=== PATIENT | male | born 1940 | race Caucasian/White ===

== ENCOUNTER 2018-04-19 17:41 | Inpatient (IN) | payer MEDICARE, OTHER ==
[2018-04-19 19:04] LABS: CKMB 1.1 ng/mL (0-6.6); Troponin I 0.034 ng/mL (< 0.028)
[2018-04-19] MEDS ORDERED: Ondansetron HCl/PF 4 MG/2 ML Vial IVP PRN (21:27)
[2018-04-19] MEDS ORDERED: Ondansetron ODT 4 MG TAB SL PRN (21:27)
[2018-04-19] MEDS ORDERED: Acetaminophen 325 MG TAB PO PRN (21:27)
[2018-04-19] MEDS ORDERED: Nitroglycerin 0.4 MG TAB (25 Tab Bottle) ONE (22:20)
[2018-04-19 22:31] LABS: Troponin I 0.083 ng/mL (< 0.028)
[2018-04-20 01:02] LABS: Troponin I 0.278 ng/mL (< 0.028)
[2018-04-20] MEDS: Enoxaparin Sodium 80 MG/0.8 ML SYRINGE SC SCH ×2 (03:06→20:26)
[2018-04-20 05:10] LABS: Cardiac Risk 3.1 (Less than 4.5)
[2018-04-20 05:18] LABS: CKMB 11.5 ng/mL (0-6.6); Troponin I 0.926 ng/mL (< 0.028)
--- NOTE | 2018-04-20 07:23 | HP ---
CHIEF COMPLAINT: Chest pain. HISTORY OF PRESENT ILLNESS: The patient is a very pleasant 77-year-old male with history of hyperten ashli, who presents to the hospital with complaints of chest tightness x2 days. Patient stated that veronica sanches did some heavy work on Sunday. Patient stated that he started having some chest tightness start ing on ; however, did not think very much of it. However, Sunday morning, his chest pressure became more intense around the substernal area radiating to his upper back area. He also had some s hortness of breath with it. He denied any radiation of the pain on his upper extremity or neck area. Patient stated that he has had a stress test in the past; however, never had a cardiac catheterizat ion. Patient denies any chest pain or pressure on ambulation. The patient stated that his chest natasha n occurred yesterday while he was resting. PAST MEDICAL HISTORY: History of hypertension. FAMILY HISTORY: Mother of congestive heart failure. Father of lung cancer. PAST SURGICAL HISTORY: He had a prostatectomy and TURP back in 2004. SOCIAL HISTORY: He drinks socially. He denies any drug use or any smoking history. REVIEW OF SYSTEMS: All negative except for the ones mentioned above in the HPI. MEDICATIONS: The patient takes aspirin 81 mg daily. He is also on nifedipine 60 mg daily, and vitam in C 500 mg p.o. daily. PHYSICAL EXAMINATION: VITAL SIGNS: Temperature 98.0, 79, 15, 95% on room air, blood pressure of 114/68. GENERAL: He is awake, alert, and oriented x3, does not appear in any distress. CARDIOVASCULAR: S1, S2 present. No murmurs, rubs or gallops. ABDOMEN: Soft, nontender. Bowel sounds are present x2. No hepatomegaly or splenomegaly noted. NEUROVASCULAR: No focal deficits noted. SKIN: Intact. LABORATORY DATA: As the following. WBCs of 7.7, hemoglobin of 14.3, hematocrit of 40.4, platelets o f 287. Chemistry: Sodium of 143, potassium 4.3, BUN of 26, creatinine of 1.01. His troponin initia lly was 0.018 and started to trend up to 0.278. IMAGING: EKG, initially patient did not have any significant changes; however, on repeat EKG with trending troponin, he did have some T-wave abnormalities. ASSESSMENT AND PLAN: The patient is a very pleasant 77-year-old male who presents to the hospital wi th chest pain. 1. Chest pain. Given patient's age, risk factors including hypertension and male sex and given his history and trending up troponins with some mild EKG changes, there is concern for possible non-ST el evation myocardial infarction. We will start the patient on Lovenox. Patient received aspirin. We will continue aspirin also, will add statin. We will continue to trend troponins. Also, we will get Cardiology to come see the patient. We will hold off on the stress test for now. 2. Hypertension. We will continue the patient's home medication. 3. Deep venous thrombosis prophylaxis. We will put the patient on subcu heparin.
[2018-04-20] MEDS: Aspirin 325 MG TAB PO SCH (08:25)
[2018-04-20] MEDS: NIFEdipine XL 60 MG TAB PO SCH (08:25)
[2018-04-20] MEDS: Atorvastatin Calcium 20 MG TAB PO SCH (20:26)
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
[2018-04-21] MEDS: NIFEdipine XL 60 MG TAB PO SCH (09:17)
[2018-04-21] MEDS: Enoxaparin Sodium 80 MG/0.8 ML SYRINGE SC SCH (09:17)
[2018-04-21] MEDS: Aspirin 325 MG TAB PO SCH (09:17)
[2018-04-21 11:29] LABS: Hemoglobin 14.7 g/dL (14.0-18.0); Platelet Count 286 thou/uL (130-400)
--- NOTE | 2018-04-21 14:14 | PDOC.PN ---
- Subjective Encounter Start Date: 04/21/18 Encounter Start Time: 14:12 Subjective: few episodes of 2-3/10 chest pain this morning. not a/w any SOB/ nausea - Objective MAR Reviewed: Yes Vital Signs & Weight: Vital Signs (12 hours) Temp Pulse Resp BP Pulse Ox 04/21/18 10:45 97.7 F 86 18 96 04/21/18 10:30 97.7 F 86 18 150/85 H 96 Result Diagrams: 04/21/18 11:06 04/21/18 11:06 Additional Labs: Laboratory Tests 04/19/18 04/19/18 04/20/18 18:32 21:36 00:25 Troponin I 0.034 H 0.083 H 0.278 H 04/20/18 04:42 Troponin I 0.926 H* labs reviewed Phys Exam - Physical Examination Constitutional: NAD HEENT: PERRLA, moist MMs, sclera anicteric, oral pharynx no lesions Neck: no nodes, no JVD, supple, full ROM Respiratory: no wheezing, no rales, no rhonchi, clear to auscultation bilateral Cardiovascular: RRR, no significant murmur, no rub Gastrointestinal: soft, non-tender, no distention, positive bowel sounds Musculoskeletal: no edema, pulses present Neurological: non-focal, normal sensation, moves all 4 limbs Psychiatric: normal affect, A&O x 3 Skin: no rash Dx/Plan (1) Unstable angina Status: Acute (2) NSTEMI (non-ST elevated myocardial infarction) Code(s): I21.4 - NON-ST ELEVATION (NSTEMI) MYOCARDIAL INFARCTION Status: Acute Comment: On ASA,statin and Lovenox BID 1mg/kg (3) HTN (hypertension) Code(s): I10 - ESSENTIAL (PRIMARY) HYPERTENSION Status: Acute - Plan plan discussed w/ family, out of bed/ambulate, DVT proph w/SCDs troponin trended up but remians hemodynamically stable. -: will cont BID lovenox for ACS. -: Cardiac cath tomorrow am. -: will change to Inpt status . -: add BB and low dose shiv-i as well if BP permits * . Review of Systems - Review of Systems Constitutional: negative: fever, chills, sweats, weakness, malaise, other ENT: negative: Ear Pain, Ear Discharge, Nose Pain, Nose Discharge, Nose Congestion, Mouth Pain, Mouth Swelling, Throat Pain, Throat Swelling, Other Respiratory: negative: Cough, Dry, Shortness of Breath, Hemoptysis, SOB with Excertion, Pleuritic Pain, Sputum, Wheezing Cardiovascular: chest pain Gastrointestinal: negative: Nausea, Vomiting, Abdominal Pain, Diarrhea, Constipation, Melena, Hematochezia, Other Genitourinary: negative: Dysuria, Frequency, Incontinence, Hematuria, Retention , Other Musculoskeletal: negative: Neck Pain, Shoulder Pain, Arm Pain, Back Pain, Hand Pain, Leg Pain, Foot Pain, Other Skin: negative: Rash, Lesions, Guillermo, Bruising, Other Neurological: negative: Weakness, Numbness, Incoordination, Change in Speech, Confusion, Seizures, Other - Medications/Allergies Allergies/Adverse Reactions: Allergies Allergy/AdvReac Type Severity Reaction Status Date / Time No Known Allergies Allergy Verified 04/20/18 00:08 Medications: Current Medications Aspirin (Aspirin) 325 mg PO DAILY [facility] Last Admin: 04/21/18 09:17 Dose: 325 mg Atorvastatin Calcium (Lipitor) 20 mg PO HS [facility] Last Admin: 04/20/18 20:26 Dose: 20 mg Enoxaparin Sodium (Lovenox) 80 mg SC 0900,2100 [facility] Last Admin: 04/21/18 09:17 Dose: 80 mg Nifedipine (Procardia Xl) 60 mg PO DAILY [facility] Last Admin: 04/21/18 09:17 Dose: 60 mg Sodium Chloride (Flush - Normal Saline) 10 ml IVF Q12HR [facility] Last Admin: 04/21/18 09:17 Dose: 10 ml Sodium Chloride (Flush - Normal Saline) 10 ml IVF PRN PRN PRN Reason: Saline Flush
[2018-04-21] MEDS ORDERED: Lisinopril 10 MG TAB PO SCH (15:30)
[2018-04-21] MEDS ORDERED: Sodium Chloride 0.9% 1,000 ML IV SCH (15:30)
[2018-04-21] MEDS ORDERED: Communication Order-Pharmacy FS SCH (15:30)
[2018-04-21] MEDS ORDERED: Heparin 10,000 UNITS/ 10 ML VIAL ONE (15:56)
[2018-04-21] MEDS: Carvedilol 6.25 MG TAB PO SCH (16:27)
[2018-04-21] MEDS: Nitroglycerin 2% Ointment 1 INCH/1 GM Packet TOP SCH (20:32)
[2018-04-21] MEDS: Atorvastatin Calcium 20 MG TAB PO SCH (20:32)
[2018-04-22] MEDS: Carvedilol 6.25 MG TAB PO SCH ×2 (05:26→17:50)
[2018-04-22] MEDS: Nitroglycerin 2% Ointment 1 INCH/1 GM Packet TOP SCH (05:27)
[2018-04-22 05:50] LABS: Anion Gap 8 mmol/L (10-20); BUN (Urea Nitrogen) 19 mg/dL (8.4-25.7); Calc. Creatinine Clearance 79 mL/min (70-130); Carbon Dioxide 26 mmol/L (23-31); Chloride 110 mmol/L (98-107); Estimated GFR-MDRD 88; Glucose 89 mg/dL (83-110); Potassium 3.9 mmol/L (3.5-5.1); Sodium 140 mmol/L (136-145)
[2018-04-22] MEDS ORDERED: Sodium Chloride 0.9% 1,000 ML IV SCH ×3 (06:00→08:00)
[2018-04-22] MEDS ORDERED: Lidocaine 1% (PF) 30 ML VIAL ONE (06:32)
[2018-04-22] MEDS ORDERED: Heparin 10,000 UNITS/1 ML VIAL ONE (06:37)
[2018-04-22] MEDS ORDERED: Fentanyl 100 MCG/2 ML VIAL ONE (07:20)
[2018-04-22] MEDS ORDERED: Midazolam HCl 2 mg/2 ml Vial ONE (07:20)
[2018-04-22] MEDS ORDERED: Atropine Sulfate 1 mg/1 ml Vial ONE (07:42)
[2018-04-22] MEDS ORDERED: Heparin 25,000 units/D5W 500 ML ONE (07:46)
[2018-04-22] MEDS ORDERED: traMADol HCl 50 MG TAB PO PRN (07:50)
[2018-04-22] MEDS ORDERED: Nitroglycerin 0.4 MG TAB (25 Tab Bottle) SL PRN (07:50)
[2018-04-22] MEDS ORDERED: Acetaminophen/Codeine 30-300mg Tablet PO PRN ×2 (07:50)
[2018-04-22] MEDS ORDERED: Sodium Chloride 0.9% 200 ML IV SCH (08:00)
[2018-04-22] MEDS ORDERED: Heparin 25,000 units/D5W 500 ML IVPB SCH (08:00)
[2018-04-22] MEDS ORDERED: Heparin 10,000 UNITS/ 10 ML VIAL SLOW IVP SCH (08:00)
[2018-04-22] MEDS ORDERED: Lisinopril 20 MG TAB PO SCH (09:00)
[2018-04-22 09:17] LABS: Hemoglobin 12.9 g/dL (14.0-18.0); Platelet Count 243 thou/uL (130-400)
[2018-04-22] MEDS ORDERED: Communication Order-Pharmacy FS ONE (10:41)
[2018-04-22] MEDS: Aspirin 325 MG TAB PO SCH (10:43)
[2018-04-22] MEDS ORDERED: Potassium Chlo 10 mEq/5 ml Syr ONE (11:13)
[2018-04-22] MEDS ORDERED: Aminocaproic Acid 5 GM/20 ML VIAL ONE ×2 (11:13→14:46)
[2018-04-22] MEDS ORDERED: Heparin 30,000 units/30 ml VIAL ONE ×2 (11:13→14:46)
[2018-04-22] MEDS ORDERED: Mannitol 12.5 GM/50 ML ONE (11:13)
[2018-04-22] MEDS ORDERED: EPINEPHrine 1 MG/ML AMP ONE ×2 (11:13→23:19)
[2018-04-22] MEDS ORDERED: Magnesium 5 GM/10 ML VIAL ONE (11:13)
[2018-04-22] MEDS ORDERED: Calcium Chloride 1 GM/10 ML Abboject SYRINGE ONE ×2 (11:13→22:57)
[2018-04-22] MEDS ORDERED: Protamine Sulfate 250 MG/25 ML VIAL ONE (11:13)
[2018-04-22] MEDS ORDERED: Sodium Bicarb 50 MEQ/50 ML VIAL ONE ×2 (11:13→14:46)
[2018-04-22] MEDS ORDERED: Lidocaine 2% PF 100 mg/5 ml Syringe ONE (11:13)
[2018-04-22] MEDS ORDERED: Nitroglycerin 50 MG/250 ML BOT ONE (11:13)
[2018-04-22] MEDS ORDERED: Heparin 10,000 UNITS/1 ML VIAL 30,000 UNITS in Sodium Chloride 0.9% 1,000 ML IVPB SCH (11:30)
[2018-04-22] MEDS ORDERED: Albumin 5% 500 ML ONE (11:35)
--- NOTE | 2018-04-22 11:46 | RAD ---
CHEST ONE VIEW: History: Pre-operative exam. Open heart surgery. Comparison: 04-19-18 FINDINGS: There is a normal cardiac silhouette. The pulmonary vessels and hilum are normal. Costophrenic angles are clear. Chronic changes throughout the lung parenchyma without consolidation or mass. No pneumoth orax. Old right rib fractures. Stable scoliotic rightward curvature of the thoracic spine. IMPRESSION: No acute cardiopulmonary process. POS: [facility]
[2018-04-22] MEDS ORDERED: Sodium Chloride 0.9% 10 ML ONE (11:59)
[2018-04-22] MEDS ORDERED: CEFAZOLIN/Water 2 GM/20 ML SYRINGE SLOW IVP SCH (12:45)
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
[2018-04-22] MEDS ORDERED: Fentanyl 250 MCG/5 ML VIAL ONE (13:00)
[2018-04-22] MEDS ORDERED: Midazolam HCl 5 mg/5 ml Vial ONE (13:00)
[2018-04-22] MEDS ORDERED: Norepinephrine 8 MG/0.9% NS 250 ML ONE (13:11)
[2018-04-22] MEDS ORDERED: Iopamidol 370 76% 100 ML VIAL ONE (13:29)
[2018-04-22] MEDS ORDERED: Iopamidol 370 76% 50 ML VIAL FS ONE (13:29)
[2018-04-22] MEDS ORDERED: Phenylephrine 1% Nasal Spray 15 ML BOT ONE (14:21)
[2018-04-22] MEDS ORDERED: Phenylephrine 0.25% Nasal Spray 15 ML BOT ONE (14:21)
[2018-04-22] MEDS ORDERED: PHENYLEPHRINE-NS 100 MCG/ML 10 ML SYRINGE ONE ×3 (14:23→19:28)
[2018-04-22] MEDS ORDERED: ePHEDrine/0.9% NaCl/PF SYRINGE 50 mg/10 ml ONE (14:46)
[2018-04-22] MEDS ORDERED: Papaverine 60 MG/2 ML VIAL ONE (14:46)
[2018-04-22] MEDS ORDERED: Vecuronium 10 MG VIAL ONE (14:46)
[2018-04-22] MEDS ORDERED: Heparin 5,000 UNITS/ML VIAL ONE (14:46)
[2018-04-22] MEDS ORDERED: PROPOFOL 200 MG/20 ML VIAL ONE (14:46)
[2018-04-22] MEDS ORDERED: Cardioplegic Soln 1,000 ML BAG ONE (14:46)
--- NOTE | 2018-04-22 15:16 | PDOC.PN ---
- Subjective Encounter Start Date: 04/22/18 Encounter Start Time: 15:11 (late entry) Subjective: seen in CCU post cardiac cath.plans for CABG later today noted -: denies any chest pain/SOB - Objective MAR Reviewed: Yes Vital Signs & Weight: Vital Signs (12 hours) Temp Pulse Resp BP Pulse Ox 04/22/18 12:00 97.5 F L 04/22/18 09:25 97.6 F 52 L 12 96 04/22/18 06:39 97 04/22/18 04:00 98.0 F 78 17 115/61 94 L Most Recent Monitor Data Heart Rate from ECG 54 NIBP 128/79 NIBP BP-Mean 85 Respiration from ECG 19 SpO2 96 I&O: 04/21/18 04/22/18 04/23/18 06:59 06:59 06:59 Intake Total 930 Output Total 350 Balance 930 -350 Result Diagrams: 04/22/18 08:53 04/22/18 04:22 Additional Labs: Accuchecks 04/22/18 04/22/18 14:42 14:05 POC Glucose 121 H 95 labs reviewed Phys Exam - Physical Examination Constitutional: NAD HEENT: PERRLA, moist MMs, sclera anicteric, oral pharynx no lesions Neck: no nodes, no JVD, supple, full ROM Respiratory: no wheezing, no rales, no rhonchi, clear to auscultation bilateral Cardiovascular: RRR, no significant murmur, no rub Gastrointestinal: soft, non-tender, no distention, positive bowel sounds Musculoskeletal: no edema, pulses present Neurological: non-focal, normal sensation, moves all 4 limbs Psychiatric: normal affect, A&O x 3 Skin: no rash Dx/Plan (1) Unstable angina Status: Acute Comment: s/p cardiac cath 04/22/18 (2) NSTEMI (non-ST elevated myocardial infarction) Code(s): I21.4 - NON-ST ELEVATION (NSTEMI) MYOCARDIAL INFARCTION Status: Acute Comment: treated with ASA,statin and Lovenox BID 1mg/kg (3) HTN (hypertension) Code(s): I10 - ESSENTIAL (PRIMARY) HYPERTENSION Status: Acute (4) CAD (coronary artery disease) Code(s): I25.10 - ATHSCL HEART DISEASE OF [place] CORONARY ARTERY W/O ANG PCTRS Status: Chronic Qualifiers: Coronary Disease-Associated Artery/Lesion type: [place] artery Comment: Per cardiac Cath today - Plan PT/OT, respiratory therapy, incentive spirometry, out of bed/ambulate, DVT proph w/SCDs To OR for CABG today.Severe CAD in cath -: hemodynamically stable. -: am labs -: will follow -: meds as below * . Review of Systems - Review of Systems Constitutional: negative: fever, chills, sweats, weakness, malaise, other ENT: negative: Ear Pain, Ear Discharge, Nose Pain, Nose Discharge, Nose Congestion, Mouth Pain, Mouth Swelling, Throat Pain, Throat Swelling, Other Respiratory: negative: Cough, Dry, Shortness of Breath, Hemoptysis, SOB with Excertion, Pleuritic Pain, Sputum, Wheezing Cardiovascular: negative: chest pain, palpitations, orthopnea, paroxysmal nocturnal dyspnea, edema, light headedness, other Gastrointestinal: negative: Nausea, Vomiting, Abdominal Pain, Diarrhea, Constipation, Melena, Hematochezia, Other Genitourinary: negative: Dysuria, Frequency, Incontinence, Hematuria, Retention , Other Musculoskeletal: negative: Neck Pain, Shoulder Pain, Arm Pain, Back Pain, Hand Pain, Leg Pain, Foot Pain, Other Skin: negative: Rash, Lesions, Guillermo, Bruising, Other Neurological: negative: Weakness, Numbness, Incoordination, Change in Speech, Confusion, Seizures, Other - Medications/Allergies Allergies/Adverse Reactions: Allergies Allergy/AdvReac Type Severity Reaction Status Date / Time No Known Allergies Allergy Verified 04/20/18 00:08 Medications: Current Medications Atorvastatin Calcium (Lipitor) 20 mg PO [facility] Carvedilol (Coreg) 6.25 mg PO BID-[facility] Last Admin: 04/22/18 05:26 Dose: 6.25 mg Cefazolin Sodium (Ancef) 2 gm SLOW IVP ONE [facility] Stop: 04/22/18 16:00 Heparin Sodium (Porcine) 30, (000 units/ Sodium Chloride) 1,003 mls @ 0 mls/hr IVPB .Q0M [facility] PRN Reason: As Directed Lisinopril (Zestril) 20 mg PO BID [facility] Last Admin: 04/22/18 10:44 Dose: Not Given Miscellaneous Information (Communication Order-Pharmacy) 0 each FS ONE [facility] Stop: 04/22/18 15:31 Sodium Chloride (Flush - Normal Saline) 10 ml IVF PRN PRN PRN Reason: Saline Flush
[2018-04-22] MEDS ORDERED: Rocuronium Bromide 50 MG/5 ML VIAL ONE (15:26)
[2018-04-22] MEDS ORDERED: Guaifenesin DM 100-10/5 ML UDCUP PO PRN (17:25)
[2018-04-22] MEDS ORDERED: Mag-Al 1200 mg/1200 mg/30 ML UDCUP PO PRN (17:25)
[2018-04-22] MEDS ORDERED: Post-Op Insulin Drip Protocol IVPB ONE (17:25)
[2018-04-22] MEDS ORDERED: Bisacodyl 5 MG TAB PO PRN (17:25)
[2018-04-22] MEDS ORDERED: Fentanyl 100 MCG/2 ML VIAL SLOW IVP PRN ×2 (17:25)
[2018-04-22] MEDS ORDERED: Nitroglycerin 50 MG/250 ML BOT 250 ML IVPB PRN (17:25)
[2018-04-22] MEDS ORDERED: Hetastarch 6% 500 ML 500 ML IVPB PRN (17:25)
[2018-04-22] MEDS ORDERED: HYDROcodone/Acetaminophen 5/325 mg Tablet PO PRN ×2 (17:25)
[2018-04-22] MEDS ORDERED: Promethazine HCl 25 MG/ML VIAL IM PRN (17:25)
[2018-04-22] MEDS ORDERED: Bisacodyl 10 MG SUPP PR PRN (17:25)
[2018-04-22] MEDS ORDERED: Dextrose 50% Abboject 50 ML SYRINGE SLOW IVP PRN (17:29)
[2018-04-22] MEDS ORDERED: Dextrose 5% in Water 1,000 ML IV PRN (17:29)
[2018-04-22] MEDS ORDERED: Sodium Bicarb 50 MEQ/50 ML Abboject 8.4% SYRINGE ONE ×2 (17:31→22:33)
[2018-04-22] MEDS: Sodium Chloride 0.9% 1,000 ML IV SCH ×2 (17:50→21:54)
[2018-04-22] MEDS: Ketorolac Tromethamine 30 MG/ML VIAL IVP SCH (17:50)
[2018-04-22] MEDS ORDERED: Insulin Regular 300 UNITS/3 ML VIAL ONE (18:21)
--- NOTE | 2018-04-22 19:56 | EKG ---
Test Reason : PREOP Blood Pressure : / mmHG Vent. Rate : 053 BPM Atrial Rate : 053 BPM P-R Int : 166 ms QRS Dur : 098 ms QT Int : 532 ms P-R-T Axes : 036 -27 055 degrees QTc Int : 499 ms Sinus bradycardia Marked T wave abnormality, consider anterolateral ischemia Prolonged QT Abnormal ECG When compared with ECG of 20-APR-2018 05:34, (Unconfirmed) T wave inversion more evident in Lateral leads Confirmed by DR. Courtney RAMOS ([id number]) on 04/22/2018 7:55:31 PM Referred By: SHAKILA Confirmed By:DR. Courtney RAMOS
[2018-04-22] MEDS ORDERED: Famotidine/PF 20 mg/2ml Vial SLOW IVP SCH (21:00)
--- NOTE | 2018-04-22 21:27 | RAD ---
CHEST ONE VIEW: HISTORY: Post open heart surgery. COMPARISON: Radiograph from the same day. FINDINGS: The patient is intubated with the endotracheal tube tip above the clavicles. Central venous catheter is in place with the tip in the mid to inferior SVC. Moderate sized layering left effusion. Heart size is enlarged. Multiple median sternotomy wires. Left thoracostomy and mediastinal drains are pr esent. IMPRESSION: Exptected postoperative changes without complications. POS: [facility]
[2018-04-22 21:28] LABS: INR-International Normal Ratio 1.7; PTT 53.5 SEC (22.9-36.1); Prothrombin Time 19.9 SEC (12.0-14.7)
[2018-04-22 21:34] LABS: Potassium 4.1 mmol/L (3.5-5.1)
[2018-04-22 21:44] LABS: Anion Gap 16 mmol/L (10-20); BUN (Urea Nitrogen) 17 mg/dL (8.4-25.7); Calc. Creatinine Clearance 71 mL/min (70-130); Calcium 7.5 mg/dL (7.8-10.44); Carbon Dioxide 21 mmol/L (23-31); Chloride 113 mmol/L (98-107); Estimated GFR-MDRD 77; Glucose 192 mg/dL (83-110); Potassium 4.1 mmol/L (3.5-5.1); Sodium 146 mmol/L (136-145)
[2018-04-22] MEDS: Sodium Bicarb 50 MEQ/50 ML Abboject 8.4% SYRINGE ONE ×4 (21:52→22:35)
[2018-04-22] MEDS: Atorvastatin Calcium 10 MG TAB PO SCH (21:53)
[2018-04-22] MEDS: Norepinephrine 8 MG/0.9% NS 250 ML IVPB PRN (21:54)
[2018-04-22 22:12] LABS: #Eosinphils 0.1 thou/uL (0.0-0.7); #Lymphocytes 2.6 thou/uL (1.20-3.40); #Monocytes 0.2 thou/uL (0.11-0.59); #Neutrophils 7.4 thou/uL (1.40-6.50); %Basophils 0.2 % (0.0-1.0); %Eosinophils 0.6 % (0.0-10.0); %Lymphocytes 25.3 % (21.0-51.0); %Monocytes 1.8 % (0.0-10.0); %Neutrophils 72.1 % (42.0-75.0); Hemoglobin 5.6 g/dL (14.0-18.0); Mean Corpuscular HGB CONC 34.9 g/dL (32.0-36.0); Mean Corpuscular Hemoglobin 33.6 pg (27.0-31.0); Mean Corpuscular Volume 96.4 fL (78.0-98.0); Mean Platelet Volume 6.5 fL (7.4-10.4); Platelet Count 82 thou/uL (130-400); RBC Distribution Width 14.9 % (11.5-14.5); Red Blood Cell (RBC) Count 1.65 mill/uL (4.70-6.10); White Blood Cell (WBC) Count 10.3 thou/uL (4.8-10.8)
[2018-04-22 22:35] LABS: Actual Bicarbonate (HCO3a) 19.3 mEq/L (22-28); Base Excess (BEa) -6.1 mEq/L (-2.0 to +3.0); CO2 Tension 37.6 mmHg (35.0-45.0); Hemoglobin (Hb) 6.5 g/dL (14.0-18.0); O2 Tension (PaO2) 75.9 mmHg (> 70.0); pH, Arterial 7.33 (7.35-7.45)
[2018-04-22 22:36] LABS: Puncture Site LINE
[2018-04-22 22:37] LABS: Base Excess (BEa) -8.3 mEq/L (-2.0 to +3.0); CO2 Tension 40.1 mmHg (35.0-45.0); O2 Tension (PaO2) 68.1 mmHg (> 70.0); pH, Arterial 7.27 (7.35-7.45)
[2018-04-22 22:38] LABS: Calcium, Ionized 1.7 mmol/L (1.12-1.30); Hemoglobin (Hb) 8.4 g/dL (14.0-18.0); Puncture Site LINE
[2018-04-22 22:39] LABS: ALV-art Gradient 235.775 (0-20)
[2018-04-22] MEDS ORDERED: EPINEPHrine 1 MG, Admixture Fee 1 EACH in Dextrose 5% in Water 250 ML IVPB SCH (23:15)
[2018-04-22] MEDS ORDERED: EPINEPHrine 1 MG/10 ML Abboject SYRINGE ONE (23:19)
[2018-04-22 23:40] LABS: Actual Bicarbonate (HCO3a) 17.7 mEq/L (22-28); Base Excess (BEa) -6.9 mEq/L (-2.0 to +3.0); CO2 Tension 31.7 mmHg (35.0-45.0); O2 Tension (PaO2) 69.5 mmHg (> 70.0); pH, Arterial 7.37 (7.35-7.45)
[2018-04-22 23:41] LABS: Hemoglobin (Hb) 6.7 g/dL (14.0-18.0); Puncture Site LINE
[2018-04-22 23:42] LABS: ALV-art Gradient 244.875 (0-20)
[2018-04-23 00:02] LABS: Fibrinogen 152 mg/dL (253-463); INR-International Normal Ratio 1.7; Prothrombin Time 20.2 SEC (12.0-14.7)
[2018-04-23 00:03] LABS: D-Dimer Test 2.92 *mcg/mL (0.27-0.43); PTT 58.2 SEC (22.9-36.1)
[2018-04-23 00:14] LABS: FSP-Qualitative ABNORMAL (Normal); FSP-Semiquantitative >=5 & <20 mcg/mL (Less than 5)
[2018-04-23 00:15] LABS: Platelet Count 138 thou/uL (130-400)
[2018-04-23] MEDS: Norepinephrine 8 MG/0.9% NS 250 ML IVPB PRN ×4 (00:17→14:30)
[2018-04-23] MEDS: Ketorolac Tromethamine 30 MG/ML VIAL IVP SCH ×3 (00:24→12:17)
[2018-04-23 00:50] LABS: Actual Bicarbonate (HCO3a) 16.2 mEq/L (22-28); CO2 Tension 29.4 mmHg (35.0-45.0); pH, Arterial 7.36 (7.35-7.45)
[2018-04-23 00:51] LABS: Base Excess (BEa) -8.3 mEq/L (-2.0 to +3.0); Calcium, Ionized 1.1 mmol/L (1.12-1.30); Hemoglobin (Hb) 8.9 g/dL (14.0-18.0); Puncture Site LINE
[2018-04-23] MEDS ORDERED: EPINEPHrine 2 MG, Admixture Fee 1 EACH in Dextrose 5% in Water 250 ML IVPB SCH (01:00)
[2018-04-23] MEDS ORDERED: Calcium Chloride 1 GM/10 ML Abboject SYRINGE IVP SCH (01:15)
--- NOTE | 2018-04-23 03:03 | OP ---
DATE OF PROCEDURE: 04/22/2018 PROCEDURE PERFORMED: Coronary artery bypass grafting x3 with left internal mammary artery to the LAD and reverse greater saphenous vein graft from the aorta to the PDA to the posterolateral branch of t he RCA, 34 mm tube graft replacement of supracoronary ascending aorta under circulatory arrest and re suspension of aortic valve leaflets. PREOPERATIVE DIAGNOSIS: Coronary artery disease, status post myocardial infarction. POSTOPERATIVE DIAGNOSIS: Coronary artery disease, status post myocardial infarction. SURGEON: Bola Dixon M.D. PHOTONICS TECHNICIAN: Dr. Mcconnell. ANESTHESIA: General endotracheal anesthesia. INDICATIONS: The patient is a 77-year-old man who presented with stuttering pattern of chest pain an d ruled in for myocardial infarction. Cardiac catheterization demonstrated coronary artery disease i ncluding a subtotal LAD lesion just beyond the first septal assistant printer floor covering with slow filling beyond. He is now taken to the operating room for surgical revascularization. COMPLICATIONS: Dissection of the ascending aorta. FINDINGS: Initial pump time 69 minutes and initial cross clamp time 45 minutes. Follow up pump time was a total of 151 minutes with bypass initiated with the time from initiation of bypass to successf ul weaning from bypass 171 minutes. Circulatory arrest time was 20 minutes and cardiac ischemic time was 45 minutes. Good quality KHANH and saphenous vein. The LAD was about 2 mm good quality vessel. The posterolateral branch of the right coronary accessible was 1-1.5 mm, and the PDA was 2 mm. The d istal right coronary was rock hard and it is elected to graft the posterolateral proper rather than t he right coronary to perfuse that distribution. The ascending aorta became distinctly discolored wit h soft ballottable texture to it with profuse needle hole bleeding developing shortly after weaning f rom bypass. Transesophageal echocardiography corroborated the clinical suspicion of dissection, but upon opening the aorta, there was an extensive subadventitial dissection extending down below the cor onaries and beyond the innominate artery, but there is no apparent intimal flap seen. NARRATIVE REPORT: After informed consent was obtained, the patient taken to the operating room and p laced in supine position on the operating table. After induction of general anesthesia, the patient was placed in Trendelenburg and his left upper chest was prepped and draped in sterile fashion. A tr iple-lumen central line kit was used to place a left subclavian line with the Seldinger technique. A ll three ports easily aspirated and flushed. The line was secured and the patient's torso, groins an d lower extremities were then prepped and draped in sterile fashion. Saphenous vein was harvested fr om the left thigh endoscopically and prepared for use as a graft and the port site was closed in laye rs of subcutaneous and subcuticular Vicryl. Median sternotomy was performed. The left pleural space was entered and the left KHANH was mobilized as a pedicle from the level of the xiphoid to the level o f the subclavian vein. Side branches controlled small Hemoclips. The patient was heparinized. The mammary was ligated and divided distally. There is good flow through the mammary which was then inst illed intraluminally with papaverine solution. The mammary bed was inspected for hemostasis. The IM A retractor was placed with a Sargent retractor. The pericardium was opened and marsupialized. The ao rta was palpated and was soft. The plane between the aorta and the pulmonary artery was developed af ter placing a double concentric pursestring of 2-0 Ethibond at the pericardial reflection and single pursestring the right atrial appendage. Aortic and venous cannula were inserted and secured by the p ursestrings. Cardiopulmonary bypass was instituted and the patient was systemically cooled. The hea rt was examined. The vessel to be bypassed, were identified. A longitudinal slit was made in the pe ricardium anterior to the left phrenic nerve through which the mammary pedicle could be passed and ao rtic cross clamp was applied and cardioplegia was administered through the an aortic root needle with out difficulty. When arrest had been achieved, attention was turned to the posterolateral branch of the right coronary, where it emerged from the fat pad at the AV groove. The vessel was opened with a [place] blade and [place] scissors and reverse greater saphenous vein was anastomosed to it in end-t o-side with running Prolene and the anastomosis was tested by flushing cold cardioplegic down the gra ft. The PDA was then opened and the [id number] anastomosis was constructed from that vein graft to the PDA and the anastomosis likewise tested. The LAD was open and the mammary was anastomosed with running 7-0 Prolene and tacked to the epicardium. The aortic crossclamp was placed with partial occl uding clamp and an aortotomy was made in the ascending aorta with a scalpel and punch incorporating t he root needle site. The sequential vein graft was trimmed to length and spatulated and anastomosed their end-to-side with running Prolene suture. The partial occluding clamp was removed and the vein graft was deaired. The bulldog was removed from it. The anastomoses were inspected for hemostasis. Posterior pericardial and left pleural drains were brought through separate incisions and secured wi th suture. Right atrial and right ventricular temporary epicardial pacing wires were placed. The pa tient was then easily from cardiopulmonary bypass as preparations were made to decannulate, the aorta was noted to be discolored and there to be extensive needle hole bleeding coming from the proximal anastomosis. During a brief period of observation, the discoloration seemed to progress and the texture of the aorta seemed abnormal, seem larger than it had preoperatively and there were area s that were soft and ballottable. While director trade was summoned to the room to help with examinati on of the aorta by transesophageal echocardiography, an oblique incision was made about a fingerbread th below and parallel to the left groin crease and the femoral artery was exposed. It was a large ve ssel, but there was no discoloration and upon opening it transversely between vascular clamps. There was only one lumen noted. A 24-[place] femoral arterial cannula was inserted and secured by an umbil ical tape and Rumel. Echocardiography demonstrated what appeared to represent a dissection flap. Ca rdiopulmonary bypass was reinstituted and cooling begun. When the temperature reached when the patie nt was cooling, pursestring was placed in the right superior pulmonary vein and once the patient bega n to fibrillate, a sump vent was placed. Pursestring was placed in the right atrial free wall throug h which a retrograde cardioplegic cannula was placed. When the patient reached 18 degrees centigrade , he was placed in Trendelenburg, antegrade flows in the bypass pump were terminated and cardioplegia was administered through the retrograde catheter while the patient was partially exsanguinated. The aortic cannula was removed and that insertion site examined and the incision extended up on initial examination. Dissection planes were quite readily evident but once the true lumen had been entered a nd no intimal defect could really be appreciated either proximally or distally. Because of the exten t of the subadventitial dissection almost completely circumferentially end of the extensive bleeding that had occurred at the proximal anastomosis, it was elected to go ahead and replace the ascending a jessica. A 34 mm Dacron tube graft was anastomosed to the distal stump of the aorta at the base of the arch with running Prolene suture under circulatory arrest, forward flows were slowly reinstituted and allowing the deairing and then a clamp was applied onto the clamp, the graft was trimmed to length a nd full flows were instituted. A pledgeted 2-0 Ethibond valve sutures were used in a through and thr ough transaortic mattress fashion to secure the posts of the aortic valve at each commissure and then the proximal anastomosis of the graft was constructed with running Prolene. An eye cautery was used to cut out a generous ellipse of graft to which the vein graft proximal in the form of a pleural pat ch with [place] aorta was reattached. When that had been completed, the patient was allowed to fill, the vent was removed from the pulmonary vein. De-airing maneuver was performed and the pursestring s ecured under Valsalva maneuver. Root needle was placed into the graft and placed on suction. A larg e bore angio catheter was placed into the LV apex and with the patient in Trendelenburg. Crossclamp was removed. A deairing through the LV apex was completed and the angiocatheter removed in its inser tion site oversewn with fine Prolene. The suture lines were inspected for hemostasis and a pledgeted mattress sutures were used to control bleeding at 2 points along the posterior suture line of the pr oximal anastomosis. The retrograde catheter was removed and its pursestring secured. When the patie nt began to eject during rewarming, the root needle site was removed in its insertion site closed wit h pledgeted mattress Prolene suture. When the patient was then adequately rewarmed, the venous cannu la was removed and its pursestring secured. The femoral arterial cannula was removed and control ree stablish with vascular clamps and the arteriotomy repair with running Prolene. Protamine was adminis tered along with platelets and plasma. When hemostasis was adequate, pericardial drains were placed and the pericardium was easily closed over it with running Vicryl. The sternum was reapproximated wi th #7 stainless steel wires and a combination of simple and [id number]. The fascia was closed o lavinia the wires 0 Vicryl and subcutaneous tissue was irrigated and reapproximated and the skin was clos ed with Vicryl subcuticular stitch. The groin wound was closed in layers of subcutaneous and subcuti cular Vicryl. The wounds were dressed and the patient was taken to the intensive care unit in stable condition.
[2018-04-23 04:34] LABS: #Lymphocytes 1.3 thou/uL (1.20-3.40); #Monocytes 1.2 thou/uL (0.11-0.59); #Neutrophils 6.8 thou/uL (1.40-6.50); %Basophils 0.1 % (0.0-1.0); %Eosinophils 0.4 % (0.0-10.0); %Lymphocytes 14.1 % (21.0-51.0); %Monocytes 12.5 % (0.0-10.0); Hemoglobin 6.8 g/dL (14.0-18.0); Mean Corpuscular HGB CONC 35.1 g/dL (32.0-36.0); Mean Corpuscular Hemoglobin 32.3 pg (27.0-31.0); Mean Corpuscular Volume 91.8 fL (78.0-98.0); Mean Platelet Volume 7.9 fL (7.4-10.4); Platelet Count 110 thou/uL (130-400); RBC Distribution Width 13.7 % (11.5-14.5); White Blood Cell (WBC) Count 9.3 thou/uL (4.8-10.8)
[2018-04-23 04:48] LABS: Anion Gap 29 mmol/L (10-20); BUN (Urea Nitrogen) 20 mg/dL (8.4-25.7); Calc. Creatinine Clearance 42 mL/min (70-130); Carbon Dioxide 17 mmol/L (23-31); Chloride 111 mmol/L (98-107); Estimated GFR-MDRD 42; Glucose 133 mg/dL (83-110); Potassium 3.7 mmol/L (3.5-5.1); Sodium 153 mmol/L (136-145)
[2018-04-23 06:36] LABS: Actual Bicarbonate (HCO3a) 14.7 mEq/L (22-28); Base Excess (BEa) -9.3 mEq/L (-2.0 to +3.0); CO2 Tension 24.5 mmHg (35.0-45.0); Hemoglobin (Hb) 6.1 g/dL (14.0-18.0); O2 Tension (PaO2) 74.9 mmHg (> 70.0)
[2018-04-23 06:37] LABS: Calcium, Ionized 1.1 mmol/L (1.12-1.30); Puncture Site ALINE
[2018-04-23 06:39] LABS: ALV-art Gradient 179.675 (0-20)
[2018-04-23] MEDS: Aspirin 325 MG TAB PO SCH (07:42)
[2018-04-23] MEDS: Potassium Chloride 20 MEQ/100 ML PREMIX BAG IVPB PRN (07:47)
--- NOTE | 2018-04-23 09:37 | RAD ---
CHEST ONE VIEW: History: Heart surgery. Follow up. Comparison: 04-22-18 FINDINGS: Cardiac silhouette remains magnified and partially obscured by post-operative atelectasis at the left base. Mediastinum is midline with widening of the upper mediastinum, similar in appearance to the pr ior study. Pulmonary vasculature remains engorged, slightly less dense than on the previous study due to differences in technique. Lines and tubes appear unchanged in position. media monitor leads overlie the chest. IMPRESSION: Stable post-operative appearance of the chest. POS: [facility]
[2018-04-23] MEDS: Famotidine/PF 20 mg/2ml Vial SLOW IVP SCH (09:48)
[2018-04-23] MEDS: Dextrose 5 %-0.45 % NaCl 1,000 ML IV SCH (09:50)
--- NOTE | 2018-04-23 10:02 | CON ---
DATE OF CONSULTATION: 04/23/2018 This is a 45 minutes critical care time. CONSULTING PHYSICIAN: Dr. Bola Dixon. REASON FOR CONSULTATION: ICU management. HISTORY OF PRESENT ILLNESS: The patient is a 77-year-old male, who is known to me from previous admi ssions. He came to the hospital on 04/19/2018 with chest pain, underwent workup and was found to hav e multivessel disease. Yesterday, he underwent coronary artery bypass grafting surgery. This was co mplicated by dissection of the ascending aorta that required repair. He was left on mechanical venti lation afterwards received multiple transfusions during the night. PAST MEDICAL HISTORY: 1. Coronary artery disease. 2. Hypertension. 3. Previous right-sided rib fractures. 4. Femur fracture. PAST SURGICAL HISTORY: 1. Transurethral resection of prostate. 2. Prostatectomy. SOCIAL HISTORY: Never a smoker. MEDICATIONS PRIOR TO ADMISSION: Aspirin, nifedipine, Lipitor, Coreg, lisinopril, and aspirin. ALLERGIES: None. FAMILY MEDICAL HISTORY: Remarkable for lung cancer and congestive heart failure. REVIEW OF SYSTEMS: Cannot be obtained, because the patient is currently on mechanical ventilation. PHYSICAL EXAMINATION: VITAL SIGNS: Temperature 97.7, pulse 94, blood pressure 126/54, and O2 sat 93%. CVP running 20. GENERAL: He is intubated, sedated on mechanical ventilation. He is currently on a norepinephrine dr ip for blood pressure. HEENT: Pupils react. Sclerae icteric. Oropharynx clear. NECK: No JVD. LUNGS: Coarse breath sounds. CARDIOVASCULAR: S1 and S2, regular. ABDOMEN: Soft, nontender. EXTREMITIES: No clubbing, cyanosis, or edema. NEUROLOGIC: Grossly intact throughout. LABORATORY DATA: White blood cell count 9.3, hemoglobin 6.8, hematocrit 19.2, platelet count 110. I NR 1.7. Sodium 153, potassium 3.7, chloride 111, CO2 of 17, BUN 20, creatinine 1.6, glucose 133. His chest x-ray demonstrates cardiomegaly mediastinal widening, endotracheal tube in good position. ABG: pH 7.40, pCO2 of 24, pO2 of 75 on SIMV rate 16, tidal volume 700, PEEP 5, pressure support 10, and FiO2 of 40%. ASSESSMENT: 1. Postop respiratory failure - expected need for postop ventilation after surgery. 2. Aortic dissection, requiring repair. 3. Massive blood loss. 4. Coronary artery disease. 5. Elevated blood sugar. PLAN: 1. I have adjusted the patient's ventilater to lower tidal volumes, lower his peak pressures, so ted t we can avoid alveolar injury. 2. Need to follow serial blood counts make sure he does not need more transfusion. 3. Check PT and INR.
[2018-04-23 12:21] LABS: INR-International Normal Ratio 1.7; Prothrombin Time 20.4 SEC (12.0-14.7)
[2018-04-23 12:25] LABS: Mean Corpuscular HGB CONC 35.4 g/dL (32.0-36.0); Mean Corpuscular Hemoglobin 31.7 pg (27.0-31.0); Mean Corpuscular Volume 89.4 fL (78.0-98.0); Mean Platelet Volume 8.1 fL (7.4-10.4); Platelet Count 181 thou/uL (130-400); RBC Distribution Width 13.6 % (11.5-14.5); Red Blood Cell (RBC) Count 2.52 mill/uL (4.70-6.10)
[2018-04-23 13:14] LABS: MDiff Complete? YES
[2018-04-23 13:15] LABS: Anisocytosis SLIGHT = 6-15 cells (100X) (0-5/hpf); Band 10 % (5-11); Hypochromia SLIGHT = 6-15 cells (100X) (0-5/hpf); Large Platelets SLIGHT; Lymphocytes 11 % (21-51); Monocytes 10 % (0-10); Neutrophil 67 % (42-75); PLT Morphology Comment Appears Adequate; Polychromasia SLIGHT = 2-3 cells (100X) (0-2/hpf); Reactive Lymphocytes 2 % (0-10)
--- NOTE | 2018-04-23 14:28 | PDOC.PN ---
- Subjective Encounter Start Date: 04/23/18 Encounter Start Time: 14:26 Subjective: intubated post CABG.Events noted -: aortic dissection and subsequent profuse bleeding in the drians -: s/p multiple transfusion of PRBC,Crypppt,Platelets & FFP - Objective MAR Reviewed: Yes Vital Signs & Weight: Vital Signs (12 hours) Temp Pulse Pulse Resp BP BP Pulse Ox 04/23/18 14:00 21 H 04/23/18 12:00 27 H 04/23/18 10:41 95 124/47 L 04/23/18 10:00 21 H 04/23/18 09:15 100.0 F H 96 21 H 138/53 L 93 L 04/23/18 08:00 100.0 F H 95 21 H 93 L 04/23/18 06:43 99 124/52 L 04/23/18 05:57 16 04/23/18 04:00 16 Weight Admit Weight 176 lb 5.917 oz Weight 183 lb 10.321 oz Most Recent Monitor Data Heart Rate from ECG 82 NIBP 125/48 NIBP BP-Mean 78 Respiration from ECG 16 SpO2 95 I&O: 04/22/18 04/23/18 04/24/18 06:59 06:59 06:59 Intake Total 930 6683 1050 Output Total 6345 1342 Balance 930 338 -292 Result Diagrams: 04/23/18 12:02 04/23/18 04:12 Additional Labs: Accuchecks 04/23/18 04/23/18 04/22/18 12:08 08:03 19:23 POC Glucose 121 H 98 194 H 04/22/18 04/22/18 04/22/18 18:44 18:20 17:45 POC Glucose 248 H 254 H 282 H 04/22/18 04/22/18 04/22/18 17:02 16:13 15:34 POC Glucose 254 H 198 H 174 H 04/22/18 14:42 POC Glucose 121 H labs reviewed Phys Exam - Physical Examination intubated Respiratory: no wheezing Cardiovascular: RRR Gastrointestinal: soft Musculoskeletal: no edema, pulses present Dx/Plan (1) Hypovolemic shock Code(s): R57.1 - HYPOVOLEMIC SHOCK Status: Acute (2) Acute blood loss anemia Code(s): D62 - ACUTE POSTHEMORRHAGIC ANEMIA Status: Acute Comment: s/p 10 units PRBC,12 units FFP,5 units platelets and multiple units of Cryoprecipitate.Suspect Coagulopathy (3) Hypernatremia Code(s): E87.0 - HYPEROSMOLALITY AND HYPERNATREMIA Status: Acute (4) CORTEZ (acute kidney injury) Code(s): N17.9 - ACUTE KIDNEY FAILURE, UNSPECIFIED Status: Acute (5) Coagulopathy Status: Acute (6) Aortic dissection following procedure Code(s): T81.718A - COMPLICATION OF ARTERY FOLLOWING A PROCEDURE, NEC, INIT; I71.00 - DISSECTION OF UNSPECIFIED SITE OF AORTA Status: Acute Comment: s/p repair (7) Unstable angina Status: Acute Comment: s/p cardiac cath 04/22/18.CABG X 3 on 04/22/18 (8) NSTEMI (non-ST elevated myocardial infarction) Code(s): I21.4 - NON-ST ELEVATION (NSTEMI) MYOCARDIAL INFARCTION Status: Acute Comment: treated with ASA,statin and Lovenox BID 1mg/kg (9) HTN (hypertension) Code(s): I10 - ESSENTIAL (PRIMARY) HYPERTENSION Status: Acute (10) CAD (coronary artery disease) Code(s): I25.10 - ATHSCL HEART DISEASE OF [place] CORONARY ARTERY W/O ANG PCTRS Status: Chronic Qualifiers: Coronary Disease-Associated Artery/Lesion type: [place] artery Comment: Per cardiac Cath today (11) S/P CABG (coronary artery bypass graft) Code(s): Z95.1 - PRESENCE OF AORTOCORONARY BYPASS GRAFT Status: Acute - Plan DVT proph w/SCDs Vent support -: close monitoring of H/H.transfuse as neccessary -: change IVF to D5 1/2 NS as sodium high.cont to monitor renal Fx -: low grade fever. monitor.luciana post-op atelectasis -: weaning off levophed.CCU monitoring. * . Review of Systems - Review of Systems Other: can not be obtained due to intubation. - Medications/Allergies Allergies/Adverse Reactions: Allergies Allergy/AdvReac Type Severity Reaction Status Date / Time No Known Allergies Allergy Verified 04/20/18 00:08 Medications: Current Medications Acetaminophen (Tylenol) 650 mg PO Q6H PRN PRN Reason: Headache/Fever Or Mild Pain Hydrocodone Bitart/Acetaminophen ([place] 5/325) 1 tab PO Q4H PRN PRN Reason: Moderate Pain (4-6) Hydrocodone Bitart/Acetaminophen ([place] 5/325) 2 tab PO Q4H PRN PRN Reason: Severe Pain (7-10) Al Hydroxide/Mg Hydroxide (Maalox) 30 ml PO Q4H PRN PRN Reason: Indigestion Albumin Human (Albumin 5%) 12.5 gm IVPB Q6H PRN PRN Reason: To Maintain SBP> 90 mmHG Stop: 04/23/18 17:26 Last Admin: 04/22/18 21:30 Dose: 12.5 gm Albumin Human (Albumin 5%) 25 gm IVPB Q6H PRN PRN Reason: To Maintain SBP > 90 mmHG Stop: 04/23/18 17:26 Albuterol/Ipratropium (Duoneb) 3 ml NEB [id number] PRN PRN Reason: SHORTNESS OF BREATH Aspirin (Aspirin) 325 mg PO DAILY [facility] Last Admin: 04/23/18 07:42 Dose: Not Given Atorvastatin Calcium (Lipitor) 20 mg PO HS [facility] Last Admin: 04/22/18 21:53 Dose: Not Given Bisacodyl (Dulcolax) 10 mg PO Q12H PRN PRN Reason: Constipation Bisacodyl (Dulcolax) 10 mg SD Q12H PRN PRN Reason: Constipation Dextrose/Water (Dextrose 50%) 25 gm SLOW IVP PRN PRN PRN Reason: PER HYPOGLYCEMIC PROTOCOL Famotidine (Pepcid) 20 mg SLOW IVP 0900 [facility] Last Admin: 04/23/18 09:48 Dose: 20 mg Fentanyl (Sublimaze) 25 mcg SLOW IVP Q2H PRN PRN Reason: Moderate Pain (4-6) Stop: 04/24/18 12:42 Fentanyl (Sublimaze) 50 mcg SLOW IVP Q2H PRN PRN Reason: Severe Pain (7-10) Stop: 04/24/18 12:42 Glucagon (Glucagon) 1 mg SC PRN PRN PRN Reason: PER HYPOGLYCEMIC PROTOCOL Guaifenesin/Dextromethorphan (Robitussin Dm) 15 ml PO Q4H PRN PRN Reason: Cough Hydralazine HCl (Apresoline) 10 mg SLOW IVP Q6H PRN PRN Reason: To Maintain SBP< 140mmHG Norepinephrine Bitartrate (Levophed) 250 mls @ 0 mls/hr IVPB PRN PRN; Protocol ; Titrate PRN Reason: To maintain SBP > 90 mmHG Last Admin: 04/23/18 08:10 Dose: 250 mls Nicardipine HCl 25 mg/ Sodium (Chloride) 260 mls @ 0 mls/hr IVPB INF PRN; Protocol; Titrate PRN Reason: To Maintain SBP< 140mmHG Nitroglycerin/Dextrose (Nitroglycerin 50 Mg/250 Ml Bot) 250 mls @ 0 mls/hr IVPB PRN PRN; Protocol; Titrate PRN Reason: To Maintain SBP< 140mmHG Insulin Human Regular 100 (units/ Sodium Chloride) 101 mls @ 0 mls/hr IVPB INF ARLYN; As Directed PRN Reason: Protocol Last Admin: 04/22/18 21:54 Dose: 101 mls Dextrose/Water (D5w) 1,000 mls @ 0 mls/hr IV INF PRN; As Directed PRN Reason: PRN HYPOGLYCEMIC PROTOCOL Epinephrine 2 mg/Miscellaneous Medication 1 each/ Dextrose/Water 252 mls @ 0 mls/hr IVPB INF ARLYN; Titrate PRN Reason: Protocol Last Admin: 04/23/18 01:11 Dose: 252 mls Dextrose/Sodium Chloride (D5 1/2 Ns) 1,000 mls @ 75 mls/hr IV .[id number] ARLYN Last Admin: 04/23/18 09:50 Dose: 1,000 mls Insulin Glargine (Lantus) 0 units SC ONE PRN PRN Reason: PER OPEN HEART ORDERS Stop: 04/23/18 17:30 Insulin Human Regular (Humulin R) 0 units SC Q4H PRN; Protocol PRN Reason: POST OP SLIDING SCALE Morphine Sulfate (Morphine) 2 mg SLOW IVP Q15MIN PRN PRN Reason: Severe Pain (7-10) Ondansetron HCl (Zofran) 4 mg IVP Q6H PRN PRN Reason: Nausea/Vomiting Potassium Chloride (Kcl) 20 meq IVPB PRN PRN PRN Reason: K level </= 4.0 Last Admin: 04/23/18 07:47 Dose: 20 meq Promethazine HCl (Phenergan) 6.25 mg IM Q4H PRN PRN Reason: Nausea/Vomiting Sodium Chloride (Flush - Normal Saline) 10 ml IVF PRN PRN PRN Reason: Saline Flush
[2018-04-23] MEDS: Insulin Regular 300 UNITS/3 ML VIAL SC PRN ×2 (16:57→20:59)
--- NOTE | 2018-04-23 17:12 | EKG ---
Test Reason : STAT Blood Pressure : / mmHG Vent. Rate : 103 BPM Atrial Rate : 103 BPM P-R Int : 150 ms QRS Dur : 084 ms QT Int : 360 ms P-R-T Axes : 056 021 086 degrees QTc Int : 471 ms Sinus tachycardia Low voltage QRS ST elevation consider inferior injury or acute infarct * ACUTE MA * Consider right ventricular involvement in acute inferior infarct Abnormal ECG No previous ECGs available Confirmed by DR. Courtney RAMOS ([id number]) on 04/23/2018 5:12:00 PM Referred By: DANUTA Confirmed By:DR. Courtney RAMOS
[2018-04-23] MEDS ORDERED: Furosemide 40 MG/4 ML VIAL SLOW IVP SCH ×2 (17:15→20:45)
[2018-04-23 20:01] LABS: Hemoglobin 8.5 g/dL (14.0-18.0); Mean Corpuscular HGB CONC 36.3 g/dL (32.0-36.0); Mean Corpuscular Hemoglobin 31.8 pg (27.0-31.0); Mean Corpuscular Volume 87.5 fL (78.0-98.0); Mean Platelet Volume 8.4 fL (7.4-10.4); Platelet Count 125 thou/uL (130-400); RBC Distribution Width 14.1 % (11.5-14.5); Red Blood Cell (RBC) Count 2.66 mill/uL (4.70-6.10); White Blood Cell (WBC) Count 10.6 thou/uL (4.8-10.8)
[2018-04-23 20:09] LABS: INR-International Normal Ratio 1.9; PTT 40.8 SEC (22.9-36.1); Prothrombin Time 22.2 SEC (12.0-14.7)
[2018-04-23 20:16] LABS: Band 22 % (5-11); Lymphocytes 3 % (21-51); MDiff Complete? YES; Monocytes 3 % (0-10); Neutrophil 72 % (42-75); PLT Morphology Comment Appears Decreased; Polychromasia SLIGHT = 2-3 cells (100X) (0-2/hpf)
[2018-04-23] MEDS: Atorvastatin Calcium 10 MG TAB PO SCH (20:24)
[2018-04-23] MEDS ORDERED: Propofol 1,000 MG/100 ML VIAL IV ONE (23:32)
[2018-04-23] MEDS ORDERED: Propofol BOLUS 1,000 MG/100 ML VIAL IV PRN (23:38)
[2018-04-23] MEDS ORDERED: Fentanyl BOLUS 250 ML IVPB PRN (23:38)
[2018-04-23] MEDS ORDERED: DISCONTINUE PREVIOUS NARCOTIC PAIN MEDICATIONS AND BENZODIAZEPINES FS SCH (23:38)
[2018-04-23] MEDS ORDERED: Lorazepam 2 MG/ML VIAL SLOW IVP PRN (23:38)
[2018-04-24] MEDS: Insulin Regular 300 UNITS/3 ML VIAL SC PRN ×6 (01:28→20:25)
[2018-04-24 05:03] LABS: Band 35 % (5-11); Hemoglobin 10.3 g/dL (14.0-18.0); Lymphocytes 16 % (21-51); MDiff Complete? YES; Mean Corpuscular HGB CONC 35.6 g/dL (32.0-36.0); Mean Corpuscular Hemoglobin 31.9 pg (27.0-31.0); Mean Corpuscular Volume 89.6 fL (78.0-98.0); Mean Platelet Volume 8.9 fL (7.4-10.4); Metamyelocyte 1 % (0-0); Monocytes 3 % (0-10); Neutrophil 45 % (42-75); PLT Morphology Comment Appears Decreased; Platelet Count 104 thou/uL (130-400); RBC Distribution Width 13.8 % (11.5-14.5); Red Blood Cell (RBC) Count 3.21 mill/uL (4.70-6.10); White Blood Cell (WBC) Count 10.9 thou/uL (4.8-10.8)
[2018-04-24 05:12] LABS: Anion Gap 17 mmol/L (10-20); BUN (Urea Nitrogen) 47 mg/dL (8.4-25.7); Calc. Creatinine Clearance 23 mL/min (70-130); Calcium 8.6 mg/dL (7.8-10.44); Carbon Dioxide 26 mmol/L (23-31); Chloride 111 mmol/L (98-107); Estimated GFR-MDRD 19; Glucose 114 mg/dL (83-110); Potassium 4.4 mmol/L (3.5-5.1); Sodium 150 mmol/L (136-145)
[2018-04-24] MEDS: Dextrose 5 %-0.45 % NaCl 1,000 ML IV SCH (06:37)
[2018-04-24 07:11] LABS: Actual Bicarbonate (HCO3a) 23.1 mEq/L (22-28); Base Excess (BEa) -0.1 mEq/L (-2.0 to +3.0); CO2 Tension 32.5 mmHg (35.0-45.0); Hemoglobin (Hb) 10.3 g/dL (14.0-18.0); O2 Tension (PaO2) 80.7 mmHg (> 70.0); pH, Arterial 7.47 (7.35-7.45)
[2018-04-24 07:12] LABS: ALV-art Gradient 235.175 (0-20); Calcium, Ionized 1.1 mmol/L (1.12-1.30); Puncture Site ALINE
--- NOTE | 2018-04-24 09:16 | RAD ---
PORTABLE CHEST 1 VIEW: Date: 04/24/18 Time: 0435 hours HISTORY: Postop open heart surgery. FINDINGS/IMPRESSION: Allowing for differences in technique, no significant interval change is seen since the previous day' s exam. POS: [facility]
--- NOTE | 2018-04-24 09:21 | CT ---
CT BRAIN WITHOUT CONTRAST: Date: 04/24/18 HISTORY: Altered mental status. FINDINGS: Comparison made with exam of 01/04/12. An old infarction is seen in the right frontal lobe. No evidence of acute infarct, hemorrhage, midlin e shift, or abnormal extra-axial fluid collections are seen. The ventricular size is appropriate and the basilar cisterns are patent. The bony calvarium is intact. There is mucosal disease in the parana [place] sinuses. A small old lacunar infarction is seen in the left cerebellar hemisphere. IMPRESSION: No CT evidence of acute intracranial process. POS: [facility]
[2018-04-24] MEDS: Furosemide 100 MG in Sodium Chloride 0.9% 90 ML IVPB SCH ×2 (10:21→16:56)
[2018-04-24] MEDS: manNITOL 20% 500 ML IVPB SCH (10:27)
--- NOTE | 2018-04-24 11:20 | OP ---
DATE OF PROCEDURE: 04/24/2018. PROCEDURE PERFORMED: A 20 gauge left radial arterial line placement. PREOPERATIVE DIAGNOSES: Depressed mental status and ventilator dependence, status post coronary haider ry bypass grafting and replacement of ascending aorta under circulatory arrest. POSTOPERATIVE DIAGNOSES: Depressed mental status and ventilator dependence, status post coronary art tra bypass grafting and replacement of ascending aorta under circulatory arrest. SURGEON: MD Destiny. ANESTHESIA: None. INDICATIONS: The patient is a 77-year-old man who is taken to the operating room for coronary revasc ularization, which was complicated by an aortic dissection requiring replacement of his ascending aor ta. He has had a compromised mental status and has remained ventilator dependent, in the perioperati ve period. A radial arterial line is now being placed to maintain arterial access while allowing for removal of his femoral arterial sheath. FINDINGS: Good blood return, good waveform. NARRATIVE REPORT: The patient's left wrist was prepped and draped in a sterile fashion. A 22-gauge needle was used to alvarez the skin over the palpable radial pulse and through that punctate opening, a 20 gauge arrow radial arterial line catheter kit was used to access the left radial artery. Good b lood return was obtained. The guidewire was advanced and then the catheter advanced over that wire. There was excellent return from the catheter upon removal of the wire, which was controlled by direc t pressure. It was connected to the pressure tubing circuit and easily aspirated and flushed and sec ured with suture and dressed.
--- NOTE | 2018-04-24 11:41 | PRG ---
DATE OF SERVICE: 04/24/2018 SERVICE: Pulmonary Medicine. INTERVAL HISTORY: Patient is doing poor is doing fine from a respiratory standpoint. He has prolonged expiratory phase on mechanical ventilation. He is on sedation. With a holiday, he will move his right upper and lower extremity. He has got gross motor movement which is intentional with the left upper extremity. That being said, he is not moving the left arm or leg to command. Otherwise, there has been no significant interval change to his condition. The sheath was removed. A peripheral outline was placed. He is completely anuric since operation. He has had multiple doses of Lasix and has not responded to these things. Net ins and outs are significantly positive. Otherwise, there has been no interval change to his condition. PHYSICAL EXAMINATION: VITAL SIGNS: Afebrile with T-max of 100.0, pulse 67, blood pressure 122/51, respirations 12, saturation 93% on 40% FiO2 and PEEP of 8. HEENT: Normocephalic, atraumatic. Sclerae are white, conjunctivae pink. Oral mucosa is moist without lesions. LUNGS: Decent air entry. There is a prolonged expiratory phase. Dependent crackles are present. HEART: Normal rate and regular. ABDOMEN: Soft. Nontender and nondistended. Bowel sounds are positive. MUSCULOSKELETAL: No cyanosis or clubbing. There is diffuse 1+ pitting throughout. GENITOURINARY: Garcia catheter in place. NEUROLOGIC: He is not moving left upper or lower extremities. That being said , he is following some simple commands and spontaneously moves right upper and lower extremity. Pupils are equal, round, and reactive. Brain stem reflexes are all intact. LABORATORY DATA: Hemoglobin 10.3 and roughly stable. WBC 10.6, platelets 104, 000 and gently down trending. Band count is increasing to 35%. Neutrophil count is 43%. INR 1.9. PH 7.47, pCO2 32, and pO2 81. Creatinine 3.21 and up trending. BUN 47, chloride 111, sodium 150. IMAGING DATA: 1. CT of the brain demonstrates no acute intracranial abnormality. 2. Chest x-ray demonstrates endotracheal tube which is roughly 4 cm above the evens. Sternotomy wires are in place. There is a mediastinal drain and a left -sided thoracostomy tube in decent position. Enteric catheter courses below the level of the diaphragm. There is a left-sided pleural parenchymal abnormality. The right lung appears to be clear. Left subclavian central venous catheter is also noted to be in good position. ASSESSMENT: 1. Acute hypoxic respiratory failure. 2. Aortic dissection, requiring emergent repair. 3. Coronary artery disease, status post coronary artery bypass graft x3 vessels. 4. Acute kidney injury. 5. Acute blood loss anemia. 6. Hemorrhagic shock, resolved. DISCUSSION AND PLAN: All the blood loss appears to be changing to serosanguineous fluid. We will schedule nebulized medicines because patient has prolonged expiratory time on mechanical ventilation. We will watch ins and outs very closely and minimize salt load as the patient's sodium is 150. I will put him on a D5 drip at 75 mL per hour. He has been completely anuric for over 24 hours and is likely going to require dialysis before this is done. The mannitol and Lasix is unlikely to work as the mechanism of injury has resolved. We will monitor for signs of infection. If the white blood cell count trends up beyond where we are now or he develops additional signs of systemic inflammatory response, empiric antibiotics may be considered, though we are starting to have volume issues. CRITICAL CARE TIME: 30 minutes. MTDD
[2018-04-24] MEDS: Propofol 1,000 MG/100 ML VIAL IV PRN (11:51)
[2018-04-24] MEDS: Famotidine/PF 20 mg/2ml Vial SLOW IVP SCH (11:51)
[2018-04-24] MEDS: Dextrose 5% in Water 1,000 ML IV SCH (12:57)
--- NOTE | 2018-04-24 13:28 | RAD ---
PORTABLE ABDOMEN 1 VIEW: Date: 04/24/18 Time: 1211 hours HISTORY: Dobbhoff tube placement. FINDINGS/IMPRESSION: The tip of the Dobbhoff tube is in the projection of the gastric fundus. Surgical drain is seen in pr ojection of the abdomen. POS: BAR
--- NOTE | 2018-04-24 14:06 | PDOC.PN ---
- Subjective Encounter Start Date: 04/24/18 Encounter Start Time: 14:04 Subjective: remains intubated.Noticed to have left sided weakness -: Care discussed w and RN.all Qs answered -: bloody drainage from mediastinal has lessened. - Objective MAR Reviewed: Yes Vital Signs & Weight: Vital Signs (12 hours) Temp Pulse Resp BP Pulse Ox 04/24/18 14:00 16 04/24/18 12:46 59 L 100/40 L 04/24/18 12:43 65 14 93 L 04/24/18 12:00 15 04/24/18 10:30 67 122/51 L 04/24/18 10:00 12 04/24/18 08:00 97.0 F L 65 15 95 04/24/18 06:53 89 109/49 L 04/24/18 06:00 16 04/24/18 04:00 16 Weight Admit Weight 183 lb 10.321 oz Weight 187 lb 6.287 oz Most Recent Monitor Data Heart Rate from ECG 66 NIBP 111/52 NIBP BP-Mean 63 Respiration from ECG 15 SpO2 95 I&O: 04/23/18 04/24/18 04/25/18 06:59 06:59 06:59 Intake Total 6683 4244.4 149 Output Total 6345 2074 127 Balance 338 2170.4 22 Result Diagrams: 04/24/18 04:00 04/24/18 04:00 Additional Labs: Accuchecks 04/24/18 04/24/18 04/24/18 13:03 10:40 04:24 POC Glucose 131 H 137 H 138 H 04/24/18 04/23/18 04/23/18 01:27 19:52 16:13 POC Glucose 145 H 158 H 142 H Laboratory Tests 04/21/18 04/21/18 04/22/18 11:06 11:06 04:22 Plt Count 286 Band Neuts % (Manual) Sodium 140 Creatinine 0.89 0.85 04/22/18 04/22/18 04/22/18 08:53 21:17 22:02 Plt Count 243 82 L Band Neuts % (Manual) Sodium 146 H Creatinine 0.95 04/22/18 04/23/18 04/23/18 23:45 04:12 04:12 Plt Count 138 110 L Band Neuts % (Manual) Sodium 153 H Creatinine 1.61 H 04/23/18 04/23/18 04/24/18 12:02 19:54 04:00 Plt Count 181 125 L Band Neuts % (Manual) 10 22 H Sodium 150 H Creatinine 3.21 H 04/24/18 04:00 Plt Count 104 L Band Neuts % (Manual) 35 H Sodium Creatinine labs reviewed Radiology Reviewed by me: Yes (CXR-stabel.mild atelectasis) Phys Exam - Physical Examination Constitutional: NAD intubated and sedated HEENT: PERRLA, moist MMs, sclera anicteric, oral pharynx no lesions Neck: no JVD Respiratory: no wheezing, no rales reduced at bases Cardiovascular: RRR, no significant murmur mediastinal and pleural drains noted Gastrointestinal: soft, non-tender, no distention, positive bowel sounds Musculoskeletal: no edema, pulses present sedated Deviation from normal: sedated Skin: no rash Dx/Plan (1) CORTEZ (acute kidney injury) Code(s): N17.9 - ACUTE KIDNEY FAILURE, UNSPECIFIED Status: Acute Comment: worsening .Minimal Urine output (2) Left hemiparesis Code(s): G81.94 - HEMIPLEGIA, UNSPECIFIED AFFECTING LEFT NONDOMINANT SIDE Status: Acute Comment: Brain CT negative. (3) Acute blood loss anemia Code(s): D62 - ACUTE POSTHEMORRHAGIC ANEMIA Status: Acute Comment: s/p 10 units PRBC,12 units FFP,5 units platelets and multiple units of Cryoprecipitate.Suspect Coagulopathy (4) Hypernatremia Code(s): E87.0 - HYPEROSMOLALITY AND HYPERNATREMIA Status: Acute (5) Coagulopathy Status: Acute (6) Hypovolemic shock Code(s): R57.1 - HYPOVOLEMIC SHOCK Status: Resolved (7) Aortic dissection following procedure Code(s): T81.718A - COMPLICATION OF ARTERY FOLLOWING A PROCEDURE, NEC, INIT; I71.00 - DISSECTION OF UNSPECIFIED SITE OF AORTA Status: Acute Comment: s/p repair (8) Unstable angina Status: Acute Comment: s/p cardiac cath 04/22/18.CABG X 3 on 04/22/18 (9) NSTEMI (non-ST elevated myocardial infarction) Code(s): I21.4 - NON-ST ELEVATION (NSTEMI) MYOCARDIAL INFARCTION Status: Acute Comment: treated with ASA,statin and Lovenox BID 1mg/kg (10) HTN (hypertension) Code(s): I10 - ESSENTIAL (PRIMARY) HYPERTENSION Status: Acute (11) CAD (coronary artery disease) Code(s): I25.10 - ATHSCL HEART DISEASE OF [place] CORONARY ARTERY W/O ANG PCTRS Status: Chronic Qualifiers: Coronary Disease-Associated Artery/Lesion type: [place] artery Comment: Per cardiac Cath today (12) S/P CABG (coronary artery bypass graft) Code(s): Z95.1 - PRESENCE OF AORTOCORONARY BYPASS GRAFT Status: Acute - Plan plan discussed w/ family, soriano catheter, respiratory therapy, DVT proph w/SCDs H/h stable post multiple blood product transfusions.Monitor H/H & platelet -: will luciana need HD given the extent of renal failure dramatically. -: luciana hpovolemic renal injury.on IVF now.lasix,mannitol per CTS -: change IVF to D5 as sodium still high w D5 1/2 NS. -: still concerns for CVA given extended period of hypotension & blood loss * family updated. * guarded prognosis * am labs Review of Systems - Review of Systems Other: unobtainable due to intubated and sedated state - Medications/Allergies Allergies/Adverse Reactions: Allergies Allergy/AdvReac Type Severity Reaction Status Date / Time No Known Allergies Allergy Verified 04/20/18 00:08 Medications: Current Medications Acetaminophen (Tylenol) 650 mg PO Q6H PRN PRN Reason: Headache/Fever Or Mild Pain Hydrocodone Bitart/Acetaminophen ([place] 5/325) 1 tab PO Q4H PRN PRN Reason: Moderate Pain (4-6) Hydrocodone Bitart/Acetaminophen ([place] 5/325) 2 tab PO Q4H PRN PRN Reason: Severe Pain (7-10) Al Hydroxide/Mg Hydroxide (Maalox) 30 ml PO Q4H PRN PRN Reason: Indigestion Albuterol/Ipratropium (Duoneb) 3 ml NEB [id number] PRN PRN Reason: SHORTNESS OF BREATH Albuterol/Ipratropium (Duoneb) 3 ml NEB [id number] ARLYN Last Admin: 04/24/18 12:43 Dose: 3 ml Aspirin (Aspirin) 325 mg PO DAILY [facility] Last Admin: 04/23/18 07:42 Dose: Not Given Atorvastatin Calcium (Lipitor) 20 mg PO HS ARLYN Last Admin: 04/23/18 20:24 Dose: Not Given Bisacodyl (Dulcolax) 10 mg PO Q12H PRN PRN Reason: Constipation Bisacodyl (Dulcolax) 10 mg NC Q12H PRN PRN Reason: Constipation Dextrose/Water (Dextrose 50%) 25 gm SLOW IVP PRN PRN PRN Reason: PER HYPOGLYCEMIC PROTOCOL Famotidine (Pepcid) 20 mg SLOW IVP 0900 ARLYN Last Admin: 04/24/18 11:51 Dose: 20 mg Glucagon (Glucagon) 1 mg SC PRN PRN PRN Reason: PER HYPOGLYCEMIC PROTOCOL Hydralazine HCl (Apresoline) 10 mg SLOW IVP Q6H PRN PRN Reason: To Maintain SBP< 140mmHG Norepinephrine Bitartrate (Levophed) 250 mls @ 0 mls/hr IVPB PRN PRN; Protocol ; Titrate PRN Reason: To maintain SBP > 90 mmHG Last Admin: 04/23/18 14:30 Dose: 250 mls Nicardipine HCl 25 mg/ Sodium (Chloride) 260 mls @ 0 mls/hr IVPB INF PRN; Protocol; Titrate PRN Reason: To Maintain SBP< 140mmHG Nitroglycerin/Dextrose (Nitroglycerin 50 Mg/250 Ml Bot) 250 mls @ 0 mls/hr IVPB PRN PRN; Protocol; Titrate PRN Reason: To Maintain SBP< 140mmHG Insulin Human Regular 100 (units/ Sodium Chloride) 101 mls @ 0 mls/hr IVPB INF ARLYN; As Directed PRN Reason: Protocol Last Admin: 04/22/18 21:54 Dose: 101 mls Dextrose/Water (D5w) 1,000 mls @ 0 mls/hr IV INF PRN; As Directed PRN Reason: PRN HYPOGLYCEMIC PROTOCOL Epinephrine 2 mg/Miscellaneous Medication 1 each/ Dextrose/Water 252 mls @ 0 mls/hr IVPB INF ARLYN; Titrate PRN Reason: Protocol Last Admin: 04/23/18 01:11 Dose: 252 mls Fentanyl Citrate 2,000 mcg/ (Sodium Chloride) 100 mls @ 0 mls/hr IV INF ARLYN; Per Protocol PRN Reason: Protocol Stop: 05/23/18 23:38 Fentanyl Citrate (Fentanyl Bolus) 250 mls @ 0 mls/hr IVPB PRN PRN; As Directed PRN Reason: Breakthrough pain/agitation Stop: 05/23/18 23:38 Mannitol (Mannitol 20%) 500 mls @ 25 mls/hr IVPB INF [facility] Last Admin: 04/24/18 10:27 Dose: 500 mls Furosemide 100 mg/ Sodium (Chloride) 100 mls @ 15 mls/hr IVPB INF [facility] Last Admin: 04/24/18 10:21 Dose: 100 mls Dextrose/Water (D5w) 1,000 mls @ 75 mls/hr IV .[id number] ARLYN Last Admin: 04/24/18 12:57 Dose: 1,000 mls Insulin Human Regular (Humulin R) 0 units SC Q4H PRN; Protocol PRN Reason: POST OP SLIDING SCALE Last Admin: 04/24/18 13:04 Dose: 2 unit Discontinue Previous Narcotic Pain Medications And Benzodiazepines 1 each FS .ONE [facility] Stop: 05/23/18 23:38 Ondansetron HCl (Zofran) 4 mg IVP Q6H PRN PRN Reason: Nausea/Vomiting Potassium Chloride (Kcl) 20 meq IVPB PRN PRN PRN Reason: K level </= 4.0 Last Admin: 04/23/18 07:47 Dose: 20 meq Promethazine HCl (Phenergan) 6.25 mg IM Q4H PRN PRN Reason: Nausea/Vomiting Propofol (Diprivan) 1,000 mg IV INF PRN; Protocol PRN Reason: TO ACHIEVE GOAL RASS Stop: 05/23/18 23:38 Last Admin: 04/24/18 11:51 Dose: 1,000 mg Propofol (Diprivan Bolus) 20 mg IV Q5MIN PRN PRN Reason: BREAKTHROUGH AGITATION Stop: 05/23/18 23:38 Sodium Chloride (Flush - Normal Saline) 10 ml IVF PRN PRN PRN Reason: Saline Flush
[2018-04-24] MEDS: Aspirin 325 MG TAB PO SCH (18:47)
[2018-04-24] MEDS: Atorvastatin Calcium 10 MG TAB PO SCH (20:32)
--- NOTE | 2018-04-24 22:57 | CON ---
DATE OF CONSULTATION: 04/24/2018 REASON FOR CONSULTATION: Elevated creatinine. HISTORY OF PRESENT ILLNESS: This is a very pleasant 77-year-old gentleman with a history of CABG and also a history of aortic dissection. His baseline creatinine was 0.95 on 04/22/2018, which increase d to 1.6 yesterday and 3.2 today. The patient is intubated and maintaining normal blood pressure. PAST MEDICAL HISTORY: 1. Coronary artery disease. 2. Hypertension. 3. Rig fracture. 4. Femur fracture. 5. TURP. 6. Prostatectomy. 7. History of CABG. 8. ____ line placement. 9. Repair of dissection of the ascending aorta. SOCIAL ECONOMIC HISTORY: No alcohol or drug use. FAMILY HISTORY: Negative for ESRD. ALLERGIES: Reviewed. HOME MEDICATIONS: List reviewed. CURRENT MEDICATIONS: List reviewed. REVIEW OF SYSTEMS: Unobtainable. OBJECTIVE: See above. GENERAL: Patient is resting. VITAL SIGNS: Afebrile, pulse ____, breathing at 16, blood pressure 111/52. GENERAL APPEARANCE AND MENTAL STATUS: Fair. HEAD/NECK: Normocephalic. Atraumatic. EYES: EOMI. No deformity. EARS: Clear. No ulcers. NOSE: Intact. No lesions. MOUTH: Clear. No discharge. THROAT: Clear. No exudate. LUNGS: Clear. No crackles. CARDIAC: S1, S2. No rub. ABDOMEN: Benign. BS+. GENITALIA/RECTUM: Garcia absent. BACK/EXTREMITIES: Edema 0+, ulcer. NEUROLOGICAL: Alert and motor intact. SKIN: Rash - bruise. LYMPHATICS: Edema - ulcer. LABORATORY DATA: Labs show potassium 4.4, sodium 150, creatinine 3.2. ASSESSMENT AND RECOMMENDATIONS: 1. Acute kidney injury with chronic kidney disease, most likely due to decreased effective arterial blood volume in the setting of hypernatremia. Agree with D5W. 2. Chronic kidney disease, stage 2, at baseline and chronic kidney disease, stage 4 presently. Agre e with hydration and pressors. The patient has multiple risk factors for chronic kidney disease. 3. Anemia, stable. 4. Medication based on glomerular filtration rate are appropriate. 5. Hypernatremia, see plan above. No indication for dialysis at this time. Thank you for allowing me to participate in care of this patient.
[2018-04-25] MEDS: Dextrose 5% in Water 1,000 ML IV SCH ×2 (00:45→14:10)
[2018-04-25] MEDS: Insulin Regular 300 UNITS/3 ML VIAL SC PRN ×4 (00:45→21:06)
[2018-04-25] MEDS: Furosemide 100 MG in Sodium Chloride 0.9% 90 ML IVPB SCH ×2 (00:46→06:05)
[2018-04-25] MEDS: Propofol 1,000 MG/100 ML VIAL IV PRN ×2 (04:02→17:51)
[2018-04-25 05:49] LABS: Anion Gap 13 mmol/L (10-20); BUN (Urea Nitrogen) 60 mg/dL (8.4-25.7); Calc. Creatinine Clearance 23 mL/min (70-130); Carbon Dioxide 28 mmol/L (23-31); Chloride 107 mmol/L (98-107); Estimated GFR-MDRD 18; Glucose 108 mg/dL (83-110); Potassium 3.3 mmol/L (3.5-5.1); Sodium 145 mmol/L (136-145)
[2018-04-25 05:57] LABS: Band 33 % (5-11); Hemoglobin 9.3 g/dL (14.0-18.0); Lymphocytes 11 % (21-51); MDiff Complete? YES; Mean Corpuscular HGB CONC 34.8 g/dL (32.0-36.0); Mean Corpuscular Hemoglobin 31.5 pg (27.0-31.0); Mean Corpuscular Volume 90.6 fL (78.0-98.0); Mean Platelet Volume 10.5 fL (7.4-10.4); Monocytes 2 % (0-10); Neutrophil 54 % (42-75); PLT Morphology Comment Appears Decreased; Platelet Count 74 thou/uL (130-400); Red Blood Cell (RBC) Count 2.96 mill/uL (4.70-6.10); White Blood Cell (WBC) Count 6.2 thou/uL (4.8-10.8)
[2018-04-25] MEDS: manNITOL 20% 500 ML IVPB SCH (06:04)
[2018-04-25] MEDS: Norepinephrine 8 MG/0.9% NS 250 ML IVPB PRN (06:05)
[2018-04-25 07:20] LABS: Actual Bicarbonate (HCO3a) 25.8 mEq/L (22-28); Base Excess (BEa) 2.4 mEq/L (-2.0 to +3.0); CO2 Tension 35.2 mmHg (35.0-45.0); Hemoglobin (Hb) 9.8 g/dL (14.0-18.0); O2 Tension (PaO2) 61.2 mmHg (> 70.0); pH, Arterial 7.48 (7.35-7.45)
[2018-04-25] MEDS: Aspirin 325 MG TAB PO SCH (08:04)
[2018-04-25] MEDS: Potassium Chloride 20 MEQ/100 ML PREMIX BAG IVPB PRN (08:04)
--- NOTE | 2018-04-25 08:29 | RAD ---
FRONTAL VIEW CHEST: Date: 04/25/18 COMPARISON: 04/24/18. INDICATION: Status post heart surgery, follow-up. FINDINGS: Supportive lines and tubes remain, with interval placement of enteric catheters which traverse the me diastinum and partially imaged upper abdomen. The patient is rotated, limiting assessment. Numerous e xtrinsic artifacts obscure detail. There are right-sided posterior rib deformities. IMPRESSION: 1. Interval placement of enteric catheters. 2. Limited assessment by patient rotation. 3. Left basilar opacity is suspected. Recommend continued follow-up. POS: BAR
--- NOTE | 2018-04-25 08:30 | PRG ---
DATE OF SERVICE: 04/25/2018 Forty-five minutes critical care time. This patient remains intubated on mechanical ventilation. He is currently on a multitude of drips in cluding Levophed, furosemide, mannitol and propofol. He is sedated to the point where he is not foll owing commands for me. PHYSICAL EXAMINATION: VITAL SIGNS: His temperature is 99.9 with a T-max of 100.4, pulse 80, blood pressure 119/48. 24 sheri r intake 2501, output 2094. NEUROLOGIC: Not following commands. HEENT: Pupils react. Sclerae icteric. Oropharynx clear. NECK: No JVD. LUNGS: Fairly clear without wheezing or rhonchi. CARDIAC: S1, S2 regular, without murmur. ABDOMEN: Soft, nontender. EXTREMITIES: Edematous throughout. LABORATORY DATA: White blood cell count 6.2, hemoglobin 9.3, hematocrit 26.8, platelet count 74. PH 7.48, pCO2 of 35, pO2 61 on SIMV rate 11, tidal of 470, PEEP 10, pressure support 13, FiO2 60%. Sod ium 145, potassium 3.3, chloride 107, CO2 28, BUN 60, creatinine 3.3, glucose 108. ASSESSMENT: 1. Status post coronary artery bypass grafting surgery with subsequent complication of a dissecting aorta. 2. Acute respiratory failure/acute respiratory distress syndrome requiring mechanical ventilation. 3. Thrombocytopenia. 4. Anemia due to blood loss. 5. Coronary artery disease. 6. Acute renal failure which seems to be converting to nonoliguric failure with the Lasix and the ma nnitol. RECOMMENDATIONS: 1. I have adjusted the ventilator settings, but I do not think he is weanable at the current time an d likely will need mechanical ventilation for at least several more days. 2. Dr. Dixon is giving the patient Lasix and mannitol. 3. Need to start enteral tube feeds - I think the patient should be able to tolerate tube feeds even on low dose of Levophed. 4. Update family when they become available.
[2018-04-25] MEDS: Famotidine/PF 20 mg/2ml Vial SLOW IVP SCH (08:31)
[2018-04-25] MEDS ORDERED: Sodium Bicarbonate Tab 325 MG TAB PER TUBE PRN (11:10)
[2018-04-25] MEDS ORDERED: Pancrelipase DR 12000 1 CAP FS PRN (11:10)
--- NOTE | 2018-04-25 12:05 | PRG ---
DATE OF SERVICE: 04/25/2018 SUBJECTIVE: A 77-year-old gentleman being seen for acute kidney injury. The patient remains intubat ed. PHYSICAL EXAMINATION: GENERAL: Patient is resting. VITAL SIGNS: Afebrile, pulse 77, breathing 16, blood pressure 102/49. OBJECTIVE: See above. Awake, alert, in no acute distress. GENERAL APPEARANCE AND MENTAL STATUS: Fair. HEAD/NECK: Normocephalic. Atraumatic. EYES: EOMI. No deformity. EARS: Clear. No ulcers. NOSE: Intact. No lesions. MOUTH: Clear. No discharge. THROAT: Clear. No exudate. LUNGS: Clear. No crackles. CARDIAC: S1, S2. No rub. ABDOMEN: Benign. BS+. GENITALIA/RECTUM: Garcia absent. BACK/EXTREMITIES: Edema 0+ Ulcer- NEUROLOGICAL: Alert and motor intact. SKIN: Rash- Bruise- LYMPHATICS: Edema- Ulcer- LABORATORY: Hemoglobin 9.3, potassium 3.3, creatinine 3.3. ASSESSMENT AND RECOMMENDATIONS: 1. Acute kidney injury with chronic kidney disease stage 4, nonoliguric. Continue gentle hydration. 2. Hypokalemia. Recommend potassium replacement. 3. Anemia, stable. 4. Hypomagnesemia. We will follow magnesium closely. No indication for dialysis at this time. Overall, remains stable.
[2018-04-25 14:18] LABS: Magnesium 2.2 mg/dL (1.6-2.6); Potassium 3.5 mmol/L (3.5-5.1)
[2018-04-25 15:56] LABS: ALT (SGPT) 1568 U/L (8-55); AST (SGOT) 570 U/L (5-34); Albumin 2.9 g/dL (3.4-4.8); Alkaline Phosphatase 91 U/L (40-150); Anion Gap 15 mmol/L (10-20); BUN (Urea Nitrogen) 63 mg/dL (8.4-25.7); Bilirubin, Total 1.6 mg/dL (0.2-1.2); Calc. Creatinine Clearance 23 mL/min (70-130); Carbon Dioxide 27 mmol/L (23-31); Chloride 106 mmol/L (98-107); Estimated GFR-MDRD 18; Glucose 133 mg/dL (83-110); Potassium 3.5 mmol/L (3.5-5.1); Protein, Total 4.9 g/dL (5.8-8.1); Sodium 144 mmol/L (136-145)
--- NOTE | 2018-04-25 17:57 | PDOC.PN ---
- Subjective Encounter Start Date: 04/25/18 Encounter Start Time: 17:55 Subjective: remians intubated and sedated as he was biting the tube -: care discussed w at bedside -: reports improvement in urine output - Objective MAR Reviewed: Yes Vital Signs & Weight: Vital Signs (12 hours) Temp Pulse Resp BP Pulse Ox 04/25/18 17:03 81 110/53 L 04/25/18 16:00 19 04/25/18 13:59 16 04/25/18 13:32 80 108/55 L 04/25/18 12:00 17 04/25/18 10:04 81 109/53 L 04/25/18 10:00 18 04/25/18 09:00 100 F H 04/25/18 08:00 100 F H 87 17 94 L 04/25/18 07:38 85 116/49 L 04/25/18 07:00 100 F H 04/25/18 06:00 16 Weight Admit Weight 183 lb 10.321 oz Weight 186 lb 11.704 oz Most Recent Monitor Data Heart Rate from ECG 84 NIBP 114/63 NIBP BP-Mean 71 Respiration from ECG 17 SpO2 96 I&O: 04/24/18 04/25/18 04/26/18 06:59 06:59 06:59 Intake Total 4244.4 2501.8 1661 Output Total 2074 2094 970 Balance 2170.4 407.8 691 Result Diagrams: 04/25/18 04:00 04/25/18 15:28 Additional Labs: Accuchecks 04/25/18 04/25/18 04/25/18 12:20 09:32 04:13 POC Glucose 157 H 117 H 128 H 04/25/18 04/24/18 00:02 20:27 POC Glucose 129 H 147 H Laboratory Tests 04/21/18 04/22/18 04/22/18 11:06 04:22 21:17 Plt Count Creatinine 0.89 0.85 0.95 Total Bilirubin AST ALT 04/23/18 04/23/18 04/23/18 04:12 12:02 19:54 Plt Count 181 125 L Creatinine 1.61 H Total Bilirubin AST ALT 04/24/18 04/24/18 04/25/18 04:00 04:00 04:00 Plt Count 104 L Creatinine 3.21 H 3.34 H Total Bilirubin AST ALT 04/25/18 04/25/18 04:00 15:28 Plt Count 74 L Creatinine Total Bilirubin 1.6 H AST 570 H ALT 1568 H labs reviewed Phys Exam - Physical Examination Constitutional: NAD intubated.sedated.does not follow commands HEENT: moist MMs, sclera anicteric ETT Neck: no nodes, no JVD, supple, full ROM Respiratory: no wheezing, no rales, no rhonchi reduced at bases.mediastinal drain Cardiovascular: RRR, no significant murmur surgical scar look clean Gastrointestinal: soft, no distention Musculoskeletal: no edema, pulses present c/n/b assessed due to sedation Deviation from normal: sedated Dx/Plan (1) CORTEZ (acute kidney injury) Code(s): N17.9 - ACUTE KIDNEY FAILURE, UNSPECIFIED Status: Acute Comment: improving improved Urine output (2) Acute liver disease Code(s): K76.9 - LIVER DISEASE, UNSPECIFIED Status: Acute Comment: Jacquiley hypovolemic liver injury (3) Left hemiparesis Code(s): G81.94 - HEMIPLEGIA, UNSPECIFIED AFFECTING LEFT NONDOMINANT SIDE Status: Acute Comment: Brain CT negative. (4) Acute blood loss anemia Code(s): D62 - ACUTE POSTHEMORRHAGIC ANEMIA Status: Acute Comment: s/p 10 units PRBC,12 units FFP,5 units platelets and multiple units of Cryoprecipitate.Suspect Coagulopathy H/H stable now. (5) Hypovolemic shock Code(s): R57.1 - HYPOVOLEMIC SHOCK Status: Acute Comment: remains on pressor support (6) Hypernatremia Code(s): E87.0 - HYPEROSMOLALITY AND HYPERNATREMIA Status: Acute Comment: improved with D5W (7) Coagulopathy Status: Acute (8) Aortic dissection following procedure Code(s): T81.718A - COMPLICATION OF ARTERY FOLLOWING A PROCEDURE, NEC, INIT; I71.00 - DISSECTION OF UNSPECIFIED SITE OF AORTA Status: Acute Comment: s/p repair (9) Unstable angina Status: Acute Comment: s/p cardiac cath 04/22/18.CABG X 3 on 04/22/18 (10) NSTEMI (non-ST elevated myocardial infarction) Code(s): I21.4 - NON-ST ELEVATION (NSTEMI) MYOCARDIAL INFARCTION Status: Acute Comment: treated with ASA,statin and Lovenox BID 1mg/kg (11) HTN (hypertension) Code(s): I10 - ESSENTIAL (PRIMARY) HYPERTENSION Status: Acute (12) CAD (coronary artery disease) Code(s): I25.10 - ATHSCL HEART DISEASE OF [place] CORONARY ARTERY W/O ANG PCTRS Status: Chronic Qualifiers: Coronary Disease-Associated Artery/Lesion type: [place] artery Comment: Per cardiac Cath today (13) S/P CABG (coronary artery bypass graft) Code(s): Z95.1 - PRESENCE OF AORTOCORONARY BYPASS GRAFT Status: Acute - Plan plan discussed w/ family, DVT proph w/SCDs remains in critical condition .cont supportive care,CCU monitoring -: will change IVF to D5 1/2 NS to prevent hyponatremia. -: cont to monitor renal Fx. avoid nephrotoxins.suggest stopping mannitol -: LFT high,likley acute injury due to hypoperfusion.monitor -: am labs.Veny weaning per PCCM * . Review of Systems - Review of Systems Other: can not be obtained due to intubated and sedated state - Medications/Allergies Allergies/Adverse Reactions: Allergies Allergy/AdvReac Type Severity Reaction Status Date / Time No Known Allergies Allergy Verified 04/20/18 00:08 Medications: Current Medications Acetaminophen (Tylenol) 650 mg PO Q6H PRN PRN Reason: Headache/Fever Or Mild Pain Hydrocodone Bitart/Acetaminophen ([place] 5/325) 1 tab PO Q4H PRN PRN Reason: Moderate Pain (4-6) Hydrocodone Bitart/Acetaminophen ([place] 5/325) 2 tab PO Q4H PRN PRN Reason: Severe Pain (7-10) Al Hydroxide/Mg Hydroxide (Maalox) 30 ml PO Q4H PRN PRN Reason: Indigestion Albuterol/Ipratropium (Duoneb) 3 ml NEB [id number] PRN PRN Reason: SHORTNESS OF BREATH Albuterol/Ipratropium (Duoneb) 3 ml NEB [id number] [facility] Last Admin: 04/25/18 13:31 Dose: 3 ml Lipase/Protease/Amylase ([place] [id number]) 1 cap FS .PER PROTOCOL PRN PRN Reason: TUBE OCCLUSION PROTOCOL Aspirin (Aspirin) 325 mg PO DAILY [facility] Last Admin: 04/25/18 08:04 Dose: 325 mg Atorvastatin Calcium (Lipitor) 20 mg PO HS [facility] Last Admin: 04/24/18 20:32 Dose: Not Given Bisacodyl (Dulcolax) 10 mg PO Q12H PRN PRN Reason: Constipation Bisacodyl (Dulcolax) 10 mg NM Q12H PRN PRN Reason: Constipation Dextrose/Water (Dextrose 50%) 25 gm SLOW IVP PRN PRN PRN Reason: PER HYPOGLYCEMIC PROTOCOL Famotidine (Pepcid) 20 mg SLOW IVP 0900 [facility] Last Admin: 04/25/18 08:31 Dose: 20 mg Glucagon (Glucagon) 1 mg SC PRN PRN PRN Reason: PER HYPOGLYCEMIC PROTOCOL Hydralazine HCl (Apresoline) 10 mg SLOW IVP Q6H PRN PRN Reason: To Maintain SBP< 140mmHG Norepinephrine Bitartrate (Levophed) 250 mls @ 0 mls/hr IVPB PRN PRN; Protocol ; Titrate PRN Reason: To maintain SBP > 90 mmHG Last Admin: 04/25/18 06:05 Dose: 250 mls Nicardipine HCl 25 mg/ Sodium (Chloride) 260 mls @ 0 mls/hr IVPB INF PRN; Protocol; Titrate PRN Reason: To Maintain SBP< 140mmHG Nitroglycerin/Dextrose (Nitroglycerin 50 Mg/250 Ml Bot) 250 mls @ 0 mls/hr IVPB PRN PRN; Protocol; Titrate PRN Reason: To Maintain SBP< 140mmHG Last Admin: 04/24/18 20:19 Dose: 250 mls Insulin Human Regular 100 (units/ Sodium Chloride) 101 mls @ 0 mls/hr IVPB INF ARLYN; As Directed PRN Reason: Protocol Last Admin: 04/22/18 21:54 Dose: 101 mls Dextrose/Water (D5w) 1,000 mls @ 0 mls/hr IV INF PRN; As Directed PRN Reason: PRN HYPOGLYCEMIC PROTOCOL Epinephrine 2 mg/Miscellaneous Medication 1 each/ Dextrose/Water 252 mls @ 0 mls/hr IVPB INF ARLYN; Titrate PRN Reason: Protocol Last Admin: 04/23/18 01:11 Dose: 252 mls Fentanyl Citrate 2,000 mcg/ (Sodium Chloride) 100 mls @ 0 mls/hr IV INF ARLYN; Per Protocol PRN Reason: Protocol Stop: 05/23/18 23:38 Fentanyl Citrate (Fentanyl Bolus) 250 mls @ 0 mls/hr IVPB PRN PRN; As Directed PRN Reason: Breakthrough pain/agitation Stop: 05/23/18 23:38 Dextrose/Water (D5w) 1,000 mls @ 75 mls/hr IV .[id number] ARLYN Last Admin: 04/25/18 14:10 Dose: 1,000 mls Insulin Human Regular (Humulin R) 0 units SC Q4H PRN; Protocol PRN Reason: POST OP SLIDING SCALE Last Admin: 04/25/18 12:20 Dose: 3 unit Discontinue Previous Narcotic Pain Medications And Benzodiazepines 1 each FS .ONE ARLYN Stop: 05/23/18 23:38 Ondansetron HCl (Zofran) 4 mg IVP Q6H PRN PRN Reason: Nausea/Vomiting Potassium Chloride (Kcl) 20 meq IVPB PRN PRN PRN Reason: K level </= 4.0 Last Admin: 04/25/18 08:04 Dose: 20 meq Promethazine HCl (Phenergan) 6.25 mg IM Q4H PRN PRN Reason: Nausea/Vomiting Propofol (Diprivan) 1,000 mg IV INF PRN; Protocol PRN Reason: TO ACHIEVE GOAL RASS Stop: 05/23/18 23:38 Last Admin: 04/25/18 17:51 Dose: 1,000 mg Propofol (Diprivan Bolus) 20 mg IV Q5MIN PRN PRN Reason: BREAKTHROUGH AGITATION Stop: 05/23/18 23:38 Sodium Bicarbonate (Bicarbonate, Sodium) 650 mg PER TUBE .PER PROTOCOL PRN PRN Reason: ENTERAL TUBE OCCLUSION Sodium Chloride (Flush - Normal Saline) 10 ml IVF PRN PRN PRN Reason: Saline Flush
[2018-04-25] MEDS: Dextrose 5 %-0.45 % NaCl 1,000 ML IV SCH (18:22)
[2018-04-25] MEDS: Atorvastatin Calcium 10 MG TAB PO SCH (20:59)
[2018-04-26] MEDS: Insulin Regular 300 UNITS/3 ML VIAL SC PRN ×4 (00:35→21:49)
[2018-04-26 04:36] LABS: Anion Gap 12 mmol/L (10-20); BUN (Urea Nitrogen) 69 mg/dL (8.4-25.7); Calc. Creatinine Clearance 25 mL/min (70-130); Calcium 7.9 mg/dL (7.8-10.44); Carbon Dioxide 29 mmol/L (23-31); Chloride 106 mmol/L (98-107); Estimated GFR-MDRD 21; Glucose 159 mg/dL (83-110); Potassium 3.4 mmol/L (3.5-5.1); Sodium 144 mmol/L (136-145)
[2018-04-26 04:53] LABS: Band 19 % (5-11); Eosinophils 1 % (0-10); Hemoglobin 9.1 g/dL (14.0-18.0); Lymphocytes 6 % (21-51); MDiff Complete? YES; Mean Corpuscular HGB CONC 34.9 g/dL (32.0-36.0); Mean Corpuscular Hemoglobin 32.4 pg (27.0-31.0); Mean Corpuscular Volume 92.8 fL (78.0-98.0); Mean Platelet Volume 10.3 fL (7.4-10.4); Monocytes 6 % (0-10); Neutrophil 68 % (42-75); PLT Morphology Comment Appears Decreased; Platelet Count 68 thou/uL (130-400); RBC Distribution Width 14.1 % (11.5-14.5); White Blood Cell (WBC) Count 8.6 thou/uL (4.8-10.8)
[2018-04-26] MEDS: Potassium Chloride 20 MEQ/100 ML PREMIX BAG IVPB PRN (05:40)
[2018-04-26] MEDS: Propofol 1,000 MG/100 ML VIAL IV PRN (06:09)
[2018-04-26] MEDS: Dextrose 5 %-0.45 % NaCl 1,000 ML IV SCH (06:13)
[2018-04-26 07:01] LABS: Actual Bicarbonate (HCO3a) 27.1 mEq/L (22-28); Base Excess (BEa) 3.7 mEq/L (-2.0 to +3.0); CO2 Tension 36.6 mmHg (35.0-45.0); O2 Tension (PaO2) 59.4 mmHg (> 70.0); pH, Arterial 7.49 (7.35-7.45)
[2018-04-26 07:02] LABS: Hemoglobin (Hb) 9.8 g/dL (14.0-18.0)
[2018-04-26 07:03] LABS: Puncture Site A-LINE
[2018-04-26] MEDS: Aspirin 325 MG TAB PO SCH (08:25)
[2018-04-26] MEDS: Famotidine 20 MG TAB PER TUBE SCH (08:25)
--- NOTE | 2018-04-26 08:34 | RAD ---
CHEST 1 VIEW: HISTORY: Dyspnea. Followup. COMPARISON: 04/25/18. FINDINGS: Cardiac silhouette remains magnified and enlarged. Pulmonary vasculature upper limits of normal. Me diastinum midline with postoperative changes. Lines and tubes are unchanged in position. Atelectasi s at the left base is unchanged. No evidence of pneumothorax. IMPRESSION: Stable postoperative appearance of the chest. POS: [facility]
--- NOTE | 2018-04-26 08:57 | PRG ---
DATE OF SERVICE: 04/26/2018 Mr. Lin remains intubated and ventilated. He is sedated. PHYSICAL EXAMINATION: VITAL SIGNS: Blood pressure 135/71, pulse 90 regular. LUNGS: Clear. CARDIAC: Normal S1, normal S2. ABDOMEN: Soft, nontender. EXTREMITIES: No significant edema. ASSESSMENT: 1. Status post coronary bypass grafting. 2. Status post aortic dissection. 3. Depressed left ventricular function. PLAN: 1. He is on low dose aspirin. 2. He is on famotidine. 3. Furosemide has been discontinued. 4. Nicardipine for blood pressure. 5. Creatinine is somewhat improved at 3.
--- NOTE | 2018-04-26 09:36 | PRG ---
DATE OF SERVICE: 04/26/2018 SUBJECTIVE: This is a 77-year-old gentleman being seen for acute kidney injury. The patient is intu bated. PHYSICAL EXAMINATION: GENERAL: The patient is resting. VITAL SIGNS: Afebrile, pulse 81, breathing 16, blood pressure 144/71. HEAD/NECK: Normocephalic. Atraumatic. EYES: EOMI. No deformity. EARS: Clear. No ulcers. NOSE: Intact. No lesions. MOUTH: Clear. No discharge. THROAT: Clear. No exudate. LUNGS: Clear. No crackles. CARDIAC: S1, S2. No rub. ABDOMEN: Benign. BS+. GENITALIA/RECTUM: Garcia absent. BACK/EXTREMITIES: Edema 0+ Ulcer- NEUROLOGICAL: Alert and motor intact. SKIN: Rash- Bruise- LYMPHATICS: Edema- Ulcer- LABORATORY DATA: Show hemoglobin 9.1, potassium 3.4 and creatinine 3. ASSESSMENT AND PLAN: 1. Acute kidney injury with chronic kidney disease stage IV, improved. 2. Hypertension, stable. 3. Anemia, stable. 4. Hypokalemia, improved. No indication for dialysis at this time. Patient is nonoliguric.
--- NOTE | 2018-04-26 09:53 | PRG ---
DATE OF SERVICE: 04/26/2018 SERVICE: Pulmonary Medicine. INTERVAL HISTORY: The patient is actually doing really quite well from a respiratory standpoint. Oxygen requirements are coming off nicely as he gets fluid off. He cannot give me any elements of the history. There were no events overnight. There is a low grade fever, but otherwise, he had a fairly uneventful evening. PHYSICAL EXAMINATION: VITAL SIGNS: Afebrile, pulse 81, blood pressure 123/47, respirations 20, saturation 96% on FiO2 40%, and a PEEP of 8. HEENT: Normocephalic, atraumatic. Sclerae are white, conjunctivae pink. Oral and nasal mucosa is moist without lesions. LUNGS: Decent air entry. Extensive crackles are present throughout bilateral lung hanks. HEART: Normal rate, regular. ABDOMEN: Soft, nontender, nondistended. Bowel sounds are positive. MUSCULOSKELETAL: No cyanosis or clubbing. There is diffuse 1-2+ pitting throughout. GENITOURINARY: No Garcia. NEUROLOGIC: Grossly nonfocal. LABORATORY DATA: WBC 6.2, hemoglobin 9.3 and roughly stable, platelets 74,000. Band count is 33% on top of 54% neutrophils. PH 7.49, pCO2 36, pO2 of 60. This corresponds to saturation of 91%. Creatinine 3.00, BUN 69, sodium 144, potassium 3.4. IMAGING: Chest x-ray demonstrates stable postoperative changes. There is a left-sided pleural effusion. Left-sided thoracostomy drain remains in good position. There is also mediastinal drain present. Endotracheal tube is 4 cm above the level of the evens. Enteric catheter courses below the level of the diaphragm. ASSESSMENT: 1. Acute hypoxic respiratory failure, improving. 2. Aortic dissection requiring emergent repair. 3. Coronary artery disease, status post coronary artery bypass graft x3 vessels. 4. Acute kidney injury. 5. Acute blood loss anemia. 6. Hemorrhagic shock, resolved. 7. Volume overload. PLAN: I will give him some potassium. We will give him a couple of doses of Lasix to see if we can motivate his ins and outs to go in the right direction. To prevent him from becoming hypernatremic, we will increase free water to 50 mL q 2 hours. The half normal saline will be discontinued. Once his oxygen requirements are low enough, he can be considered for spontaneous breathing trial and subsequent extubation. Multiple adjustments have been made to the ventilator to turn more work of breathing over to the patient. Volume overload and mental status prevent extubation. Sedation will be held. Pulmonary and Critical Care will certainly continue to follow in this location. CRITICAL CARE TIME: 30 minutes. FAITH
[2018-04-26] MEDS: Furosemide 40 MG/4 ML VIAL SLOW IVP SCH ×2 (10:12→13:34)
[2018-04-26 10:13] LABS: Bilirubin Negative (Negative); Blood, Urine Moderate (Negative); Clarity CLEAR (Clear); Glucose, Urine (Dipstick) Negative (Negative); Leukocyte Negative (Negative); Nitrite Negative (Negative); Protein, Urine (Dipstick) Trace mg/dL (Neg-Trace); Specific Gravity, Urine 1.023 (1.002-1.036)
[2018-04-26 10:14] LABS: Bacteria/HPF None Seen HPF (None Seen); Hyaline Casts/LPF 0-3 HYALINE CAST LPF (0-3 Hyaline); Pathc Cast-AUWi Flag 0.58 (0-2.49); Squamous Epithelial None Seen HPF (0-3); WBC/HPF 0-3 HPF (0-3)
--- NOTE | 2018-04-26 15:29 | PDOC.PN ---
- Subjective Encounter Start Date: 04/26/18 Encounter Start Time: 15:27 (late entry) -: non-verbal Subjective: seen and examined at bedside. care discussed w -: off of sedation since morning.on CPAP - Objective MAR Reviewed: Yes Vital Signs & Weight: Vital Signs (12 hours) Temp Pulse Resp BP Pulse Ox 04/26/18 13:33 86 96/44 L 04/26/18 13:00 99.4 F 04/26/18 12:00 98.9 F 29 H 04/26/18 10:00 19 04/26/18 08:00 99.3 F 89 19 96 04/26/18 07:00 99.2 F 04/26/18 06:49 81 123/47 L 04/26/18 06:00 18 04/26/18 04:00 17 Weight Admit Weight 183 lb 10.321 oz Weight 200 lb 2.876 oz Most Recent Monitor Data Heart Rate from ECG 91 NIBP 122/60 NIBP BP-Mean 71 Respiration from ECG 20 SpO2 91 I&O: 04/25/18 04/26/18 04/27/18 06:59 06:59 06:59 Intake Total 2501.8 3429.8 90 Output Total 2094 7025 875 Balance 407.8 1284.8 -785 Result Diagrams: 04/26/18 03:50 04/26/18 03:30 Additional Labs: Accuchecks 04/26/18 04/26/18 04/25/18 09:30 00:36 20:43 POC Glucose 187 H 172 H 142 H Laboratory Tests 04/21/18 04/22/18 04/22/18 11:06 04:22 21:17 Creatinine 0.89 0.85 0.95 04/23/18 04/24/18 04/25/18 04:12 04:00 04:00 Creatinine 1.61 H 3.21 H 3.34 H 04/25/18 04/26/18 15:28 03:30 Creatinine 3.28 H 3.00 H labs reviewed Phys Exam - Physical Examination Constitutional: NAD ETT.moves right arm spontaneously HEENT: PERRLA, moist MMs ett Neck: no JVD Respiratory: no wheezing, no rales, no rhonchi, clear to auscultation bilateral Cardiovascular: RRR, no significant murmur Gastrointestinal: soft, no distention, positive bowel sounds Musculoskeletal: no edema, pulses present Dx/Plan (1) CORTEZ (acute kidney injury) Code(s): N17.9 - ACUTE KIDNEY FAILURE, UNSPECIFIED Status: Acute Comment: improving improved Urine output (2) Acute liver disease Code(s): K76.9 - LIVER DISEASE, UNSPECIFIED Status: Acute Comment: Jacquiley hypovolemic liver injury (3) Left hemiparesis Code(s): G81.94 - HEMIPLEGIA, UNSPECIFIED AFFECTING LEFT NONDOMINANT SIDE Status: Acute Comment: Brain CT negative. (4) Acute blood loss anemia Code(s): D62 - ACUTE POSTHEMORRHAGIC ANEMIA Status: Acute Comment: s/p 10 units PRBC,12 units FFP,5 units platelets and multiple units of Cryoprecipitate.Suspect Coagulopathy H/H stable now. (5) Hypovolemic shock Code(s): R57.1 - HYPOVOLEMIC SHOCK Status: Acute Comment: remains on pressor support (6) Hypernatremia Code(s): E87.0 - HYPEROSMOLALITY AND HYPERNATREMIA Status: Acute Comment: improved with D5W (7) Coagulopathy Status: Acute (8) Aortic dissection following procedure Code(s): T81.718A - COMPLICATION OF ARTERY FOLLOWING A PROCEDURE, NEC, INIT; I71.00 - DISSECTION OF UNSPECIFIED SITE OF AORTA Status: Acute Comment: s/p repair (9) Unstable angina Status: Acute Comment: s/p cardiac cath 04/22/18.CABG X 3 on 04/22/18 (10) NSTEMI (non-ST elevated myocardial infarction) Code(s): I21.4 - NON-ST ELEVATION (NSTEMI) MYOCARDIAL INFARCTION Status: Acute Comment: treated with ASA,statin and Lovenox BID 1mg/kg (11) HTN (hypertension) Code(s): I10 - ESSENTIAL (PRIMARY) HYPERTENSION Status: Acute (12) CAD (coronary artery disease) Code(s): I25.10 - ATHSCL HEART DISEASE OF [place] CORONARY ARTERY W/O ANG PCTRS Status: Chronic Qualifiers: Coronary Disease-Associated Artery/Lesion type: [place] artery Comment: Per cardiac Cath today (13) S/P CABG (coronary artery bypass graft) Code(s): Z95.1 - PRESENCE OF AORTOCORONARY BYPASS GRAFT Status: Acute - Plan plan discussed w/ family, soriano catheter, continue antibiotics, respiratory therapy, DVT proph w/SCDs stable for now. clinically imnproved -: cont CCU upportive care. monitor lytes. -: Multiple specialities following. -: cont IVF.lasix today. -: am labs.vent weaning as tolerated * . Review of Systems - Review of Systems Other: unobtainable due to sedation/intubation - Medications/Allergies Allergies/Adverse Reactions: Allergies Allergy/AdvReac Type Severity Reaction Status Date / Time No Known Allergies Allergy Verified 04/20/18 00:08 Medications: Current Medications Acetaminophen (Tylenol) 650 mg PO Q6H PRN PRN Reason: Headache/Fever Or Mild Pain Hydrocodone Bitart/Acetaminophen ([place] 5/325) 1 tab PO Q4H PRN PRN Reason: Moderate Pain (4-6) Hydrocodone Bitart/Acetaminophen ([place] 5/325) 2 tab PO Q4H PRN PRN Reason: Severe Pain (7-10) Al Hydroxide/Mg Hydroxide (Maalox) 30 ml PO Q4H PRN PRN Reason: Indigestion Albuterol/Ipratropium (Duoneb) 3 ml NEB [id number] PRN PRN Reason: SHORTNESS OF BREATH Albuterol/Ipratropium (Duoneb) 3 ml NEB [id number] [facility] Last Admin: 04/26/18 13:27 Dose: 3 ml Lipase/Protease/Amylase ([place] [id number]) 1 cap FS .PER PROTOCOL PRN PRN Reason: TUBE OCCLUSION PROTOCOL Aspirin (Aspirin) 325 mg PO DAILY [facility] Last Admin: 04/26/18 08:25 Dose: 325 mg Atorvastatin Calcium (Lipitor) 20 mg PO HS [facility] Last Admin: 04/25/18 20:59 Dose: 20 mg Bisacodyl (Dulcolax) 10 mg PO Q12H PRN PRN Reason: Constipation Bisacodyl (Dulcolax) 10 mg [place] Q12H PRN PRN Reason: Constipation Dextrose/Water (Dextrose 50%) 25 gm SLOW IVP PRN PRN PRN Reason: PER HYPOGLYCEMIC PROTOCOL Famotidine (Pepcid) 20 mg PER TUBE 0900 [facility] Last Admin: 04/26/18 08:25 Dose: 20 mg Furosemide (Lasix) 40 mg SLOW IVP 0600 ARLYN Glucagon (Glucagon) 1 mg SC PRN PRN PRN Reason: PER HYPOGLYCEMIC PROTOCOL Hydralazine HCl (Apresoline) 10 mg SLOW IVP Q6H PRN PRN Reason: To Maintain SBP< 140mmHG Nicardipine HCl 25 mg/ Sodium (Chloride) 260 mls @ 0 mls/hr IVPB INF PRN; Protocol; Titrate PRN Reason: To Maintain SBP< 140mmHG Insulin Human Regular 100 (units/ Sodium Chloride) 101 mls @ 0 mls/hr IVPB INF ARLYN; As Directed PRN Reason: Protocol Last Admin: 04/22/18 21:54 Dose: 101 mls Dextrose/Water (D5w) 1,000 mls @ 0 mls/hr IV INF PRN; As Directed PRN Reason: PRN HYPOGLYCEMIC PROTOCOL Fentanyl Citrate 2,000 mcg/ (Sodium Chloride) 100 mls @ 0 mls/hr IV INF ARLYN; Per Protocol PRN Reason: Protocol Stop: 05/23/18 23:38 Fentanyl Citrate (Fentanyl Bolus) 250 mls @ 0 mls/hr IVPB PRN PRN; As Directed PRN Reason: Breakthrough pain/agitation Stop: 05/23/18 23:38 Insulin Human Regular (Humulin R) 0 units SC Q4H PRN; Protocol PRN Reason: POST OP SLIDING SCALE Last Admin: 04/26/18 09:32 Dose: 4 unit Discontinue Previous Narcotic Pain Medications And Benzodiazepines 1 each FS .ONE ARLNY Stop: 05/23/18 23:38 Ondansetron HCl (Zofran) 4 mg IVP Q6H PRN PRN Reason: Nausea/Vomiting Potassium Chloride (Kcl) 20 meq IVPB PRN PRN PRN Reason: K level </= 4.0 Last Admin: 04/26/18 05:40 Dose: 20 meq Promethazine HCl (Phenergan) 6.25 mg IM Q4H PRN PRN Reason: Nausea/Vomiting Propofol (Diprivan) 1,000 mg IV INF PRN; Protocol PRN Reason: TO ACHIEVE GOAL RASS Stop: 05/23/18 23:38 Last Admin: 04/26/18 06:09 Dose: 1,000 mg Propofol (Diprivan Bolus) 20 mg IV Q5MIN PRN PRN Reason: BREAKTHROUGH AGITATION Stop: 05/23/18 23:38 Sodium Bicarbonate (Bicarbonate, Sodium) 650 mg PER TUBE .PER PROTOCOL PRN PRN Reason: ENTERAL TUBE OCCLUSION Sodium Chloride (Flush - Normal Saline) 10 ml IVF PRN PRN PRN Reason: Saline Flush
[2018-04-26] MEDS: Atorvastatin Calcium 10 MG TAB PO SCH (20:41)
[2018-04-27] MEDS: hydrALAZINE 20 MG/ML VIAL SLOW IVP PRN ×2 (00:05→06:08)
[2018-04-27] MEDS: Insulin Regular 300 UNITS/3 ML VIAL SC PRN ×4 (04:39→23:12)
[2018-04-27 05:30] LABS: Anion Gap 14 mmol/L (10-20); BUN (Urea Nitrogen) 75 mg/dL (8.4-25.7); Calc. Creatinine Clearance 38 mL/min (70-130); Carbon Dioxide 29 mmol/L (23-31); Chloride 109 mmol/L (98-107); Estimated GFR-MDRD 30; Glucose 149 mg/dL (83-110); Potassium 3.5 mmol/L (3.5-5.1); Sodium 148 mmol/L (136-145)
[2018-04-27 05:35] LABS: #Lymphocytes 0.7 thou/uL (1.20-3.40); #Monocytes 0.9 thou/uL (0.11-0.59); #Neutrophils 6.3 thou/uL (1.40-6.50); %Basophils 0.1 % (0.0-1.0); %Eosinophils 0.4 % (0.0-10.0); %Lymphocytes 8.4 % (21.0-51.0); %Monocytes 11.3 % (0.0-10.0); %Neutrophils 79.8 % (42.0-75.0); Hemoglobin 9.4 g/dL (14.0-18.0); Mean Corpuscular HGB CONC 32.8 g/dL (32.0-36.0); Mean Corpuscular Volume 94.5 fL (78.0-98.0); Platelet Count 89 thou/uL (130-400); RBC Distribution Width 13.9 % (11.5-14.5); Red Blood Cell (RBC) Count 3.03 mill/uL (4.70-6.10); White Blood Cell (WBC) Count 7.9 thou/uL (4.8-10.8)
[2018-04-27] MEDS: Furosemide 40 MG/4 ML VIAL SLOW IVP SCH (05:50)
[2018-04-27] MEDS ORDERED: Diltiazem HCl 125 MG, Admixture Fee 1 EACH in Sodium Chloride 0.9% 100 ML IVPB SCH (08:30)
[2018-04-27] MEDS: Aspirin 325 MG TAB PO SCH (09:04)
[2018-04-27] MEDS: Famotidine 20 MG TAB PER TUBE SCH (09:04)
[2018-04-27] MEDS: Acetaminophen 325 MG TAB PO PRN (09:04)
[2018-04-27] MEDS ORDERED: Amiodarone In Dextrose 200 ML IVPB SCH (10:00)
[2018-04-27] MEDS ORDERED: Amiodarone HCl 150 MG, Admixture Fee 1 EACH in Dextrose 5% in Water 100 ML IVPB SCH (10:00)
[2018-04-27] MEDS: Amiodarone HCl 450 MG, Admixture Fee 1 EACH in Dextrose 5% in Water 250 ML IVPB SCH ×2 (10:13→17:39)
--- NOTE | 2018-04-27 10:56 | RAD ---
CHEST 1 VIEW: COMPARISON: 04/26/18. HISTORY: Atrial fibrillation. FINDINGS: Endotracheal tube terminates at the level of the clavicles. Dobbhoff feeding tube in the left upper quadrant. There is a left-sided chest tube. Heart is enlarged. The pulmonary vessels are within no rmal limits. There are patchy interstitial and alveolar opacities, similar to the previous examinati on. No pneumothorax. Interval removal of left-sided central venous catheter. IMPRESSION: Interval removal of left-sided central venous catheter. Otherwise, no change. POS: [facility]
--- NOTE | 2018-04-27 12:36 | PRG ---
DATE OF SERVICE: 04/27/2018 SUBJECTIVE: A 77-year-old male being seen for acute kidney injury. Denies any nausea, but remains i ntubated. PHYSICAL EXAMINATION: GENERAL: Patient is resting. VITAL SIGNS: Afebrile, pulse 80, breathing 16, blood pressure 108/64. HEAD/NECK: Normocephalic. Atraumatic. EYES: EOMI. No deformity. EARS: Clear. No ulcers. NOSE: Intact. No lesions. MOUTH: Clear. No discharge. THROAT: Clear. No exudate. LUNGS: Clear. No crackles. CARDIAC: S1, S2. No rub. ABDOMEN: Benign. BS+. GENITALIA/RECTUM: Garcia absent. BACK/EXTREMITIES: Edema 0+ Ulcer- NEUROLOGICAL: Alert and motor intact. SKIN: Rash- Bruise- LYMPHATICS: Edema- Ulcer- LABORATORY DATA: Show hemoglobin 9.4, potassium is 3.5, creatinine 2.15. ASSESSMENT AND RECOMMENDATIONS: 1. Acute kidney injury with chronic kidney disease stage 3, improved. 2. Hyponatremia, increase free water. 3. Anemia, stable. 4. Hypokalemia. Recommend 20 mEq of potassium and recheck potassium and magnesium in the afternoon. No indication for dialysis at this time.
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
--- NOTE | 2018-04-27 14:25 | PDOC.PN ---
- Subjective Encounter Start Date: 04/27/18 Encounter Start Time: 14:24 Subjective: pt remains intubated.went into A-fib w RVR this morning -: care discussed w at bedside.discussed w RN. -: remians on vent.no sedation but difficult to wake up - Objective MAR Reviewed: Yes Vital Signs & Weight: Vital Signs (12 hours) Temp Pulse Resp BP Pulse Ox 04/27/18 12:00 98.9 F 20 04/27/18 10:00 20 04/27/18 08:00 20 04/27/18 07:40 99.9 F H 102 H 21 H 93 L 04/27/18 07:06 102 H 04/27/18 07:00 99.9 F H 04/27/18 06:54 98 04/27/18 06:08 93 143/67 H 04/27/18 06:00 22 H 04/27/18 04:00 98.8 F 22 H 04/27/18 02:57 82 Weight Admit Weight 183 lb 10.321 oz Weight 194 lb 10.691 oz Most Recent Monitor Data Heart Rate from ECG 70 NIBP 100/52 NIBP BP-Mean 78 Respiration from ECG 27 SpO2 94 I&O: 04/26/18 04/27/18 04/28/18 06:59 06:59 06:59 Intake Total 3429.8 1831 145 Output Total 2145 2441 835 Balance 1284.8 -610 -690 Result Diagrams: 04/27/18 04:13 04/27/18 04:13 Additional Labs: Accuchecks 04/27/18 04/27/18 04/26/18 10:30 04:33 21:45 POC Glucose 197 H 170 H 166 H 04/26/18 16:26 POC Glucose 136 H Microbiology 04/26/18 09:59 Urine soriano catheter Gram Stain - Final 04/26/18 09:59 Urine soriano catheter Urine Culture - Preliminary NO GROWTH AT 24 HOURS 04/26/18 06:30 Sputum Respiratory Culture - Preliminary Laboratory Tests 04/22/18 04/23/18 04/24/18 21:17 04:12 04:00 Creatinine 0.95 1.61 H 3.21 H 04/25/18 04/25/18 04/26/18 04:00 15:28 03:30 Creatinine 3.34 H 3.28 H 3.00 H 07/07/18 04:13 Creatinine 2.15 H labs reviewed Phys Exam - Physical Examination Constitutional: NAD HEENT: PERRLA, moist MMs, sclera anicteric, oral pharynx no lesions Neck: no nodes, no JVD, supple, full ROM Respiratory: no wheezing, no rales, no rhonchi, clear to auscultation bilateral Cardiovascular: RRR, no significant murmur, no rub Gastrointestinal: soft, non-tender, no distention, positive bowel sounds Musculoskeletal: no edema, pulses present Neurological: non-focal, normal sensation, moves all 4 limbs Psychiatric: normal affect, A&O x 3 Skin: no rash Dx/Plan (1) Atrial fibrillation with RVR Code(s): I48.91 - UNSPECIFIED ATRIAL FIBRILLATION Status: Acute Comment: Cardiazem drip and now amiodarone drip (2) CORTEZ (acute kidney injury) Code(s): N17.9 - ACUTE KIDNEY FAILURE, UNSPECIFIED Status: Acute Comment: improving improved Urine output (3) Acute liver disease Code(s): K76.9 - LIVER DISEASE, UNSPECIFIED Status: Acute Comment: Blanca hypovolemic liver injury (4) Left hemiparesis Code(s): G81.94 - HEMIPLEGIA, UNSPECIFIED AFFECTING LEFT NONDOMINANT SIDE Status: Acute Comment: Brain CT negative. (5) Acute blood loss anemia Code(s): D62 - ACUTE POSTHEMORRHAGIC ANEMIA Status: Acute Comment: s/p 10 units PRBC,12 units FFP,5 units platelets and multiple units of Cryoprecipitate.Suspect Coagulopathy H/H stable now. (6) Hypovolemic shock Code(s): R57.1 - HYPOVOLEMIC SHOCK Status: Acute Comment: remains on pressor support (7) Hypernatremia Code(s): E87.0 - HYPEROSMOLALITY AND HYPERNATREMIA Status: Acute Comment: improved with D5W (8) Coagulopathy Status: Acute (9) Aortic dissection following procedure Code(s): T81.718A - COMPLICATION OF ARTERY FOLLOWING A PROCEDURE, NEC, INIT; I71.00 - DISSECTION OF UNSPECIFIED SITE OF AORTA Status: Acute Comment: s/p repair (10) Unstable angina Status: Acute Comment: s/p cardiac cath 04/22/18.CABG X 3 on 7/2/18 (11) NSTEMI (non-ST elevated myocardial infarction) Code(s): I21.4 - NON-ST ELEVATION (NSTEMI) MYOCARDIAL INFARCTION Status: Acute Comment: treated with ASA,statin and Lovenox BID 1mg/kg (12) HTN (hypertension) Code(s): I10 - ESSENTIAL (PRIMARY) HYPERTENSION Status: Acute (13) CAD (coronary artery disease) Code(s): I25.10 - ATHSCL HEART DISEASE OF [place] CORONARY ARTERY W/O ANG PCTRS Status: Chronic Qualifiers: Coronary Disease-Associated Artery/Lesion type: [place] artery Comment: Per cardiac Cath today (14) S/P CABG (coronary artery bypass graft) Code(s): Z95.1 - PRESENCE OF AORTOCORONARY BYPASS GRAFT Status: Acute - Plan plan discussed w/ family, PT/OT, out of bed/ambulate, DVT proph w/SCDs cont amiodarone drip.cardiology on board.No AC d/t recent mediastinal bleed -: renal FX imrpoving.cont to monitor.on lasix. -: sodium better. monitor.would recommend D5W if needed & not NSor 10/23 NS -: cont ASA,statin. -: remains critically ill. recheck LFt in am. * .Still question of hypoperfusion cerebral injury .will need MRI brain if remians encephalopathic * am lbs Review of Systems - Review of Systems Other: unobtainable due to intubated and sedated status - Medications/Allergies Allergies/Adverse Reactions: Allergies Allergy/AdvReac Type Severity Reaction Status Date / Time No Known Allergies Allergy Verified 04/20/18 00:08 Medications: Current Medications Acetaminophen (Tylenol) 650 mg PO Q6H PRN PRN Reason: Headache/Fever Or Mild Pain Last Admin: 04/27/18 09:04 Dose: 650 mg Hydrocodone Bitart/Acetaminophen ([place] 5/325) 1 tab PO Q4H PRN PRN Reason: Moderate Pain (4-6) Hydrocodone Bitart/Acetaminophen ([place] 5/325) 2 tab PO Q4H PRN PRN Reason: Severe Pain (7-10) Al Hydroxide/Mg Hydroxide (Maalox) 30 ml PO Q4H PRN PRN Reason: Indigestion Albuterol/Ipratropium (Duoneb) 3 ml NEB [id number] PRN PRN Reason: SHORTNESS OF BREATH Albuterol/Ipratropium (Duoneb) 3 ml NEB [id number] ARLYN Last Admin: 04/27/18 06:54 Dose: 3 ml Lipase/Protease/Amylase ([place] [address]0131) 1 cap FS .PER PROTOCOL PRN PRN Reason: TUBE OCCLUSION PROTOCOL Aspirin (Aspirin) 325 mg PO DAILY [facility] Last Admin: 04/27/18 09:04 Dose: 325 mg Atorvastatin Calcium (Lipitor) 20 mg PO HS [facility] Last Admin: 04/26/18 20:41 Dose: 20 mg Bisacodyl (Dulcolax) 10 mg PO Q12H PRN PRN Reason: Constipation Bisacodyl (Dulcolax) 10 mg CO Q12H PRN PRN Reason: Constipation Dextrose/Water (Dextrose 50%) 25 gm SLOW IVP PRN PRN PRN Reason: PER HYPOGLYCEMIC PROTOCOL Famotidine (Pepcid) 20 mg PER TUBE 0900 [facility] Last Admin: 04/27/18 09:04 Dose: 20 mg Furosemide (Lasix) 40 mg SLOW IVP 0600 [facility] Last Admin: 04/27/18 05:50 Dose: 40 mg Glucagon (Glucagon) 1 mg SC PRN PRN PRN Reason: PER HYPOGLYCEMIC PROTOCOL Hydralazine HCl (Apresoline) 10 mg SLOW IVP Q6H PRN PRN Reason: To Maintain SBP< 140mmHG Last Admin: 04/27/18 06:08 Dose: 10 mg Nicardipine HCl 25 mg/ Sodium (Chloride) 260 mls @ 0 mls/hr IVPB INF PRN; Protocol; Titrate PRN Reason: To Maintain SBP< 140mmHG Insulin Human Regular 100 (units/ Sodium Chloride) 101 mls @ 0 mls/hr IVPB INF ARLYN; As Directed PRN Reason: Protocol Last Admin: 04/22/18 21:54 Dose: 101 mls Dextrose/Water (D5w) 1,000 mls @ 0 mls/hr IV INF PRN; As Directed PRN Reason: PRN HYPOGLYCEMIC PROTOCOL Fentanyl Citrate 2,000 mcg/ (Sodium Chloride) 100 mls @ 0 mls/hr IV INF ARLYN; Per Protocol PRN Reason: Protocol Stop: 05/23/18 23:38 Fentanyl Citrate (Fentanyl Bolus) 250 mls @ 0 mls/hr IVPB PRN PRN; As Directed PRN Reason: Breakthrough pain/agitation Stop: 05/23/18 23:38 Diltiazem HCl 125 mg/Miscellaneous Medication 1 each/ Sodium Chloride 125 mls @ 5 mls/hr IVPB INF ARLYN PRN Reason: Protocol Last Admin: 04/27/18 08:38 Dose: 125 mls Amiodarone HCl 450 mg/Miscellaneous Medication 1 each/ Dextrose/Water 259 mls @ 0 mls/hr IVPB INF ARLYN; As Directed PRN Reason: Protocol Last Admin: 04/27/18 10:13 Dose: 259 mls Dexmedetomidine HCl 200 mcg/ (Sodium Chloride) 50 mls @ 0 mls/hr IVPB INF ARLYN; Per Protocol PRN Reason: Protocol Last Admin: 04/27/18 11:23 Dose: 50 mls Insulin Human Regular (Humulin R) 0 units SC Q4H PRN; Protocol PRN Reason: POST OP SLIDING SCALE Last Admin: 04/27/18 10:30 Dose: 4 unit Discontinue Previous Narcotic Pain Medications And Benzodiazepines 1 each FS .ONE ARLYN Stop: 05/23/18 23:38 Ondansetron HCl (Zofran) 4 mg IVP Q6H PRN PRN Reason: Nausea/Vomiting Potassium Chloride (Kcl) 20 meq IVPB PRN PRN PRN Reason: K level </= 4.0 Last Admin: 04/26/18 05:40 Dose: 20 meq Promethazine HCl (Phenergan) 6.25 mg IM Q4H PRN PRN Reason: Nausea/Vomiting Propofol (Diprivan) 1,000 mg IV INF PRN; Protocol PRN Reason: TO ACHIEVE GOAL RASS Stop: 05/23/18 23:38 Last Admin: 04/26/18 06:09 Dose: 1,000 mg Propofol (Diprivan Bolus) 20 mg IV Q5MIN PRN PRN Reason: BREAKTHROUGH AGITATION Stop: 05/23/18 23:38 Sodium Bicarbonate (Bicarbonate, Sodium) 650 mg PER TUBE .PER PROTOCOL PRN PRN Reason: ENTERAL TUBE OCCLUSION Sodium Chloride (Flush - Normal Saline) 10 ml IVF PRN PRN PRN Reason: Saline Flush
[2018-04-27 14:27] LABS: Anion Gap 16 mmol/L (10-20); BUN (Urea Nitrogen) 80 mg/dL (8.4-25.7); Calc. Creatinine Clearance 38 mL/min (70-130); Calcium 8.1 mg/dL (7.8-10.44); Carbon Dioxide 26 mmol/L (23-31); Chloride 112 mmol/L (98-107); Estimated GFR-MDRD 31; Glucose 149 mg/dL (83-110); Magnesium 2.5 mg/dL (1.6-2.6); Sodium 150 mmol/L (136-145)
--- NOTE | 2018-04-27 16:17 | EKG ---
Test Reason : Blood Pressure : / mmHG Vent. Rate : 061 BPM Atrial Rate : 061 BPM P-R Int : 168 ms QRS Dur : 092 ms QT Int : 444 ms P-R-T Axes : 042 -26 -04 degrees QTc Int : 446 ms Sinus rhythm with marked sinus arrhythmia Otherwise normal ECG Confirmed by HA ALLAN ([id number]), writer editor CARLIN SAINZ ([id number]) on 04/27/2018 4:16:35 PM Referred By: Confirmed By:HA ALLAN
[2018-04-27] MEDS: Atorvastatin Calcium 10 MG TAB PO SCH (20:32)
[2018-04-28] MEDS: Acetaminophen 325 MG TAB PO PRN (00:30)
[2018-04-28] MEDS: Amiodarone HCl 450 MG, Admixture Fee 1 EACH in Dextrose 5% in Water 250 ML IVPB SCH ×2 (04:28→22:41)
[2018-04-28] MEDS: Furosemide 40 MG/4 ML VIAL SLOW IVP SCH (05:54)
[2018-04-28 06:11] LABS: Anion Gap 13 mmol/L (10-20); BUN (Urea Nitrogen) 89 mg/dL (8.4-25.7); Calc. Creatinine Clearance 35 mL/min (70-130); Calcium 8.3 mg/dL (7.8-10.44); Carbon Dioxide 27 mmol/L (23-31); Chloride 110 mmol/L (98-107); Estimated GFR-MDRD 28; Glucose 116 mg/dL (83-110); Potassium 3.4 mmol/L (3.5-5.1); Sodium 147 mmol/L (136-145)
[2018-04-28 06:33] LABS: Hemoglobin 9.6 g/dL (14.0-18.0); Mean Corpuscular HGB CONC 32.9 g/dL (32.0-36.0); Mean Corpuscular Hemoglobin 31.6 pg (27.0-31.0); Mean Platelet Volume 9.4 fL (7.4-10.4); Platelet Count 103 thou/uL (130-400); RBC Distribution Width 14.2 % (11.5-14.5); Red Blood Cell (RBC) Count 3.04 mill/uL (4.70-6.10); White Blood Cell (WBC) Count 5.4 thou/uL (4.8-10.8)
[2018-04-28 06:44] LABS: Band 71 % (5-11); Dohle Bodies SLIGHT; Lymphocytes 4 % (21-51); MDiff Complete? YES; Metamyelocyte 4 % (0-0); Monocytes 2 % (0-10); Myelocyte 1 % (0-0); Neutrophil 18 % (42-75); Nucleated RBC 2 % (0); PLT Morphology Comment Appears Decreased; Vacuoles SLIGHT
[2018-04-28] MEDS ORDERED: Cefepime 2 GM in Sodium Chloride 0.9% 100 ML IVPB SCH (08:00)
[2018-04-28] MEDS ORDERED: VANCOMYCIN/CEFEPIME IVPB PRN ×2 (08:15→15:59)
[2018-04-28 08:17] LABS: CO2 Tension 35.7 mmHg (35.0-45.0); pH, Arterial 7.49 (7.35-7.45)
[2018-04-28 08:18] LABS: O2 Tension (PaO2) 52.1 mmHg (> 70.0)
[2018-04-28 08:19] LABS: Actual Bicarbonate (HCO3a) 26.8 mEq/L (22-28); Base Excess (BEa) 3.6 mEq/L (-2.0 to +3.0); Hemoglobin (Hb) 11.2 g/dL (14.0-18.0)
[2018-04-28 08:20] LABS: Calcium, Ionized 1.1 mmol/L (1.12-1.30); Puncture Site RRA
[2018-04-28 08:21] LABS: ALV-art Gradient 331.075 (0-20)
[2018-04-28] MEDS: Aspirin 325 MG TAB PO SCH (08:23)
[2018-04-28] MEDS: Famotidine 20 MG TAB PER TUBE SCH (08:23)
[2018-04-28] MEDS ORDERED: Vancomycin HCl 1.25 GM in Sodium Chloride 0.9% 250 ML 250 ML IVPB SCH ×2 (09:00→11:00)
[2018-04-28] MEDS ORDERED: Vancomycin HCl 1 GM in Premix Bag 1 BAG IVPB SCH (11:30)
--- NOTE | 2018-04-28 11:49 | RAD ---
CHEST 1 VIEW: HISTORY: Ventilated patient. Respiratory distress. COMPARISON: 04/27/18. FINDINGS: Endotracheal tube and Dobbhoff feeding tube are noted. There is worsening opacification of the right hemithorax suggesting progression of pleural and parenchymal changes. Stable opacification of the l eft lung base. Interval removal of left-sided chest tube. Pneumothorax is not appreciated. IMPRESSION: 1. Interval removal of left-sided chest tube. 2. Worsening opacification of the thorax. POS: [facility]
[2018-04-28] MEDS ORDERED: Sodium Chloride 0.9% 500 ML IVPB SCH (12:00)
[2018-04-28] MEDS: Acetaminophen 650 MG/20.3 ML UDCUP PO PRN (12:10)
--- NOTE | 2018-04-28 13:27 | PRG ---
DATE OF SERVICE: 04/28/2018 SUBJECTIVE: This is a 77-year-old male being seen for acute kidney injury. The patient is intubated. OBJECTIVE: See above. GENERAL: Patient is resting. VITAL SIGNS: Afebrile, pulse 77, breathing at 16, blood pressure 153/81. GENERAL APPEARANCE AND MENTAL STATUS: Fair. HEAD/NECK: Normocephalic. Atraumatic. EYES: EOMI. No deformity. EARS: Clear. No ulcers. NOSE: Intact. No lesions. MOUTH: Clear. No discharge. THROAT: Clear. No exudate. LUNGS: Clear. No crackles. CARDIAC: S1, S2. No rub. ABDOMEN: Benign. BS+. GENITALIA/RECTUM: Garcia absent. BACK/EXTREMITIES: Edema 4+, ulcer. t. SKIN: Rash - bruise. LYMPHATICS: Edema - ulcer. LABORATORY DATA: Labs show hemoglobin 9.6, potassium 3.4, creatinine 2.2. ASSESSMENT AND RECOMMENDATIONS: 1. Acute kidney injury with chronic kidney disease, stage 4. Renal function is slightly decreased. Continue gentle hydration. 2. Hypokalemia. Recommend potassium replacement. 3. Hypernatremia. Continue free water. Hypernatremia has improved. No indication for dialysis. 4. Edema with decreased effective arterial blood volume. The patient has hypoalbuminemia as well that can also cause exacerbation of edema. MTDD
[2018-04-28 13:50] LABS: Anion Gap 17 mmol/L (10-20); BUN (Urea Nitrogen) 97 mg/dL (8.4-25.7); Calc. Creatinine Clearance 31 mL/min (70-130); Calcium 8.2 mg/dL (7.8-10.44); Carbon Dioxide 25 mmol/L (23-31); Chloride 110 mmol/L (98-107); Estimated GFR-MDRD 25; Glucose 98 mg/dL (83-110); Potassium 3.6 mmol/L (3.5-5.1); Sodium 148 mmol/L (136-145)
--- NOTE | 2018-04-28 13:59 | PRG ---
DATE OF SERVICE: 04/28/2018 SUBJECTIVE: The patient is seen and examined at the bedside. He is in ICU bed 7. He is intubated. He is sedated with Precedex. There is not much communication with him. PHYSICAL EXAMINATION: VITAL SIGNS: Blood pressure is 128/63, pulse is 81, respiratory rate is 28, pulse oximetry is 92%. He is in atrial fibrillation. HEENT: His pupils have some response to light. GENERAL: He is orally intubated. LUNGS: Breath sounds somewhat diminished at both bases. HEART: S1, S2, irregularly irregular. ABDOMEN: Soft, nondistended. EXTREMITIES: A 1+ peripheral edema similar bilaterally. NEUROLOGIC: He does not follow commands. He does not respond much to me. LABORATORY DATA: Showed white count of 5.4, hemoglobin of 9.6, hematocrit 29.2, platelet count is 10 3,000. ABGs showed pH of 7.49, pCO2 35.7, pO2 52.1. Sodium of 147, potassium 3.4, chloride 110, CO2 27, BUN 89, creatinine 2.29, glucose ranging from 96 to 153. Blood cultures no growth so far and ur ine culture no growth at 48 hours. IMPRESSION: 1. Atrial fibrillation with rapid ventricular response, on amiodarone. 2. Acute kidney injury, some improvement. 3. Fever. I suspect ventilator associated pneumonia. We will get the chest x-ray. Start him on ce fepime and vancomycin. 4. Encephalopathy with some suspicion for left hemiparesis with negative CT of the brain. We will o btain neurologic consultation. 5. Acute dissection of aorta status post repair. 6. Hypernatremia. We will make some adjustments on his free water and fluids. 7. [id number]-EX-pqwdnil elevation myocardial infarction. 8. Hypertension. 9. Coronary artery disease. 10. Status post coronary artery bypass graft, acute. PLAN: Continue current regimen with amiodarone per Cardiology. Obtain Neuro consult regarding his n euro status. Start cefepime and vancomycin. Blood cultures were obtained yesterday. They are negat surendra and continue ventilator support.
[2018-04-28] MEDS ORDERED: Norepinephrine 8 MG/0.9% NS 250 ML ONE (16:35)
[2018-04-28] MEDS ORDERED: Sodium Chloride 0.45% 1,000 ML IV SCH (17:15)
--- NOTE | 2018-04-28 17:43 | CON ---
DATE OF CONSULTATION: 04/28/2018 CHIEF COMPLAINT: I was asked to see patient for his encephalopathy. History given to me was that he was not waking up adequately. HISTORY OF PRESENT ILLNESS: The patient was admitted on 04/20/2018 with chest pain and he is now status post coronary artery bypass graft and also dissected ascending aorta repair with graft. He was on mechanical ventilation since then and he has received multiple transfusions and he also had multivessel cardiac disease, which needed to be addressed. The patient's is by the bedside and she stated since she has not been waking up, but today he is very quiet responsive and he nods to her voice and responds, and he has not been observative. She reports he does move his legs, but I have not seen that happen during my visit with him. Per nurse, he is generally weak, but responding to commands and opening his eyes. PAST MEDICAL HISTORY: Coronary artery disease, hypertension, previous right- sided rib fracture and femur fracture. PAST SURGICAL HISTORY: During this admission, he underwent coronary artery bypass graft and aortic dissection repair on 04/22/2018, and he also had a prostate repair surgery. SOCIAL HISTORY: Does not smoke or drink. He lives with family. FAMILY HISTORY: Positive for congestive heart failure in his mother. Father of lung cancer. HOME MEDICATIONS: Include aspirin, nifedipine and vitamin C. CURRENT HOSPITAL MEDICATIONS: Include hydrocodone, albuterol nebulizer, amiodarone, aspirin, atorvastatin, and he is also on antibiotics and diltiazem and fentanyl. REVIEW OF SYSTEMS: Unobtainable. LABORATORY RESULTS: White count is 5.4, hemoglobin 9.6, hematocrit 29.2 and platelets are 103. PT is 222.2, INR 1.9, PTT 40.8. Chemistries: Sodium 148, potassium 3.6, chloride 110, bicarbonate 25, BUN 97, creatinine 2.57, glucose 98. There is a CT of the head from 04/24/2018 which does not show any acute intracranial process. PHYSICAL EXAMINATION: VITAL SIGNS: Blood pressure 94/46, pulse rate is 89. He is on mechanical ventilator and temperature is 99.2. GENERAL APPEARANCE: The patient is intubated and on a ventilator. He wakes up when aroused. CHEST: Clear vesicular breathing. CARDIOVASCULAR: S1, S2 heard and systolic murmur. NEUROLOGICAL: Pupils are reactive to light, but 1 mm size. Higher intellectual functions: He opens eyes to command and tends to nod his head when asked to do so and follows simple 1 step commands. Cranial nerves: Pupils are reactive to light. No facial asymmetry noted. 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 Deep tendon reflexes were absent throughout. IMPRESSION: The patient is a 77-year-old man who underwent coronary artery bypass graft and also aortic dissection repair. At this time, I was consulted to see reasons for his encephalopathy. CT scan of the head performed on 2017, was negative for any intracranial lesions. According to his , he has started to wake up slowly and he follows commands. She did notice movement in his lower extremities, but during my testing, he does follow simple 1 step commands, opens his eyes to voice but did not move his lower extremities to command. This is most likely due to a combination of metabolic factors and also postsurgical recovery state. RECOMMENDATIONS: 1. Please continue to monitor her neurological status. 2. Obtain CT scan of the head when medically stable and to follow if there is any new ischemic lesion. Please monitor if he is able to move his lower extremities carefully. 3. I will ask Neurology team to follow up with you. Call me if you have any further questions. FAITH
[2018-04-28] MEDS: Sodium Chloride 0.45% 1,000 ML IV SCH ×2 (18:00→22:58)
--- NOTE | 2018-04-28 18:00 | RAD ---
2 VIEWS CHEST: Date: 04/28/18 COMPARISON: 04/28/18. HISTORY: Status post central line placement. FINDINGS: Single view of the chest shows an enlarged but stable cardiomediastinal silhouette. The patient is st atus post sternotomy. Dobbhoff tube and endotracheal tube are unchanged in position. There is a new r ight subclavian central venous catheter. There is a linear lucency projecting over the right apex whi ch likely represents a skin fold as lung markings appear peripheral to this abnormality. A small left pleural effusion is present. IMPRESSION: 1. Status post right subclavian central venous catheter placement with its tip in good position. Lucas ency projects over the right thorax, which likely represents a skin fold. Recommend repeating to ensu re that a pneumothorax is not present. 2. Small left pleural effusion. POS: [facility]
[2018-04-28 19:12] LABS: Hemoglobin 9.6 g/dL (14.0-18.0); Mean Corpuscular HGB CONC 32.9 g/dL (32.0-36.0); Mean Corpuscular Hemoglobin 31.6 pg (27.0-31.0); Mean Corpuscular Volume 96.2 fL (78.0-98.0); Mean Platelet Volume 9.9 fL (7.4-10.4); Platelet Count 111 thou/uL (130-400); RBC Distribution Width 14.1 % (11.5-14.5); Red Blood Cell (RBC) Count 3.02 mill/uL (4.70-6.10); White Blood Cell (WBC) Count 11.8 thou/uL (4.8-10.8)
[2018-04-28 19:32] LABS: Anisocytosis SLIGHT = 6-15 cells (100X) (0-5/hpf); Band 61 % (5-11); Lymphocytes 1 % (21-51); MDiff Complete? YES; Metamyelocyte 7 % (0-0); Monocytes 2 % (0-10); Myelocyte 2 % (0-0); Neutrophil 27 % (42-75); PLT Morphology Comment Appears Decreased
[2018-04-28] MEDS: Atorvastatin Calcium 20 MG TAB PO SCH (22:41)
--- NOTE | 2018-04-28 22:51 | PRG ---
DATE OF SERVICE: 04/28/2018 SUBJECTIVE: Mr. Lin is stable. He is actually following commands today, which is reassuring. He moves all his extremities, appears to move them equally now. He has been interacting with his with yes and no nods, and he waved to his daughter. OBJECTIVE: VITAL SIGNS: He had a temperature up to 103. He is afebrile now. LUNGS: Clear anteriorly. HEART: Regular rhythm. ABDOMEN: Soft. His incisions all look good for now. EXTREMITIES: Without asymmetry. NEUROLOGIC: Grossly nonfocal. He is still on Precedex drip. LABORATORY DATA: White count 5.4, hemoglobin 9.6, platelets 103,000. Sodium 148, potassium 3.6, chl oride 110, bicarbonate 25, BUN 97, creatinine 2.57. His creatinine is up from 2 days ago at 2.1, ted t is the lowest it has been since 04/23/2018 when it was 1.6; 04/22/2018, 0.95. Intake and output is positive 974. We need to get accurate weights on him. His weight is reported at 196. It was 194 yesterday, 200 po unds the day before, so obviously these weights are not trending accurately compared to the intake an d output. Chest radiograph shows a small effusion. He had central line placed by Dr. Dyer today. IMPRESSION: 1. Status post coronary artery bypass grafting with an aortic dissection requiring emergent repair a nd massive blood transfusions. 2. Acute tubular necrosis. 3. Mild hyperchloremia. 4. Respiratory failure, on mechanical ventilation. 5. Temperature to 103. There is obviously multiple possible sources of this. I do not feel at this point in time he has an MRSA infection, so I do not feel with his rising creatinine that vancomycin is clearly indicated. He was started on Maxipime this morning. We can follow his abdominal exams. With his mental status improving and reasonably stable renal func tion, I do not feel he has anything acutely going on with his abdomen, such as intestinal ischemia ca using a fever or a bowel. He certainly setup for an abscess in his abdomen, but hopefully will have to deal with this. I met with the and answered all of her questions. Critical care time, 30 minutes.
[2018-04-29] MEDS: Acetaminophen 650 MG/20.3 ML UDCUP PO PRN ×2 (00:30→15:50)
[2018-04-29] MEDS: Propofol 1,000 MG/100 ML VIAL IV PRN (00:58)
[2018-04-29 05:43] LABS: Anion Gap 18 mmol/L (10-20); BUN (Urea Nitrogen) 109 mg/dL (8.4-25.7); Calc. Creatinine Clearance 32 mL/min (70-130); Calcium 8.4 mg/dL (7.8-10.44); Carbon Dioxide 26 mmol/L (23-31); Chloride 110 mmol/L (98-107); Estimated GFR-MDRD 25; Glucose 119 mg/dL (83-110); Potassium 3.6 mmol/L (3.5-5.1); Sodium 150 mmol/L (136-145)
[2018-04-29 05:54] LABS: Vancomycin, Random 8.4 ug/mL (See Comment)
[2018-04-29] MEDS: fentaNYL Citrate/PF 2,000 MCG in Sodium Chloride 0.9% 60 ML IV SCH (06:20)
[2018-04-29] MEDS: Furosemide 40 MG/4 ML VIAL SLOW IVP SCH (06:27)
[2018-04-29 06:33] LABS: Hemoglobin 9.6 g/dL (14.0-18.0); Mean Corpuscular HGB CONC 32.4 g/dL (32.0-36.0); Mean Corpuscular Hemoglobin 31.1 pg (27.0-31.0); Mean Platelet Volume 10.3 fL (7.4-10.4); Platelet Count 125 thou/uL (130-400); RBC Distribution Width 14.2 % (11.5-14.5); Red Blood Cell (RBC) Count 3.08 mill/uL (4.70-6.10); White Blood Cell (WBC) Count 27.9 thou/uL (4.8-10.8)
[2018-04-29] MEDS: Amiodarone HCl 450 MG, Admixture Fee 1 EACH in Dextrose 5% in Water 250 ML IVPB SCH ×3 (06:34→23:32)
[2018-04-29 06:42] LABS: Band 50 % (5-11); Lymphocytes 2 % (21-51); MDiff Complete? YES; Metamyelocyte 6 % (0-0); Monocytes 9 % (0-10); Myelocyte 3 % (0-0); Neutrophil 30 % (42-75)
[2018-04-29] MEDS ORDERED: Digoxin 0.5 MG/2 ML AMP ONE (07:13)
[2018-04-29] MEDS: Digoxin 0.5 MG/2 ML AMP SLOW IVP SCH ×2 (07:27→10:05)
[2018-04-29 07:37] LABS: pH, Arterial 7.49 (7.35-7.45)
[2018-04-29 07:38] LABS: Actual Bicarbonate (HCO3a) 19.3 mEq/L (22-28); CO2 Tension 25.8 mmHg (35.0-45.0); O2 Tension (PaO2) 60.2 mmHg (> 70.0)
[2018-04-29 07:39] LABS: Base Excess (BEa) -2.7 mEq/L (-2.0 to +3.0); Hemoglobin (Hb) 10.9 g/dL (14.0-18.0)
[2018-04-29 07:40] LABS: Calcium, Ionized 1.1 mmol/L (1.12-1.30); Puncture Site RBRACH
--- NOTE | 2018-04-29 07:57 | PRG ---
DATE OF SERVICE: 04/29/2018 Thirty-five minutes critical care time. The patient remains intubated on mechanical ventilation. His postoperative course is complicated by fever, sepsis and atrial fibrillation with a rapid ventricular response. He was briefly on CPAP over the weekend, but because of metabolic demands failed that and was placed back on full pressure. For tunately, he is now awake and is following commands. PHYSICAL EXAMINATION: VITAL SIGNS: Temperature is 99.4 with a T-max of 103.1 yesterday around noon, pulse is 136, blood pr essure 107/67. He is currently on an amiodarone drip, a Precedex drip and a norepinephrine drip. To wiley intake for the last 24 hours 3791, output 915. HEENT: Pupils are reactive. Sclerae icteric. Oropharynx clear. NECK: No adenopathy or JVD. CARDIAC: S1, S2, tachycardic and irregularly irregular. LUNGS: A few crackles in both bases. ABDOMEN: Soft, slightly distended. EXTREMITIES: No clubbing, cyanosis, but he has 2+ edema throughout. LABORATORY DATA: White blood cell count 27.9, hematocrit 29.5, platelet count 125 with 30% neutrophi ls, 50% bands. PH 7.49, pCO2 25, pO2 of 60 on SIMV rate 11, tidal volume 470, PEEP 10, pressure supp ort 10, FiO2 60%. Sodium 150, potassium 3.6, chloride 110, CO2 26, BUN 109, creatinine 2.5, glucose 119. Cultures are growing out E. coli from a venous culture on 04/28/2018. ASSESSMENT: 1. Escherichia coli sepsis. 2. Acute respiratory failure requiring mechanical ventilation. 3. Atrial fibrillation with rapid ventricular response. 4. Acute respiratory distress syndrome. 5. Hypernatremia. 6. Acute renal failure. PLAN: 1. The patient is not weanable at this time secondary to metabolic demands. Cardiology is addressin g his atrial fibrillation. 2. Continue the vancomycin and cefepime. 3. Dr. Cr has been consulted for an opinion regarding the fever. 4. Change IV fluids to D5W given the development of hyponatremia. 5. Not weanable at the current time.
[2018-04-29] MEDS: Norepinephrine 8 MG/250 ML BAG IVPB PRN ×2 (08:15→21:48)
[2018-04-29] MEDS: Dextrose 5% in Water 1,000 ML IV SCH ×2 (09:00→20:47)
--- NOTE | 2018-04-29 09:39 | RAD ---
PORTABLE CHEST: HISTORY: Respiratory distress. COMPARISON: Prior day's study. FINDINGS: A Dobhoff feeding tube is seen in the stomach. Endotracheal tube appears unchanged in position. Ple ural and parenchymal lung changes appear stable. IMPRESSION: Stable exam. POS: [facility]
[2018-04-29] MEDS ORDERED: Cefepime 1 GM in Sodium Chloride 0.9% 100 ML IVPB SCH (10:00)
[2018-04-29] MEDS ORDERED: Cefepime 2 GM in Sodium Chloride 0.9% 100 ML IVPB SCH (10:00)
[2018-04-29] MEDS: Aspirin 325 MG TAB PO SCH (10:04)
[2018-04-29] MEDS: Famotidine 20 MG TAB PER TUBE SCH (10:05)
[2018-04-29] MEDS: Insulin Regular 300 UNITS/3 ML VIAL SC PRN ×2 (10:58→21:55)
[2018-04-29] MEDS ORDERED: Digoxin 0.5 MG/2 ML AMP SLOW IVP SCH ×3 (11:00→17:30)
--- NOTE | 2018-04-29 11:00 | PRG ---
DATE OF SERVICE: 04/29/2018 SUBJECTIVE: The patient was seen and examined at the bedside in ICU. Patient's is at the [facility]. The patient remains intubated but is responsive and awake. He is making urine 65-70 mL per hour. Bedside nurse also updated about the plan and currently tachyc ardic. OBJECTIVE: GENERAL: This is a well-built male seen in ICU, intubated. VITAL SIGNS: Temperature 96, pulse 153, respiratory 20, blood pressure 105/56. HEENT: Intubated. CARDIOVASCULAR: S1, S2 heard, tachycardic. RESPIRATORY: Scattered crackles. ABDOMEN: Abdomen is soft. MUSCULOSKELETAL: 1-2+ edema. DERMATOLOGIC: No skin rash. NEUROLOGIC: Awake, but intubated. LABORATORY DATA: Sodium 150, potassium 3.6, BUN 109, creatinine is 2.53, GFR is 25. ASSESSMENT AND PLAN: 1. Acute kidney injury on chronic kidney disease stage 3. Renal function with stable numbers, creat inine 2.5, and the same 2.5 yesterday. Sodium level is up. He is on D5W. Urine output 60-70, he re owen nonoliguric. No acute indication for dialysis. Plan is to monitor for now. Avoid nephrotoxin s, continue supportive care including broad spectrum antibiotics. Follow up with ID for further lexie mmendations. 2. Hypernatremia. Agree with free water. 3. Hyperchloremia. 4. Azotemia. 5. Anemia, stable hemoglobin. Monitor. 6. Cardiorenal syndrome with edema. 7. Moderate hypoalbuminemia with moderate protein energy malnutrition. 8. Acute hypoxic respiratory failure, currently intubated with minimal vent settings. 9. Escherichia coli sepsis. 10. Atrial fibrillation. Prognosis is guarded. Family updated at the bedside. The plan is to monitor renal function. No acu te indication for dialysis. We will follow.
--- NOTE | 2018-04-29 12:53 | CON ---
DATE OF CONSULTATION: 04/29/2018 REASON FOR CONSULTATION: Bacteremia. HISTORY OF PRESENT ILLNESS: A 77-year-old patient who has been admitted at the end of March with a history of hypertension, new onset of chest pain. Consultation with Cardiology was obtained. The patient underwent a coronary bypass graft surgery on 04/22/2018 x3 with left internal mammary artery and saphenous grafts. 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 It was elected to replace the ascending aorta with a Dacron tube graft anastomosed the distal stump of the aorta at the base of the arch. The patient required extensive transfusion during this procedure and subsequently he developed encephalopathy on 04/28/2018. CT of head did not show any acute lesions. There was elevation of his temperature up to 103 on 05/2018. At the same time blood culture was submitted. The temperature elevation had started to manifest itself on 04/25/2018 with low grade temperature elevation. The patient became hypotensive at the same time and started on Levophed and broad spectrum antimicrobial coverage started and now we have 1 out of 2 sets of blood cultures growing E. coli with pending susceptibility. From 04/26/2018 we have a respiratory culture with E. coli and Klebsiella oxytoca with a broad susceptibility profile. Currently, the patient is awake. He is intubated. His is in the room. Denies any headaches. He establishes eye contact, he tries to cough intermittently. Denies any abdominal pain and still has the chest tubes in place, mediastinal and left-sided, an NG tube and a Garcia catheter. PAST MEDICAL HISTORY: Hypertension. PAST SURGICAL HISTORY: TURP for BPH in 2004. SOCIAL HISTORY: Drinks occasionally. Never a smoker. CURRENT MEDICATIONS: Receiving Tylenol, [place], Maalox, DuoNeb, amiodarone, aspirin, cefepime, Precedex, diltiazem, fentanyl, furosemide, glucagon, insulin , levofloxacin, ondansetron, potassium, promethazine, propofol and vancomycin has been discontinued. ALLERGY HISTORY: Negative. PHYSICAL EXAMINATION: VITAL SIGNS: T-max 103 yesterday, currently 100.2, blood pressure 105/56, pulse 153, respiratory rate 21, O2 sat 98%. SKIN: Examination shows the healed sternotomy wound. In the left thigh there is a little area of edema of the thigh with a little blistering. He got the tubes and the lines described. A central line had been removed, but a new one has been inserted in the right subclavian position. HEENT: Ocular movements conjugate. Pupils are equal. Sclerae white. Conjunctivae normal. Oral cavity moist, still quite a few teeth in place with some decay. LUNGS: With coarse breath sounds with some crackles and rhonchi, particularly prominent on the left side. HEART: S1, S2, regular rate without obvious murmurs. ABDOMEN: Soft, not distended or tender. No ascites. No bladder distention. EXTREMITIES: No joint inflammatory activity, he is able to move extremities on command. LABORATORY DATA: White cell count is up from 5.4 to 27.9, hemoglobin 9.6, platelets 125,000, 30% neutrophils and 50% bands. INR 1.9. Chemistry: Creatinine up to 2.53, albumin 2.4, AST 570, ALT 1568, bilirubin 1.6, alkaline phosphatase 91. IMAGING STUDIES: We have a chest x-ray which demonstrates a Dobbhoff feeding tube in the stomach, ET tube, pleural and parenchymal lung changes noted. There had been progression of right-sided pleural parenchymal changes with consolidation noted. ASSESSMENT: 1. Chest pain with anteroseptal non-ST segment elevation myocardial infarction. He is status post bypass graft surgery. The patient apparently had dissection of the aorta as well and required a graft to replace the ascending aorta. This was carried out on 04/22/2018. Over the past few days, the patient became delirious, developed hypotension with fever and has had a diagnosed sepsis with E. coli in the blood. This is 1/2 sets of blood cultures. The patient is currently on adequate antimicrobial therapy and low dose of vasopressors. DISCUSSION: The differential diagnoses include a wide range of post-cardiac surgery infections including the possibility of pneumonia, device associated infection, particularly catheters, urinary tract infection. Surgical infection appears to be less likely. He does not have any local signs that would indicate an inflammatory process in the sternotomy site. The vascular catheter is fresh, so it is less likely to be the culprit here. The urinary tract is also less likely in view of the low number of WBCs, urinalysis and the negative urine culture. I believe that a respiratory infection with pneumonia is the most likely scenario. The E. coli organism has a susceptibility to a broad variety of oral agents. The current regimen will likely be effective. An intraabdominal inflammatory process is not likely. He does have abnormal liver function tests which are probably related to the effects of the hemodynamic changes in the liver with congestion or some element of ischemia. There could also be nonspecific changes related to bacteremia, but the degree of transaminase elevation would suggest more of a combination ischemia/congestion. Finally, infrequently platelet transfusions can lead to bacteremia since platelet packs are kept at room temperature and may become comtaminated during the procedure of collection. MICHELLED
[2018-04-29] MEDS ORDERED: Metoprolol Tartrate 5 MG/5 ML VIAL IVP SCH (16:15)
[2018-04-29] MEDS: Atorvastatin Calcium 20 MG TAB PO SCH (21:52)
[2018-04-30] MEDS: fentaNYL Citrate/PF 2,000 MCG in Sodium Chloride 0.9% 60 ML IV SCH (01:23)
[2018-04-30] MEDS: Furosemide 40 MG/4 ML VIAL SLOW IVP SCH (06:18)
[2018-04-30 06:25] LABS: Anion Gap 16 mmol/L (10-20); Calc. Creatinine Clearance 25 mL/min (70-130); Carbon Dioxide 28 mmol/L (23-31); Chloride 107 mmol/L (98-107); Estimated GFR-MDRD 20; Glucose 122 mg/dL (83-110); Potassium 4.6 mmol/L (3.5-5.1); Sodium 146 mmol/L (136-145)
[2018-04-30 06:30] LABS: Band 37 % (5-11); Dohle Bodies SLIGHT; Hemoglobin 9.4 g/dL (14.0-18.0); MDiff Complete? YES; Mean Corpuscular HGB CONC 32.2 g/dL (32.0-36.0); Mean Corpuscular Hemoglobin 31.8 pg (27.0-31.0); Mean Corpuscular Volume 98.7 fL (78.0-98.0); Mean Platelet Volume 10.4 fL (7.4-10.4); Monocytes 3 % (0-10); Neutrophil 60 % (42-75); PLT Morphology Comment Appears Decreased; Platelet Count 115 thou/uL (130-400); RBC Distribution Width 14.2 % (11.5-14.5); Red Blood Cell (RBC) Count 2.97 mill/uL (4.70-6.10); Toxic Granulation SLIGHT
[2018-04-30 06:36] LABS: Digoxin 3.12 ng/mL (0.8-2.0)
[2018-04-30] MEDS: Amiodarone HCl 450 MG, Admixture Fee 1 EACH in Dextrose 5% in Water 250 ML IVPB SCH ×3 (06:36→22:29)
[2018-04-30 06:38] LABS: BUN (Urea Nitrogen) 118 mg/dL (8.4-25.7)
[2018-04-30 07:18] LABS: Actual Bicarbonate (HCO3a) 27.6 mEq/L (22-28); Base Excess (BEa) 1.9 mEq/L (-2.0 to +3.0); CO2 Tension 48.7 mmHg (35.0-45.0); Hemoglobin (Hb) 9.8 g/dL (14.0-18.0); O2 Tension (PaO2) 53.3 mmHg (> 70.0); pH, Arterial 7.37 (7.35-7.45)
[2018-04-30 07:19] LABS: ALV-art Gradient 242.325 (0-20); Puncture Site LRA
[2018-04-30] MEDS ORDERED: Metoclopramide HCl 10 MG/2 ML VIAL IVP SCH (07:30)
[2018-04-30] MEDS: Famotidine 20 MG TAB PER TUBE SCH (07:52)
[2018-04-30] MEDS: Aspirin 325 MG TAB PO SCH (07:52)
[2018-04-30] MEDS: Metoprolol Tartrate 5 MG/5 ML VIAL IVP SCH ×3 (07:53→20:43)
--- NOTE | 2018-04-30 08:45 | PRG ---
DATE OF SERVICE: 04/30/2018 Thirty-five minutes critical care time. The patient remains intubated on mechanical ventilation. He will wake up and follow commands without difficulty. PHYSICAL EXAMINATION: VITAL SIGNS: Temperature 98.8, pulse 115 in atrial fibrillation, blood pressure 106/45. His current drips include amiodarone at 1 mg per minute, Precedex at 0.3 mcg per kilogram per minute, norepineph rine at 10 mcg per minute and fentanyl 100 mcg per hour. His 24-hour intake 3409, output 965. Weigh t currently 196 pounds. NEUROLOGIC: He will follow commands. HEENT: Pupils react. Sclerae icteric. Oropharynx clear. NECK: No adenopathy or JVD. LUNGS: Coarse breath sounds bilaterally. CARDIOVASCULAR: S1, S2 irregularly irregular and tachycardic. ABDOMEN: Soft, nontender, nondistended. EXTREMITIES: Generalized edema throughout. LABORATORY DATA: Sodium 146, potassium 4.6, chloride 107, CO2 28, BUN 118, creatinine 3.1, glucose 1 22, pH 7.37, pCO2 of 48, pO2 of 53 on SIMV rate 11, tidal volume 470, PEEP 10, pressure support 10, F iO2 50%. White blood cell count 24.0, hematocrit 29.3, platelet count 115. Chest x-ray shows bilateral infiltrates, primarily at the bases. Really no change from yesterday. ASSESSMENT: 1. Acute respiratory failure requiring mechanical ventilation. 2. Acute respiratory distress syndrome. 3. Escherichia coli sepsis. 4. Hyponatremia, which is slightly improved. 5. Acute renal failure. 6. Status post coronary artery bypass grafting surgery with aortic dissection and subsequent replace ment of the ascending aorta. PLAN: 1. The patient's atrial fibrillation remains concerning. I will go ahead and try to stop Levophed a nd use vasopressin instead to see if this will help with his heart rate and hopefully allow us to get him off some of the other drips. 2. I appreciate Dr. Cr's input regarding the patient's white blood cell count. The patient is re maining on cefepime and Levaquin. 3. The patient remains on D5W. 4. His Dobbhoff tube has been adjusted and he will restart tube feeds. 5. I spoke to the at bedside. I do not think the patient is weanable from mechanical ventilati on at this time.
[2018-04-30] MEDS: Vasopressin 40 UNIT, Admixture Fee 1 EACH in Sodium Chloride 0.9% 100 ML IV SCH (09:07)
--- NOTE | 2018-04-30 09:33 | PRG ---
DATE OF SERVICE: 04/30/2018 SUBJECTIVE: The patient was seen and examined at bedside. Son was at the bedside. He is making less urine than yesterday, remains intubated, responsive. The plan is to change his pressors to vasopressin and also he is on IV fluids. OBJECTIVE: GENERAL: This is a well-built male seen in ICU, intubated. VITAL SIGNS: Temperature 98.3, pulse 123, respiratory 11, blood pressure 104/ 52. HEENT: Intubated. CARDIOVASCULAR: S1, S2 heard, tachycardic. RESPIRATORY: Scattered crackles. ABDOMEN: Soft. MUSCULOSKELETAL: 2+ edema. DERMATOLOGIC: No skin rash. NEUROLOGIC: Intubated. LABORATORY DATA: Potassium 4.6, sodium is 146 from 150 yesterday, creatinine 3.1 from 2.5. ASSESSMENT AND PLAN: 1. Acute kidney injury on chronic kidney disease stage 3 with worsening numbers today, but still making urine. No acute indication for dialysis. Plan is to monitor. Continue supportive care with avoidance of nephrotoxins and continue broad spectrum antibiotics. 2. Hypernatremia, better. Would recommend reducing free water to 50 mL per hour as tolerated. 3. Hyperchloremia. 4. Azotemia. 5. Cardiorenal syndrome. 6. Moderate protein energy malnutrition with hypoalbuminemia. 7. Acute hypoxic respiratory failure, currently intubated. 8. Escherichia coli sepsis. 9. Atrial fibrillation. Prognosis remains guarded. No acute indication for dialysis. We will continue close monitoring. Avoid nephrotoxins. Renally dose the medicines. MTDD
--- NOTE | 2018-04-30 09:52 | RAD ---
CHEST ONE VIEW: History: Dyspnea. Follow up. Comparison: 04-29-18 FINDINGS: Cardiac silhouette is magnified and upper limits of normal in size. Pulmonary vasculature remains eng orged. Patchy bibasilar infiltrate and left pleural fluid are similar in appearance to the prior stud y. Lines and tubes appear unchanged in position. No evidence of pneumothorax. IMPRESSION: Pulmonary edema, left pleural fluid, and other findings are stable. POS: [facility]
--- NOTE | 2018-04-30 10:15 | RAD ---
SINGLE VIEW ABDOMEN: Date: 04/30/18 INDICATION: Dobbhoff placement. FINDINGS: Dobbhoff tube tip is seen within the region of the gastric cardia. The visualized bowel gas pattern i s unobstructed. The right lung base is visualized and appears within normal limits. IMPRESSION: Dobbhoff tube tip seen within the region of the gastric cardia. POS: [facility]
--- NOTE | 2018-04-30 10:17 | RAD ---
AP VIEW ABDOMEN: Date: 04/30/18 Time: 0806 hours HISTORY: Dobbhoff tube placement. FINDINGS: Comparison made to previous exam from 0801 hours on 04/30/18. AP view of abdomen is obtained and demonstrates repositioning of the Dobbhoff tube. Previously, the D obbhoff tube was coiled within the stomach, distal tip overlying the fundus. It has now been repositi oned and the distal tip is now in the third portion of the duodenum. IMPRESSION: Repositioning of the Dobbhoff tube, distal tip now within the duodenum. POS: [facility]
[2018-04-30] MEDS: Cefepime 2 GM, Admixture Fee 1 EACH in Sodium Chloride 0.9% 100 ML IVPB SCH (10:23)
[2018-04-30] MEDS: Dextrose 5% in Water 1,000 ML IV SCH (10:24)
[2018-04-30] MEDS: Metoclopramide HCl 10 MG/2 ML VIAL IVP SCH ×2 (17:41→22:23)
[2018-04-30] MEDS: Atorvastatin Calcium 20 MG TAB PO SCH (20:43)
[2018-05-01] MEDS: Vasopressin 40 UNIT, Admixture Fee 1 EACH in Sodium Chloride 0.9% 100 ML IV SCH (00:02)
[2018-05-01] MEDS: Dextrose 5% in Water 1,000 ML IV SCH (00:03)
[2018-05-01] MEDS: Metoprolol Tartrate 5 MG/5 ML VIAL IVP SCH ×4 (02:22→20:31)
[2018-05-01] MEDS: fentaNYL Citrate/PF 2,000 MCG in Sodium Chloride 0.9% 60 ML IV SCH (02:39)
[2018-05-01] MEDS: Metoclopramide HCl 10 MG/2 ML VIAL IVP SCH ×2 (04:34→10:20)
[2018-05-01] MEDS: Amiodarone HCl 450 MG, Admixture Fee 1 EACH in Dextrose 5% in Water 250 ML IVPB SCH ×3 (04:50→20:30)
[2018-05-01 05:18] LABS: Anion Gap 12 mmol/L (10-20); Calc. Creatinine Clearance 28 mL/min (70-130); Calcium 7.9 mg/dL (7.8-10.44); Carbon Dioxide 29 mmol/L (23-31); Chloride 104 mmol/L (98-107); Estimated GFR-MDRD 21; Glucose 186 mg/dL (83-110); Potassium 3.9 mmol/L (3.5-5.1); Sodium 141 mmol/L (136-145)
[2018-05-01 05:30] LABS: BUN (Urea Nitrogen) 127 mg/dL (8.4-25.7)
[2018-05-01 06:01] LABS: Band 6 % (5-11); Eosinophils 1 % (0-10); Hemoglobin 8.7 g/dL (14.0-18.0); Lymphocytes 4 % (21-51); MDiff Complete? YES; Mean Corpuscular HGB CONC 31.8 g/dL (32.0-36.0); Mean Corpuscular Hemoglobin 31.2 pg (27.0-31.0); Mean Corpuscular Volume 98.1 fL (78.0-98.0); Mean Platelet Volume 10.9 fL (7.4-10.4); Monocytes 4 % (0-10); Neutrophil 85 % (42-75); PLT Morphology Comment Appears Decreased; Platelet Count 100 thou/uL (130-400); RBC Distribution Width 14.2 % (11.5-14.5); Red Blood Cell (RBC) Count 2.78 mill/uL (4.70-6.10); White Blood Cell (WBC) Count 15.5 thou/uL (4.8-10.8)
[2018-05-01] MEDS: Furosemide 40 MG/4 ML VIAL SLOW IVP SCH (06:55)
[2018-05-01 07:01] LABS: Base Excess (BEa) 0.3 mEq/L (-2.0 to +3.0); CO2 Tension 46.9 mmHg (35.0-45.0); O2 Tension (PaO2) 60.4 mmHg (> 70.0); pH, Arterial 7.36 (7.35-7.45)
[2018-05-01 07:02] LABS: Calcium, Ionized 1.1 mmol/L (1.12-1.30); Hemoglobin (Hb) 9.3 g/dL (14.0-18.0); Puncture Site LBA
[2018-05-01 07:03] LABS: ALV-art Gradient 237.475 (0-20)
[2018-05-01] MEDS ORDERED: Digoxin 0.5 MG/2 ML AMP SLOW IVP SCH (07:30)
[2018-05-01] MEDS: Propofol 1,000 MG/100 ML VIAL IV PRN (08:43)
--- NOTE | 2018-05-01 08:54 | RAD ---
PORTABLE CHEST 1 VIEW: Date: 05/01/18 Time: 0453 hours HISTORY: Respiratory failure. FINDINGS/IMPRESSION: No significant interval change is seen since the previous day's exam. POS: [facility]
--- NOTE | 2018-05-01 09:00 | PRG ---
DATE OF SERVICE: 05/01/2018 Forty-five minutes of critical care time. The patient remains intubated on mechanical ventilation. He will wake up and coughs vigorously. He has profound secretions coming from his endotracheal tube. He has very borderline O2 sats. PHYSICAL EXAMINATION: VITAL SIGNS: On exam his temperature is 97.9, O2 sats generally running in the high 80s to low 90s, blood pressure 149/60, pulse 113. Total intake for 24 hours 4139, output 1705. HEENT: Unremarkable. NECK: No JVD. LUNGS: Coarse breath sounds. CARDIAC: S1 and S2 regular. ABDOMEN: Soft, nontender. EXTREMITIES: Edematous. LABORATORY DATA: Sodium 141, potassium 3.9, chloride 104, CO2 29, BUN 127, creatinine 2.9, glucose 1 86, pH 7.36, pCO2 47, pO2 of 60 on SIMV rate 11, tidal volume 470, PEEP 10, pressure support 10, FiO2 50%. White blood count 15.5, hematocrit 27.3, platelet count 100. Chest x-ray shows bilateral infiltrates, right greater than left. He has a left pleural effusion. ASSESSMENT: 1. Acute respiratory distress syndrome. 2. Acute respiratory failure. 3. Escherichia coli sepsis. 4. Improved hypernatremia. 5. Acute renal failure. 6. Status post coronary bypass grafting surgery with aortic dissection and subsequent replacement of the ascending aorta. PLAN: 1. The patient needs bronchoscopy to help clear out secretions. 2. Pulse rate appears to be better off Levophed and using vasopressin only. 3. Stop the D5W. 4. Continue enteral tube feeds. 5. I spoke with the patient's at bedside. 6. Adjust mechanical ventilation settings.
[2018-05-01] MEDS ORDERED: Rocuronium Bromide 50 MG/5 ML VIAL ONE (09:01)
[2018-05-01] MEDS: Famotidine 20 MG TAB PER TUBE SCH (09:11)
[2018-05-01] MEDS: Aspirin 325 MG TAB PO SCH (09:11)
[2018-05-01] MEDS: Cefepime 2 GM, Admixture Fee 1 EACH in Sodium Chloride 0.9% 100 ML IVPB SCH (10:25)
--- NOTE | 2018-05-01 11:18 | OP ---
DATE OF PROCEDURE: 05/01/2018 PROCEDURE: Bronchoscopy. PREOPERATIVE DIAGNOSIS: Retained secretions. POSTOPERATIVE DIAGNOSIS: Retained secretions. ANESTHESIA: The patient was on propofol during the procedure also received a total 50 mg of Zemuron for purposes of chemical paralysis. DESCRIPTION OF PROCEDURE: Informed consent was obtained from the patient's . The patient was se dated. An Olympus bronchoscope was placed through the patient's endotracheal tube into the lungs. T here was copious brown secretions in all airways bilaterally. These were lavaged with normal saline and aspirated to completion. The procedure was tolerated well. There was no evidence of any bronchi al obstruction otherwise.
--- NOTE | 2018-05-01 11:38 | PRG ---
DATE OF SERVICE: 05/01/2018 SUBJECTIVE: The patient was seen and examined at the bedside. was at the bedside and updated a bout the current situation. The patient is making some urine. He was given Lasix. He had bronchosc opy today and after sedated not able to respond. PHYSICAL EXAMINATION: GENERAL: This is an elderly male seen in ICU, intubated. VITAL SIGNS: Temperature 97.8, pulse 105, respiratory 18, blood pressure 110/57. HEENT: Intubated. CARDIOVASCULAR: S1, S2 heard, tachycardia. RESPIRATORY: Clear. GASTROINTESTINAL: Soft. MUSCULOSKELETAL: 1+ edema. DERMATOLOGIC: No skin rash. NEUROLOGIC: Intubated. LABORATORY DATA: Hemoglobin 8.7, potassium 3.9, sodium is 141, BUN 127, creatinine is 2.9. ASSESSMENT AND PLAN: 1. Acute kidney injury on chronic kidney stage 3, with improvement in creatinine to 2.9 from 3.1. H e had a urine output of 1700 mL yesterday. BUN is still going up, most likely from diuretics. 2. Azotemia. 3. Cardiorenal syndrome. 4. Moderate pulmonary edema. 5. Acute hypoxic respiratory failure. 6. Sepsis. 7. Atrial fibrillation. 8. Hypernatremia, better. We will continue to monitor. Creatinine seems to be getting better. Avoid nephrotoxins, renally dos e all the medicines and we will follow. Currently on Lasix per critical care team. We will follow.
[2018-05-01] MEDS: Atorvastatin Calcium 20 MG TAB PO SCH (20:30)
[2018-05-02] MEDS: Metoprolol Tartrate 5 MG/5 ML VIAL IVP SCH ×4 (01:30→18:18)
[2018-05-02] MEDS: Furosemide 40 MG/4 ML VIAL SLOW IVP SCH (05:49)
[2018-05-02 06:32] LABS: Anion Gap 15 mmol/L (10-20); Calc. Creatinine Clearance 33 mL/min (70-130); Calcium 7.9 mg/dL (7.8-10.44); Carbon Dioxide 27 mmol/L (23-31); Chloride 104 mmol/L (98-107); Estimated GFR-MDRD 25; Glucose 109 mg/dL (83-110); Potassium 3.7 mmol/L (3.5-5.1); Sodium 142 mmol/L (136-145)
[2018-05-02 06:37] LABS: Band 16 % (5-11); Hemoglobin 8.6 g/dL (14.0-18.0); Lymphocytes 9 % (21-51); MDiff Complete? YES; Mean Corpuscular HGB CONC 32.9 g/dL (32.0-36.0); Mean Corpuscular Hemoglobin 31.6 pg (27.0-31.0); Metamyelocyte 1 % (0-0); Monocytes 4 % (0-10); Neutrophil 70 % (42-75); PLT Morphology Comment Appears Decreased; Platelet Count 103 thou/uL (130-400); RBC Distribution Width 14.2 % (11.5-14.5); Red Blood Cell (RBC) Count 2.71 mill/uL (4.70-6.10); White Blood Cell (WBC) Count 12.4 thou/uL (4.8-10.8)
[2018-05-02 06:43] LABS: BUN (Urea Nitrogen) 129 mg/dL (8.4-25.7)
[2018-05-02 07:39] LABS: Actual Bicarbonate (HCO3a) 25.9 mEq/L (22-28); Base Excess (BEa) 1.9 mEq/L (-2.0 to +3.0); CO2 Tension 37.8 mmHg (35.0-45.0); O2 Tension (PaO2) 54.3 mmHg (> 70.0); pH, Arterial 7.45 (7.35-7.45)
[2018-05-02 07:40] LABS: Calcium, Ionized 1.1 mmol/L (1.12-1.30); Puncture Site RB
[2018-05-02] MEDS ORDERED: Digoxin 0.5 MG/2 ML AMP SLOW IVP SCH (08:30)
--- NOTE | 2018-05-02 08:52 | PRG ---
DATE OF SERVICE: 05/02/2018 Thirty-five minutes critical care time. The patient remains intubated on mechanical ventilation. He will wake up or follow commands for me. PHYSICAL EXAMINATION: VITAL SIGNS: His temperature is 98.6 with no fever overnight, pulse 129, blood pressure 113/63. 24 hour intake 1991, output 1835. HEENT: Pupils react. Sclerae icteric. Oropharynx clear. NECK: No adenopathy or JVD. LUNGS: Fairly clear anteriorly. CARDIOVASCULAR: S1, S2, tachycardic, alternating between atrial flutter and atrial fibrillation. ABDOMEN: Soft, nontender, nondistended. EXTREMITIES: No clubbing, cyanosis, but he does have trace edema. Chest x-ray demonstrates slight cardiomegaly. Endotracheal tube remains in good position. There is a Dobbhoff tube going down to the stomach, the parenchymal changes seem to be stable. LABORATORY DATA: White blood cell count 12.4, hemoglobin 8.6, hematocrit 26.0, platelet count 103, p H 7.45, pCO2 37, pO2 of 54 that is on SIMV rate 11, tidal volume 550, PEEP 10, pressure support 15, F iO2 45%. Sodium 142, potassium 3.7, chloride 104, CO2 27, BUN 129, creatinine 2.5, glucose 109. ASSESSMENT: 1. Acute respiratory failure requiring mechanical ventilation. 2. Status post coronary artery bypass grafting surgery with intraoperative complication of aortic di ssection which required repair. 3. Acute renal failure which appears to be slightly improving. 4. Escherichia coli sepsis. 5. Bilateral retained secretions - now status post bronchoscopy yesterday with pending cultures. 6. Atrial fibrillation/flutter. PLAN: 1. The patient is continuing antibiotics. 2. Probable cardioversion tomorrow. 3. Not weanable at this time. 4. Continue enteral tube feeds. 5. May be looking at tracheostomy placement sometime next week.
--- NOTE | 2018-05-02 08:52 | RAD ---
AP VIEW OF THE CHEST: INDICATION: Intubation. IMPRESSION: Right subclavian central venous catheter, ET tube, and feeding tube are unchanged. Bilateral bibasil ar airspace opacities, left greater than right, are similar. A small pleural effusion persists. Car diomegaly and pulmonary vasculature is similar. Osseous structures are unchanged. POS: [facility]
[2018-05-02] MEDS ORDERED: Enoxaparin Sodium 100 MG/ML SYRINGE SC SCH (09:00)
[2018-05-02] MEDS: Enoxaparin Sodium 100 MG/ML SYRINGE SC SCH (09:33)
[2018-05-02] MEDS: Aspirin 325 MG TAB PO SCH (09:34)
[2018-05-02] MEDS: Famotidine 20 MG TAB PER TUBE SCH (09:34)
--- NOTE | 2018-05-02 11:49 | PRG ---
DATE OF SERVICE: 05/02/2018 SUBJECTIVE: This is an elderly white male seen in ICU, intubated. Daughter is at the bedside. The p atient is awake, making urine and had Lasix with 350 mL of urine per the nurse. OBJECTIVE: GENERAL: This is an elderly white male seen in ICU, intubated. VITAL SIGNS: Temperature 98.2, pulse 127, respiratory 18, blood pressure 118/53. HEENT: Intubated. CARDIOVASCULAR: S1, S2 heard, tachycardia. RESPIRATORY: Clear. GASTROINTESTINAL: Abdomen is soft. MUSCULOSKELETAL: A 1+ edema. DERMATOLOGIC: No skin rash. NEUROLOGIC: Awake and intubated. LABORATORY DATA: Potassium is 3.7, BUN is 129, creatinine is 2.5. ASSESSMENT AND PLAN: 1. Acute kidney injury on chronic kidney disease stage 3 with improvement in renal function. Creati nine is 2.5 from 3.1 two days back with good improvement. BUN is still elevated, most likely related to the diuretics. 2. Azotemia. 3. Moderate pulmonary edema. 4. Acute hypoxic respiratory failure, intubated. 5. Atrial fibrillation. 6. Sepsis. 7. Fluid overload on Lasix per pulmonary team. Creatinine seems to be getting better. Avoid nephrotoxins. We will follow.
[2018-05-02] MEDS: Cefepime 2 GM, Admixture Fee 1 EACH in Sodium Chloride 0.9% 100 ML IVPB SCH (12:08)
[2018-05-02] MEDS: Amiodarone HCl 450 MG, Admixture Fee 1 EACH in Dextrose 5% in Water 250 ML IVPB SCH ×2 (12:19→20:14)
[2018-05-02] MEDS: fentaNYL Citrate/PF 2,000 MCG in Sodium Chloride 0.9% 60 ML IV SCH (16:38)
[2018-05-02] MEDS: Atorvastatin Calcium 20 MG TAB PO SCH (20:15)
[2018-05-03] MEDS: Metoprolol Tartrate 5 MG/5 ML VIAL IVP SCH (02:17)
[2018-05-03] MEDS: Amiodarone HCl 450 MG, Admixture Fee 1 EACH in Dextrose 5% in Water 250 ML IVPB SCH ×3 (04:17→20:30)
[2018-05-03 04:53] LABS: Anion Gap 13 mmol/L (10-20); Calc. Creatinine Clearance 32 mL/min (70-130); Carbon Dioxide 27 mmol/L (23-31); Chloride 104 mmol/L (98-107); Estimated GFR-MDRD 24; Glucose 112 mg/dL (83-110); Potassium 3.9 mmol/L (3.5-5.1); Sodium 140 mmol/L (136-145)
[2018-05-03 04:55] LABS: Digoxin 1.94 ng/mL (0.8-2.0)
[2018-05-03 05:04] LABS: BUN (Urea Nitrogen) 139 mg/dL (8.4-25.7)
[2018-05-03 05:34] LABS: Band 5 % (5-11); Hemoglobin 9.1 g/dL (14.0-18.0); Hypochromia SLIGHT = 6-15 cells (100X) (0-5/hpf); Lymphocytes 13 % (21-51); MDiff Complete? YES; Mean Corpuscular HGB CONC 32.8 g/dL (32.0-36.0); Mean Corpuscular Volume 94.7 fL (78.0-98.0); Mean Platelet Volume 11.3 fL (7.4-10.4); Monocytes 1 % (0-10); Neutrophil 81 % (42-75); PLT Morphology Comment Appears Adequate; Platelet Count 141 thou/uL (130-400); RBC Distribution Width 14.4 % (11.5-14.5); Red Blood Cell (RBC) Count 2.92 mill/uL (4.70-6.10); White Blood Cell (WBC) Count 10.7 thou/uL (4.8-10.8)
[2018-05-03] MEDS: Furosemide 40 MG/4 ML VIAL SLOW IVP SCH ×2 (06:15→20:31)
[2018-05-03] MEDS ORDERED: Furosemide 40 MG/4 ML VIAL SLOW IVP SCH ×2 (08:00→20:00)
[2018-05-03] MEDS: Enoxaparin Sodium 100 MG/ML SYRINGE SC SCH ×2 (09:11→20:30)
[2018-05-03] MEDS: Metolazone 5 MG TAB PO SCH (09:11)
[2018-05-03] MEDS: Famotidine 20 MG TAB PER TUBE SCH (09:11)
[2018-05-03] MEDS: Aspirin 325 MG TAB PO SCH (09:11)
[2018-05-03] MEDS: Cefepime 2 GM, Admixture Fee 1 EACH in Sodium Chloride 0.9% 100 ML IVPB SCH (09:15)
[2018-05-03 09:37] LABS: Actual Bicarbonate (HCO3a) 26.5 mEq/L (22-28); CO2 Tension 40.8 mmHg (35.0-45.0); O2 Tension (PaO2) 55.4 mmHg (> 70.0); pH, Arterial 7.43 (7.35-7.45)
[2018-05-03 09:38] LABS: Calcium, Ionized 1.1 mmol/L (1.12-1.30); Hemoglobin (Hb) 9.2 g/dL (14.0-18.0)
[2018-05-03 09:39] LABS: Puncture Site LR
--- NOTE | 2018-05-03 09:54 | RAD ---
SINGLE VIEW CHEST: HISTORY: Ventilated patient with respiratory failure. COMPARISON: 05/02/2018 FINDINGS: A single view of the chest shows an enlarged, stable cardiomediastinal silhouette. The patient is st atus post sternotomy. Lines and tubes are unchanged in position. Opacities are seen in both lungs, which likely represent a combination of pleural effusions and adjacent infiltrates. IMPRESSION: Small to moderate bilateral pleural effusions with adjacent infiltrates. POS: [facility]
[2018-05-03] MEDS ORDERED: Fentanyl BOLUS 250 ML IVPB PRN (10:28)
--- NOTE | 2018-05-03 12:20 | PRG ---
Patient Name: VERO ABRAMS Date of service: 05/03/2018 Subjective: The patient was seen in ICU, intubated. was at the bedside. Objective: General: This is an elderly male seen in ICU, intubated. Vital signs: Temperature 98.0, pulse 93, respiratory rate 18, blood pressure 130/71. HEENT: Intubated. Neck: Supple. Cardiovascular: S1 S2 heard. tachycardic. Respiratory: Clear anteriorly. Gastrointestinal: Abdomen is soft. Musculoskeletal: 1+ edema. Dermatologic: No skin rash. Neurologic: Awake and intubated. LABORATORY DATA: Creatinine 2.5, BUN 139, potassium is 3.9, hemoglobin 9.1. ASSESSMENT AND PLAN: 1. Acute kidney injury on chronic kidney stage 3 with stable creatinine. BUN keeps on rising. 2. Azotemia seems to be secondary to diuretics. 3. Fluid overload. 4. Acute hypoxic respiratory failure. 5. Atrial fibrillation. 6. Sepsis. Renal function is stable. No acute indication for dialysis.
[2018-05-03] MEDS ORDERED: PROPOFOL 20 ML ONE (15:39)
[2018-05-03] MEDS ORDERED: Phenylephrine 0.25% Nasal Spray 15 ML BOT ONE (16:08)
[2018-05-03] MEDS ORDERED: EPINEPHrine 1 MG/10 ML Abboject SYRINGE ONE (16:09)
[2018-05-03] MEDS ORDERED: Norepinephrine 8 MG/0.9% NS 0 ML ONE (16:26)
[2018-05-03] MEDS ORDERED: Albumin 5% 500 ML ONE (16:29)
[2018-05-03] MEDS ORDERED: Norepinephrine 8 MG/0.9% NS 250 ML ONE (16:30)
--- NOTE | 2018-05-03 19:32 | ECHO ---
The patient is a 77-year-old gentleman with paroxysmal atrial fibrillation. Taken to the cardiac catheterization laboratory in stable condition. The patient was sedated by Anesthesiology. Transesophageal probe was placed distally in the esophagus and stomach. Echocardiogram images were obtained. The transesophageal probe was removed. FINDINGS: 1. Normal mitral and aortic valves. 2. Mild mitral regurgitation. 3. Mild tricuspid regurgitation. 4. No thrombus noted in the left atrium or left atrial appendage. 5. Atherosclerotic debris in the descending aorta. IMPRESSION: No formed thrombus in the left atrial appendage. MTDD
--- NOTE | 2018-05-03 19:56 | OP ---
INDICATION: Paroxysmal atrial fibrillation. The patient taken to the PACU. The patient was sedated by anesthesiology. The patient was shocked wi th 100 joules and subsequent 100 joules of synchronized electricity. The patient converted to normal sinus rhythm. IMPRESSION: Successful electrocardioversion.
[2018-05-03] MEDS ORDERED: Amiodarone In Dextrose 200 ML IVPB SCH (20:00)
[2018-05-03] MEDS: Atorvastatin Calcium 20 MG TAB PO SCH (20:31)
[2018-05-03] MEDS: fentaNYL Citrate/PF 2,000 MCG in Sodium Chloride 0.9% 60 ML IV SCH (23:17)
--- NOTE | 2018-05-04 00:01 | PRG ---
DATE OF SERVICE: 05/03/2018 SUBJECTIVE: Mr. Lin is in the ICU. He is intubated, still with quite a bit of edema and is trying to diurese him. Denies any pain in the abdomen. No appendicular pain. OBJECTIVE: VITAL SIGNS: Showed a normal temperature, T-max 98.6. Other vital signs are normal except for tachy cardia. His FiO2 50, PEEP of 10. GENERAL: Orotracheal tube central line the same. LUNGS: With symmetric coarse breath sounds. HEART: S1, S2, regular rate. ABDOMEN: Soft, not distended. His sternotomy site is healed with no inflammatory changes and his lo wer extremity appears to be normal. LABORATORY DATA: White cell count is down to 10.7, hemoglobin 9.1, platelets 141. Chemistry with a creatinine 2.58 which is improving, but very slowly. Microbiology with BAL from 05/01/2018, coagulas e-negative Corynebacterium coagulase-negative staph strep likely colonizers rather than true pa thogens. A chest x-ray from 05/03/2018 with a small to moderate bilateral pleural effusions and dane cent infiltrates. ASSESSMENT AND DISCUSSION: Chest pain with anteroseptal DE status post bypass graft surgery, apparen t dissection of aorta which led to placement of a graft in the ascending aorta. Delirium and hypoten ashli associated with fever and likely Escherichia coli pneumonia with bacteremia. The patient now parikh s volume overload and is being diuresed. He is at risk for requiring tracheostomy because of the dif ficulty with weaning from the ventilator. The patient continues on cefepime to be continued for few more days.
[2018-05-04 05:26] LABS: Anion Gap 12 mmol/L (10-20); Calc. Creatinine Clearance 27 mL/min (70-130); Calcium 7.9 mg/dL (7.8-10.44); Carbon Dioxide 27 mmol/L (23-31); Chloride 105 mmol/L (98-107); Estimated GFR-MDRD 20; Glucose 122 mg/dL (83-110); Potassium 4.2 mmol/L (3.5-5.1); Sodium 140 mmol/L (136-145)
[2018-05-04 05:38] LABS: BUN (Urea Nitrogen) 156 mg/dL (8.4-25.7)
[2018-05-04 06:46] LABS: Band 24 % (5-11); Hemoglobin 7.2 g/dL (14.0-18.0); Lymphocytes 8 % (21-51); MDiff Complete? YES; Mean Corpuscular HGB CONC 33.1 g/dL (32.0-36.0); Mean Corpuscular Hemoglobin 31.4 pg (27.0-31.0); Mean Corpuscular Volume 94.7 fL (78.0-98.0); Mean Platelet Volume 10.9 fL (7.4-10.4); Neutrophil 68 % (42-75); PLT Morphology Comment Appears Adequate; Platelet Count 152 thou/uL (130-400); RBC Distribution Width 14.6 % (11.5-14.5); Red Blood Cell (RBC) Count 2.28 mill/uL (4.70-6.10); White Blood Cell (WBC) Count 11.9 thou/uL (4.8-10.8)
[2018-05-04 07:38] LABS: Actual Bicarbonate (HCO3a) 25.2 mEq/L (22-28); Base Excess (BEa) 0.3 mEq/L (-2.0 to +3.0); CO2 Tension 41.8 mmHg (35.0-45.0); O2 Tension (PaO2) 54.3 mmHg (> 70.0)
[2018-05-04 07:39] LABS: Hemoglobin (Hb) 9.3 g/dL (14.0-18.0)
[2018-05-04 07:40] LABS: Calcium, Ionized 1.1 mmol/L (1.12-1.30); Puncture Site LR
--- NOTE | 2018-05-04 08:35 | RAD ---
PORTABLE CHEST: Date: 05/04/18 PROVIDED CLINICAL HISTORY: Respiratory insufficiency. FINDINGS: Comparison with 05/03/18. The inferolateral left hemithorax is incompletely included on the current study. Given this limitatio n and allowing for differences in positioning, significant interval change with respect to the prior examination is not apparent. IMPRESSION: As above. POS: [facility]
[2018-05-04] MEDS: Famotidine 20 MG TAB PER TUBE SCH (09:10)
--- NOTE | 2018-05-04 09:36 | PRG ---
DATE OF SERVICE: 05/04/2018 This is a 35 minutes critical care time. SUBJECTIVE: The patient remains intubated on mechanical ventilation. Yesterday, he underwent cardio version successfully. He was started on anticoagulation and is now having some hematuria. PHYSICAL EXAMINATION: VITAL SIGNS: His temperature is 97.8, pulse 69, blood pressure 87/33. A 24-hour intake 0, output 2315. HEENT: Unremarkable. NECK: No JVD. LUNGS: Fairly clear anteriorly. CARDIOVASCULAR: S1 and S2 regular. ABDOMEN: Soft. EXTREMITIES: Trace edema. LABORATORY DATA: Sodium 140, potassium 4.2, chloride 105, CO2 27, BUN 156, creatinine 3.0, glucose 1 22. White blood cell count 11.9, hematocrit reading 21.6 on CBC, but about 27 on his blood gas, plat elet count 152. ASSESSMENT: 1. Continued hypoxic respiratory failure requiring mechanical ventilation. 2. Status post coronary artery bypass grafting surgery. 3. Acute renal failure. 4. Escherichia coli sepsis. 5. Atrial fibrillation/flutter - now cardioverted. PLAN: 1. I will try to decrease his ventilatory support some and see if he tolerates that. It is likely t hat the patient will need a tracheostomy. 2. Further care per multiple consultants on case including Nephrology, ID and CV Surgery. 3. Need to consider stopping the Lovenox given the hematuria.
[2018-05-04] MEDS ORDERED: Heparin 1,000 UNITS/ML VIAL ONE (11:11)
[2018-05-04] MEDS: Cefepime 2 GM, Admixture Fee 1 EACH in Sodium Chloride 0.9% 100 ML IVPB SCH (11:13)
[2018-05-04] MEDS: Enoxaparin Sodium 100 MG/ML SYRINGE SC SCH (11:18)
[2018-05-04] MEDS: Furosemide 40 MG/4 ML VIAL SLOW IVP SCH ×2 (11:18→21:06)
[2018-05-04] MEDS: Metolazone 5 MG TAB PO SCH (11:19)
[2018-05-04 11:53] LABS: HBSAg Index 0.23 S/CO (0-0.99); Hep B Surf Ag Non-Reactive S/CO (NonReactive)
[2018-05-04 12:05] LABS: Hep B Core Total Ab Non-Reactive (NonReactive); Hep B Core Total Index 0.12 S/CO (0-0.79)
[2018-05-04 12:45] LABS: HBSAB Concentration 11.46 mIU/mL
[2018-05-04 12:46] LABS: Hep B Surf AB Indeterminate (NonReactive)
[2018-05-04] MEDS ORDERED: Enoxaparin Sodium 40 MG/0.4 ML SYRINGE SC SCH (13:30)
[2018-05-04] MEDS: Amiodarone HCl 450 MG, Admixture Fee 1 EACH in Dextrose 5% in Water 250 ML IVPB SCH (14:09)
[2018-05-04] MEDS ORDERED: Communication Order-Pharmacy FS ONE (14:37)
--- NOTE | 2018-05-04 15:22 | OP ---
DATE OF PROCEDURE: 05/04/2018 PROCEDURE PERFORMED: Power Trialysis catheter placement via right femoral vein. PREOPERATIVE DIAGNOSIS: Acute renal failure. POSTOPERATIVE DIAGNOSIS: Acute renal failure. SURGEON: Destiny. ANESTHESIA: 1% lidocaine local anesthesia. 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 His renal function overall has dramatically impr frieda following surgery, but over the last few days, his BUN has climbed significantly and appears to be a clouding his mental status. Dialysis catheter is now being placed for hemodialysis as diuretics resulted in a bump in his BUN and creatinine. NARRATIVE REPORT: After informed consent was obtained from the patient's family, the patient was fla ttened slightly in his right leg, frog legged. His femoral pulse was palpated and then his right maverick in was prepped and draped in sterile fashion, 1% lidocaine was used to infiltrate the skin and subcut aneous tissues. A 2-3 fingerbreadths below the groin crease medial to the palpable femoral pulse, a large bore needle was used to cannulate the right femoral vein aspirating dark blood under low pressu re consistent with venous cannulation. A guidewire was placed. The skin was nicked in by the [place] dorie technique, the tract was dilated and the dialysis catheter placed over the wire. The wire was th en removed. The line was secured. All three ports easily aspirated and flushed. The line was dress ed and he tolerated the procedure well.
--- NOTE | 2018-05-04 16:01 | PRG ---
DATE OF SERVICE: 05/04/2018 SUBJECTIVE: The patient was seen and examined in ICU, was at the bedside. The patient remains intubated, making some urine, but more confused than yesterday and . OBJECTIVE: GENERAL: An elderly male, seen in the ICU, intubated. VITAL SIGNS: Temperature 98.2, pulse 70, respiratory rate 18, and blood pressure 145/63. HEENT: Intubated. NECK: Supple. CARDIOVASCULAR: S1 and S2 heard, tachycardia. RESPIRATORY: Clear. GASTROINTESTINAL: Abdomen is soft, obese. MUSCULOSKELETAL: 1+ edema. DERMATOLOGIC: No skin rash. NEUROLOGIC: Intubated. LABORATORY DATA: Potassium 4.2, BUN 156, creatinine is 3.08, hemoglobin is 7.2. ASSESSMENT AND PLAN: 1. Acute kidney injury on chronic kidney stage 3 with worsening BUN and creatinine the patient is more confused. Plan is to start on dialysis today. I had a discussion with the and updated and she is agreeable to dialysis. We will ask Surgery consult for dialysis placement. 2. Azotemia, getting worse. 3. Fluid overload. We will attempt to remove fluid if tolerated. 4. Acute hypoxic respiratory failure. 5. Atrial fibrillation with sepsis. 6. Prognosis guarded. Plan is to start dialysis. I appreciate help from Surgery. Plan, discussed with Dr. Love.
[2018-05-04] MEDS: Atorvastatin Calcium 20 MG TAB PO SCH (21:06)
[2018-05-05 05:10] LABS: Anion Gap 14 mmol/L (10-20); Calc. Creatinine Clearance 27 mL/min (70-130); Carbon Dioxide 27 mmol/L (23-31); Chloride 104 mmol/L (98-107); Estimated GFR-MDRD 21; Glucose 146 mg/dL (83-110); Potassium 4.5 mmol/L (3.5-5.1); Sodium 140 mmol/L (136-145)
[2018-05-05] MEDS: Norepinephrine 8 MG/250 ML BAG IVPB PRN ×2 (05:13→11:56)
[2018-05-05 05:21] LABS: BUN (Urea Nitrogen) 123 mg/dL (8.4-25.7)
[2018-05-05 05:38] LABS: Hemoglobin 7.3 g/dL (14.0-18.0); Mean Corpuscular Hemoglobin 30.5 pg (27.0-31.0); Mean Corpuscular Volume 95.5 fL (78.0-98.0); Mean Platelet Volume 10.5 fL (7.4-10.4); Platelet Count 226 thou/uL (130-400); RBC Distribution Width 14.9 % (11.5-14.5)
[2018-05-05 05:46] LABS: Actual Bicarbonate (HCO3a) 28.6 mEq/L (22-28); Base Excess (BEa) -1.3 mEq/L (-2.0 to +3.0); Hemoglobin (Hb) 8.5 g/dL (14.0-18.0); O2 Tension (PaO2) 69.6 mmHg (> 70.0); pH, Arterial 7.14 (7.35-7.45)
[2018-05-05 05:47] LABS: Calcium, Ionized 1.1 mmol/L (1.12-1.30); Puncture Site RBRACH
[2018-05-05] MEDS ORDERED: Sodium Bicarb 50 MEQ/50 ML Abboject 8.4% SYRINGE ONE (05:49)
[2018-05-05 05:56] LABS: Band 7 % (5-11); Hypochromia MODERATE=16-30 cells (100X) (0-5/hpf); Lymphocytes 4 % (21-51); MDiff Complete? YES; Monocytes 4 % (0-10); Neutrophil 85 % (42-75); PLT Morphology Comment Appears Adequate; White Blood Cell (WBC) Count 20.9 thou/uL (4.8-10.8)
[2018-05-05] MEDS ORDERED: Sodium Chloride 0.9% 1,000 ML IV SCH (06:00)
[2018-05-05] MEDS: fentaNYL Citrate/PF 2,000 MCG in Sodium Chloride 0.9% 60 ML IV SCH ×2 (06:46→22:25)
[2018-05-05] MEDS ORDERED: Albumin 25% 25 GM/100 ML BOT IVPB ONE (07:13)
[2018-05-05] MEDS: Amiodarone HCl 450 MG, Admixture Fee 1 EACH in Dextrose 5% in Water 250 ML IVPB SCH ×2 (08:14→20:55)
[2018-05-05 08:22] LABS: Actual Bicarbonate (HCO3a) 23.8 mEq/L (22-28); Base Excess (BEa) -2.4 mEq/L (-2.0 to +3.0); CO2 Tension 48.3 mmHg (35.0-45.0); O2 Tension (PaO2) 51.6 mmHg (> 70.0); pH, Arterial 7.31 (7.35-7.45)
[2018-05-05 08:23] LABS: Calcium, Ionized 1.1 mmol/L (1.12-1.30); Hemoglobin (Hb) 8.2 g/dL (14.0-18.0)
[2018-05-05 08:24] LABS: ALV-art Gradient 422.775 (0-20); Puncture Site LR
--- NOTE | 2018-05-05 08:59 | RAD ---
PORTABLE CHEST: Date: 05/05/18 PROVIDED CLINICAL HISTORY: Respiratory failure. FINDINGS: Comparison made with the study dated 05/04/18. Allowing for differences in rotation and technique, significant interval change with respect to the p rior examination is not apparent. IMPRESSION: As above. POS: [facility]
--- NOTE | 2018-05-05 08:59 | RAD ---
KUB: Date: 05/05/18 PROVIDED CLINICAL HISTORY: Abdominal distention. FINDINGS: Comparison with 04/30/18. Dobbhoff tube is again noted with tip overlying the left mid abdomen. The abdominal bowel gas pattern is nonspecific. Left basilar pleural parenchymal opacity is redemonstrated. Supine nature of this st udy is not sensitive for detection of pleural fluid or pneumothorax. IMPRESSION: Nonspecific bowel gas pattern. POS: [facility]
[2018-05-05] MEDS ORDERED: Enoxaparin Sodium 40 MG/0.4 ML SYRINGE SC SCH (09:00)
--- NOTE | 2018-05-05 09:02 | PRG ---
DATE OF SERVICE: 05/05/2018 This is a 35 minutes critical care time. SUBJECTIVE: Mr. Lin had a rough night. He has developed hypotension. His mental status has been altered most of the day yesterday. It is now a little better after I gave him some fluid back. PHYSICAL EXAMINATION: VITAL SIGNS: Temperature 98, pulse 80, blood pressure currently 137/61 on a Levophed drip. He has r equired a fluid bolus. HEENT: Pupils react. Sclerae anicteric. Oropharynx dry. NECK: No JVD. LUNGS: Coarse breath sounds. CARDIAC: S1 and S2 regular. ABDOMEN: Soft. EXTREMITIES: No edema. LABORATORY DATA: Sodium 140, potassium 4.5, chloride 104, CO2 27, BUN 123, creatinine 2.9, glucose 1 46. White blood cell count 20.9, hematocrit 23, platelet count 226. ASSESSMENT: 1. The patient has developed hypotension, which I think is probably from volume depletion. He has h ad a grossly elevated BUN compared to creatinine, although his total body water is high. He is intra vascularly depleted. I think this is probably affecting his oxygenation causing increased space . 2. Hypoxic respiratory failure. 3. Status post coronary artery bypass grafting surgery. 4. Acute renal failure. 5. Atrial fibrillation/flutter. PLAN: I will give the patient some albumin in addition to the normal saline. We will place him on C [employer] monitor. I have placed him on assist-control for the time being.
[2018-05-05] MEDS: Famotidine 20 MG TAB PER TUBE SCH (09:39)
[2018-05-05] MEDS: Cefepime 2 GM, Admixture Fee 1 EACH in Sodium Chloride 0.9% 100 ML IVPB SCH (10:31)
[2018-05-05] MEDS ORDERED: Heparin 1,000 UNITS/ML VIAL ONE (11:11)
--- NOTE | 2018-05-05 13:04 | PRG ---
DATE OF SERVICE: 05/05/2018 SUBJECTIVE: The patient was seen and examined at bedside in ICU and is at the bedside. The pat sergio remains intubated. He had a hypertensive episode this morning and was given some fluids. He parikh d dialysis yesterday and tolerated without much problem. OBJECTIVE: GENERAL: This is an elderly male, intubated. VITAL SIGNS: Temperature 98.2, pulse 79, respiratory rate , blood pressure 159/61. HEENT: Intubated. CARDIOVASCULAR: S1, S2 heard. RESPIRATORY: Clear. GASTROINTESTINAL: Abdomen is soft. MUSCULOSKELETAL: A 1+ edema. DERMATOLOGIC: No skin rash. NEUROLOGIC: Intubated and sedated. LABORATORY DATA: WBC 20.9, hemoglobin is 7.3, platelets 226. Sodium 140, potassium 4.5, BUN 123, cr eatinine is 2.9. ASSESSMENT AND PLAN: 1. Acute kidney injury on chronic kidney disease stage 3. Started on dialysis yesterday, tolerated well. Plan is to have dialysis today for renal clearance of toxins. I do not think he will able to tolerate ultrafiltration given the need for IV fluids this morning. We will hold on ultrafiltration today. 2. Azotemia, better with dialysis. Agree with holding diuretics and fluid as tolerated. 3. Fluid overload. 4. Acute hypoxic respiratory failure. 5. Atrial fibrillation, better. 6. Sepsis. 7. Leukocytosis. 8. Cardiorenal syndrome. Prognosis is guarded. Plan is to continue on dialysis. Patient is at high risk for complications du ring dialysis. Family is aware. Plan is to have clearance today with dialysis and no ultrafiltratio n due to the hypertensive episode and the need for fluid.
--- NOTE | 2018-05-05 14:52 | PDOC.PN ---
- Subjective Encounter Start Date: 05/05/18 Encounter Start Time: 14:51 Subjective: remains minimally rsponsive.Hypotensive this morning -: restarted on precedex. -: care discussed w family at bedside - Objective MAR Reviewed: Yes Vital Signs & Weight: Vital Signs (12 hours) Temp Pulse Resp BP Pulse Ox 05/05/18 14:37 75 102/48 L 05/05/18 14:00 24 H 05/05/18 12:34 77 24 H 98 05/05/18 12:00 98.2 F 24 H 05/05/18 10:25 83 124/49 L 05/05/18 10:00 98.2 F 24 H 05/05/18 09:00 98.2 F 05/05/18 08:00 25 H 05/05/18 06:14 80 124/49 L 05/05/18 06:13 94 L 05/05/18 06:12 80 24 H 94 L 05/05/18 06:00 24 H 05/05/18 04:00 24 H 05/05/18 03:00 98.2 F Weight Admit Weight 183 lb 10.321 oz Weight 196 lb 3.382 oz Most Recent Monitor Data Heart Rate from ECG 74 NIBP 102/48 NIBP BP-Mean 83 Respiration from ECG 24 SpO2 94 I&O: 05/04/18 05/05/18 05/06/18 06:59 06:59 06:59 Intake Total 2060.6 1751.0 900 Output Total 2315 317 75 Balance -254.4 1434.0 825 Result Diagrams: 05/05/18 04:53 05/05/18 04:53 Additional Labs: Microbiology 05/01/18 09:00 Bronchial Alveolar Lavage Bronchoalveolar Lavage Cult, Quant - Final Coagulase Neg Staphylococcus Presumptive Corynebacterium sp Coagulase Neg Staphylococcus#2 Non-Hemolytic Streptococcus 04/28/18 01:03 Venous blood - Right Hand Blood Culture - Final No growth. 04/28/18 00:56 Venous blood - Left Hand Blood Culture - Final Escherichia coli Presumptive Micrococcus sp. 04/26/18 09:59 Urine soriano catheter Urine Culture - Final NO GROWTH AT 48 HOURS 04/26/18 09:59 Urine soriano catheter Gram Stain - Final 04/26/18 06:30 Sputum Respiratory Culture - Final Klebsiella oxytoca Escherichia coli labs reviewed Phys Exam - Physical Examination Constitutional: NAD intubated.opens eyes but does not follow HEENT: moist MMs, sclera anicteric, oral pharynx no lesions (ETT) pinpoint pupils Neck: no JVD Respiratory: no wheezing, no rales, no rhonchi, clear to auscultation bilateral Cardiovascular: RRR, no significant murmur Gastrointestinal: soft, no distention, positive bowel sounds Musculoskeletal: no edema, pulses present Deviation from normal: non responsive Skin: no rash Dx/Plan (1) Hypotension (arterial) Status: Acute (2) Atrial fibrillation with RVR Code(s): I48.91 - UNSPECIFIED ATRIAL FIBRILLATION Status: Acute Comment: Amiodarone drip on hold due to low BP (3) CORTEZ (acute kidney injury) Code(s): N17.9 - ACUTE KIDNEY FAILURE, UNSPECIFIED Status: Acute Comment: started on HD (4) Acute liver disease Code(s): K76.9 - LIVER DISEASE, UNSPECIFIED Status: Acute Comment: Blanca hypovolemic liver injury (5) Left hemiparesis Code(s): G81.94 - HEMIPLEGIA, UNSPECIFIED AFFECTING LEFT NONDOMINANT SIDE Status: Acute Comment: Brain CT negative. (6) Acute blood loss anemia Code(s): D62 - ACUTE POSTHEMORRHAGIC ANEMIA Status: Acute Comment: s/p 10 units PRBC,12 units FFP,5 units platelets and multiple units of Cryoprecipitate.Suspect Coagulopathy H/H stable now. (7) Hypovolemic shock Code(s): R57.1 - HYPOVOLEMIC SHOCK Status: Acute Comment: Resplved but hypotensive again today (8) Hypernatremia Code(s): E87.0 - HYPEROSMOLALITY AND HYPERNATREMIA Status: Acute Comment: improved with D5W (9) Coagulopathy Status: Acute (10) Aortic dissection following procedure Code(s): T81.718A - COMPLICATION OF ARTERY FOLLOWING A PROCEDURE, NEC, INIT; I71.00 - DISSECTION OF UNSPECIFIED SITE OF AORTA Status: Acute Comment: s/p repair (11) Unstable angina Status: Acute Comment: s/p cardiac cath 04/22/18.CABG X 3 on 04/22/18 (12) NSTEMI (non-ST elevated myocardial infarction) Code(s): I21.4 - NON-ST ELEVATION (NSTEMI) MYOCARDIAL INFARCTION Status: Acute Comment: treated with ASA,statin and Lovenox BID 1mg/kg (13) HTN (hypertension) Code(s): I10 - ESSENTIAL (PRIMARY) HYPERTENSION Status: Acute (14) CAD (coronary artery disease) Code(s): I25.10 - ATHSCL HEART DISEASE OF [place] CORONARY ARTERY W/O ANG PCTRS Status: Chronic Qualifiers: Coronary Disease-Associated Artery/Lesion type: [place] artery Comment: Per cardiac Cath today (15) S/P CABG (coronary artery bypass graft) Code(s): Z95.1 - PRESENCE OF AORTOCORONARY BYPASS GRAFT Status: Acute - Plan plan discussed w/ family, soriano catheter, continue antibiotics, DVT proph w/SCDs receiving PRBC & albumin for low BP.unlikley acute bleed but low H/H today. -: hold Lasix,zaroxolyn-unusually high dose zaroxolyn -: HD as tolerated.monitor renal Fx -: DEBRA negative for thrombus.amiodarone/cardiazem drip on hold due to Low BP -: empiric ABx. follow final Cx results * .Remains critically ill. * vent management per PCCM. * CCU lyte replacement protocol. * am labs. Review of Systems - Review of Systems Other: can not be obtained due to encephalopathy,sedation - Medications/Allergies Allergies/Adverse Reactions: Allergies Allergy/AdvReac Type Severity Reaction Status Date / Time No Known Allergies Allergy Verified 04/20/18 00:08 Medications: Current Medications Acetaminophen (Tylenol Elixir) 650 mg PO Q6H PRN PRN Reason: Headache/Fever Or Mild Pain Last Admin: 04/29/18 15:50 Dose: 650 mg Al Hydroxide/Mg Hydroxide (Maalox) 30 ml PO Q4H PRN PRN Reason: Indigestion Albuterol/Ipratropium (Duoneb) 3 ml NEB [id number] PRN PRN Reason: SHORTNESS OF BREATH Albuterol/Ipratropium (Duoneb) 3 ml NEB [id number] ARLYN Last Admin: 05/05/18 12:34 Dose: 3 ml Lipase/Protease/[place]ylase ([place] [id number]) 1 cap FS .PER PROTOCOL PRN PRN Reason: TUBE OCCLUSION PROTOCOL Aspirin (Aspirin Chewable) 81 mg PO DAILY ARLYN Last Admin: 05/05/18 09:39 Dose: 81 mg Atorvastatin Calcium (Lipitor) 20 mg PO HS [facility] Last Admin: 05/04/18 21:06 Dose: 20 mg Bisacodyl (Dulcolax) 10 mg PO Q12H PRN PRN Reason: Constipation Bisacodyl (Dulcolax) 10 mg CO Q12H PRN PRN Reason: Constipation Last Admin: 05/03/18 20:31 Dose: 10 mg Dextrose/Water (Dextrose 50%) 25 gm SLOW IVP PRN PRN PRN Reason: PER HYPOGLYCEMIC PROTOCOL Famotidine (Pepcid) 20 mg PER TUBE 0900 [facility] Last Admin: 05/05/18 09:39 Dose: 20 mg Glucagon (Glucagon) 1 mg SC PRN PRN PRN Reason: PER HYPOGLYCEMIC PROTOCOL Heparin Sodium (Porcine) (Heparin) 5,000 units SC BID ARLYN Hydralazine HCl (Apresoline) 10 mg SLOW IVP Q6H PRN PRN Reason: To Maintain SBP< 140mmHG Last Admin: 04/27/18 06:08 Dose: 10 mg Dextrose/Water (D5w) 1,000 mls @ 0 mls/hr IV INF PRN; As Directed PRN Reason: PRN HYPOGLYCEMIC PROTOCOL Diltiazem HCl 125 mg/Miscellaneous Medication 1 each/ Sodium Chloride 125 mls @ 5 mls/hr IVPB INF ARLYN PRN Reason: Protocol Last Admin: 04/27/18 08:38 Dose: 125 mls Dexmedetomidine HCl 200 mcg/ (Sodium Chloride) 50 mls @ 0 mls/hr IVPB INF ARLYN; Per Protocol PRN Reason: Protocol Last Admin: 05/05/18 11:45 Dose: 50 mls Norepinephrine Bitartrate (Levophed) 250 mls @ 0 mls/hr IVPB INF PRN; Protocol ; Titrate PRN Reason: FOR SBP >90 Last Admin: 05/05/18 11:56 Dose: 250 mls Levofloxacin 500 mg/ Device 100 mls @ 100 mls/hr IVPB Q24HR [facility] Last Admin: 05/05/18 08:08 Dose: 100 mls Cefepime HCl 2 gm/Miscellaneous Medication 1 each/ Sodium Chloride 100 mls @ 200 mls/hr IVPB 1000 ARLYN Last Admin: 05/05/18 10:31 Dose: 100 mls Vasopressin 40 unit/Miscellaneous Medication 1 each/ Sodium Chloride 102 mls @ 0 mls/hr IV INF ARLYN; As Directed PRN Reason: Protocol Last Admin: 05/01/18 00:02 Dose: 102 mls Fentanyl Citrate (Fentanyl Bolus) 250 mls @ 0 mls/hr IVPB PRN PRN; As Directed PRN Reason: Breakthrough pain/agitation Fentanyl Citrate 2,000 mcg/ (Sodium Chloride) 100 mls @ 0 mls/hr IV INF ARLYN; Per Protocol PRN Reason: Protocol Last Admin: 05/05/18 06:46 Dose: 100 mls Amiodarone HCl 450 mg/Miscellaneous Medication 1 each/ Dextrose/Water 259 mls @ 16 mls/hr IVPB INF ARLYN PRN Reason: Protocol Last Admin: 05/05/18 08:14 Dose: 259 mls Ondansetron HCl (Zofran) 4 mg IVP Q6H PRN PRN Reason: Nausea/Vomiting Potassium Chloride (Kcl) 20 meq IVPB PRN PRN PRN Reason: K level </= 4.0 Last Admin: 04/26/18 05:40 Dose: 20 meq Promethazine HCl (Phenergan) 6.25 mg IM Q4H PRN PRN Reason: Nausea/Vomiting Propofol (Diprivan) 1,000 mg IV INF PRN; Protocol PRN Reason: TO ACHIEVE GOAL RASS Stop: 05/23/18 23:38 Last Admin: 05/01/18 08:43 Dose: 1,000 mg Propofol (Diprivan Bolus) 20 mg IV Q5MIN PRN PRN Reason: BREAKTHROUGH AGITATION Stop: 05/23/18 23:38 Sodium Chloride (Flush - Normal Saline) 10 ml IVF PRN PRN PRN Reason: Saline Flush
[2018-05-05] MEDS: Atorvastatin Calcium 20 MG TAB PO SCH (20:56)
[2018-05-05] MEDS: Heparin 5,000 UNITS/ML VIAL SC SCH (20:56)
[2018-05-06 05:26] LABS: Anion Gap 14 mmol/L (10-20); BUN (Urea Nitrogen) 110 mg/dL (8.4-25.7); Calc. Creatinine Clearance 30 mL/min (70-130); Calcium 8.2 mg/dL (7.8-10.44); Carbon Dioxide 26 mmol/L (23-31); Chloride 104 mmol/L (98-107); Estimated GFR-MDRD 23; Glucose 100 mg/dL (83-110); Potassium 4.2 mmol/L (3.5-5.1); Sodium 140 mmol/L (136-145)
[2018-05-06 06:11] LABS: Band 14 % (5-11); Eosinophils 1 % (0-10); Hemoglobin 8.5 g/dL (14.0-18.0); Lymphocytes 6 % (21-51); MDiff Complete? YES; Mean Corpuscular Volume 91.3 fL (78.0-98.0); Monocytes 2 % (0-10); Neutrophil 77 % (42-75); Nucleated RBC 1 % (0); PLT Morphology Comment Appears Adequate; Platelet Count 236 thou/uL (130-400); RBC Distribution Width 14.7 % (11.5-14.5); Red Blood Cell (RBC) Count 2.74 mill/uL (4.70-6.10); White Blood Cell (WBC) Count 19.1 thou/uL (4.8-10.8)
[2018-05-06 07:06] LABS: Actual Bicarbonate (HCO3a) 23.7 mEq/L (22-28); Base Excess (BEa) 0.8 mEq/L (-2.0 to +3.0); CO2 Tension 31.4 mmHg (35.0-45.0); O2 Tension (PaO2) 53.6 mmHg (> 70.0)
[2018-05-06 07:07] LABS: Calcium, Ionized 1.1 mmol/L (1.12-1.30); Hemoglobin (Hb) 9.2 g/dL (14.0-18.0); Puncture Site RBRACH
--- NOTE | 2018-05-06 08:12 | PRG ---
DATE OF SERVICE: 05/06/2018 Thirty-five minutes critical care time. The patient remains in the CCU on mechanical ventilation. He is a little better today compared to . PHYSICAL EXAMINATION: VITAL SIGNS: Temperature 98.7, pulse 73, blood pressure 144/52, currently on norepinephrine drip at 2 mcg per minute. He is also on a Precedex drip. Total intake for the last 24 hours 1926, output 27 6. HEENT: Unremarkable. NECK: No adenopathy or JVD. LUNGS: Coarse breath sounds without wheezing. CARDIAC: S1 and S2 regular. No atrial fibrillation. ABDOMEN: Soft, nontender. EXTREMITIES: Edematous. Chest x-ray continues to show bilateral infiltrative changes and small left pleural effusion. LABORATORY DATA: White blood cell count 19.1, hematocrit 25.0, platelet count 236, pH 7.50, pCO2 31, pO2 of 53 that is on assist control, rate 24, tidal volume 550, PEEP 10, FiO2 55%. Sodium 140, pota ssium 4.2, chloride 104, CO2 of 26, BUN 102, creatinine 2.7, glucose 100. ASSESSMENT: 1. Continued respiratory failure requiring mechanical ventilation. 2. Status post coronary artery bypass grafting surgery with dissection of the ascending aorta requir ing repair. 3. Acute renal failure, now requiring hemodialysis. 4. Atrial fibrillation/flutter - now sinus after electrical cardioversion. 5. Bilateral pneumonia. PLAN: 1. Tracheostomy is planned for today. 2. Continue dialysis, but we need to be very judicious about fluid removal as he decompensates when he is intravascularly dry. 3. I spoke with his at length yesterday. This patient's hospital course is going to be very lo ng and at the current time he is not weanable.
[2018-05-06] MEDS: Heparin 5,000 UNITS/ML VIAL SC SCH ×2 (08:38→20:31)
[2018-05-06] MEDS: Famotidine 20 MG TAB PER TUBE SCH (08:41)
--- NOTE | 2018-05-06 08:50 | RAD ---
CHEST 1 IEW: HISTORY: Dyspnea. COMPARISON: 05/05/18. FINDINGS: Cardiac silhouette magnified and upper limits of normal in size. Pulmonary vasculature remains engor ged with patchy areas of airspace opacification and bilateral pleural fluid similar in appearance to the previous exam. Mediastinum is midline. Postoperative changes. Lines and tubes are unchanged in position. hall monitor leads overlie the chest. IMPRESSION: Pulmonary edema, pleural fluid, and other findings appear stable. POS: [facility]
--- NOTE | 2018-05-06 11:12 | PRG ---
DATE OF SERVICE: 05/06/2018 SUBJECTIVE: A 77-year-old gentleman being seen for acute kidney injury, dialysis dependent. The pat ient remains oliguric. PHYSICAL EXAMINATION: GENERAL: Patient is resting. VITAL SIGNS: Afebrile, pulse 56, breathing 16, blood pressure 88/69. OBJECTIVE: See above. Awake, alert, in no acute distress. GENERAL APPEARANCE AND MENTAL STATUS: Fair. HEAD/NECK: Normocephalic. Atraumatic. EYES: EOMI. No deformity. EARS: Clear. No ulcers. NOSE: Intact. No lesions. MOUTH: Clear. No discharge. THROAT: Clear. No exudate. LUNGS: Clear. No crackles. CARDIAC: S1, S2. No rub. ABDOMEN: Benign. BS+. GENITALIA/RECTUM: Garcia present. BACK/EXTREMITIES: Edema 0+ Ulcer- NEUROLOGICAL: The patient is resting. SKIN: Rash- Bruise- LYMPHATICS: Edema- Ulcer- LABORATORY: Hemoglobin 8.5, creatinine 2.7, BUN 110. ASSESSMENT AND RECOMMENDATIONS: 1. Stage 6 chronic kidney disease with uremia. The patient remains anuric. The patient's blood pre ssure remains low, we will plan dialysis tomorrow. The patient is not a candidate for ultrafiltratio n as blood pressure drops and remains on pressors. 2. Anemia, stable. 3. Medication based on glomerular filtration rate are appropriate. Overall, prognosis remains poor.
[2018-05-06] MEDS: Cefepime 2 GM, Admixture Fee 1 EACH in Sodium Chloride 0.9% 100 ML IVPB SCH (11:30)
--- NOTE | 2018-05-06 14:39 | PDOC.PN ---
- Subjective Encounter Start Date: 05/06/18 Encounter Start Time: 14:37 Subjective: remains intubated.plans for tracheostomy noted today -: care discussed w at bedisde.all qs answered to best of my knowledge -: Bp labile.discussed w RN as well - Objective MAR Reviewed: Yes Vital Signs & Weight: Vital Signs (12 hours) Temp Pulse Resp BP Pulse Ox 05/06/18 12:00 35 H 05/06/18 10:27 56 L 88/69 L 05/06/18 10:00 37 H 05/06/18 08:00 98.1 F 64 20 98 05/06/18 06:53 67 95/52 L 05/06/18 06:00 24 H 05/06/18 04:00 98.7 F 24 H 05/06/18 02:42 70 Weight Admit Weight 183 lb 10.321 oz Weight 203 lb 4.259 oz Most Recent Monitor Data Heart Rate from ECG 76 NIBP 160/77 NIBP BP-Mean 96 Respiration from ECG 28 SpO2 99 I&O: 05/05/18 05/06/18 05/07/18 06:59 06:59 06:59 Intake Total 1751.0 1926 200 Output Total 317 276 25 Balance 1434.0 1650 175 Result Diagrams: 05/06/18 05:05 05/06/18 05:05 Additional Labs: Microbiology 05/01/18 09:00 Bronchial Alveolar Lavage Bronchoalveolar Lavage Cult, Quant - Final Coagulase Neg Staphylococcus Presumptive Corynebacterium sp Coagulase Neg Staphylococcus#2 Non-Hemolytic Streptococcus 04/28/18 01:03 Venous blood - Right Hand Blood Culture - Final No growth. 04/28/18 00:56 Venous blood - Left Hand Blood Culture - Final Escherichia coli Presumptive Micrococcus sp. 04/26/18 09:59 Urine soriano catheter Urine Culture - Final NO GROWTH AT 48 HOURS 04/26/18 09:59 Urine soriano catheter Gram Stain - Final 04/26/18 06:30 Sputum Respiratory Culture - Final Klebsiella oxytoca Escherichia coli Laboratory Tests 04/27/18 04/29/18 05/01/18 14:00 05:15 04:56 Creatinine 2.10 H 2.53 H 2.92 H 05/03/18 05/05/18 05/06/18 04:36 04:53 05:05 Creatinine 2.58 H 2.98 H 2.73 H labs reviewed Phys Exam - Physical Examination Constitutional: NAD intubated.unresponsive HEENT: moist MMs, sclera anicteric ETT Neck: no JVD Respiratory: no wheezing, no rales, no rhonchi, clear to auscultation bilateral coarse b/l Cardiovascular: RRR, no significant murmur Gastrointestinal: soft, non-tender, no distention, positive bowel sounds Musculoskeletal: no edema, pulses present sedated Skin: no rash Dx/Plan (1) CORTEZ (acute kidney injury) Code(s): N17.9 - ACUTE KIDNEY FAILURE, UNSPECIFIED Status: Acute Comment: started on HD (2) Sepsis Code(s): A41.9 - SEPSIS, UNSPECIFIED ORGANISM Status: Acute Comment: On empiric ABx.Cefepime and levaquin. 1/2 E.coli in blood Cx. (3) Hypotension (arterial) Status: Resolved (4) Atrial fibrillation with RVR Code(s): I48.91 - UNSPECIFIED ATRIAL FIBRILLATION Status: Acute Comment: Amiodarone drip .S/P CV on 05/03/2018 (5) Acute liver disease Code(s): K76.9 - LIVER DISEASE, UNSPECIFIED Status: Acute Comment: Jacquiley hypovolemic liver injury (6) Left hemiparesis Code(s): G81.94 - HEMIPLEGIA, UNSPECIFIED AFFECTING LEFT NONDOMINANT SIDE Status: Acute Comment: Brain CT negative. reported to be moving both sides invoulntarily for RN (7) Acute blood loss anemia Code(s): D62 - ACUTE POSTHEMORRHAGIC ANEMIA Status: Acute Comment: s/p 10 units PRBC,12 units FFP,5 units platelets and multiple units of Cryoprecipitate.Suspect Coagulopathy H/H stable now. (8) Hypovolemic shock Code(s): R57.1 - HYPOVOLEMIC SHOCK Status: Acute Comment: labile. (9) Hypernatremia Code(s): E87.0 - HYPEROSMOLALITY AND HYPERNATREMIA Status: Resolved (10) Coagulopathy Status: Acute (11) Aortic dissection following procedure Code(s): T81.718A - COMPLICATION OF ARTERY FOLLOWING A PROCEDURE, NEC, INIT; I71.00 - DISSECTION OF UNSPECIFIED SITE OF AORTA Status: Acute Comment: s/p repair (12) Unstable angina Status: Acute Comment: s/p cardiac cath 04/22/18.CABG X 3 on 04/22/18 (13) NSTEMI (non-ST elevated myocardial infarction) Code(s): I21.4 - NON-ST ELEVATION (NSTEMI) MYOCARDIAL INFARCTION Status: Acute (14) HTN (hypertension) Code(s): I10 - ESSENTIAL (PRIMARY) HYPERTENSION Status: Acute (15) CAD (coronary artery disease) Code(s): I25.10 - ATHSCL HEART DISEASE OF [place] CORONARY ARTERY W/O ANG PCTRS Status: Chronic Qualifiers: Coronary Disease-Associated Artery/Lesion type: [place] artery Comment: Per cardiac Cath 04/22/18.on ASA,Statin (16) S/P CABG (coronary artery bypass graft) Code(s): Z95.1 - PRESENCE OF AORTOCORONARY BYPASS GRAFT Status: Acute - Plan plan discussed w/ family, soriano catheter, continue antibiotics, PT/OT, social media developer, respiratory therapy, DVT proph w/SCDs Trach today.cont current care as outlined above -: remains w guarded rn long term care prognosis -: recheck LFT in am -: HD as tolerated .avoid diuretics. -: am labs * . Review of Systems - Review of Systems Other: can not be obtained due to sedated and intubated status - Medications/Allergies Allergies/Adverse Reactions: Allergies Allergy/AdvReac Type Severity Reaction Status Date / Time No Known Allergies Allergy Verified 04/20/18 00:08 Medications: Current Medications Acetaminophen (Tylenol Elixir) 650 mg PO Q6H PRN PRN Reason: Headache/Fever Or Mild Pain Last Admin: 04/29/18 15:50 Dose: 650 mg Al Hydroxide/Mg Hydroxide (Maalox) 30 ml PO Q4H PRN PRN Reason: Indigestion Albuterol/Ipratropium (Duoneb) 3 ml NEB [id number] PRN PRN Reason: SHORTNESS OF BREATH Albuterol/Ipratropium (Duoneb) 3 ml NEB [id number] [facility] Last Admin: 05/06/18 13:38 Dose: Not Given Lipase/Protease/[place]ylase ([place] [id number]) 1 cap FS .PER PROTOCOL PRN PRN Reason: TUBE OCCLUSION PROTOCOL Aspirin (Aspirin Chewable) 81 mg PO DAILY ARLYN Last Admin: 05/06/18 08:38 Dose: Not Given Atorvastatin Calcium (Lipitor) 20 mg PO HS [facility] Last Admin: 05/05/18 20:56 Dose: 20 mg Bisacodyl (Dulcolax) 10 mg PO Q12H PRN PRN Reason: Constipation Bisacodyl (Dulcolax) 10 mg IN Q12H PRN PRN Reason: Constipation Last Admin: 05/03/18 20:31 Dose: 10 mg Dextrose/Water (Dextrose 50%) 25 gm SLOW IVP PRN PRN PRN Reason: PER HYPOGLYCEMIC PROTOCOL Famotidine (Pepcid) 20 mg PER TUBE 0900 [facility] Last Admin: 05/06/18 08:41 Dose: 20 mg Glucagon (Glucagon) 1 mg SC PRN PRN PRN Reason: PER HYPOGLYCEMIC PROTOCOL Heparin Sodium (Porcine) (Heparin) 5,000 units SC BID [facility] Last Admin: 05/06/18 08:38 Dose: Not Given Hydralazine HCl (Apresoline) 10 mg SLOW IVP Q6H PRN PRN Reason: To Maintain SBP< 140mmHG Last Admin: 04/27/18 06:08 Dose: 10 mg Dextrose/Water (D5w) 1,000 mls @ 0 mls/hr IV INF PRN; As Directed PRN Reason: PRN HYPOGLYCEMIC PROTOCOL Diltiazem HCl 125 mg/Miscellaneous Medication 1 each/ Sodium Chloride 125 mls @ 5 mls/hr IVPB INF [facility] PRN Reason: Protocol Last Admin: 04/27/18 08:38 Dose: 125 mls Dexmedetomidine HCl 200 mcg/ (Sodium Chloride) 50 mls @ 0 mls/hr IVPB INF [facility]; Per Protocol PRN Reason: Protocol Last Admin: 05/06/18 10:48 Dose: 50 mls Norepinephrine Bitartrate (Levophed) 250 mls @ 0 mls/hr IVPB INF PRN; Protocol ; Titrate PRN Reason: FOR SBP >90 Last Admin: 05/05/18 11:56 Dose: 250 mls Levofloxacin 500 mg/ Device 100 mls @ 100 mls/hr IVPB Q24HR [facility] Last Admin: 05/06/18 08:41 Dose: 100 mls Cefepime HCl 2 gm/Miscellaneous Medication 1 each/ Sodium Chloride 100 mls @ 200 mls/hr IVPB 1000 [facility] Last Admin: 05/06/18 11:30 Dose: 100 mls Vasopressin 40 unit/Miscellaneous Medication 1 each/ Sodium Chloride 102 mls @ 0 mls/hr IV INF ARLYN; As Directed PRN Reason: Protocol Last Admin: 05/01/18 00:02 Dose: 102 mls Fentanyl Citrate (Fentanyl Bolus) 250 mls @ 0 mls/hr IVPB PRN PRN; As Directed PRN Reason: Breakthrough pain/agitation Fentanyl Citrate 2,000 mcg/ (Sodium Chloride) 100 mls @ 0 mls/hr IV INF ARLYN; Per Protocol PRN Reason: Protocol Last Admin: 05/05/18 22:25 Dose: 100 mls Amiodarone HCl 450 mg/Miscellaneous Medication 1 each/ Dextrose/Water 259 mls @ 16 mls/hr IVPB INF ARLYN PRN Reason: Protocol Last Admin: 05/05/18 20:55 Dose: 259 mls Ondansetron HCl (Zofran) 4 mg IVP Q6H PRN PRN Reason: Nausea/Vomiting Potassium Chloride (Kcl) 20 meq IVPB PRN PRN PRN Reason: K level </= 4.0 Last Admin: 04/26/18 05:40 Dose: 20 meq Promethazine HCl (Phenergan) 6.25 mg IM Q4H PRN PRN Reason: Nausea/Vomiting Propofol (Diprivan) 1,000 mg IV INF PRN; Protocol PRN Reason: TO ACHIEVE GOAL RASS Stop: 05/23/18 23:38 Last Admin: 05/01/18 08:43 Dose: 1,000 mg Propofol (Diprivan Bolus) 20 mg IV Q5MIN PRN PRN Reason: BREAKTHROUGH AGITATION Stop: 05/23/18 23:38 Sodium Chloride (Flush - Normal Saline) 10 ml IVF PRN PRN PRN Reason: Saline Flush
[2018-05-06] MEDS ORDERED: PROPOFOL 200 MG/20 ML VIAL ONE (14:50)
[2018-05-06] MEDS: fentaNYL Citrate/PF 2,000 MCG in Sodium Chloride 0.9% 60 ML IV SCH (14:56)
[2018-05-06] MEDS: Amiodarone HCl 450 MG, Admixture Fee 1 EACH in Dextrose 5% in Water 250 ML IVPB SCH (15:12)
--- NOTE | 2018-05-06 15:49 | RAD ---
SINGLE VIEW OF THE CHEST: Comparison: 05-06-18 at 3:55 a.m. History: Status post tracheostomy and central line placement. FINDINGS: Single view of the chest shows an enlarged but stable cardiomediastinal silhouette. The patient is st atus post sternotomy. The endotracheal tube has been removed. A tracheostomy is seen in good position overlying the trachea. There is a left subclavian central venous catheter. The course of the cathete r is slightly atypical. This catheter may be in the superior vena cava. The right sided central venou s catheter is unchanged in position. No pneumothorax is seen. There appear to be bilateral pleural ef fusions, right greater than left. There may be a right lower lobe infiltrate. IMPRESSION: 1. Status post central line placement without evidence of pneumothorax. 2. There is slightly unusual course of the central venous catheter. 3. Bilateral pleural effusions with right lower lobe infiltrate. POS: [facility]
--- NOTE | 2018-05-06 18:25 | OP ---
DATE OF PROCEDURE: 05/06/2018 PROCEDURES PERFORMED: Shiley tracheostomy placement and left subclavian vein central line placement. PREOPERATIVE DIAGNOSES: Respiratory insufficiency, status post coronary artery bypass grafting and s upracoronary aortic graft placement. POSTOPERATIVE DIAGNOSES: Respiratory insufficiency, status post coronary artery bypass grafting and supracoronary aortic graft placement. SURGEON: Bola Dixon M.D. ANESTHESIA: General endotracheal anesthesia. INDICATIONS: The patient is a 77-year-old man who underwent coronary artery bypass grafting that was complicated by aortic dissection requiring a supracoronary graft placement of his ascending aorta. He was extremely unstable on the early postoperative period and then began following a septic course about a week later. He is now taken to the operating room for tracheostomy placement as it is not re asonable to expect him to successfully wean from the ventilator soon. A new central line was also be ing placed as his existing wound was about a week old. NARRATIVE REPORT: After informed consent was obtained, the patient was taken to the operating room a nd placed in supine position on the operating table. After induction of general anesthesia, the edson ent's neck was extended and his neck and upper chest were prepped and draped in sterile fashion. A s lightly curvilinear incision was made transversely a fingerbreadth above the sternal notch. Using sc alpel and electrocautery, the dissection was carried through the subcutaneous tissue and platysma. T he strap muscles were divided longitudinally in the midline. The thyroidal isthmus was dissected off of the trachea and ligated with heavy silk ties. The thyroidal isthmus was then divided with the el ectrocautery in between the ligatures. The landmarks of the airway were palpated. The trachea was s cored transversely with the electrocautery below the second tracheal ring and inferiorly based trap d oor tracheostomy, incision was then made at that level. Using an 11 blade scalpel and Bautista scissors, the silk stay stitch was passed through that flap and then loosely tacked to the inferior skin josseline n. The tracheostomy was dilated and under my direction the anesthesiologist withdrew the orotracheal tube to just above the level of the tracheostomy and #8 Shiley tracheostomy device was inserted. Th e obturator was replaced with an inner cannula. The balloon was inflated. The cuff was inflated and the ventilator circuit was exchanged. The tracheostomy was then dressed and secured with heavy tape s. Those drapes were removed and using new gown and glove, the left upper chest was prepped and drap ed in sterile fashion, excluding the tracheostomy from the operative field with the patient in [facility]. A large bore needle was used to cannulate the left subclavian vein and a guidewire was plac ed through the needle by the Seldinger technique, a triple-lumen central line was placed over wire in to the subclavian vein. All three ports easily aspirated and flushed. The line was secured and dres sed and the patient's right radial arterial line was then placed by the anesthesiologist at [facility] to facilitate his monitoring and frequent blood draws. He was then transported to the intensive ca re unit in stable condition.
[2018-05-06] MEDS: Atorvastatin Calcium 20 MG TAB PO SCH (20:31)
[2018-05-07] MEDS: fentaNYL Citrate/PF 2,000 MCG in Sodium Chloride 0.9% 60 ML IV SCH ×2 (03:49→22:03)
[2018-05-07 04:52] LABS: Anion Gap 14 mmol/L (10-20); Calc. Creatinine Clearance 24 mL/min (70-130); Calcium 7.9 mg/dL (7.8-10.44); Carbon Dioxide 25 mmol/L (23-31); Chloride 103 mmol/L (98-107); Estimated GFR-MDRD 17; Glucose 113 mg/dL (83-110); Potassium 4.4 mmol/L (3.5-5.1); Sodium 138 mmol/L (136-145)
[2018-05-07 05:04] LABS: BUN (Urea Nitrogen) 129 mg/dL (8.4-25.7)
[2018-05-07 05:25] LABS: Band 3 % (5-11); Hemoglobin 8.4 g/dL (14.0-18.0); Hypochromia SLIGHT = 6-15 cells (100X) (0-5/hpf); Lymphocytes 6 % (21-51); MDiff Complete? YES; Mean Corpuscular HGB CONC 33.1 g/dL (32.0-36.0); Mean Corpuscular Hemoglobin 30.7 pg (27.0-31.0); Mean Corpuscular Volume 92.8 fL (78.0-98.0); Mean Platelet Volume 9.7 fL (7.4-10.4); Metamyelocyte 1 % (0-0); Monocytes 3 % (0-10); Neutrophil 86 % (42-75); PLT Morphology Comment Appears Adequate; Platelet Count 262 thou/uL (130-400); RBC Distribution Width 15.1 % (11.5-14.5); Reactive Lymphocytes 1 % (0-10); Red Blood Cell (RBC) Count 2.74 mill/uL (4.70-6.10); White Blood Cell (WBC) Count 22.8 thou/uL (4.8-10.8)
--- NOTE | 2018-05-07 07:40 | CT ---
PRELIMINARY REPORT/[facility]/EMERGENTY AFTER-HOURS PROCEDURE CT Head Without Intravenous Contrast CLINICAL HISTORY: 77 years old, male; Condition or disease; Other: CVA; Patient HX: R/O CVA; S/P marbin cardioversion on (05/03) TECHNIQUE: Axial computed tomography images of the head/brain without intravenous contrast. COMPARISON: No relevant prior studies available. FINDINGS: Brain: There is a 8mm RIGHT parietal subdural hemorrhage. There is sulcal hyperattenuation in the RIG HT frontal region compatible with subarachnoid hemorrhage. There is hemorrhage layering along the RIG HT falx measuring 6 mm in diameter. No significant white matter disease. Images are slightly off center limiting evaluation for midline shift. Ventricles: Normal. No ventriculomegaly. Bones/joints: Normal. No acute fracture. Soft tissues: Normal. Sinuses: There is opacification within the LEFT maxillary sinus. Mastoid air cells: There is nonspecific opacification of the bilateral mastoid air cells. Tubes, lines and devices: A nasogastric tube is present. IMPRESSION: Acute subdural hemorrhage in the RIGHT parietal and RIGHT parafalcine space and RIGHT frontal subarac hnoid hemorrhage as above. Images are slightly off center limiting evaluation for midline shift. THIS REPORT CONTAINS FINDINGS THAT MAY BE CRITICAL TO PATIENT CARE. The findings were verbally commun icated via telephone conference with Nurse Irene Vargas at 3:32 AM CDT on 05/07/2018. The findings were acknowledged and understood. Thank you for allowing us to participate in the care of your patient. Dictated and Authenticated by: Randy Anton MD 05/07/2018 3:34 AM Central Time ([place] & [place]) FINAL REPORT CT OF THE BRAIN WITHOUT CONTRAST: FINDINGS/IMPRESSION: I agree with the findings and impression given in the preliminary report per [facility] physician. 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 There is an acute subdural hematoma along the anterior falx. A small amount of subarachnoid hemorrhage in the bifront al region.
[2018-05-07] MEDS: Amiodarone HCl 450 MG, Admixture Fee 1 EACH in Dextrose 5% in Water 250 ML IVPB SCH (07:59)
[2018-05-07] MEDS: Famotidine 20 MG TAB PER TUBE SCH (10:06)
[2018-05-07] MEDS: Cefepime 2 GM, Admixture Fee 1 EACH in Sodium Chloride 0.9% 100 ML IVPB SCH (10:07)
[2018-05-07] MEDS ORDERED: Rocuronium Bromide 50 MG/5 ML VIAL ONE ×2 (10:24→13:38)
--- NOTE | 2018-05-07 10:43 | PRG ---
DATE OF SERVICE: 05/07/2017 SUBJECTIVE: This is a 77-year-old gentleman being seen for acute kidney injury. The patient is resting overnight, events reported. PHYSICAL EXAMINATION: GENERAL: Patient is resting. VITAL SIGNS: Afebrile, pulse 69, breathing 16, blood pressure 136/49. GENERAL APPEARANCE AND MENTAL STATUS: Fair. HEAD/NECK: Normocephalic. Atraumatic. EYES: EOMI. No deformity. EARS: Clear. No ulcers. NOSE: Intact. No lesions. MOUTH: Clear. No discharge. THROAT: Clear. No exudate. LUNGS: Clear. No crackles. CARDIAC: S1, S2. No rub. ABDOMEN: Benign. BS+. GENITALIA/RECTUM: Garcia present. BACK/EXTREMITIES: Edema + Ulcer- LABORATORY: Hemoglobin is 8.4, creatinine is 3.49, potassium 4.4. ASSESSMENT AND RECOMMENDATIONS: 1. 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 Events noted. Due to hemodynamic and cardiovascular instability will hold off on dialysis. Neurological events have been noted. 2. Anemia, stable. 3. Medications based on GFR are appropriate. MTDD
--- NOTE | 2018-05-07 10:49 | EKG ---
Test Reason : Blood Pressure : / mmHG Vent. Rate : 098 BPM Atrial Rate : 098 BPM P-R Int : 000 ms QRS Dur : 144 ms QT Int : 446 ms P-R-T Axes : 000 106 -11 degrees QTc Int : 569 ms Ventricular tachycardia (ventricular or supraventricular with aberration) Non-specific intra-ventricular conduction block Anterolateral infarct , age undetermined Abnormal ECG Confirmed by VENTURA MELENDEZ ([id number]) on 05/07/2018 10:48:38 AM Referred By: Confirmed By:VENTURA MELENDEZ
--- NOTE | 2018-05-07 10:58 | EKG ---
Test Reason : Blood Pressure : / mmHG Vent. Rate : 068 BPM Atrial Rate : 068 BPM P-R Int : 000 ms QRS Dur : 104 ms QT Int : 486 ms P-R-T Axes : 000 034 093 degrees QTc Int : 516 ms Accelerated Junctional rhythm with occasional Premature ventricular complexes Low voltage QRS T wave abnormality, consider anterior ischemia Prolonged QT Abnormal ECG Confirmed by VENTURA MELENDEZ ([id number]) on 05/07/2018 10:57:45 AM Referred By: Confirmed By:VENTURA MELENDEZ
[2018-05-07] MEDS ORDERED: Rocuronium Bromide 50 MG/5 ML VIAL IVP SCH ×2 (11:45→15:45)
--- NOTE | 2018-05-07 11:54 | CON ---
DATE OF CONSULTATION: 05/07/2018 ATTENDING PHYSICIAN: Dr. Jorge Joshua. HISTORY OF PRESENT ILLNESS: This is a 77-year-old male who was admitted on 04/20/2018 for chest discomfort. Following his admission, he was taken for cardiac bypass, which was complicated by dissection of the aorta and arrest. Following the procedure, he was left on mechanical ventilation and transitioned to the ICU. During his stay, initially after this event, he was found to have some left-sided weakness at that time, but CT imaging on 2017 was negative for any acute intracranial abnormalities. He reportedly had return of his left-sided strength and was following commands appropriately, but has had gradual progressive altered mental status since 05/03/2018. At that time, nursing and family reports that the patient did not recognize the and developed return of his left-sided weakness. He had been receiving anticoagulation for DVT prophylaxis as well as daily aspirin. He was sent for a CT head today, which is notable for a right-sided subdural hematoma along the right parietal and right frontal regions as well as along the right interhemispheric fissure. There is no midline shift or significant mass effect. I have seen the patient at the bedside. He is awake and opens his eyes easily to voice. He is looking around and will focus on you intermittently. He will squeeze my right hand and move his right toes; however , there is no appreciable motor function on the left. PAST MEDICAL HISTORY: Coronary artery disease, hypertension. PAST SURGICAL HISTORY: Prostatectomy, transurethral resection of the prostate, cardiac bypass complicated by aortic dissection, which required repair. SOCIAL HISTORY: The patient does not smoke, drink or use any drugs. ALLERGIES: He has no known drug allergies. FAMILY HISTORY: Noncontributory. PHYSICAL EXAMINATION: CONSTITUTIONAL: The patient is awake. He is looking around and will occasionally focus on you. EYES: Pupils are symmetric, pinpoint, sluggish. ENT: Oral mucosa is pink, intact and moist. The patient currently has a tracheostomy. RESPIRATORY: He is currently being mechanically ventilated. CARDIOVASCULAR: Regular rate and rhythm. MUSCULOSKELETAL: The patient has no obvious deformities. NEUROLOGIC: He will squeeze my hand and move his toes. He is not following commands in the left and there is no appreciable motor function in the left. Neuro exam is limited by his current state. He will look at you and occasionally focus, follows some commands. There is some motor function on the right. He will squeeze your right hand and move his right toes. ASSESSMENT AND PLAN: This is an unfortunate 77-year-old male who has had a prolonged hospital stay following acute cardiac event requiring bypass surgery complicated by aortic dissection, which required repair as well as arrest during this event. During his hospital stay, it was also complicated by sepsis. Over the past few days, the patient has had increased altered mental status as well as decreased motor function on the left. His new CT shows a right-sided subdural hematoma along the right frontal and parietal regions as well as along the right interhemispheric fissure. There is no significant midline shift or mass effect. I reviewed the CT with Dr. Joshua and he agrees that this does not fully explain the patient's current symptoms. We will plan to evaluate the patient further with MRI of the brain noncontrast imaging. I will also repeat his a.m. head CT. I have recommended that we discontinue all anticoagulants including his aspirin and chemical deep vein thrombosis prophylaxis. We will follow along. Please reach out to Neurosurgery for additional questions or concerns. FAITH
--- NOTE | 2018-05-07 14:49 | PRG ---
DATE OF SERVICE: 05/07/2018 SERVICE: Pulmonary Medicine. INTERVAL HISTORY: The patient is doing okay from a respiratory standpoint. Mentation anderson, things h ad not really improved for a period of 2-3 days. As such, the patient was sent down for a CT of the head. This demonstrated a subdural hematoma, with a small subarachnoid component to it. There is a little bit of midline shift and deformity of the right convexity of the calvaria. That being said, t here was no significant deterioration in neurologic function over the past 48 hours. PHYSICAL EXAMINATION: VITAL SIGNS: Afebrile, pulse 72, blood pressure 139/50, respirations 13, saturation 92% on 30% FiO2. GENERAL: Patient is intubated. He is under the influence of minimal sedation. That being said, he is not following any commands or doing anything of purpose. HEENT: Normocephalic. Atraumatic. Sclerae are white, conjunctivae pink. Oral and nasal mucosa is moist and without lesions. LUNGS: Decent air entry. I do not appreciate prolonged expiratory phase or crackles. HEART: Normal rate and regular. ABDOMEN: Soft, nontender, nondistended. Bowel sounds are positive. MUSCULOSKELETAL: No cyanosis or clubbing. There is diffuse 2+ pitting throughout. GENITOURINARY: Garcia catheter in place. LABORATORY DATA: WBC 22.8, hemoglobin 8.5, platelets 262,000. Neutrophils are 86% and only 3% bands . INR 1.9, historically. PH 7.50, pCO2 of 31, pO2 of 53. Creatinine 3.49 and up-trending, BUN 120. Basic metabolic profile is, otherwise, unremarkable. Bronchioalveolar lavage from the is grow ing coag-negative Staph, presumptive Corynebacterium, and nonhemolytic Streptococcus. Previous blood cultures were growing E. coli and micrococcus in only 1/2. CT of the brain demonstrates subdural hematoma, which has both acute and chronic components along the right parietal convexity. There is also subdural hematoma along the anterior falx with a small amou nt of subarachnoid extension. ASSESSMENT: 1. Acute hypoxic respiratory failure. 2. Subdural hematoma. 3. Healthcare-associated pneumonia, bilateral. 4. Atrial fibrillation/flutter, returned to sinus rhythm following cardioversion. 5. Acute kidney injury, requiring hemodialysis. DISCUSSION AND PLAN: We will minimize our sedation moving forward. Precedex will be discontinued al together and we will drop our fentanyl down to 25 mcg per hour. I will continue to titrate this down slowly over the next 24-48 hours. Neurosurgery has already been consulted. The plan is to do an MR I. Pulmonary Critical Care will continue to follow along while the patient remains in this location.
--- NOTE | 2018-05-07 14:50 | MRI ---
MRI OF THE BRAIN WITHOUT CONTRAST: COMPARISON: CT brain 05/07/18. HISTORY: Left-sided weakness and altered mental status. TECHNIQUE: Multiplanar, multisequence MRI images were obtained of the brain without contrast. FINDINGS: There is an acute on chronic extraaxial fluid collection along the right parietal convexity. There a lso appears to be a fluid collection along the anterior aspect of the falx. This likely represents a cute on chronic hemorrhage. There may be a small amount of subarachnoid hemorrhage in the right fron wiley region. There are scattered areas of restricted diffusion in the right frontal lobe, right parietal lobe, and in the left periventricular white matter. There are associated with high FLAIR signal. Restricted effusion in the right frontal lobe, right parietal lobe, left ventricular white matter, and bilateral occipital lobes. There is no evidence of hydrocephalus. The expected flow voids are present. The corpus callosum, pi tuitary, and craniocervical junction are unremarkable. There is complete opacification of the mastoid air cells. Mucosal thickening is seen in the maxillar y sinuses and there is near-complete opacification of the sphenoid sinuses. IMPRESSION: 1. 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 These correspond to the findings seen on the CT. 2. Multifocal small infarctions scattered throughout the right frontal lobe, right parietal lobe, an d in the left periventricular white matter. These suggest an embolic phenomenon given the multiple t erritories involved. 3. Restricted effusion in the right frontal lobe, right parietal lobe, left ventricular white matter , and bilateral occipital lobes. POS: [facility]
--- NOTE | 2018-05-07 14:52 | PDOC.PN ---
- Subjective Encounter Start Date: 05/07/18 Encounter Start Time: 14:50 Subjective: remains intubated.hakan CT done last night for changes in mentation -: new SDH & small SAH now. - Objective MAR Reviewed: Yes Vital Signs & Weight: Vital Signs (12 hours) Temp Pulse Resp BP Pulse Ox 05/07/18 12:00 97.7 F 26 H 05/07/18 11:05 72 146/46 H 05/07/18 10:00 35 H 05/07/18 08:00 98.1 F 67 27 H 98 05/07/18 07:14 65 146/51 H 05/07/18 04:00 98.1 F 21 H 05/07/18 03:00 98.1 F Weight Admit Weight 183 lb 10.321 oz Weight 205 lb 14.588 oz Most Recent Monitor Data Heart Rate from ECG 72 NIBP 139/50 NIBP BP-Mean 100 Respiration from ECG 13 SpO2 92 I&O: 05/06/18 05/07/18 05/08/18 06:59 06:59 06:59 Intake Total 1926 975.9 988.7 Output Total 276 88 25 Balance 1650 887.9 963.7 Result Diagrams: 05/07/18 03:58 05/07/18 03:58 Radiology Reviewed by me: Yes (Brain CT-R sided SDH w mild midline shift) Phys Exam - Physical Examination Constitutional: NAD intubated HEENT: PERRLA, moist MMs, sclera anicteric, oral pharynx no lesions Neck: no nodes, no JVD, supple Respiratory: no wheezing, no rales, no rhonchi, clear to auscultation bilateral coarse throughout Cardiovascular: RRR, no significant murmur Gastrointestinal: soft, no distention, positive bowel sounds Musculoskeletal: pulses present, edema present sedated,not moving Deviation from normal: sedated Skin: no rash Dx/Plan (1) SDH (subdural hematoma) Code(s): S06.5X9A - TRAUM SUBDR HEM W LOC OF UNSP DURATION, INIT Status: Acute (2) SAH (subarachnoid hemorrhage) Code(s): I60.9 - NONTRAUMATIC SUBARACHNOID HEMORRHAGE, UNSPECIFIED Status: Acute (3) CORTEZ (acute kidney injury) Code(s): N17.9 - ACUTE KIDNEY FAILURE, UNSPECIFIED Status: Acute Comment: started on HD.remains anuric-oliguric (4) Sepsis Code(s): A41.9 - SEPSIS, UNSPECIFIED ORGANISM Status: Acute Comment: On empiric ABx.Cefepime and levaquin. 1/2 E.coli in blood Cx. (5) Hypotension (arterial) Status: Resolved (6) Atrial fibrillation with RVR Code(s): I48.91 - UNSPECIFIED ATRIAL FIBRILLATION Status: Acute Comment: Amiodarone drip .S/P CV on 05/03/2018 (7) Acute liver disease Code(s): K76.9 - LIVER DISEASE, UNSPECIFIED Status: Acute Comment: Blanca hypovolemic liver injury (8) Left hemiparesis Code(s): G81.94 - HEMIPLEGIA, UNSPECIFIED AFFECTING LEFT NONDOMINANT SIDE Status: Acute Comment: Brain CT negative. reported to be moving both sides invoulntarily for RN (9) Acute blood loss anemia Code(s): D62 - ACUTE POSTHEMORRHAGIC ANEMIA Status: Acute Comment: s/p 10 units PRBC,12 units FFP,5 units platelets and multiple units of Cryoprecipitate.Suspect Coagulopathy H/H stable now. (10) Hypovolemic shock Code(s): R57.1 - HYPOVOLEMIC SHOCK Status: Acute Comment: labile. (11) Hypernatremia Code(s): E87.0 - HYPEROSMOLALITY AND HYPERNATREMIA Status: Resolved (12) Coagulopathy Status: Acute (13) Aortic dissection following procedure Code(s): T81.718A - COMPLICATION OF ARTERY FOLLOWING A PROCEDURE, NEC, INIT; I71.00 - DISSECTION OF UNSPECIFIED SITE OF AORTA Status: Acute Comment: s/p repair (14) Unstable angina Status: Acute Comment: s/p cardiac cath 04/22/18.CABG X 3 on 04/22/18 (15) NSTEMI (non-ST elevated myocardial infarction) Code(s): I21.4 - NON-ST ELEVATION (NSTEMI) MYOCARDIAL INFARCTION Status: Acute (16) HTN (hypertension) Code(s): I10 - ESSENTIAL (PRIMARY) HYPERTENSION Status: Acute (17) CAD (coronary artery disease) Code(s): I25.10 - ATHSCL HEART DISEASE OF [place] CORONARY ARTERY W/O ANG PCTRS Status: Chronic Qualifiers: Coronary Disease-Associated Artery/Lesion type: [place] artery Comment: Per cardiac Cath 04/22/18.on ASA,Statin (18) S/P CABG (coronary artery bypass graft) Code(s): Z95.1 - PRESENCE OF AORTOCORONARY BYPASS GRAFT Status: Acute - Plan soriano catheter, continue antibiotics, respiratory therapy, DVT proph w/SCDs new SDH & SAH.consulted NS.Stop heparin. -: remains critical w guarded prognosis -: IM team will follow from [place] as long as pt reminas in CCU -: daily labs. sedation per protocol -: Vent managment per PCCM. * . Review of Systems - Review of Systems Other: can not be obtained due to intubated and sedation - Medications/Allergies Allergies/Adverse Reactions: Allergies Allergy/AdvReac Type Severity Reaction Status Date / Time No Known Allergies Allergy Verified 04/20/18 00:08 Medications: Current Medications Acetaminophen (Tylenol Elixir) 650 mg PO Q6H PRN PRN Reason: Headache/Fever Or Mild Pain Last Admin: 04/29/18 15:50 Dose: 650 mg Al Hydroxide/Mg Hydroxide (Maalox) 30 ml PO Q4H PRN PRN Reason: Indigestion Albuterol/Ipratropium (Duoneb) 3 ml NEB [id number] PRN PRN Reason: SHORTNESS OF BREATH Albuterol/Ipratropium (Duoneb) 3 ml NEB [id number] [facility] Last Admin: 05/07/18 12:46 Dose: 3 ml Lipase/Protease/Amylase ([place] [id number]) 1 cap FS .PER PROTOCOL PRN PRN Reason: TUBE OCCLUSION PROTOCOL Atorvastatin Calcium (Lipitor) 20 mg PO HS [facility] Last Admin: 05/06/18 20:31 Dose: 20 mg Bisacodyl (Dulcolax) 10 mg PO Q12H PRN PRN Reason: Constipation Bisacodyl (Dulcolax) 10 mg W[place] Q12H PRN PRN Reason: Constipation Last Admin: 05/03/18 20:31 Dose: 10 mg Dextrose/Water (Dextrose 50%) 25 gm SLOW IVP PRN PRN PRN Reason: PER HYPOGLYCEMIC PROTOCOL Famotidine (Pepcid) 20 mg PER TUBE 0900 [facility] Last Admin: 05/07/18 10:06 Dose: 20 mg Glucagon (Glucagon) 1 mg SC PRN PRN PRN Reason: PER HYPOGLYCEMIC PROTOCOL Hydralazine HCl (Apresoline) 10 mg SLOW IVP Q6H PRN PRN Reason: To Maintain SBP< 140mmHG Last Admin: 04/27/18 06:08 Dose: 10 mg Dextrose/Water (D5w) 1,000 mls @ 0 mls/hr IV INF PRN; As Directed PRN Reason: PRN HYPOGLYCEMIC PROTOCOL Diltiazem HCl 125 mg/Miscellaneous Medication 1 each/ Sodium Chloride 125 mls @ 5 mls/hr IVPB INF ARLYN PRN Reason: Protocol Last Admin: 04/27/18 08:38 Dose: 125 mls Norepinephrine Bitartrate (Levophed) 250 mls @ 0 mls/hr IVPB INF PRN; Protocol ; Titrate PRN Reason: FOR SBP >90 Last Admin: 05/05/18 11:56 Dose: 250 mls Levofloxacin 500 mg/ Device 100 mls @ 100 mls/hr IVPB Q24HR ARLYN Last Admin: 05/07/18 10:07 Dose: 100 mls Cefepime HCl 2 gm/Miscellaneous Medication 1 each/ Sodium Chloride 100 mls @ 200 mls/hr IVPB 1000 ARLYN Last Admin: 05/07/18 10:07 Dose: 100 mls Vasopressin 40 unit/Miscellaneous Medication 1 each/ Sodium Chloride 102 mls @ 0 mls/hr IV INF ARLYN; As Directed PRN Reason: Protocol Last Admin: 05/01/18 00:02 Dose: 102 mls Fentanyl Citrate (Fentanyl Bolus) 250 mls @ 0 mls/hr IVPB PRN PRN; As Directed PRN Reason: Breakthrough pain/agitation Fentanyl Citrate 2,000 mcg/ (Sodium Chloride) 100 mls @ 0 mls/hr IV INF ARLYN; Per Protocol PRN Reason: Protocol Last Admin: 05/07/18 03:49 Dose: 100 mls Amiodarone HCl 450 mg/Miscellaneous Medication 1 each/ Dextrose/Water 259 mls @ 16 mls/hr IVPB INF ARLYN PRN Reason: Protocol Last Admin: 05/07/18 07:59 Dose: 259 mls Dexmedetomidine HCl 400 mcg/ (Sodium Chloride) 104 mls @ 0 mls/hr IVPB INF ARLYN ; Per Protocol PRN Reason: Protocol Last Admin: 05/07/18 04:38 Dose: 104 mls Ondansetron HCl (Zofran) 4 mg IVP Q6H PRN PRN Reason: Nausea/Vomiting Potassium Chloride (Kcl) 20 meq IVPB PRN PRN PRN Reason: K level </= 4.0 Last Admin: 04/26/18 05:40 Dose: 20 meq Promethazine HCl (Phenergan) 6.25 mg IM Q4H PRN PRN Reason: Nausea/Vomiting Propofol (Diprivan) 1,000 mg IV INF PRN; Protocol PRN Reason: TO ACHIEVE GOAL RASS Stop: 05/23/18 23:38 Last Admin: 05/01/18 08:43 Dose: 1,000 mg Propofol (Diprivan Bolus) 20 mg IV Q5MIN PRN PRN Reason: BREAKTHROUGH AGITATION Stop: 05/23/18 23:38 Sodium Chloride (Flush - Normal Saline) 10 ml IVF PRN PRN PRN Reason: Saline Flush
--- NOTE | 2018-05-07 18:18 | PRG ---
DATE OF SERVICE: 05/07/2018 SUBJECTIVE: The patient has developed some neurological changes on CT of head showed subdural hematomas. The changes are not felt to be able to justify the findings in the neuro exam. Brain MRI has been ordered. The nurse has noticed thick respiratory exudate. A tracheostomy has been placed. OBJECTIVE: VITAL SIGNS: His temperature has remained within normal limits. His BP 139/50 , pulse is 72. GENERAL: He seems to be confused, does not establish eye contact or follow commands like he had been doing previously. Trach in place. I's and O's are positive for the past 3 days and he keeps his eyes open, but does not focus or establish eye contact. HEENT: Pupils are equal and reactive. Tracheostomy, symmetric air entry. LUNGS: Coarse lung sounds. CARDIOVASCULAR: S1, S2, regular rate. ABDOMEN: Soft. Sternotomy site appears intact, though I am not able to elicit movements in the left upper extremity or right and left feet at this time. LABORATORY DATA: White cell count up to 22.8, hemoglobin 8.4, platelets 262 with 86% neutrophils and creatinine 3.49. Repeat bronchoalveolar lavage with coagulase negative Staph presumptive corynebacterium nonhemolytic Streptococci. This is from 05/01/2018. He is currently receiving amiodarone, atorvastatin, cefepime, diltiazem, levofloxacin. A repeat chest x-ray from yesterday demonstrated central line placement, bilateral pleural effusions, right lower lobe infiltrate which is possible. ASSESSMENT AND DISCUSSION: Chest pain with anteroseptal NC, bypass graft surgery and apparent dissection of aorta which prompted replacement of a graft in the ascending aorta, delirium, hypotension, fever, Escherichia coli bacteremia with pneumonia, now neurological changes and concern for CVA. In addition to that, he has a subdural hematoma. Repeat respiratory secretions for cultures. MICHELLED
[2018-05-07] MEDS: Atorvastatin Calcium 20 MG TAB PO SCH (21:01)
[2018-05-07] MEDS: hydrALAZINE 20 MG/ML VIAL SLOW IVP PRN (21:01)
[2018-05-08 04:52] LABS: Band 5 % (5-11); Hemoglobin 8.6 g/dL (14.0-18.0); Lymphocytes 1 % (21-51); MDiff Complete? YES; Mean Corpuscular HGB CONC 33.8 g/dL (32.0-36.0); Mean Corpuscular Hemoglobin 31.3 pg (27.0-31.0); Mean Corpuscular Volume 92.6 fL (78.0-98.0); Mean Platelet Volume 9.6 fL (7.4-10.4); Metamyelocyte 2 % (0-0); Monocytes 4 % (0-10); Neutrophil 88 % (42-75); PLT Morphology Comment Appears Adequate; Platelet Count 287 thou/uL (130-400); RBC Distribution Width 15.6 % (11.5-14.5); Red Blood Cell (RBC) Count 2.76 mill/uL (4.70-6.10); White Blood Cell (WBC) Count 27.1 thou/uL (4.8-10.8)
[2018-05-08 05:02] LABS: Anion Gap 16 mmol/L (10-20); Calc. Creatinine Clearance 22 mL/min (70-130); Calcium 7.9 mg/dL (7.8-10.44); Carbon Dioxide 23 mmol/L (23-31); Chloride 104 mmol/L (98-107); Estimated GFR-MDRD 15; Glucose 114 mg/dL (83-110); Potassium 4.6 mmol/L (3.5-5.1); Sodium 138 mmol/L (136-145)
[2018-05-08 05:14] LABS: BUN (Urea Nitrogen) 147 mg/dL (8.4-25.7)
[2018-05-08] MEDS: Amiodarone HCl 450 MG, Admixture Fee 1 EACH in Dextrose 5% in Water 250 ML IVPB SCH (08:48)
[2018-05-08] MEDS: Famotidine 20 MG TAB PER TUBE SCH (08:48)
--- NOTE | 2018-05-08 10:14 | CT ---
PRELIMINARY REPORT/[facility]/EMERGENTY AFTER-HOURS PROCEDURE CT Head Without Intravenous Contrast CLINICAL HISTORY: 77 years old, male; Condition or disease; Other: Bleed; Patient HX: F/u sdh TECHNIQUE: Axial computed tomography images of the head/brain without intravenous contrast. COMPARISON: CT Brain WO Con 2018-05-07 03:04 FINDINGS: Brain: No significant change in previously described 8mm right parietal subdural hemorrhage, right fr ontal subarachnoid hemorrhage, and 6 mm right interhemispheric falx subdural hemorrhage. Ventricles: Normal. Bones/joints: Normal. No acute fracture. Soft tissues: Normal. Sinuses: Diffuse paranasal sinus disease. Mastoid air cells: Fluid within the mastoid air cells bilaterally. Tubes, lines and devices: Partially visualized nasogastric tube. IMPRESSION: 1. No significant change in previously described acute 8mm right parietal subdural hemorrhage, acute right frontal subarachnoid hemorrhage, and acute 6 mm right interhemispheric falx subdural hemorrhage . 2. No new intracranial abnormality. 3. Incidental/non-acute findings are described above. Thank you for allowing us to participate in the care of your patient. Dictated and Authenticated by: Mike Dalton MD 05/08/2018 4:05 AM Central Time ([place] & [place]) FINAL REPORT EMERGENCY AFTER HOURS CT OF THE BRAIN WITHOUT CONTRAST: Date: 05/08/18 COMPARISON: 05/07/18. FINDINGS/IMPRESSION: I agree with the findings and impression given in the preliminary report per [facility] physician. There is stable extra-axial blood along the right frontal and parietal convexities, as well as along the tent orium. No change has occurred compared to the prior exam. POS: [facility]
[2018-05-08] MEDS: Cefepime 2 GM, Admixture Fee 1 EACH in Sodium Chloride 0.9% 100 ML IVPB SCH (10:42)
--- NOTE | 2018-05-08 10:53 | PRG ---
DATE OF SERVICE: 05/08/2018 SUBJECTIVE: This is a 77-year-old gentleman being seen for acute kidney injury. The patient remains oliguric. PHYSICAL EXAMINATION: GENERAL: Patient is resting. VITAL SIGNS: Afebrile, pulse 75, blood pressure 116/40. OBJECTIVE: See above. Awake, alert, in no acute distress. GENERAL APPEARANCE AND MENTAL STATUS: Fair. HEAD/NECK: Normocephalic. Atraumatic. EYES: EOMI. No deformity. EARS: Clear. No ulcers. NOSE: Intact. No lesions. MOUTH: Clear. No discharge. THROAT: Clear. No exudate. LUNGS: Clear. No crackles. CARDIAC: S1, S2. No rub. ABDOMEN: Benign. BS+. GENITALIA/RECTUM: He has Garcia catheter present. BACK/EXTREMITIES: Edema 0+ Ulcer- NEUROLOGICAL: The patient is resting. SKIN: Rash- Bruise- LYMPHATICS: Edema- Ulcer- LABORATORY: Hemoglobin 8.6, potassium 4.6, BUN 147. ASSESSMENT AND RECOMMENDATIONS: 1. Stage 5 chronic kidney disease with uremia and edema. We will plan hemodialysis. Risks versus b enefits of dialysis were discussed. 2. Sepsis, neurological changes and cerebrovascular accident. 3. Respiratory failure. 4. Status post coronary artery bypass graft. Risks versus benefits of dialysis were discussed. We will continue dialysis as he got a break for 2 days to see if there is change of mentation with improvement in uremia. The above findings were disc ussed with the patient's primary team as well.
--- NOTE | 2018-05-08 11:00 | CON ---
DATE OF CONSULTATION: 05/08/2018 HISTORY OF PRESENT ILLNESS: I am seeing Mr. Lni regarding a right subdural hematoma. The patient was seen and examined, I agree with Harleen Gibbs PA-C evaluation 05/07/2018. Mr. Lin is a 77-yea r-old man who has had an extensive past history over the past several weeks, having undergone a cardi ac procedure with circulatory arrest and now a prolonged intubation related to septicemia. The patie nt had a cardioversion several days ago and because he had had a protracted obtundation also underwen t a CT scan of the brain. Currently, the patient is alert and intermittently tracks the examiner with his eyes. He is moving t he right side purposefully and there is no meaningful movement of the left side to command. CT scan of the brain reveals a right occipital and parietal subdural hematoma with some extension ove r the falx and into some of the sulci. It does seem to be of varying ages. There is no meaningful m ass effect. A follow up CT scan obtained 24 hours later was stable. Because the subdural hematoma does not explain the patient's obtundation or weakness, an MRI of the b rain was also obtained. This showed multiple punctate lesions consistent with strokes in both hemisp heres, right greater than left. IMPRESSION AND PLAN: With regards to the subdural hematoma, this is not causing mass effect or any s ymptoms. There is no indication for surgical treatment. I would recommend avoiding anticoagulation or antiplatelet agents completely if at all possible for a minimum of 4 weeks. I would recommend a f ollow up CT scan in 4 weeks. With regard to the multiple punctate strokes on MRI, I am not certain that these are causing any neur ologic deficit, although could be contributing to his general diminished mental status. I am recomme nding reconsulting Neurology in this regard. I updated the patient's family.
--- NOTE | 2018-05-08 11:14 | PRG ---
DATE OF SERVICE: 05/08/2018 SERVICE: Pulmonary Medicine. INTERVAL HISTORY: The patient is doing okay from a respiratory standpoint. Oxygen requirements are going up a little bit. He remains encephalopathic. He cannot provide any additional elements of the history. Nursing reports no events overnight. There are no fevers. PHYSICAL EXAMINATION: VITAL SIGNS: Afebrile, pulse 75, blood pressure 97/39, respirations 8, saturation 95% on 75% FiO2 an d a PEEP of 9. HEENT: Normocephalic, atraumatic. Sclerae are white, conjunctivae pink. Oral and nasal mucosae aydin st without lesions. LUNGS: Decent air entry. There are crackles present. Rhonchi are also there. There is no prolonge d expiratory phase or wheezing identified. HEART: Normal rate, regular. ABDOMEN: Soft, nontender, nondistended. Bowel sounds are positive. MUSCULOSKELETAL: No cyanosis or clubbing. Diffuse 2+ pitting is present throughout. GENITOURINARY: Garcia catheter in place. LABORATORY DATA: WBC 27.1, hemoglobin 8.6, platelets 287,000. BUN 147. Basic metabolic profile is, otherwise, unremarkable. Respiratory culture from yesterday is negative to date. IMAGING: CT of the brain demonstrates no significant interval change in the 8 mm right parietal subd ural hemorrhage and acute right frontal subarachnoid hemorrhage. No new intracranial abnormality. ASSESSMENT: 1. Acute hypoxic respiratory failure. 2. Subdural hematoma. 3. Subarachnoid hemorrhage. 4. Multifocal ischemic stroke, primarily throughout the right hemisphere. 5. Healthcare-associated pneumonia, bilateral. 6. Atrial fibrillation/flutter, returned in normal sinus rhythm, following cardioversion. 7. 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 I will give him a dose o f Lasix today and on a daily basis to see if we can help motivate fluid moving through the kidneys. Dialysis is going to be scheduled today, but we are not focusing on pulling off too much fluid. We w ill get physical therapy and occupational therapy involved. We will discontinue the fentanyl drip an d put him on a small patch to avoid significant withdrawal features. We will try to get him into a c hair on a daily basis and I will consult case management to help us with placement. We will likely n eed to go down for PEG tube to give the patient's brain 6 weeks to recover from this injury. The pat sergio's understands that it is unlikely the patient will make a full neurologic recovery, but in order to give his brain enough time to figure out what recovery it will make, it will require support surendra care for the next month and a half.
[2018-05-08] MEDS ORDERED: Heparin 10,000 UNITS/ 10 ML VIAL ONE (12:00)
--- NOTE | 2018-05-08 20:13 | PDOC.PN ---
- Subjective Encounter Start Date: 05/08/18 Encounter Start Time: 20:11 (late entry) Subjective: events noted. pt s/p trach now ,on min sedatio -: not following any commands -: MRI shows new embolic stroke - Objective Vital Signs & Weight: Vital Signs (12 hours) Temp Pulse Resp BP Pulse Ox 05/08/18 19:06 82 18 99 05/08/18 18:00 20 05/08/18 16:05 70 148/50 H 05/08/18 16:00 98.4 F 31 H 05/08/18 14:00 33 H 05/08/18 13:08 75 130/47 L 05/08/18 12:00 99.1 F 27 H 05/08/18 10:12 75 116/40 L 05/08/18 10:00 24 H Weight Admit Weight 183 lb 10.321 oz Weight 205 lb 7.533 oz Most Recent Monitor Data Heart Rate from ECG 86 NIBP 106/45 NIBP BP-Mean 61 Respiration from ECG 4 SpO2 94 I&O: 05/07/18 05/08/18 05/09/18 06:59 06:59 06:59 Intake Total 975.9 2545.6 1139.9 Output Total 88 447 365 Balance 887.9 2098.6 774.9 Result Diagrams: 05/08/18 03:49 05/08/18 03:49 Additional Labs: Microbiology 05/01/18 09:00 Bronchial Alveolar Lavage Bronchoalveolar Lavage Cult, Quant - Final Coagulase Neg Staphylococcus Presumptive Corynebacterium sp Coagulase Neg Staphylococcus#2 Non-Hemolytic Streptococcus 04/28/18 01:03 Venous blood - Right Hand Blood Culture - Final No growth. 04/28/18 00:56 Venous blood - Left Hand Blood Culture - Final Escherichia coli Presumptive Micrococcus sp. 04/26/18 09:59 Urine soriano catheter Urine Culture - Final NO GROWTH AT 48 HOURS 04/26/18 09:59 Urine soriano catheter Gram Stain - Final 04/26/18 06:30 Sputum Respiratory Culture - Final Klebsiella oxytoca Escherichia coli 05/07/18 17:45 Tracheal Respiratory Culture - Preliminary labs reviewed Phys Exam - Physical Examination ETT HEENT: moist MMs, sclera anicteric Neck: no JVD Respiratory: no wheezing, no rales Cardiovascular: RRR, no significant murmur Gastrointestinal: soft, no distention Musculoskeletal: no edema, pulses present Dx/Plan (1) Cerebrovascular accident, embolic Code(s): I63.9 - CEREBRAL INFARCTION, UNSPECIFIED Status: Acute (2) SDH (subdural hematoma) Code(s): S06.5X9A - TRAUM SUBDR HEM W LOC OF UNSP DURATION, INIT Status: Acute (3) SAH (subarachnoid hemorrhage) Code(s): I60.9 - NONTRAUMATIC SUBARACHNOID HEMORRHAGE, UNSPECIFIED Status: Acute (4) CORTEZ (acute kidney injury) Code(s): N17.9 - ACUTE KIDNEY FAILURE, UNSPECIFIED Status: Acute Comment: started on HD.remains anuric-oliguric (5) Sepsis Code(s): A41.9 - SEPSIS, UNSPECIFIED ORGANISM Status: Acute Comment: On empiric ABx.Cefepime and levaquin. 1/2 E.coli in blood Cx. (6) Hypotension (arterial) Status: Resolved (7) Atrial fibrillation with RVR Code(s): I48.91 - UNSPECIFIED ATRIAL FIBRILLATION Status: Acute Comment: Amiodarone drip .S/P CV on 05/03/2018 (8) Acute liver disease Code(s): K76.9 - LIVER DISEASE, UNSPECIFIED Status: Acute Comment: [place] hypovolemic liver injury (9) Left hemiparesis Code(s): G81.94 - HEMIPLEGIA, UNSPECIFIED AFFECTING LEFT NONDOMINANT SIDE Status: Acute Comment: Brain CT negative. reported to be moving both sides invoulntarily for RN (10) Acute blood loss anemia Code(s): D62 - ACUTE POSTHEMORRHAGIC ANEMIA Status: Acute Comment: s/p 10 units PRBC,12 units FFP,5 units platelets and multiple units of Cryoprecipitate.Suspect Coagulopathy H/H stable now. (11) Hypovolemic shock Code(s): R57.1 - HYPOVOLEMIC SHOCK Status: Acute Comment: labile. (12) Hypernatremia Code(s): E87.0 - HYPEROSMOLALITY AND HYPERNATREMIA Status: Resolved (13) Coagulopathy Status: Acute (14) Aortic dissection following procedure Code(s): T81.718A - COMPLICATION OF ARTERY FOLLOWING A PROCEDURE, NEC, INIT; I71.00 - DISSECTION OF UNSPECIFIED SITE OF AORTA Status: Acute Comment: s/p repair (15) Unstable angina Status: Acute Comment: s/p cardiac cath 04/22/18.CABG X 3 on 04/22/18 (16) NSTEMI (non-ST elevated myocardial infarction) Code(s): I21.4 - NON-ST ELEVATION (NSTEMI) MYOCARDIAL INFARCTION Status: Acute (17) HTN (hypertension) Code(s): I10 - ESSENTIAL (PRIMARY) HYPERTENSION Status: Acute (18) CAD (coronary artery disease) Code(s): I25.10 - ATHSCL HEART DISEASE OF [place] CORONARY ARTERY W/O ANG PCTRS Status: Chronic Qualifiers: Coronary Disease-Associated Artery/Lesion type: [place] artery Comment: Per cardiac Cath 04/22/18.on ASA,Statin (19) S/P CABG (coronary artery bypass graft) Code(s): Z95.1 - PRESENCE OF AORTOCORONARY BYPASS GRAFT Status: Acute - Plan continue antibiotics, DVT proph w/SCDs cont vent support,HD,IV ABx. -: poor prognosis -: will follow [place]. -: am labs. -: will likley need PEG as well. * .
[2018-05-08] MEDS: Atorvastatin Calcium 20 MG TAB PO SCH (20:30)
[2018-05-08] MEDS: Amiodarone 200 MG TAB PER TUBE SCH (20:30)
[2018-05-08] MEDS: Albumin 25% 25 GM/100 ML BOT IVPB SCH (22:52)
[2018-05-09] MEDS: Acetaminophen 650 MG/20.3 ML UDCUP PO PRN (00:24)
--- NOTE | 2018-05-09 00:59 | CON ---
DATE OF CONSULTATION: 05/08/2018 REFERRING PHYSICIAN: Harleen Gibbs PA-C. REASON FOR CONSULTATION: Left-sided weakness. HISTORY OF PRESENT ILLNESS: Mr. Lin is a pleasant 77-year-old male who has been concerne d for evaluation of left-sided weakness. History is obtained from patient's medical chart as patient unable to provide. Apparently, patient had presented on 05/20 with complaint of chest discomfort. He was found to have coronary artery blockage and had undergone cardiac bypass surgery. This was com plicated by dissection of the aorta and then followed by atrial fibrillation. He did undergo cardiov ersion on Sunday afternoon. Nurse reports that after he had the cardioversion on Sunday, the famil y started noticing that he was not following any commands. He was also not moving his left side. 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 Past medical history, past surgical history, social history, family history could not be obtained. CURRENT MEDICATIONS: Please review MAR. ALLERGIES: No known drug allergies. REVIEW OF SYSTEMS: Unable to perform. PHYSICAL EXAMINATION: VITAL SIGNS: Blood pressure of 120/42, pulse of 83, temperature of 98.4, respirations of 14, O2 sat is of 99% on mechanical ventilation. GENERAL: Intubated and sedated male. RESPIRATORY: Clear to auscultation bilaterally. CARDIOVASCULAR: Regular rate and rhythm. NEUROLOGIC: Mental status: The patient is intubated and sedated. He is not following simple or com plex commands. Cranial nerves: Pupils are 2 mm and briskly reactive bilaterally. External muscles are intact. Face appears symmetric. Motor exam showed flaccid bilateral upper and lower extremity. He very slightly withdraws to pain on the right upper and right lower extremity; however, there are no movements noted in the left upper and left lower extremity. LABORATORY DATA: Reviewed, which included CBC, BMP, which is significant for WBC of 27.1, hemoglobin 8.6, hematocrit 25.6, BUN of 147, creatinine of 3.89, and glucose of 114, otherwise unremarkable. IMAGING STUDIES: MRI brain without contrast was reviewed, which showed acute on chronic subdural hem atoma and subarachnoid hemorrhage in the right cerebral hemisphere. There are multifocal small infar ctions involving the right frontal lobe, right parietal lobe and periventricular white matter. IMPRESSION: 1. Cardioembolic stroke. 2. Recent aortic dissection. 3. Recent atrial fibrillation with cardioversion. PLAN: Mr. Lin is a pleasant 77-year-old male who presented with the chest discomfort and was found to have coronary blockages and has undergone carotid artery bypass graft from following wh ich he of complications of aortic dissection. He also had atrial fibrillation which required ca rdioversion. After the cardioversion, he was found to have left-sided weakness. I have reviewed his MRI brain, which did show multiple small embolic infarct in both the left cerebral hemisphere. Ther e is one large area of infarction in the right frontal lobe. This may be contributing to some of the weakness noted on the exam; however, this would not explain changes in mentation. In my opinion, padmini frances in his mentation is likely toxic metabolic in nature. I will recommend continue current medical management. No further neurological workup needed from my standpoint. Thank you for consultation.
[2018-05-09] MEDS: Albumin 25% 25 GM/100 ML BOT IVPB SCH (03:54)
[2018-05-09 05:07] LABS: Anion Gap 13 mmol/L (10-20); BUN (Urea Nitrogen) 87 mg/dL (8.4-25.7); Calc. Creatinine Clearance 34 mL/min (70-130); Calcium 7.5 mg/dL (7.8-10.44); Carbon Dioxide 25 mmol/L (23-31); Chloride 104 mmol/L (98-107); Estimated GFR-MDRD 26; Glucose 108 mg/dL (83-110); Potassium 4.9 mmol/L (3.5-5.1); Sodium 137 mmol/L (136-145)
[2018-05-09 05:35] LABS: Band 6 % (5-11); Hemoglobin 7.5 g/dL (14.0-18.0); Lymphocytes 2 % (21-51); MDiff Complete? YES; Mean Corpuscular HGB CONC 34.3 g/dL (32.0-36.0); Mean Corpuscular Hemoglobin 31.7 pg (27.0-31.0); Mean Corpuscular Volume 92.2 fL (78.0-98.0); Mean Platelet Volume 9.4 fL (7.4-10.4); Metamyelocyte 1 % (0-0); Monocytes 1 % (0-10); Myelocyte 1 % (0-0); Neutrophil 89 % (42-75); Platelet Count 253 thou/uL (130-400); RBC Distribution Width 15.3 % (11.5-14.5); Red Blood Cell (RBC) Count 2.37 mill/uL (4.70-6.10); Toxic Granulation SLIGHT; White Blood Cell (WBC) Count 21.6 thou/uL (4.8-10.8)
[2018-05-09] MEDS: Furosemide 100 MG/10 ML VIAL SLOW IVP SCH (05:51)
[2018-05-09 06:52] LABS: Blood, Urine Large (Negative); Protein, Urine (Dipstick) 100 mg/dL (Neg-Trace)
[2018-05-09 06:55] LABS: Pathc Cast-AUWi Flag 0.86 (0-2.49); RBC/HPF GREATER THAN 50-TNTC HPF (0-3); Squamous Epithelial None Seen HPF (0-3)
[2018-05-09 06:56] LABS: Yeast-AUWi Flag 374.9 (0-25.0)
[2018-05-09 07:04] LABS: Specific Gravity, Urine 1.014 (1.002-1.036)
[2018-05-09 07:05] LABS: Nitrite Negative (Negative)
[2018-05-09 07:06] LABS: Bilirubin Negative (Negative); Clarity Cloudy (Clear); Glucose, Urine (Dipstick) Negative (Negative); Leukocyte Small (Negative)
[2018-05-09 07:09] LABS: Bacteria/HPF Rare-Few HPF (None Seen); Renal Epithelial 0-3 HPF (0-3)
[2018-05-09 07:11] LABS: Hyaline Casts/LPF 0-3 HYALINE CAST LPF (0-3 Hyaline); Transitional Epithelial 0-3 HPF (0-3); Yeast-All Forms None Seen HPF (None Seen)
--- NOTE | 2018-05-09 07:49 | RAD ---
AP VIEW CHEST: Date: 05/09/18 INDICATION: History of fever. FINDINGS: There is persistent air space consolidation within the right mid lung and right lower lobe. There is now diffuse hazy opacity involving the left lung suspicious for layered effusion. There is a tiny rig ht effusion. There is cardiomegaly with pulmonary vascular congestion. IMPRESSION: 1. Findings suspicious for worsening bilateral pleural effusions, left greater than right. 2. Persistent air space consolidation right mid lung and right lower lobe. 3. Findings of cardiomegaly and pulmonary vascular congestion. 4. Tracheostomy tube, feeding tube, and left-sided subclavian central venous catheter are unchanged. POS: [facility]
[2018-05-09] MEDS: Famotidine 20 MG TAB PER TUBE SCH (08:29)
[2018-05-09] MEDS: Amiodarone 200 MG TAB PER TUBE SCH ×2 (08:29→20:28)
[2018-05-09] MEDS: Cefepime 2 GM, Admixture Fee 1 EACH in Sodium Chloride 0.9% 100 ML IVPB SCH (09:40)
[2018-05-09] MEDS ORDERED: Heparin 10,000 UNITS/ 10 ML VIAL ONE (10:00)
--- NOTE | 2018-05-09 11:54 | PRG ---
DATE OF SERVICE: 05/09/2018 SUBJECTIVE: A 77-year-old gentleman being seen for oliguric acute tubular necrosis. Patient is rest ing and intubated. PHYSICAL EXAMINATION: GENERAL: Patient is resting. VITAL SIGNS: Afebrile, pulse 86, breathing 16, blood pressure 126/51. HEAD/NECK: Normocephalic. Atraumatic. EYES: EOMI. No deformity. EARS: Clear. No ulcers. NOSE: Intact. No lesions. MOUTH: Clear. No discharge. THROAT: Clear. No exudate. LUNGS: Clear. No crackles. CARDIAC: S1, S2. No rub. ABDOMEN: Benign. BS+. GENITALIA/RECTUM: Garcia present. BACK/EXTREMITIES: Edema 4+ Ulcer- NEUROLOGICAL: The patient is resting. SKIN: Rash- Bruise- LYMPHATICS: Edema- Ulcer- LABORATORY DATA: Show hemoglobin 7.5, creatinine 2.47, BUN 87. ASSESSMENT AND RECOMMENDATIONS: 1. Acute kidney injury, oliguric. Continue renal replacement therapy. Uremia has improved. 2. Hyperkalemia, stable. 3. Anemia, stable. 4. Medications based on glomerular filtration rate appropriate. We will plan dialysis today for 3 h ours and plan ultrafiltration as tolerated. Overall, prognosis remains poor. The above findings were discussed with the patient's daughter and spouse who were present during the interview.
--- NOTE | 2018-05-09 14:23 | PRG ---
DATE OF SERVICE: 05/09/2018 SERVICE: Pulmonary Medicine INTERVAL HISTORY: The patient is doing okay from a respiratory standpoint. His oxygen, saturation a nd PEEP are stable over the last 24 hours. His ins and outs have and roughly stable. There is a low grade fever today, but otherwise there were no events overnight. He still demonstrate Amador-Casanova respiratory pattern of breathing. It gives positive for alarm overnight. That being said, he certa inly does not require any sedation. PHYSICAL EXAMINATION: VITAL SIGNS: Afebrile currently. T-max reported as 100.5, pulse 87, blood pressure 131/49, respirat ions 16, saturation 96% on 75% FiO2 and a PEEP of 10. GENERAL: The patient is intubated. He is on no sedation. He attends and will spontaneously move hi s right upper and lower extremity and shake his head left and right. That being said, I do not see a nything of purpose yet. HEENT: Normocephalic, atraumatic. Sclerae are white, conjunctivae pink. Oral mucosa is moist witho ut lesions. LUNGS: Decent air entry. Crackles are present. There is no prolonged expiratory phase or wheezing. Rhonchi are present. HEART: Normal rate, regular. ABDOMEN: Soft, nontender, nondistended. Bowel sounds are positive. MUSCULOSKELETAL: No cyanosis or clubbing. There is a 2-3+ pitting in the bilateral lower extremitie s. LABORATORY DATA: WBC is down trending to 21.6, hemoglobin 7.5, platelets 89,000 with 6% bands. Crea tinine 2.47, BUN 87. Basic metabolic profile is otherwise unremarkable. Prealbumin 8.0. IMAGING: Chest x-ray demonstrates bilateral pleural effusions. Airspace consolidation in the right mid lung zone and right lower lobe. Cardiomegaly and pulmonary vascular congestion identified. Othe rwise, lines and tubes are currently stable. ASSESSMENT: 1. Acute hypoxic respiratory failure. 2. Subdural hematoma. 3. Subarachnoid hemorrhage. 4. Multifocal ischemic stroke, primarily to the right hemisphere. 5. Healthcare-associated pneumonia, bilateral. 6. Atrial fibrillation/flutter, returned to sinus rhythm following cardioversion. 7. Acute kidney injury, requiring hemodialysis. 8. Coronary bypass graft with replacement of the aorta following dissection. PLAN: We will continue our supportive measures. Dialysis is going to be performed again. We will w ork on pulling a little bit of fluid off. We will continue supportive care including antibiotics an d nebulized medications, and ventilator support. Hopefully, the patient will be in a place where we can consider transitioning him into an LTAC facility in 3-4 days.
--- NOTE | 2018-05-09 14:50 | PDOC.PN ---
- Subjective Encounter Start Date: 05/09/18 Encounter Start Time: 14:48 Subjective: remains intubated w tracheostomy.off of sedation -: low grade fever overnight.EEG this morning -: care discussed w & daughter at bedside - Objective MAR Reviewed: Yes Vital Signs & Weight: Vital Signs (12 hours) Temp Pulse Pulse Pulse Resp BP BP 05/09/18 13:04 86 134/43 L 05/09/18 12:00 99.8 F H 05/09/18 10:00 28 H 05/09/18 09:42 83 134/57 L 05/09/18 08:52 86 85 126/53 L 05/09/18 08:00 100 F H 87 28 H 05/09/18 06:15 86 126/51 L 05/09/18 06:00 34 H 05/09/18 04:00 43 H 05/09/18 03:00 100.1 F H BP Pulse Ox Pulse Ox Pulse Ox 05/09/18 13:04 05/09/18 12:00 05/09/18 10:00 05/09/18 09:42 05/09/18 08:52 134/57 L 94 L 95 05/09/18 08:00 93 L 05/09/18 06:15 05/09/18 06:00 05/09/18 04:00 05/09/18 03:00 Weight Admit Weight 183 lb 10.321 oz Weight 210 lb 12.191 oz Most Recent Monitor Data Heart Rate from ECG 89 NIBP 140/49 NIBP BP-Mean 78 Respiration from ECG 15 SpO2 98 I&O: 05/08/18 05/09/18 05/10/18 06:59 06:59 06:59 Intake Total 2545.6 1800.4 250 Output Total 447 498 125 Balance 2098.6 1302.4 125 Result Diagrams: 05/09/18 04:20 05/09/18 04:20 Additional Labs: Microbiology 05/07/18 17:45 Tracheal Respiratory Culture - Final 05/01/18 09:00 Bronchial Alveolar Lavage Bronchoalveolar Lavage Cult, Quant - Final Coagulase Neg Staphylococcus Presumptive Corynebacterium sp Coagulase Neg Staphylococcus#2 Non-Hemolytic Streptococcus 04/28/18 01:03 Venous blood - Right Hand Blood Culture - Final No growth. 04/28/18 00:56 Venous blood - Left Hand Blood Culture - Final Escherichia coli Presumptive Micrococcus sp. 04/26/18 09:59 Urine soriano catheter Urine Culture - Final NO GROWTH AT 48 HOURS 04/26/18 09:59 Urine soriano catheter Gram Stain - Final 04/26/18 06:30 Sputum Respiratory Culture - Final Klebsiella oxytoca Escherichia coli labs reviewed Phys Exam - Physical Examination opens eyes but does not follow.restless,sweaty HEENT: moist MMs, sclera anicteric, oral pharynx no lesions dobhoff Neck: no JVD coarse at bases Cardiovascular: RRR Gastrointestinal: soft, no distention, positive bowel sounds Musculoskeletal: no edema, pulses present moved R side only ,left paresis Dx/Plan (1) Toxic metabolic encephalopathy Code(s): G92 - TOXIC ENCEPHALOPATHY Status: Acute (2) Cerebrovascular accident, embolic Code(s): I63.9 - CEREBRAL INFARCTION, UNSPECIFIED Status: Acute (3) SDH (subdural hematoma) Code(s): S06.5X9A - TRAUM SUBDR HEM W LOC OF UNSP DURATION, INIT Status: Acute (4) SAH (subarachnoid hemorrhage) Code(s): I60.9 - NONTRAUMATIC SUBARACHNOID HEMORRHAGE, UNSPECIFIED Status: Acute (5) CORTEZ (acute kidney injury) Code(s): N17.9 - ACUTE KIDNEY FAILURE, UNSPECIFIED Status: Acute Comment: started on HD.remains anuric-oliguric (6) Sepsis Code(s): A41.9 - SEPSIS, UNSPECIFIED ORGANISM Status: Acute Comment: On empiric ABx.Cefepime and levaquin. 1/2 E.coli in blood Cx. (7) Hypotension (arterial) Status: Resolved (8) Atrial fibrillation with RVR Code(s): I48.91 - UNSPECIFIED ATRIAL FIBRILLATION Status: Acute Comment: Amiodarone drip .S/P CV on 05/03/2018 (9) Acute liver disease Code(s): K76.9 - LIVER DISEASE, UNSPECIFIED Status: Acute Comment: Blanca hypovolemic liver injury (10) Left hemiparesis Code(s): G81.94 - HEMIPLEGIA, UNSPECIFIED AFFECTING LEFT NONDOMINANT SIDE Status: Acute Comment: Brain CT negative. reported to be moving both sides invoulntarily for RN (11) Acute blood loss anemia Code(s): D62 - ACUTE POSTHEMORRHAGIC ANEMIA Status: Acute Comment: s/p 10 units PRBC,12 units FFP,5 units platelets and multiple units of Cryoprecipitate.Suspect Coagulopathy H/H stable now. (12) Hypovolemic shock Code(s): R57.1 - HYPOVOLEMIC SHOCK Status: Acute Comment: labile. (13) Hypernatremia Code(s): E87.0 - HYPEROSMOLALITY AND HYPERNATREMIA Status: Resolved (14) Coagulopathy Status: Acute (15) Aortic dissection following procedure Code(s): T81.718A - COMPLICATION OF ARTERY FOLLOWING A PROCEDURE, NEC, INIT; I71.00 - DISSECTION OF UNSPECIFIED SITE OF AORTA Status: Acute Comment: s/p repair (16) Unstable angina Status: Acute Comment: s/p cardiac cath 04/22/18.CABG X 3 on 04/22/18 (17) NSTEMI (non-ST elevated myocardial infarction) Code(s): I21.4 - NON-ST ELEVATION (NSTEMI) MYOCARDIAL INFARCTION Status: Acute (18) HTN (hypertension) Code(s): I10 - ESSENTIAL (PRIMARY) HYPERTENSION Status: Acute (19) CAD (coronary artery disease) Code(s): I25.10 - ATHSCL HEART DISEASE OF [place] CORONARY ARTERY W/O ANG PCTRS Status: Chronic Qualifiers: Coronary Disease-Associated Artery/Lesion type: [place] artery Comment: Per cardiac Cath 04/22/18.on ASA,Statin (20) S/P CABG (coronary artery bypass graft) Code(s): Z95.1 - PRESENCE OF AORTOCORONARY BYPASS GRAFT Status: Acute - Plan plan discussed w/ family, soriano catheter, continue antibiotics, PT/OT, respiratory therapy, DVT proph w/SCDs cont supportive care. IV ABx, Lasix -: Hemodialysis today.remains anuric -: will need PEG before Dc.LTACH plans in place -: poor prognosis w multiple complications post CABG -: am labs * . Review of Systems - Review of Systems Other: can not be obtained due to encephalopathy - Medications/Allergies Allergies/Adverse Reactions: Allergies Allergy/AdvReac Type Severity Reaction Status Date / Time No Known Allergies Allergy Verified 04/20/18 00:08 Medications: Current Medications Acetaminophen (Tylenol Elixir) 650 mg PO Q6H PRN PRN Reason: Headache/Fever Or Mild Pain Last Admin: 05/09/18 00:24 Dose: 650 mg Al Hydroxide/Mg Hydroxide (Maalox) 30 ml PO Q4H PRN PRN Reason: Indigestion Albuterol/Ipratropium (Duoneb) 3 ml NEB [id number] PRN PRN Reason: SHORTNESS OF BREATH Albuterol/Ipratropium (Duoneb) 3 ml NEB [id number] [facility] Last Admin: 05/09/18 13:04 Dose: 3 ml Amiodarone HCl (Cordarone) 400 mg PER TUBE BID [facility] Last Admin: 05/09/18 08:29 Dose: 400 mg Lipase/Protease/[place]ylase ([place] [address]) 1 cap FS .PER PROTOCOL PRN PRN Reason: TUBE OCCLUSION PROTOCOL Atorvastatin Calcium (Lipitor) 20 mg PO HS [facility] Last Admin: 05/08/18 20:30 Dose: 20 mg Bisacodyl (Dulcolax) 10 mg PO Q12H PRN PRN Reason: Constipation Bisacodyl (Dulcolax) 10 mg WI Q12H PRN PRN Reason: Constipation Last Admin: 05/03/18 20:31 Dose: 10 mg Dextrose/Water (Dextrose 50%) 25 gm SLOW IVP PRN PRN PRN Reason: PER HYPOGLYCEMIC PROTOCOL Famotidine (Pepcid) 20 mg PER TUBE 0900 [facility] Last Admin: 05/09/18 08:29 Dose: 20 mg Fentanyl (Duragesic) 25 mcg TD Q3D [facility] Last Admin: 05/08/18 12:58 Dose: 25 mcg Furosemide (Lasix) 80 mg SLOW IVP 0600 [facility] Last Admin: 05/09/18 05:51 Dose: 80 mg Glucagon (Glucagon) 1 mg SC PRN PRN PRN Reason: PER HYPOGLYCEMIC PROTOCOL Hydralazine HCl (Apresoline) 10 mg SLOW IVP Q6H PRN PRN Reason: To Maintain SBP< 140mmHG Last Admin: 05/07/18 21:01 Dose: 10 mg Dextrose/Water (D5w) 1,000 mls @ 0 mls/hr IV INF PRN; As Directed PRN Reason: PRN HYPOGLYCEMIC PROTOCOL Diltiazem HCl 125 mg/Miscellaneous Medication 1 each/ Sodium Chloride 125 mls @ 5 mls/hr IVPB INF ARLYN PRN Reason: Protocol Last Admin: 04/27/18 08:38 Dose: 125 mls Cefepime HCl 2 gm/Miscellaneous Medication 1 each/ Sodium Chloride 100 mls @ 200 mls/hr IVPB 1000 ARLYN Last Admin: 05/09/18 09:40 Dose: 100 mls Levofloxacin 500 mg/ Device 100 mls @ 100 mls/hr IVPB 0900 [facility] Last Admin: 05/09/18 08:28 Dose: 100 mls Ondansetron HCl (Zofran) 4 mg IVP Q6H PRN PRN Reason: Nausea/Vomiting Promethazine HCl (Phenergan) 6.25 mg IM Q4H PRN PRN Reason: Nausea/Vomiting Last Admin: 05/09/18 00:12 Dose: 6.25 mg Sodium Chloride (Flush - Normal Saline) 10 ml IVF PRN PRN PRN Reason: Saline Flush
--- NOTE | 2018-05-09 17:11 | PQF ---
VERO ABRAMS GEORG [id number] [facility] [id number] CLINICAL DOCUMENTATION IMPROVEMENT CLARIFICATION FORM: ICD-10 Updated PLEASE DO AN ADDENDUM TO THE PROGRESS NOTE WITH ANY DOCUMENTATION UPDATES OR ADDITIONS AND CARRY THROUGH TO DC SUMMARY. THANK YOU. DATE: 05-09-18 ATTN: DR. WADDELL Please exercise your independent, professional judgment in responding to the clarification form. Clinical indicators are provided on the bottom of this form for your review Please check appropriate box(s): In the description of the operative procedure a DISSECTION OF THE ASCENDING AORTA was noted by the surgeon. If possible would you please further clarify if this was: [ ] Incidental occurrence inherent in the surgical procedure [ ] Complication of the procedure [ ] Expected complication [ x ] Unexpected complication [ ] Other [ ] Unable to determine For continuity of documentation, please document condition throughout progress notes and discharge summary. Thank You. CLINICAL INDICATORS - SIGNS / SYMPTOMS / LABS 04-22 (Destiny): Op note - Complications : dissection of the ascending aorta The aorta was noted to be discolored and thre to be extensive needle hole bleeding coming from the proximal anastomosis. Echocardiography demonstrated what appeared to represent a dissection flap. RISK FACTORS 7-2 (Codyhojazmint) OP Note: CAD, s/p WI w/ CABG x 3 TREATMENTS: 7-2 (Codyhorst) Op Note: Because of the extent of the subadventitial dissection almost completely circumferentially and of the sextensive bleeding that had occurred at the proximal anastomosis, it was elected to replace the ascending aorta. THANK YOU, HANNAH (This form is maintained as a part of the permanent medical record) 2014 [email or web address]. All Rights Reserved Hannah Bunch RN, BS [email or web address] Cell [facility]
--- NOTE | 2018-05-09 17:23 | PQF ---
VERO ABRAMS RICHA MD [id number] [facility] [id number] CLINICAL DOCUMENTATION IMPROVEMENT CLARIFICATION FORM: ICD-10 Updated PLEASE DO AN ADDENDUM TO THE PROGRESS NOTE WITH ANY DOCUMENTATION UPDATES OR ADDITIONS AND CARRY THROUGH TO DC SUMMARY. THANK YOU. DATE: 05-09-18 ATTN: DR. CHAVARRIA Please exercise your independent, professional judgment in responding to the clarification form. Clinical indicators are provided on the bottom of this form for your review Please check appropriate box(s): [ ] Empirically treating Gram Negative Pneumonia [ ] Empirically treating Anaerobic Pneumonia [ X] Ventilator Associated Pneumonia [ ] Pneumonia secondary to (specify organism / underlying disease) [ ] Pneumonia of unknown etiology [ ] Other diagnosis [ ] Unable to determine In addition, please specify: Present on Admission (POA): [ ] Yes [ X] No [ ] Unable to determine For continuity of documentation, please document condition throughout progress notes and discharge summary. Thank You. CLINICAL INDICATORS - SIGNS / SYMPTOMS / LABS 7-8 (DEJA) FEVER - I SUSPECT VENTILATOR ASSOCIATED PNA - (GERARDO) I BELIEVE RESPIRATORY INFECTION W/ PNA IS MOST LIKELY SCENARIO - (GERARDO) LIKELY E. COLI PNEUMONIA W/ BACTEREMIA 716 (TAHIRA) BILATERAL PNA - (TYLER) HEALTHCARE ASSOCIATED PNA - BILATERAL RISK FACTORS 7-2 CABG X3 W/ DISSECTED AORTA 04-22 TO 05-09 ON VENT TREATMENTS: MAR: MAXIPIME IV 04-29 TO 05-09 LEVAQUIN IV 05-08/05-09 ON VENT 04-22 TO 05-09 PULMONARY CONSULT ID CONSULT THANK YOU, HANNAH (This form is maintained as a part of the permanent medical record) 2014 [employer]. All Rights Reserved Hannah Bunch, RN, BS [email or web address] Cell [facility]
[2018-05-09] MEDS: Atorvastatin Calcium 20 MG TAB PO SCH (20:29)
[2018-05-10] MEDS: Furosemide 100 MG/10 ML VIAL SLOW IVP SCH (05:27)
[2018-05-10 05:53] LABS: Anion Gap 13 mmol/L (10-20); BUN (Urea Nitrogen) 79 mg/dL (8.4-25.7); Calc. Creatinine Clearance 32 mL/min (70-130); Carbon Dioxide 27 mmol/L (23-31); Chloride 103 mmol/L (98-107); Estimated GFR-MDRD 23; Glucose 112 mg/dL (83-110); Sodium 138 mmol/L (136-145)
[2018-05-10 06:11] LABS: Band 7 % (5-11); Hemoglobin 7.4 g/dL (14.0-18.0); Lymphocytes 10 % (21-51); MDiff Complete? YES; Mean Corpuscular HGB CONC 32.5 g/dL (32.0-36.0); Mean Corpuscular Hemoglobin 30.9 pg (27.0-31.0); Mean Corpuscular Volume 95.1 fL (78.0-98.0); Mean Platelet Volume 9.6 fL (7.4-10.4); Monocytes 4 % (0-10); Myelocyte 2 % (0-0); Neutrophil 77 % (42-75); Platelet Count 227 thou/uL (130-400); RBC Distribution Width 16.1 % (11.5-14.5); Red Blood Cell (RBC) Count 2.41 mill/uL (4.70-6.10)
--- NOTE | 2018-05-10 09:21 | PRG ---
DATE OF SERVICE: 05/09/2018 SUBJECTIVE: Mr. Lin is still delirious in the ICU intubated. MRI confirmed that he had a right he mispheric CVA shower like. PHYSICAL EXAMINATION: VITAL SIGNS: He had a temperature elevation of 100.5, it is down to 99.3 at this time. BP 140/61, h eart rate 83. GENERAL: He does not establish eye contact, but he opens his eyes spontaneously. He looks around. HEENT: Eye movements seems to be conjugate. Pupils are equal and reactive. Tracheostomy is in plac e. Central line is the same. G-tube. LUNGS: Lungs with symmetric air entry. HEART: S1, S2, regular rate. ABDOMEN: Soft and not distended. EXXTREMITIES: He seems to be able to move the right side well, but the left side does not have motio n, widely split spontaneous motion. LABORATORY DATA: White cell count is at 21.6, hemoglobin 7.5, platelets 253 with 89% neutrophils. C reatinine 2.67. Microbiology: The repeat respiratory culture was not remarkable with respiratory fl ora only. Urine culture no growth at 24 hours. MRI showed acute on chronic subdural and subarachnoid hemorrhages, right cerebral hemisphere, multifo stefani small infarctions scattered throughout the right frontal lobe, right parietal lobe, in the left p eriventricular white matter suggestive of embolic phenomenon. ASSESSMENT AND DISCUSSION: Chest pain with anteroseptal NC, bypass graft. Dissection of the aorta a nd then replacement with a graft in the ascending segment, subsequent delirium, hypotension, fever. E. coli bacteremia with pneumonia and now neurological changes with evidence of right hemispheric and left hemispheric CVAs, likely embolic in nature with some hemorrhagic transformation. All anticoagu lants are off. He has developed renal insufficiency. He continues on antimicrobials and hemodialysi s to be continued as well.
[2018-05-10] MEDS: Amiodarone 200 MG TAB PER TUBE SCH ×2 (09:22→20:40)
[2018-05-10] MEDS: Famotidine 20 MG TAB PER TUBE SCH (09:22)
[2018-05-10] MEDS ORDERED: Amiodarone 200 MG TAB PER TUBE SCH (09:30)
--- NOTE | 2018-05-10 10:52 | PRG ---
DATE OF SERVICE: 05/10/2018 SUBJECTIVE: This is a 77-year-old gentleman being seen for acute kidney injury, dialysis dependent. PHYSICAL EXAMINATION: GENERAL: Patient is resting. VITAL SIGNS: Afebrile, pulse 70, breathing 16, blood pressure 113/58. OBJECTIVE: See above. Awake, alert, in no acute distress. GENERAL APPEARANCE AND MENTAL STATUS: Fair. HEAD/NECK: Normocephalic. Atraumatic. EYES: EOMI. No deformity. EARS: Clear. No ulcers. NOSE: Intact. No lesions. MOUTH: Clear. No discharge. THROAT: Clear. No exudate. LUNGS: Clear. No crackles. CARDIAC: S1, S2. No rub. ABDOMEN: Benign. BS+. GENITALIA/RECTUM: Garcia absent. BACK/EXTREMITIES: Edema 0+ Ulcer- NEUROLOGICAL: Alert and motor intact. SKIN: Rash- Bruise- LYMPHATICS: Edema- Ulcer- LABORATORY: Potassium is 5, hemoglobin 7.4, creatinine 2.6. ASSESSMENT AND RECOMMENDATIONS: 1. Stage 6 chronic kidney disease. We will plan dialysis. 2. Acute kidney injury, oliguric. The patient is anuric. 3. Anemia, recommend transfusion. 4. Hypertension, stable. 5. Medications based on glomerular filtration rate are appropriate.
[2018-05-10] MEDS ORDERED: Heparin 1,000 UNITS/ML VIAL ONE (11:11)
[2018-05-10] MEDS: Cefepime 2 GM, Admixture Fee 1 EACH in Sodium Chloride 0.9% 100 ML IVPB SCH (11:19)
--- NOTE | 2018-05-10 11:19 | PRG ---
DATE OF SERVICE: 05/10/2018 SERVICE: Pulmonary Medicine. INTERVAL HISTORY: The patient is doing okay from a respiratory standpoint. His oxygen requirements have actually decreased a little bit. He cannot provide additional elements of the history. That be ing said, he is following some simple commands. He will open his mouth on command. He wiggles his h ands, but without significant motivation, he loses focus fairly quickly. PHYSICAL EXAMINATION: VITAL SIGNS: Afebrile with T-max of 100.5 yesterday morning. Pulse 83, blood pressure 145/61, respi rations 24, saturation 92% on 47% FiO2 and a PEEP of 5. GENERAL: Patient is intubated. He is under no influence of sedation, but remains somnolent. HEENT: Normocephalic, atraumatic. Sclerae are white, conjunctivae pink. Oral mucosa is moist witho ut lesions. LUNGS: Decent air entry. There are some crackles present, but improving. Rhonchi are also identifi ed. No prolonged expiratory phase or wheezing is present. HEART: Normal rate, regular. ABDOMEN: Soft, nontender and nondistended. Bowel sounds are positive. MUSCULOSKELETAL: No cyanosis or clubbing. There is diffuse 2+ pitting throughout. GENITOURINARY: Garcia catheter in place. NEUROLOGIC: He is attending. He also will open his mouth on command. Otherwise, he is not moving h is left upper extremity too much. His left lower extremity, right lower extremity, upper extremity w ithdraws from noxious stimuli. LABORATORY DATA: WBC 20.0, hemoglobin 7.4, platelets 227,000. Neutrophil count is actually decreasi ng and band count is roughly stable. INR 1.9. Creatinine 2.67, BUN 79. Basic metabolic profile is otherwise unremarkable. C. diff antigen and toxin are unremarkable. ASSESSMENT: 1. Acute hypoxic respiratory failure. 2. Subdural hematoma. 3. Subarachnoid hemorrhage. 4. Multifocal ischemic stroke, primarily in the right hemisphere. 5. Healthcare-associated pneumonia, bilateral. 6. Atrial fibrillation/flutter, returned to sinus rhythm following cardioversion. 7. Acute kidney injury, on hemodialysis. 8. 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 9. Pleural effusion on the left. 10. Severe protein calorie malnutrition. DISCUSSION AND PLAN: We will continue supportive care. Because of the large pleural effusion and hi gh oxygen requirements, I will proceed with thoracentesis in order to remove some fluid. Hopefully, this will facilitate weaning from mechanical ventilation. Pulmonary or Critical Care will continue t o follow along. CRITICAL CARE TIME: 30 minutes.
[2018-05-10 11:23] LABS: BF Color Red; Body Fluid Source THORACENTESIS FLD; Clarity Cloudy/Turbid (Clear); Tube # 2
[2018-05-10 11:24] LABS: RBC Background Count 0.008
[2018-05-10 11:25] LABS: RBC Count-Automated 300000 /cumm; WBC/NonHematic-Auto 3570 /cumm
[2018-05-10 11:39] LABS: Pleural Fluid, Protein 2.9 g/dL
--- NOTE | 2018-05-10 12:20 | RAD ---
FRONTAL VIEW CHEST: COMPARISON: Previous day. INDICATION: Fever, status post thoracentesis. FINDINGS: Supportive lines and tubes are again seen. There is an enlarged cardiac silhouette and vascular maninder estion. Bilateral pleural fluid is present. Degree of left side pleural fluid has decreased from pr ior exam. Patchy density of the mid to inferior right hemithorax remains. There is no obvious pneum othorax, within limitations. IMPRESSION: 1. Decompensated congestive heart failure. 2. Decreased volume of left pleural fluid. 3. Persistent pleural and parenchymal opacities remain bilaterally. Recommend continued imaging fol lowup. POS: [facility]
--- NOTE | 2018-05-10 12:29 | OP ---
DATE OF SERVICE: 05/10/2018 SERVICE: Pulmonary Medicine. PROCEDURE: Left-sided pleural drainage with catheter insertion under ultrasound guidance. CONSENT: The risks and benefits of the procedure were explained to patient's . All questions we re answered and alternative options discussed. STAFF PHYSICIAN: Jerome Moser MD MEDICATIONS: Lidocaine 1% without epinephrine, total quantity 5 mL PREOPERATIVE DIAGNOSES: 1. Acute hypoxic respiratory failure. 2. Pleural effusion. POSTPROCEDURE DIAGNOSES: 1. Acute hypoxic respiratory failure. 2. Pleural effusion. DESCRIPTION OF PROCEDURE: A timeout was performed by the procedure team and patient. The patient wa s positively identified using name and date of . The procedure site was marked. Vital sign mon itoring was accomplished by noninvasive hemodynamic monitoring, pulse oximetry, and telemetry. In th e supine position, the left lateral hemithorax was examined using ultrasound probe. The diaphragm an d pleural fluid were easily identified. The skin was prepped and draped in usual sterile fashion and anesthetized with 1% lidocaine without epinephrine. A finder needle was inserted in the pleural spa ce with return of dark, serosanguineous fluid. A pleural drainage catheter was then inserted in the same location, a total quantity of 2000 mL of the same dark serosanguineous fluid was withdrawn by sy ringe pump technique. A sample was sent for analysis. Evacuation of fluid was terminated because th e fluid stopped coming. At the end of the procedure, estimated pleural pressures, measured by manome try, was -10 cm of water pressure. The intact catheter was withdrawn on exhalation and a sterile remedios ssing was applied. The patient had stable vitals throughout the entire procedure. ESTIMATED BLOOD LOSS: Less than 1 mL COMPLICATIONS: None.
[2018-05-10 12:32] LABS: Lymphocytes 7 %
[2018-05-10 12:34] LABS: BF Segmented Neutrophils 35 %; Cell Count Non Hematic 58 %
--- NOTE | 2018-05-10 13:27 | PDOC.PN ---
- Subjective Encounter Start Date: 05/10/18 Encounter Start Time: 13:25 Subjective: had left sided thoracentesis today w removal of 2 L fluid -: sitting up in Neuro chair.non responsive & still vent dependent - Objective MAR Reviewed: Yes Vital Signs & Weight: Vital Signs (12 hours) Temp Pulse Pulse Pulse Resp BP BP 05/10/18 12:56 87 105/43 L 05/10/18 12:54 87 34 H 05/10/18 12:00 99.7 F H 05/10/18 11:00 99.2 F 96 98 109/45 L 05/10/18 10:04 89 113/58 L 05/10/18 10:00 27 H 05/10/18 07:00 99.3 F 05/10/18 06:56 85 122/49 L 05/10/18 06:54 89 31 H 05/10/18 06:00 33 H 05/10/18 03:00 98 F 05/10/18 02:00 85 36 H BP Pulse Ox 05/10/18 12:56 05/10/18 12:54 99 05/10/18 12:00 05/10/18 11:00 119/43 L 05/10/18 10:04 05/10/18 10:00 05/10/18 07:00 05/10/18 06:56 05/10/18 06:54 93 L 05/10/18 06:00 05/10/18 03:00 05/10/18 02:00 Weight Admit Weight 183 lb 10.321 oz Weight 207 lb 14.334 oz Most Recent Monitor Data Heart Rate from ECG 80 NIBP 105/43 NIBP BP-Mean 67 Respiration from ECG 29 SpO2 100 I&O: 05/09/18 05/10/18 05/11/18 06:59 06:59 06:59 Intake Total 1800.4 1497 200 Output Total 034 038 5485 Balance 1302.4 1242 -1895 Result Diagrams: 05/10/18 05:10 05/10/18 05:10 Additional Labs: Microbiology 05/07/18 17:45 Tracheal Respiratory Culture - Final 05/01/18 09:00 Bronchial Alveolar Lavage Bronchoalveolar Lavage Cult, Quant - Final Coagulase Neg Staphylococcus Presumptive Corynebacterium sp Coagulase Neg Staphylococcus#2 Non-Hemolytic Streptococcus 04/28/18 01:03 Venous blood - Right Hand Blood Culture - Final No growth. 04/28/18 00:56 Venous blood - Left Hand Blood Culture - Final Escherichia coli Presumptive Micrococcus sp. 04/26/18 09:59 Urine soriano catheter Urine Culture - Final NO GROWTH AT 48 HOURS 04/26/18 09:59 Urine soriano catheter Gram Stain - Final 04/26/18 06:30 Sputum Respiratory Culture - Final Klebsiella oxytoca Escherichia coli 05/09/18 06:40 Urine soriano catheter Urine Culture - Preliminary NO GROWTH AT 24 HOURS Laboratory Tests 05/10/18 05/10/18 10:15 10:15 Fluid WBC 3570 Fluid Seg Neutrophil % 35 Pleural Total Protein 2.9 Pleural LDH 2632 Pleural Glucose 58 labs reviewed Phys Exam - Physical Examination Constitutional: NAD sitting up in neuro chair.would not respond to verbal/tactile stimuli HEENT: moist MMs, oral pharynx no lesions Trach in place Neck: no JVD Respiratory: no wheezing, no rales Cardiovascular: RRR Gastrointestinal: soft, no distention, positive bowel sounds Musculoskeletal: pulses present, edema present (hands b/l) Left hemiparesis,encephalopathic, Deviation from normal: encephalopathy.would not open eyes,restless Dx/Plan (1) Acute hypoxic respiratory failure Status: Acute (2) Toxic metabolic encephalopathy Code(s): G92 - TOXIC ENCEPHALOPATHY Status: Acute (3) Pleural effusion Code(s): J90 - PLEURAL EFFUSION, NOT ELSEWHERE CLASSIFIED Status: Acute Comment: s/P thoracentesis 05/10/18 (4) Cerebrovascular accident, embolic Code(s): I63.9 - CEREBRAL INFARCTION, UNSPECIFIED Status: Acute Qualifiers: Laterality of affected vessel: bilateral (5) SDH (subdural hematoma) Code(s): S06.5X9A - TRAUM SUBDR HEM W LOC OF UNSP DURATION, INIT Status: Acute (6) SAH (subarachnoid hemorrhage) Code(s): I60.9 - NONTRAUMATIC SUBARACHNOID HEMORRHAGE, UNSPECIFIED Status: Acute (7) CORTEZ (acute kidney injury) Code(s): N17.9 - ACUTE KIDNEY FAILURE, UNSPECIFIED Status: Acute Comment: started on HD.remains anuric-oliguric (8) Sepsis Code(s): A41.9 - SEPSIS, UNSPECIFIED ORGANISM Status: Acute Comment: On empiric ABx.Cefepime and levaquin. 1/2 E.coli in blood Cx. (9) Hypotension (arterial) Status: Resolved (10) Atrial fibrillation with RVR Code(s): I48.91 - UNSPECIFIED ATRIAL FIBRILLATION Status: Acute Comment: Amiodarone PO now.NSR .S/P CV on 05/03/2018 (11) Acute liver disease Code(s): K76.9 - LIVER DISEASE, UNSPECIFIED Status: Acute Comment: Blanca hypovolemic liver injury (12) Left hemiparesis Code(s): G81.94 - HEMIPLEGIA, UNSPECIFIED AFFECTING LEFT NONDOMINANT SIDE Status: Acute Comment: ac CVA and SDH with SAH (13) Acute blood loss anemia Code(s): D62 - ACUTE POSTHEMORRHAGIC ANEMIA Status: Acute Comment: s/p 10 units PRBC,12 units FFP,5 units platelets and multiple units of Cryoprecipitate.Suspect Coagulopathy H/H stable now. (14) Hypernatremia Code(s): E87.0 - HYPEROSMOLALITY AND HYPERNATREMIA Status: Resolved (15) Coagulopathy Status: Acute (16) Aortic dissection following procedure Code(s): T81.718A - COMPLICATION OF ARTERY FOLLOWING A PROCEDURE, NEC, INIT; I71.00 - DISSECTION OF UNSPECIFIED SITE OF AORTA Status: Acute Comment: s/p repair (17) Unstable angina Status: Acute Comment: s/p cardiac cath 04/22/18.CABG X 3 on 04/22/18 (18) NSTEMI (non-ST elevated myocardial infarction) Code(s): I21.4 - NON-ST ELEVATION (NSTEMI) MYOCARDIAL INFARCTION Status: Acute (19) HTN (hypertension) Code(s): I10 - ESSENTIAL (PRIMARY) HYPERTENSION Status: Acute (20) CAD (coronary artery disease) Code(s): I25.10 - ATHSCL HEART DISEASE OF [place] CORONARY ARTERY W/O ANG PCTRS Status: Chronic Qualifiers: Coronary Disease-Associated Artery/Lesion type: ruby artery Comment: Per cardiac Cath 04/22/18.on ASA,Statin (21) S/P CABG (coronary artery bypass graft) Code(s): Z95.1 - PRESENCE OF AORTOCORONARY BYPASS GRAFT Status: Acute (22) Hypovolemic shock Code(s): R57.1 - HYPOVOLEMIC SHOCK Status: Resolved Comment: labile. - Plan plan discussed w/ family, continue antibiotics, PT/OT, respiratory therapy, incentive spirometry, DVT proph w/SCDs cont empiric ABx.follow Cx from resp Cx.Follow Pl fluid Results -: cont vent support .weaning as tolerated -: Will need PEG prior to placement.cont TF via dobhoff for now -: no anticoagulation as SDH/SAH. -: cont amiodarone.NSR.monitor * .cont neuro follow up closely for any worsening clinically.high risk for decompensation. * supportive care. * LTACH on DC when arranged and if stable. * daily labs Review of Systems - Review of Systems Other: can not be obtained due to encephalopathy - Medications/Allergies Allergies/Adverse Reactions: Allergies Allergy/AdvReac Type Severity Reaction Status Date / Time No Known Allergies Allergy Verified 04/20/18 00:08 Medications: Current Medications Acetaminophen (Tylenol Elixir) 650 mg PO Q6H PRN PRN Reason: Headache/Fever Or Mild Pain Last Admin: 05/09/18 00:24 Dose: 650 mg Al Hydroxide/Mg Hydroxide (Maalox) 30 ml PO Q4H PRN PRN Reason: Indigestion Albuterol/Ipratropium (Duoneb) 3 ml NEB [id number] PRN PRN Reason: SHORTNESS OF BREATH Albuterol/Ipratropium (Duoneb) 3 ml NEB [id number] [facility] Last Admin: 05/10/18 12:54 Dose: 3 ml Amiodarone HCl (Cordarone) 400 mg PER TUBE BID ARLYN Last Admin: 05/10/18 09:22 Dose: 400 mg Lipase/Protease/Amylase ([place] [id number]) 1 cap FS .PER PROTOCOL PRN PRN Reason: TUBE OCCLUSION PROTOCOL Atorvastatin Calcium (Lipitor) 20 mg PO HS ARLYN Last Admin: 05/09/18 20:29 Dose: 20 mg Bisacodyl (Dulcolax) 10 mg PO Q12H PRN PRN Reason: Constipation Bisacodyl (Dulcolax) 10 mg CA Q12H PRN PRN Reason: Constipation Last Admin: 05/03/18 20:31 Dose: 10 mg Dextrose/Water (Dextrose 50%) 25 gm SLOW IVP PRN PRN PRN Reason: PER HYPOGLYCEMIC PROTOCOL Famotidine (Pepcid) 20 mg PER TUBE 0900 [facility] Last Admin: 05/10/18 09:22 Dose: 20 mg Fentanyl (Duragesic) 25 mcg TD Q3D [facility] Last Admin: 05/08/18 12:58 Dose: 25 mcg Furosemide (Lasix) 80 mg SLOW IVP 0600 [facility] Last Admin: 05/10/18 05:27 Dose: 80 mg Glucagon (Glucagon) 1 mg SC PRN PRN PRN Reason: PER HYPOGLYCEMIC PROTOCOL Hydralazine HCl (Apresoline) 10 mg SLOW IVP Q6H PRN PRN Reason: To Maintain SBP< 140mmHG Last Admin: 05/07/18 21:01 Dose: 10 mg Dextrose/Water (D5w) 1,000 mls @ 0 mls/hr IV INF PRN; As Directed PRN Reason: PRN HYPOGLYCEMIC PROTOCOL Diltiazem HCl 125 mg/Miscellaneous Medication 1 each/ Sodium Chloride 125 mls @ 5 mls/hr IVPB INF ARLYN PRN Reason: Protocol Last Admin: 04/27/18 08:38 Dose: 125 mls Levofloxacin 500 mg/ Device 100 mls @ 100 mls/hr IVPB 0900 [facility] Last Admin: 05/10/18 09:22 Dose: 100 mls Ondansetron HCl (Zofran) 4 mg IVP Q6H PRN PRN Reason: Nausea/Vomiting Promethazine HCl (Phenergan) 6.25 mg IM Q4H PRN PRN Reason: Nausea/Vomiting Last Admin: 05/09/18 00:12 Dose: 6.25 mg Sodium Chloride (Flush - Normal Saline) 10 ml IVF PRN PRN PRN Reason: Saline Flush
[2018-05-10] MEDS ORDERED: Norepinephrine 8 MG/0.9% NS 250 ML ONE (15:23)
[2018-05-10] MEDS ORDERED: Digoxin 0.5 MG/2 ML AMP SLOW IVP SCH (15:30)
[2018-05-10] MEDS: Norepinephrine 8 MG/250 ML BAG IVPB PRN (15:38)
[2018-05-10] MEDS: Atorvastatin Calcium 20 MG TAB PO SCH (20:39)
[2018-05-11] MEDS: Furosemide 100 MG/10 ML VIAL SLOW IVP SCH (05:31)
[2018-05-11 05:34] LABS: Anion Gap 13 mmol/L (10-20); BUN (Urea Nitrogen) 82 mg/dL (8.4-25.7); Calc. Creatinine Clearance 28 mL/min (70-130); Calcium 7.9 mg/dL (7.8-10.44); Carbon Dioxide 26 mmol/L (23-31); Chloride 102 mmol/L (98-107); Estimated GFR-MDRD 20; Glucose 107 mg/dL (83-110); Magnesium 2.1 mg/dL (1.6-2.6); Phosphorus 6.5 mg/dL (2.3-4.7); Potassium 5.3 mmol/L (3.5-5.1); Sodium 136 mmol/L (136-145)
[2018-05-11 05:51] LABS: Mean Corpuscular HGB CONC 33.4 g/dL (32.0-36.0); Mean Corpuscular Hemoglobin 31.3 pg (27.0-31.0); Mean Corpuscular Volume 93.7 fL (78.0-98.0); Platelet Count 200 thou/uL (130-400); RBC Distribution Width 15.6 % (11.5-14.5); Red Blood Cell (RBC) Count 2.23 mill/uL (4.70-6.10); White Blood Cell (WBC) Count 16.6 thou/uL (4.8-10.8)
[2018-05-11 07:04] LABS: Band 9 % (5-11); Lymphocytes 3 % (21-51); MDiff Complete? YES; Monocytes 8 % (0-10); Neutrophil 80 % (42-75)
--- NOTE | 2018-05-11 09:19 | PRG ---
DATE OF SERVICE: 05/11/2018 SERVICE: Pulmonary Medicine. INTERVAL HISTORY: Yesterday during dialysis, the patient went into back in atrial fibrillation. He dropped his blood pressures. He was started on a little bit of Levophed, but then spontaneously conv erted back into sinus rhythm. There has been no significant interval change to his condition. He is a little bit more alert today. That being said, mentation anderson, things have not changed too terribl y much since yesterday. PHYSICAL EXAMINATION: VITAL SIGNS: Afebrile, pulse 80, blood pressure 118/37, respirations 15, saturations 93% on 37% FIO2 and a PEEP of 9. GENERAL: The patient is on mechanical ventilation. He is awake and attends. He follows some very s imple commands, but anything complex, he cannot do. HEENT: Normocephalic, atraumatic. Sclerae are white, conjunctivae pink. Oral and nasal mucosa is m oist without lesions. LUNGS: Excellent air entry on the left compared to yesterday. There are crackles present throughout . No prolonged expiratory phase or wheezing is appreciated. HEART: Normal rate, regular. ABDOMEN: Soft, nontender, nondistended. Bowel sounds are positive. MUSCULOSKELETAL: No cyanosis or clubbing. There is diffuse 2+ pitting throughout. GENITOURINARY: Garcia catheter in place. NEUROLOGIC: The patient spontaneously moves his right upper extremity, and bilateral lower extremiti es. He does not move his left upper extremity, but does withdraw from noxious stimulation. Pupils a re equal, round, and reactive. He is breathing comfortably over the ventilator. IMAGING: Chest x-ray demonstrates interval improvement in the left-sided pleural effusion. Decompen sated heart failure, still evident. ASSESSMENT: 1. Acute hypoxic respiratory failure. 2. Subdural hematoma. 3. Subarachnoid hemorrhage. 4. Multifocal ischemic stroke, primarily in the right hemisphere. 5. Healthcare-associated pneumonia, bilateral. 6. Atrial fibrillation/flutter, returned to sinus rhythm following cardioversion. 7. Acute kidney injury, on hemodialysis. 8. Coronary artery bypass graft with replacement of aorta, following dissection. 9. Pleural effusion on the left. 10. Severe protein calorie malnutrition. DISCUSSION AND PLAN: We will continue our supportive care. PEG tube will be placed at some point th is weekend or early next week as the patient is unlikely to progress to the point where he can swallo w well over the next couple of weeks. GI consultation will be placed for this. We will transfuse 1 unit of blood. We will try to maintain blood pressures and consider moving forward with dialysis onc e again. Pulmonary Critical Care will continue to follow along while the patient remains in this loc ation. We will try pressure support ventilation today. We will wean pressures away as tolerated.
[2018-05-11] MEDS: Amiodarone 200 MG TAB PER TUBE SCH ×3 (09:26→21:34)
[2018-05-11] MEDS: Famotidine 20 MG TAB PER TUBE SCH (09:26)
[2018-05-11] MEDS ORDERED: Heparin 1,000 UNITS/ML VIAL ONE (11:11)
--- NOTE | 2018-05-11 13:49 | PRG ---
DATE OF SERVICE: 05/11/2018 SUBJECTIVE: Mr. Lin is sitting up in the neuro chair. He has no complaints. He is awake. PHYSICAL EXAMINATION: VITAL SIGNS: His blood pressure is 124/55, pulse is in the 80s, it is sinus. LUNGS: Clear. CARDIAC: Normal S1, normal S2. ABDOMEN: Soft, nontender. EXTREMITIES: There is no edema. ASSESSMENT: 1. Status post stroke, embolic. 2. Status post myocardial infarction. 3. Status post bypass surgery with status post aortic dissection. 4. Paroxysmal atrial fibrillation. 5. Renal failure. PLAN: 1. I am going to try again with dialysis either today or tomorrow, although he did not tolerate it y esterday due to hypotension with atrial fibrillation. 2. The patient is on amiodarone twice a day.
--- NOTE | 2018-05-11 14:37 | PRG ---
DATE OF SERVICE: 05/11/2018 SUBJECTIVE: A 77-year-old gentleman being seen for end-stage renal disease. The patient is comatose . PHYSICAL EXAMINATION: GENERAL: Patient is resting. VITAL SIGNS: Afebrile, pulse 86, breathing at 16, blood pressure 124/55. HEAD/NECK: Normocephalic. Atraumatic. EYES: EOMI. No deformity. EARS: Clear. No ulcers. NOSE: Intact. No lesions. MOUTH: Clear. No discharge. THROAT: Clear. No exudate. LUNGS: Clear. No crackles. CARDIAC: S1, S2. No rub. ABDOMEN: Benign. BS+. GENITALIA/RECTUM: Garcia is present. BACK/EXTREMITIES: Edema 0+ Ulcer- NEUROLOGICAL: The patient is resting. SKIN: Rash- Bruise- LYMPHATICS: Edema- Ulcer- LABORATORY DATA: Show potassium is 5.3 and hemoglobin 7. ASSESSMENT AND RECOMMENDATIONS: 1. Stage 6 chronic kidney disease. We will plan dialysis. We will try ultrafiltration. Yesterday dialysis was interrupted by sudden onset of hypertension and atrial fibrillation. 2. Anemia, plan transfusion. 3. Uremia, plan dialysis. Overall, prognosis is extremely poor and the risks of dialysis were again discussed with the spouse and she agreed to proceed for dialysis today.
--- NOTE | 2018-05-11 19:30 | CON ---
DATE OF CONSULTATION: 05/11/2018 HISTORY OF PRESENT ILLNESS: Patient is a 77-year-old male who presented to the [facility] at the end of March with chest pain. He underwent a cardiac catheterization, subsequent coronary a rtery bypass with subsequent multiple complications. The patient adds nothing to history of present illness. Consultation is obtained for percutaneous endoscopic gastrostomy. PAST MEDICAL HISTORY: Includes hypertension. PAST SURGICAL HISTORY: Includes prostatectomy and TURP. SOCIAL HISTORY: He drinks socially, does not smoke. FAMILY HISTORY: Significant for congestive heart failure and lung cancer. REVIEW OF SYSTEMS: Unobtainable. MEDICATIONS: Include DuoNeb q.6 hours, amiodarone 400 mg daily, atorvastatin 20 mg at bedtime, Pepci d 20 mg daily, Duragesic 25 mcg q.3 days, Lasix 80 mg every day, hydralazine 10 mg IV q.6 hours, levo floxacin daily, Creon 1200 mg daily. PHYSICAL EXAMINATION: GENERAL: Shows an elderly male on the ventilator. HEENT: Unremarkable. NECK: Shows tracheostomy. CHEST: Clear. CARDIOVASCULAR: Regular rate and rhythm. ABDOMEN: Soft. There is some ecchymosis from previous surgeries. There are 2 surgical scars from p revious coronary artery bypass in the upper abdomen and it is nontender. VITAL SIGNS: Blood pressure 113/40, pulse 74, respiratory rate 19, temperature is 99.2. EXTREMITIES: Normal. NEUROLOGIC: Nonfocal. LABORATORY DATA: Shows a white blood cell count of 16.6, hemoglobin 7.0, hematocrit 20.9. PT from 0 04/23/2018 22.2 with an INR of 1.9. Chemistries show potassium 5.3, BUN 82, creatinine 3.08. ASSESSMENT: Oropharyngeal dysphagia secondary to multiple complications from coronary artery bypass. RECOMMENDATIONS: EGD and percutaneous endoscopic gastrostomy in a.m.
--- NOTE | 2018-05-11 20:59 | PRG ---
DATE OF SERVICE: 05/11/2018 SUBJECTIVE: The patient is seen and examined at bedside. He is not very responsive to me. Apparent ly, there was some issue yesterday with a blood pressure and his heart rhythm during dialysis, so the dialysis was cut in short, but apparently he converted from atrial fibrillation. He went to normal sinus rhythm later. OBJECTIVE: VITAL SIGNS: His heart rate is 90, respiratory rate is 15, and pulse oximetry is 97%. HEENT: His head is atraumatic, normocephalic. Eyes: Pupils are responding to light properly. Scle floyd nonicteric. He is on a ventilator through the tracheostomy tube. LUNGS: Somewhat diminished at both bases. HEART: S1, S2 normal, no S3, no S4. ABDOMEN: Soft and nontender. EXTREMITIES: Lower and upper approximately 2+ peripheral edema. NEUROLOGIC: He does not communicate with me. He does not follow me. I do not see any motor functio n in the upper or lower extremities. LABORATORY DATA: Showed white count of 16.6, hemoglobin 7.0, hematocrit 20.9, platelet count is 200. Sodium of 136, potassium 5.3, chloride 102, CO2 of 26, BUN 82, creatinine 3.8, glucose 107, phospho brenda 6.5. Thoracentesis fluid, his white count was 3005 570 and probably there was some bloody tap si nce there are 300,000 E. erythrocytes. MICROBIOLOGY: Preliminary report on pleural fluid showed many RBCs, moderate WBCs, and no organisms were seen, this was the Gram stain. Urine culture came back negative. IMPRESSION: 1. Altered mental status secondary to multifocal ischemic stroke and a subdural hematoma and subarac hnoid hemorrhage. 2. Healthcare associated pneumonia. 3. Atrial fibrillation/flutter. 4. Acute kidney injury. His creatinine is going up on hemodialysis per Dr. Patel. 5. Acute hypoxic respiratory failure on a ventilator through the tracheostomy tube. 6. Coronary artery bypass graft. 7. Massive pleural effusion on the left. PLAN: Case is mainly manage per Pulmonary/Critical Care. The patient will receive 1 unit of packed red blood cells for his hemoglobin of 7.0. Dr. Patel most likely will gets him through next hemodialy sis and there is plan to have a PEG tube placed next week and remove the NG tube.
[2018-05-11] MEDS: Atorvastatin Calcium 20 MG TAB PO SCH ×2 (21:21→21:35)
[2018-05-12] MEDS ORDERED: Acetaminophen 1,000 MG in Premix Bag 1 BAG IVPB SCH (02:15)
[2018-05-12] MEDS: Furosemide 100 MG/10 ML VIAL SLOW IVP SCH (06:12)
[2018-05-12 06:35] LABS: Anion Gap 13 mmol/L (10-20); BUN (Urea Nitrogen) 59 mg/dL (8.4-25.7); Calc. Creatinine Clearance 30 mL/min (70-130); Calcium 7.6 mg/dL (7.8-10.44); Carbon Dioxide 27 mmol/L (23-31); Chloride 102 mmol/L (98-107); Estimated GFR-MDRD 23; Glucose 82 mg/dL (83-110); Potassium 4.7 mmol/L (3.5-5.1); Sodium 137 mmol/L (136-145)
[2018-05-12 06:53] LABS: Hemoglobin 8.1 g/dL (14.0-18.0); Mean Corpuscular HGB CONC 33.6 g/dL (32.0-36.0); Mean Corpuscular Volume 95.2 fL (78.0-98.0); Mean Platelet Volume 9.1 fL (7.4-10.4); Platelet Count 179 thou/uL (130-400); RBC Distribution Width 15.6 % (11.5-14.5); Red Blood Cell (RBC) Count 2.52 mill/uL (4.70-6.10); White Blood Cell (WBC) Count 15.8 thou/uL (4.8-10.8)
[2018-05-12 07:22] LABS: Band 7 % (5-11); Lymphocytes 6 % (21-51); MDiff Complete? YES; Monocytes 10 % (0-10); Neutrophil 77 % (42-75)
[2018-05-12] MEDS ORDERED: Acetaminophen 1,000 MG in Premix Bag 1 BAG IVPB PRN (08:15)
[2018-05-12] MEDS: Norepinephrine 8 MG/250 ML BAG IVPB PRN (08:44)
[2018-05-12] MEDS: Amiodarone 200 MG TAB PER TUBE SCH ×2 (08:44→21:10)
[2018-05-12] MEDS: Famotidine 20 MG TAB PER TUBE SCH (08:45)
--- NOTE | 2018-05-12 09:10 | PRG ---
DATE OF SERVICE: 05/12/2018 SERVICE: Pulmonary Medicine. INTERVAL HISTORY: The patient is actually much more responsive today. He is following commands and much more alert. He denies any current chest discomfort or shortness of breath. He is on a CPAP tri al right now and is doing much better today than he did yesterday. Otherwise, there has been no inte rval change to his condition. PHYSICAL EXAMINATION: VITAL SIGNS: Afebrile with a T-max of 100.4 overnight. Pulse 79, blood pressure 164/64, respiration s 9, saturation 95% on 31% FIO2 and a PEEP of 5. GENERAL: Patient is awake and alert. HEENT: Normocephalic, atraumatic. Sclerae are white, conjunctivae pink. Oral mucosa is moist witho ut lesions. LUNGS: Excellent air entry. Crackles are present. There is no prolonged expiratory phase or wheezi ng identified. HEART: Normal rate, regular. ABDOMEN: Soft, nontender and nondistended. Bowel sounds are positive. MUSCULOSKELETAL: No cyanosis or clubbing. There is diffuse 2-3+ pitting throughout. GENITOURINARY: Garcia catheter in place. NEUROLOGIC: He will move his right upper and lower extremity. The right upper extremity actually de monstrates fairly decent strength. He is able to voluntarily move his left wrist and left toes very slightly. LABORATORY DATA: WBC continues to trend downward to 15.8, hemoglobin 8.1, platelets 179,000. Neutro phils 77%, band count is dropping to 7%. Lymphocyte and monocyte count are starting to pick back up. Creatinine 2.75 and BUN 59. Basic metabolic profile is otherwise unremarkable. Calcium 7.6. ASSESSMENT: 1. Acute hypoxic respiratory failure. 2. Subdural hematoma. 3. Subarachnoid hemorrhage. 4. Multifocal ischemic stroke, primarily in the right hemisphere. 5. Healthcare-associated pneumonia, bilateral. 6. Atrial fibrillation/flutter, returned to sinus rhythm after cardioversion. 7. Acute kidney injury, currently requiring hemodialysis. 8. 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 9. Pleural effusion on the left, status post thoracentesis demonstrating an exudative effusion. 10. Severe protein calorie malnutrition. DISCUSSION AND PLAN: The patient will likely go for a PEG tube today. After this, we will reinitiat e tube feeds. We will initiate T-collar trials 3 times daily and increase as tolerated. Dialysis is going to be done per Nephrology's schedule. At this point, we were hoping that the kidneys start to improve function. We will try to maintain blood pressures to support kidneys and brain perfusion. CRITICAL CARE TIME: 30 minutes.
--- NOTE | 2018-05-12 09:14 | PRG ---
DATE OF SERVICE: 05/12/2018 SUBJECTIVE: Mr. Lin remains on the ventilator. He underwent hemodialysis yesterday, and did well with that. OBJECTIVE: VITAL SIGNS: His blood pressure is 164/64 and pulse is 81 and sinus. LUNGS: Clear. CARDIAC: Normal S1, normal S2. ASSESSMENT: 1. Paroxysmal atrial fibrillation. 2. Previous bypass surgery. 3. Status post embolic stroke. PLAN: Continue current medical regimen. No changes at this point.
--- NOTE | 2018-05-12 11:20 | OP ---
DATE OF PROCEDURE: 05/12/2018 PREOPERATIVE DIAGNOSIS: Oropharyngeal dysphagia. DESCRIPTION OF PROCEDURE: After informed consent was obtained, the patient placed in supine position . Anesthesia administered per the Anesthesia Department. Forward-viewing endoscope was inserted int o esophagus under direct visualization with ease and passed to the second portion of the duodenum wit h ease. Second portion of the duodenum and duodenal bulb were normal. The pylorus, antrum, body, fu ndus, and cardia were normal. Retroflexion of stomach was normal. Esophagus was normal throughout. The area was prepped and draped in usual manner. Anesthesia was applied with 1% lidocaine without e pinephrine. A needle was inserted through the abdominal wall into the gastric lumen. A wire was pas sed, snared, and brought out of the mouth after a small incision was made. PEG tube was attached and brought out of the mouth. The endoscope was reinserted and showed the peg bumper to be in good posi tion. ASSESSMENT: 1. Successful percutaneous endoscopic gastrostomy. 2. Normal esophagogastroduodenoscopy. RECOMMENDATIONS: Resume tube feedings in 8 hours.
[2018-05-12] MEDS ORDERED: Heparin 10,000 UNITS/ 10 ML VIAL ONE (12:00)
--- NOTE | 2018-05-12 12:57 | PRG ---
DATE OF SERVICE: 05/12/2018 SUBJECTIVE: A 77-year-old gentleman being seen for acute kidney injury, dialysis dependent. The pat iedonavan denies any nausea, vomiting or chest pain. PHYSICAL EXAMINATION: GENERAL: Patient is resting. VITAL SIGNS: Afebrile, pulse 79, breathing at 16, blood pressure . GENERAL APPEARANCE AND MENTAL STATUS: Fair. HEAD/NECK: Normocephalic. Atraumatic. EYES: EOMI. No deformity. EARS: Clear. No ulcers. NOSE: Intact. No lesions. MOUTH: Clear. No discharge. THROAT: Clear. No exudate. LUNGS: Clear. No crackles. CARDIAC: S1, S2. No rub. ABDOMEN: Benign. BS+. GENITALIA/RECTUM: Shows Garcia present. BACK/EXTREMITIES: Edema 0+ Ulcer-. NEUROLOGICAL: The patient is resting. SKIN: Rash- Bruise- LYMPHATICS: Edema- Ulcer-. LABORATORY DATA: Show hemoglobin 8.1, potassium 4.7. ASSESSMENT AND RECOMMENDATIONS: 1. Stage 6 chronic kidney disease, oliguric with massive edema. We will plan dialysis today to ultr afiltrate 2-3 kilos. 2. Hypertension, stable. 3. Anemia. We will plan transfusion. 4. Medication based on glomerular filtration rate are appropriate.
--- NOTE | 2018-05-12 14:46 | PRG ---
DATE OF SERVICE: 05/12/2018 SUBJECTIVE: The patient is seen and examined at the bedside. We all are very pleased, because he is much more responsive today. He is more interactive OBJECTIVE: VITAL SIGNS: Blood pressure is 140/52, pulse is 95, respiratory rate is 17, and he is still on the v entilator. His tracheostomy is in place. HEENT: Eyes: Sclerae nonicteric. Oral mucosa is somewhat dry. LUNGS: Breath sounds diminished at both bases. HEART: S1 and S2, normal, somewhat irregular. No S3 and no S4. ABDOMEN: Soft, nondistended. EXTREMITIES: No clubbing or cyanosis. He has lower and upper extremities 2+ peripheral edema. NEUROLOGICAL EXAMINATION: He opens his eyes and he tries to follow. His left side is flaccid, compl etely paralyzed, but there is some muscular tension on the right side in the right upper and right lo wer extremity. He does not squeeze my hands, but mental condition is significantly better than what it was yesterday. LABORATORY DATA: His white count is 15.8, hemoglobin is 8.1, hematocrit 24.0, platelet count is 179, 000. His electrolytes are within normal limits. BUN is 59, creatinine is 2.75, glucose 82, calcium 7.6. Microbiology: There are some findings from pleural effusion. Acid fast bacilli smear not seen on concentrated specimen. The rest of the studies on pleural fluid are still pending. IMPRESSION: 1. Altered mental status, secondary to multifocal ischemic stroke, subdural hematoma, subarachnoid h emorrhage. 2. Healthcare-associated pneumonia. 3. Atrial fibrillation/flutter. 4. Acute kidney injury. 5. Acute hypoxic respiratory failure, on the ventilator. 6. Coronary artery bypass graft. 7. Massive pleural effusion on the left, status post thoracocentesis. PLAN: The patient had PEG tube done by Dr. Virgen today. This will allow to feed him more chronically since he is going to need a prolonged rehabilitation time. He will be transfused with 1 unit of pac ked red blood cells. He had 1 unit yesterday. Also, he should be dialyzed today by Dr. Patel and the plan is to remove additional 2-3 liters of fluid, and we will continue supportive care and we will c ontinue physical therapy and we will continue his amiodarone 400 mg twice a day for his atrial fibril lation.
[2018-05-12] MEDS ORDERED: hydrALAZINE 20 MG/ML VIAL ONE (16:16)
[2018-05-12] MEDS: Atorvastatin Calcium 20 MG TAB PO SCH (21:11)
[2018-05-13] MEDS: Furosemide 100 MG/10 ML VIAL SLOW IVP SCH (05:32)
[2018-05-13 05:42] LABS: Band 10 % (5-11); Hemoglobin 9.6 g/dL (14.0-18.0); MDiff Complete? YES; Mean Corpuscular HGB CONC 34.3 g/dL (32.0-36.0); Mean Corpuscular Hemoglobin 32.3 pg (27.0-31.0); Mean Corpuscular Volume 94.2 fL (78.0-98.0); Mean Platelet Volume 9.1 fL (7.4-10.4); Monocytes 10 % (0-10); Neutrophil 80 % (42-75); Platelet Count 161 thou/uL (130-400); RBC Distribution Width 15.1 % (11.5-14.5); Red Blood Cell (RBC) Count 2.96 mill/uL (4.70-6.10); White Blood Cell (WBC) Count 17.4 thou/uL (4.8-10.8)
[2018-05-13 05:52] LABS: Anion Gap 11 mmol/L (10-20); BUN (Urea Nitrogen) 55 mg/dL (8.4-25.7); Calc. Creatinine Clearance 27 mL/min (70-130); Calcium 7.7 mg/dL (7.8-10.44); Carbon Dioxide 27 mmol/L (23-31); Chloride 102 mmol/L (98-107); Estimated GFR-MDRD 24; Glucose 117 mg/dL (83-110); Potassium 4.3 mmol/L (3.5-5.1); Sodium 136 mmol/L (136-145)
[2018-05-13] MEDS: Amiodarone 200 MG TAB PER TUBE SCH ×2 (10:21→20:30)
[2018-05-13] MEDS: Famotidine 20 MG TAB PER TUBE SCH (10:21)
--- NOTE | 2018-05-13 11:31 | PRG ---
DATE OF SERVICE: 05/13/2018 SUBJECTIVE: No problems with the PEG tube per nursing personnel, he is without complaints. OBJECTIVE: VITAL SIGNS: Temperature 99.2, pulse 87, respiratory rate 29, blood pressure 91/47. CHEST: Clear. CARDIOVASCULAR: Regular rate and rhythm. ABDOMEN: Soft, nontender, without organomegaly or masses. PEG site looks good, . ASSESSMENT: 1. Status post percutaneous endoscopic gastrostomy. 2. Oropharyngeal dysphagia. RECOMMENDATIONS: 1. Continue tube feedings. 2. Please reconsult for any PEG problems. 3. We will sign off.
--- NOTE | 2018-05-13 12:54 | PDOC.PN ---
- Subjective Encounter Start Date: 05/13/18 Encounter Start Time: 12:52 -: non-verbal Subjective: intubated, no purposeful activity - Objective MAR Reviewed: Yes Vital Signs & Weight: Vital Signs (12 hours) Temp Pulse Resp BP Pulse Ox 05/13/18 12:00 99 F 31 H 05/13/18 11:07 79 113/37 L 05/13/18 10:00 32 H 05/13/18 08:00 99.2 F 87 29 H 96 05/13/18 07:06 83 98/49 L 05/13/18 07:03 83 24 H 97 05/13/18 07:00 99.1 F 05/13/18 06:00 25 H 05/13/18 04:00 100.0 F H 22 H 05/13/18 02:30 88 05/13/18 02:00 27 H Weight Admit Weight 183 lb 10.321 oz Weight 177 lb 0.499 oz Most Recent Monitor Data Heart Rate from ECG 77 NIBP 109/38 NIBP BP-Mean 47 Respiration from ECG 18 SpO2 98 I&O: 05/12/18 05/13/18 05/14/18 06:59 06:59 06:59 Intake Total 593.0 1875 Output Total 202 25 25 Balance 391.0 1850 -25 Result Diagrams: 05/13/18 04:45 05/13/18 04:45 Phys Exam - Physical Examination Neck: no JVD scattered rhonchi Cardiovascular: RRR, no significant murmur Gastrointestinal: soft, positive bowel sounds Musculoskeletal: edema present Dx/Plan (1) CORTEZ (acute kidney injury) Code(s): N17.9 - ACUTE KIDNEY FAILURE, UNSPECIFIED Status: Acute Comment: started on HD.remains anuric-oliguric (2) Acute blood loss anemia Code(s): D62 - ACUTE POSTHEMORRHAGIC ANEMIA Status: Acute Comment: s/p 10 units PRBC,12 units FFP,5 units platelets and multiple units of Cryoprecipitate.Suspect Coagulopathy H/H stable now. (3) Acute hypoxic respiratory failure Status: Acute (4) Acute liver disease Code(s): K76.9 - LIVER DISEASE, UNSPECIFIED Status: Acute Comment: Jacquiley hypovolemic liver injury (5) Aortic dissection following procedure Code(s): T81.718A - COMPLICATION OF ARTERY FOLLOWING A PROCEDURE, NEC, INIT; I71.00 - DISSECTION OF UNSPECIFIED SITE OF AORTA Status: Acute Comment: s/p repair (6) Atrial fibrillation with RVR Code(s): I48.91 - UNSPECIFIED ATRIAL FIBRILLATION Status: Acute Comment: Amiodarone PO now.NSR .S/P CV on 05/03/2018 (7) Cerebrovascular accident, embolic Code(s): I63.9 - CEREBRAL INFARCTION, UNSPECIFIED Status: Acute Qualifiers: Laterality of affected vessel: bilateral (8) S/P CABG (coronary artery bypass graft) Code(s): Z95.1 - PRESENCE OF AORTOCORONARY BYPASS GRAFT Status: Acute (9) SAH (subarachnoid hemorrhage) Code(s): I60.9 - NONTRAUMATIC SUBARACHNOID HEMORRHAGE, UNSPECIFIED Status: Acute (10) SDH (subdural hematoma) Code(s): S06.5X9A - TRAUM SUBDR HEM W LOC OF UNSP DURATION, INIT Status: Acute (11) Toxic metabolic encephalopathy Code(s): G92 - TOXIC ENCEPHALOPATHY Status: Acute (12) Unstable angina Status: Acute Comment: s/p cardiac cath 04/22/18.CABG X 3 on 04/22/18 (13) CAD (coronary artery disease) Code(s): I25.10 - ATHSCL HEART DISEASE OF [place] CORONARY ARTERY W/O ANG PCTRS Status: Chronic Qualifiers: Coronary Disease-Associated Artery/Lesion type: [place] artery Comment: Per cardiac Cath 04/22/18.on ASA,Statin (14) Hypernatremia Code(s): E87.0 - HYPEROSMOLALITY AND HYPERNATREMIA Status: Resolved - Plan respiratory therapy vent dependent -: nutrition -: amiodarone, statin per tube -: pressure support -: very slow recovery * .
--- NOTE | 2018-05-13 13:41 | PRG ---
DATE OF SERVICE: 05/13/2018 SERVICE: Pulmonary Medicine. INTERVAL HISTORY: The patient is doing fine from a respiratory standpoint. He is breathing comforta rich. He has been able to tolerate small breathing trials. He tires out after about 2-3 hours and parikh d to be put back on mechanical ventilation. There were no significant events overnight. Yesterday d uring dialysis, he went into tachyarrhythmia, but he spontaneously converted once again. He is getti ng a holiday from dialysis today. PHYSICAL EXAMINATION: VITAL SIGNS: Afebrile with a T-max of 100.0, pulse 87, blood pressure 91/47, respirations 28, satura tion 92% on 31% FIO2, and a PEEP of 5. GENERAL: The patient is awake and alert. He is in no apparent distress. LUNGS: Rhonchi are present. Dependent crackles are also evident. There is no prolonged expiratory phase or wheezing. HEART: Normal rate, regular. ABDOMEN: Soft, nontender, nondistended. Bowel sounds are positive. MUSCULOSKELETAL: No cyanosis or clubbing. There is diffuse 1+ pitting throughout. This is slightly better compared to prior. LABORATORY DATA: WBC 17.4, hemoglobin 9.6, platelets 161,000. Neutrophils are 80% with 10% bands. Creatinine 2.64 and down trending with dialysis, BUN 55. Basic metabolic profile is essentially othe rwise unremarkable. Calcium 7.7. ASSESSMENT: 1. Acute hypoxic respiratory failure, status post PEG tube and tracheostomy. 2. Subdural hematoma. 3. Subarachnoid hemorrhage. 4. Multifocal ischemic stroke, primarily in the right hemisphere. 5. Healthcare-associated pneumonia, bilateral. 6. Atrial fibrillation/flutter, returned to sinus rhythm after cardioversion. 7. Acute kidney injury, requiring hemodialysis. 8. Coronary bypass graft with replacement of the ascending aorta following intraoperative dissection . 9. Pleural effusion on the left, status post thoracentesis demonstrating an exudate. 10. Severe protein calorie malnutrition. PLAN: We will start putting him on pressure support ventilation 3 times daily and increase as tolera almas. At this point, he has significant critical care weakness. As such, he still requires 10/5. He has completed a course of antibiotics for his previous pneumonia. We will monitor for signs of infe ction. If he runs a true fever, kruse culture and empiric antibiotics will once again be considered. Otherwise, supportive care will be continued. We will do our best to mobilize the patient twice ileana y into a neuro chair, and have him work with physical therapy and occupational therapy. We will be c areful with our ins and outs as the patient remains severely volume overloaded for this hospital stay . This is improving on a day by day basis, however. CRITICAL CARE TIME: 30 minutes. DICTATION ENDED
--- NOTE | 2018-05-13 19:54 | PRG ---
DATE OF SERVICE: 05/13/2018 SUBJECTIVE: A 77-year-old gentleman being seen for acute kidney injury with stage 6 chronic kidney d isease, dialysis dependent. The patient is more awake and alert today. PHYSICAL EXAMINATION: GENERAL: The patient opens his eyes and (00:15) simple commands. VITAL SIGNS: Afebrile, pulse 77, breathing at 16, and blood pressure 119/37. GENERAL APPEARANCE AND MENTAL STATUS: Fair. HEAD/NECK: Normocephalic. Atraumatic. EYES: EOMI. No deformity. EARS: Clear. No ulcers. NOSE: Intact. No lesions. MOUTH: Clear. No discharge. THROAT: Clear. No exudate. LUNGS: Clear. No crackles. CARDIAC: S1, S2. No rub. ABDOMEN: Benign. BS+. GENITALIA/RECTUM: Garcia absent. BACK/EXTREMITIES: Edema 0+ Ulcer- NEUROLOGICAL: Alert and motor intact. SKIN: Rash- Bruise- LABORATORY: Hemoglobin 9.6, potassium is 4.3. ASSESSMENT AND RECOMMENDATIONS: 1. Stage 6 chronic kidney disease, (00:27) acute kidney injury. The patient remains oliguric. 2. Anemia, stable. 3. Medication based on glomerular filtration rate are appropriate. 4. Altered mental status. The patient has improved. 5. We will plan dialysis tomorrow as the patient remains hypotensive. All the above findings were discussed with the primary team and the patient's spouse, who was present during the interview.
[2018-05-13] MEDS: Atorvastatin Calcium 20 MG TAB PO SCH (20:30)
[2018-05-13] MEDS: Norepinephrine 8 MG/250 ML BAG IVPB PRN (22:14)
[2018-05-14] MEDS: Acetaminophen 650 MG/20.3 ML UDCUP PO PRN (03:52)
[2018-05-14 05:56] LABS: Anion Gap 14 mmol/L (10-20); BUN (Urea Nitrogen) 90 mg/dL (8.4-25.7); Calc. Creatinine Clearance 18 mL/min (70-130); Calcium 7.5 mg/dL (7.8-10.44); Carbon Dioxide 25 mmol/L (23-31); Chloride 102 mmol/L (98-107); Estimated GFR-MDRD 15; Glucose 115 mg/dL (83-110); Potassium 4.9 mmol/L (3.5-5.1); Sodium 136 mmol/L (136-145)
[2018-05-14 06:12] LABS: Band 10 % (5-11); Hemoglobin 8.2 g/dL (14.0-18.0); Lymphocytes 7 % (21-51); MDiff Complete? YES; Mean Corpuscular Hemoglobin 32.3 pg (27.0-31.0); Mean Platelet Volume 9.1 fL (7.4-10.4); Monocytes 5 % (0-10); Neutrophil 78 % (42-75); Platelet Count 127 thou/uL (130-400); RBC Distribution Width 15.3 % (11.5-14.5); Red Blood Cell (RBC) Count 2.53 mill/uL (4.70-6.10); White Blood Cell (WBC) Count 12.7 thou/uL (4.8-10.8)
[2018-05-14] MEDS: Amiodarone 200 MG TAB PER TUBE SCH ×2 (11:38→20:16)
[2018-05-14] MEDS: Famotidine 20 MG TAB PER TUBE SCH (11:39)
--- NOTE | 2018-05-14 13:29 | PDOC.PN ---
- Subjective Encounter Start Date: 05/14/18 Encounter Start Time: 13:27 -: non-verbal Subjective: inttubated, some appropriate responce - Objective MAR Reviewed: Yes Vital Signs & Weight: Vital Signs (12 hours) Temp Pulse Resp BP Pulse Ox 05/14/18 12:00 28 H 05/14/18 10:35 75 05/14/18 10:00 27 H 05/14/18 08:00 98.9 F 68 24 H 93 L 05/14/18 07:00 98.9 F 68 119/46 L 05/14/18 06:57 67 32 H 92 L 05/14/18 06:00 12 05/14/18 04:00 98.9 F 8 L 05/14/18 02:39 78 109/37 L 05/14/18 02:00 8 L Weight Admit Weight 183 lb 10.321 oz Weight 177 lb 11.081 oz Most Recent Monitor Data Heart Rate from ECG 78 NIBP 145/47 NIBP BP-Mean 68 Respiration from ECG 21 SpO2 91 I&O: 05/13/18 05/14/18 05/15/18 06:59 06:59 06:59 Intake Total 1875 1993.6 60 Output Total 25 39 0 Balance 1850 1954.6 60 Result Diagrams: 05/14/18 05:14 05/14/18 05:14 Phys Exam - Physical Examination rhonchi Cardiovascular: no significant murmur, irregular Gastrointestinal: soft, non-tender, positive bowel sounds Musculoskeletal: edema present Dx/Plan (1) CORTEZ (acute kidney injury) Code(s): N17.9 - ACUTE KIDNEY FAILURE, UNSPECIFIED Status: Acute Comment: started on HD.remains anuric-oliguric (2) Acute blood loss anemia Code(s): D62 - ACUTE POSTHEMORRHAGIC ANEMIA Status: Acute Comment: s/p 10 units PRBC,12 units FFP,5 units platelets and multiple units of Cryoprecipitate.Suspect Coagulopathy H/H stable now. (3) Acute hypoxic respiratory failure Status: Acute (4) Acute liver disease Code(s): K76.9 - LIVER DISEASE, UNSPECIFIED Status: Acute Comment: Jacquiley hypovolemic liver injury (5) Aortic dissection following procedure Code(s): T81.718A - COMPLICATION OF ARTERY FOLLOWING A PROCEDURE, NEC, INIT; I71.00 - DISSECTION OF UNSPECIFIED SITE OF AORTA Status: Acute Comment: s/p repair (6) Atrial fibrillation with RVR Code(s): I48.91 - UNSPECIFIED ATRIAL FIBRILLATION Status: Acute Comment: Amiodarone PO now.NSR .S/P CV on 05/03/2018 (7) Cerebrovascular accident, embolic Code(s): I63.9 - CEREBRAL INFARCTION, UNSPECIFIED Status: Acute Qualifiers: Laterality of affected vessel: bilateral (8) S/P CABG (coronary artery bypass graft) Code(s): Z95.1 - PRESENCE OF AORTOCORONARY BYPASS GRAFT Status: Acute (9) SAH (subarachnoid hemorrhage) Code(s): I60.9 - NONTRAUMATIC SUBARACHNOID HEMORRHAGE, UNSPECIFIED Status: Acute (10) SDH (subdural hematoma) Code(s): S06.5X9A - TRAUM SUBDR HEM W LOC OF UNSP DURATION, INIT Status: Acute (11) Toxic metabolic encephalopathy Code(s): G92 - TOXIC ENCEPHALOPATHY Status: Acute (12) Unstable angina Status: Acute Comment: s/p cardiac cath 04/22/18.CABG X 3 on 04/22/18 (13) CAD (coronary artery disease) Code(s): I25.10 - ATHSCL HEART DISEASE OF [place] CORONARY ARTERY W/O ANG PCTRS Status: Chronic Qualifiers: Coronary Disease-Associated Artery/Lesion type: [place] artery Comment: Per cardiac Cath 04/22/18.on ASA,Statin (14) Hypernatremia Code(s): E87.0 - HYPEROSMOLALITY AND HYPERNATREMIA Status: Resolved - Plan cont vent/ O2 -: HD as needed -: pressors -: enteral nutrition -: serial lab * .
--- NOTE | 2018-05-14 18:32 | PRG ---
DATE OF SERVICE: 05/14/2018 SUBJECTIVE: Mr. Lin did well overnight. He is interacting with his , he is starting to move m ore of his left side, according to his family. OBJECTIVE: VITAL SIGNS: His blood pressure this afternoon is 134/45, heart rate is 80, respiratory rates in the 20s. LUNGS: Remarkable for coarse equal breath sounds. HEART: Regular rhythm. ABDOMEN: Soft. EXTREMITIES: No clubbing, cyanosis, or edema. LABORATORY DATA: White count 12.7, hemoglobin 8.2, platelets 127,000. Sodium 136, potassium 4.9, chloride 102, bicarb 25, BUN 90, creatinine 3.94. IMPRESSION: Respiratory failure, slowly weaning from mechanical ventilation with tracheostomy in [facility]. PLAN: Continue supportive care. I met with family and answered all their questions.
--- NOTE | 2018-05-14 20:01 | PRG ---
DATE OF SERVICE: 05/14/2018 SUBJECTIVE: Patient is more oriented. Follows some commands. He is moving a little bit left upper extremity. OBJECTIVE: VITAL SIGNS: T-max 99.7, blood pressure 130/40 and still oliguric. HEENT: His eye movements are conjugate. He does establish eye contact. He will follow some command s. Lines are the same. He has got a left subclavian triple lumen and right groin hemodialysis [address] ter. LUNGS: Symmetric coarse breath sounds. HEART: S1, S2. ABDOMEN: Soft, not distended. LABORATORY DATA: White cell count is 12.7, hemoglobin 8.2, platelets 127. Chemistry with a creatini ne 3.94. The patient is off antimicrobial therapy. ASSESSMENT AND DISCUSSION: Chest pain with anteroseptal myocardial infarction, bypass graft dissecti on of the aorta and replacement of the ascending aortic graft, delirium, hypotension, fever with E. c anupam bacteremia with likely pneumonia and now CVA with hemorrhagic transformation, probably from embol ic phenomena after cardioversion and the left weakness which seems to be improving somewhat. We will resample his blood since that he is at high risk for line associated bacteremia and fungemia.
[2018-05-14] MEDS: Atorvastatin Calcium 20 MG TAB PO SCH (20:16)
[2018-05-14] MEDS: Epoetin (ESRD) 10,000 UNITS/ML VIAL IVP SCH (22:53)
[2018-05-15 06:32] LABS: Anion Gap 13 mmol/L (10-20); BUN (Urea Nitrogen) 71 mg/dL (8.4-25.7); Calc. Creatinine Clearance 22 mL/min (70-130); Calcium 7.2 mg/dL (7.8-10.44); Carbon Dioxide 27 mmol/L (23-31); Chloride 102 mmol/L (98-107); Estimated GFR-MDRD 18; Glucose 111 mg/dL (83-110); Potassium 4.7 mmol/L (3.5-5.1); Sodium 137 mmol/L (136-145)
[2018-05-15 06:38] LABS: Band 4 % (5-11); Hemoglobin 8.4 g/dL (14.0-18.0); Lymphocytes 13 % (21-51); MDiff Complete? YES; Mean Corpuscular HGB CONC 33.4 g/dL (32.0-36.0); Mean Corpuscular Volume 95.7 fL (78.0-98.0); Monocytes 2 % (0-10); Neutrophil 81 % (42-75); PLT Morphology Comment Appears Decreased; Platelet Count 118 thou/uL (130-400); RBC Distribution Width 15.5 % (11.5-14.5); Red Blood Cell (RBC) Count 2.61 mill/uL (4.70-6.10); White Blood Cell (WBC) Count 12.3 thou/uL (4.8-10.8)
--- NOTE | 2018-05-15 08:14 | PRG ---
DATE OF SERVICE: 05/14/2018 SUBJECTIVE: The patient was seen and examined at bedside. He is responding to verbal stimuli, but with yes and nor or nodding his head. He has trach present. He is sitting up in the chair. No fever or chills. No chest pain. OBJECTIVE: GENERAL: This is a well-built elderly white male in no apparent distress. VITAL SIGNS: Temperature 99.7, pulse 80, respiratory rate 18, blood pressure 112/47. HEENT: Atraumatic, normocephalic. NECK: Trach present. CARDIOVASCULAR: S1, S2 heard. RESPIRATORY: Clear. GASTROINTESTINAL: Abdomen is soft. MUSCULOSKELETAL: 1+ edema DERMATOLOGIC: No rash. NEUROLOGIC: Awake. LABORATORY DATA: Potassium is 4.9, BUN is 90, creatinine is 3.9. ASSESSMENT AND PLAN: 1. Acute kidney injury on chronic kidney disease stage 3, dialysis dependent. Plan is to have dialysis today for clearance, ultrafiltration as tolerated. 2. Edema, controlled. 3. Hypertension, stable. 4. Altered mentation, improved. 5. Anemia. Monitor hemoglobin. We will add Epogen as tolerated. 6. Hyperkalemia, better. We will monitor. We will have dialysis as tolerated. Limit fluid intake and I will follow. MTDD
[2018-05-15] MEDS: Famotidine 20 MG TAB PER TUBE SCH (08:58)
[2018-05-15] MEDS: Amiodarone 200 MG TAB PER TUBE SCH ×2 (08:58→21:20)
[2018-05-15] MEDS: Norepinephrine 8 MG/250 ML BAG IVPB PRN (09:33)
--- NOTE | 2018-05-15 11:38 | PDOC.PN ---
- Subjective Encounter Start Date: 05/15/18 Encounter Start Time: 11:36 -: non-verbal Subjective: no appropriate responce - Objective MAR Reviewed: Yes Vital Signs & Weight: Vital Signs (12 hours) Temp Pulse Resp BP Pulse Ox 05/15/18 11:03 82 128/64 05/15/18 10:00 29 H 05/15/18 09:41 94 L 05/15/18 08:00 99.8 F H 26 H 05/15/18 07:08 82 161/59 H 05/15/18 07:06 82 33 H 92 L 05/15/18 06:00 14 05/15/18 04:00 98.9 F 17 05/15/18 02:42 76 140/47 L 05/15/18 00:03 78 122/40 L Weight Admit Weight 183 lb 10.321 oz Weight 189 lb 6.033 oz Most Recent Monitor Data Heart Rate from ECG 84 NIBP 138/61 NIBP BP-Mean 100 Respiration from ECG 11 SpO2 92 I&O: 05/14/18 05/15/18 05/16/18 06:59 06:59 06:59 Intake Total 1993.6 1484 90 Output Total 39 22 Balance 1954.6 1462 90 Result Diagrams: 05/15/18 06:08 05/15/18 06:08 Phys Exam - Physical Examination Neck: no JVD Respiratory: clear to auscultation bilateral Cardiovascular: RRR, no significant murmur Gastrointestinal: soft, positive bowel sounds PEG Musculoskeletal: edema present Dx/Plan (1) CORTEZ (acute kidney injury) Code(s): N17.9 - ACUTE KIDNEY FAILURE, UNSPECIFIED Status: Acute Comment: started on HD.remains anuric-oliguric (2) Acute blood loss anemia Code(s): D62 - ACUTE POSTHEMORRHAGIC ANEMIA Status: Acute Comment: s/p 10 units PRBC,12 units FFP,5 units platelets and multiple units of Cryoprecipitate.Suspect Coagulopathy H/H stable now. (3) Acute hypoxic respiratory failure Status: Acute (4) Acute liver disease Code(s): K76.9 - LIVER DISEASE, UNSPECIFIED Status: Acute Comment: Jacquiley hypovolemic liver injury (5) Aortic dissection following procedure Code(s): T81.718A - COMPLICATION OF ARTERY FOLLOWING A PROCEDURE, NEC, INIT; I71.00 - DISSECTION OF UNSPECIFIED SITE OF AORTA Status: Acute Comment: s/p repair (6) Atrial fibrillation with RVR Code(s): I48.91 - UNSPECIFIED ATRIAL FIBRILLATION Status: Acute Comment: Amiodarone PO now.NSR .S/P CV on 05/03/2018 (7) Cerebrovascular accident, embolic Code(s): I63.9 - CEREBRAL INFARCTION, UNSPECIFIED Status: Acute Qualifiers: Laterality of affected vessel: bilateral (8) S/P CABG (coronary artery bypass graft) Code(s): Z95.1 - PRESENCE OF AORTOCORONARY BYPASS GRAFT Status: Acute (9) SAH (subarachnoid hemorrhage) Code(s): I60.9 - NONTRAUMATIC SUBARACHNOID HEMORRHAGE, UNSPECIFIED Status: Acute (10) SDH (subdural hematoma) Code(s): S06.5X9A - TRAUM SUBDR HEM W LOC OF UNSP DURATION, INIT Status: Acute (11) Toxic metabolic encephalopathy Code(s): G92 - TOXIC ENCEPHALOPATHY Status: Acute (12) Unstable angina Status: Acute Comment: s/p cardiac cath 04/22/18.CABG X 3 on 04/22/18 (13) CAD (coronary artery disease) Code(s): I25.10 - ATHSCL HEART DISEASE OF [place] CORONARY ARTERY W/O ANG PCTRS Status: Chronic Qualifiers: Coronary Disease-Associated Artery/Lesion type: [place] artery Comment: Per cardiac Cath 04/22/18.on ASA,Statin (14) Hypernatremia Code(s): E87.0 - HYPEROSMOLALITY AND HYPERNATREMIA Status: Resolved (15) Coagulopathy Status: Acute - Plan cont vent, resp tx -: PT increasing- rpt liver profile -: HD -: cont amiodarone, statin * .
[2018-05-15 12:07] LABS: ALT (SGPT) 118 U/L (8-55); AST (SGOT) 180 U/L (5-34); Alkaline Phosphatase 129 U/L (40-150); Bilirubin, Direct 0.9 mg/dL (0.1-0.3); Bilirubin, Total 1.4 mg/dL (0.2-1.2); Protein, Total 4.5 g/dL (5.8-8.1)
--- NOTE | 2018-05-15 16:54 | PRG ---
DATE OF SERVICE: 05/15/2018 Mr. Lin is doing well. He is very interactive. He still favors his right side. He is in no distr ess. He was placed in a neuro chair and on a trach collar this morning. We will continue to do p.r. n. trials on a trach collar, but we will likely sleep him mechanically ventilated at night if he does well during the day. PHYSICAL EXAMINATION: VITAL SIGNS: Blood pressure 126/56, heart rate 74, respiratory rate 20. LUNGS: Clear. HEART: Regular rhythm. ABDOMEN: Abdomen is soft. EXTREMITIES: Without asymmetry. LABORATORY DATA: White count 12.3, hemoglobin 8.4, platelets 118,000. Sodium 137, potassium 4.7, chloride 102, bicarb 27, BUN 71, creatinine 3.34. We are no longer doing daily blood gases. I will order a chest radiograph for in the morning. IMPRESSION: Respiratory failure after a complicated coronary bypass grafting and cerebrovascular acc ident. He is also still with atrial fibrillation this admission. He is extremely deconditioned. At some point, probably next week we need to consider an LTAC transfer. PLAN: Continue current care. I met with the and answered all of his questions.
--- NOTE | 2018-05-15 17:21 | PRG ---
DATE OF SERVICE: 05/15/2018 The patient was seen and examined at the bedside. Denies any chest pain or shortness of breath. PHYSICAL EXAMINATION: GENERAL: This is a well-built white male in no apparent distress. VITAL SIGNS: Temperature 98, pulse 73, respiratory rate 18, blood pressure 130/56. HEENT: Atraumatic, normocephalic. NECK: Trach present. RESPIRATORY: Chest is clear. CARDIOVASCULAR: S1, S2 heard. GASTROINTESTINAL: Abdomen is soft. MUSCULOSKELETAL: 1+ edema. DERMATOLOGIC: No skin rash. NEUROLOGIC: Alert, awake. LABORATORY DATA: Potassium is 4.7, BUN 31, creatinine 3.3. ASSESSMENT AND PLAN: 1. Acute kidney injury on chronic kidney stage 3, dialysis dependent, remains oliguric. Continue di alysis as tolerated. No dialysis today. Will have Surgery consult for tunneled dialysis catheter. 2. Edema, chronic. 3. Hypertension, stable. 4. Altered mentation. 5. Anemia, currently on Epogen. 6. Hypokalemia, better. Plan is to continue on dialysis as tolerated. We will have Surgery consult for dialysis catheter yamile cement.
[2018-05-15] MEDS: Atorvastatin Calcium 20 MG TAB PO SCH (21:20)
[2018-05-15] MEDS: Metamucil PACK PER TUBE SCH (21:21)
[2018-05-16 04:49] LABS: Anion Gap 15 mmol/L (10-20); BUN (Urea Nitrogen) 97 mg/dL (8.4-25.7); Calc. Creatinine Clearance 18 mL/min (70-130); Calcium 7.7 mg/dL (7.8-10.44); Carbon Dioxide 24 mmol/L (23-31); Chloride 101 mmol/L (98-107); Estimated GFR-MDRD 13; Glucose 123 mg/dL (83-110); Potassium 5.1 mmol/L (3.5-5.1); Sodium 135 mmol/L (136-145)
[2018-05-16 04:56] LABS: Band 1 % (5-11); Hemoglobin 8.4 g/dL (14.0-18.0); Hypochromia SLIGHT = 6-15 cells (100X) (0-5/hpf); Lymphocytes 11 % (21-51); MDiff Complete? YES; Mean Corpuscular HGB CONC 33.7 g/dL (32.0-36.0); Mean Corpuscular Hemoglobin 32.5 pg (27.0-31.0); Mean Corpuscular Volume 96.4 fL (78.0-98.0); Mean Platelet Volume 9.1 fL (7.4-10.4); Monocytes 5 % (0-10); Neutrophil 83 % (42-75); PLT Morphology Comment Appears Decreased; Platelet Count 112 thou/uL (130-400); RBC Distribution Width 15.9 % (11.5-14.5); Red Blood Cell (RBC) Count 2.58 mill/uL (4.70-6.10); White Blood Cell (WBC) Count 10.8 thou/uL (4.8-10.8)
--- NOTE | 2018-05-16 08:27 | RAD ---
PORTABLE CHEST: Date: 05/16/18 HISTORY: Respiratory distress. COMPARISON: 05/10/18. FINDINGS: Heart size is enlarged. Postop sternotomy changes. There is persistent interstitial alveolar opacity, which is felt to be fairly similar to the prior examination. Tracheostomy tube remains in place. Lef t subclavian line is unchanged in position. IMPRESSION: Interstitial alveolar lung changes, probably at least some of which are on the basis of pulmonary radha ma. Increased density in the bases probably represents associated effusions. Overall appearance is si milar to the prior exam. POS: OFF
[2018-05-16] MEDS: Amiodarone 200 MG TAB PER TUBE SCH ×2 (09:05→21:10)
[2018-05-16] MEDS: Famotidine 20 MG TAB PER TUBE SCH (09:05)
[2018-05-16] MEDS: Metamucil PACK PER TUBE SCH ×2 (09:06→21:11)
[2018-05-16] MEDS: Ondansetron HCl/PF 4 MG/2 ML Vial IVP PRN (10:45)
--- NOTE | 2018-05-16 12:04 | PDOC.PN ---
- Subjective Encounter Start Date: 05/16/18 Encounter Start Time: 12:02 Subjective: nonverbal - Objective Vital Signs & Weight: Vital Signs (12 hours) Temp Pulse Resp BP Pulse Ox 05/16/18 11:00 98.8 F 05/16/18 10:31 70 133/50 L 05/16/18 10:00 16 05/16/18 08:00 22 H 05/16/18 07:38 98.5 F 70 26 H 93 L 05/16/18 07:00 98.5 F 05/16/18 06:43 71 27 H 123/55 L 94 L 05/16/18 06:00 24 H 05/16/18 04:00 99.1 F 22 H 05/16/18 02:24 66 05/16/18 02:00 22 H Weight Admit Weight 183 lb 10.321 oz Weight 190 lb 4.8 oz Most Recent Monitor Data Heart Rate from ECG 127 NIBP 107/70 NIBP BP-Mean 85 Respiration from ECG 19 SpO2 98 I&O: 05/15/18 05/16/18 05/17/18 06:59 06:59 06:59 Intake Total 1484 1423.7 30 Output Total 22 5 10 Balance 1462 1418.7 20 Result Diagrams: 05/16/18 04:30 05/16/18 04:30 Phys Exam - Physical Examination Neck: no JVD rhonchi, coarse BS Cardiovascular: RRR, no significant murmur Gastrointestinal: soft, positive bowel sounds Musculoskeletal: no edema Dx/Plan (1) CORTEZ (acute kidney injury) Code(s): N17.9 - ACUTE KIDNEY FAILURE, UNSPECIFIED Status: Acute Comment: started on HD.remains anuric-oliguric (2) Acute blood loss anemia Code(s): D62 - ACUTE POSTHEMORRHAGIC ANEMIA Status: Acute Comment: s/p 10 units PRBC,12 units FFP,5 units platelets and multiple units of Cryoprecipitate.Suspect Coagulopathy H/H stable now. (3) Acute hypoxic respiratory failure Status: Acute (4) Acute liver disease Code(s): K76.9 - LIVER DISEASE, UNSPECIFIED Status: Acute Comment: Jacquiley hypovolemic liver injury (5) Aortic dissection following procedure Code(s): T81.718A - COMPLICATION OF ARTERY FOLLOWING A PROCEDURE, NEC, INIT; I71.00 - DISSECTION OF UNSPECIFIED SITE OF AORTA Status: Acute Comment: s/p repair (6) Atrial fibrillation with RVR Code(s): I48.91 - UNSPECIFIED ATRIAL FIBRILLATION Status: Acute Comment: Amiodarone PO now.NSR .S/P CV on 05/03/2018 (7) Cerebrovascular accident, embolic Code(s): I63.9 - CEREBRAL INFARCTION, UNSPECIFIED Status: Acute Qualifiers: Laterality of affected vessel: bilateral (8) S/P CABG (coronary artery bypass graft) Code(s): Z95.1 - PRESENCE OF AORTOCORONARY BYPASS GRAFT Status: Acute (9) SAH (subarachnoid hemorrhage) Code(s): I60.9 - NONTRAUMATIC SUBARACHNOID HEMORRHAGE, UNSPECIFIED Status: Acute (10) SDH (subdural hematoma) Code(s): S06.5X9A - TRAUM SUBDR HEM W LOC OF UNSP DURATION, INIT Status: Acute (11) Toxic metabolic encephalopathy Code(s): G92 - TOXIC ENCEPHALOPATHY Status: Acute (12) Unstable angina Status: Acute Comment: s/p cardiac cath 04/22/18.CABG X 3 on 04/22/18 (13) CAD (coronary artery disease) Code(s): I25.10 - ATHSCL HEART DISEASE OF [place] CORONARY ARTERY W/O ANG PCTRS Status: Chronic Qualifiers: Coronary Disease-Associated Artery/Lesion type: [place] artery Comment: Per cardiac Cath 04/22/18.on ASA,Statin (14) Hypernatremia Code(s): E87.0 - HYPEROSMOLALITY AND HYPERNATREMIA Status: Resolved (15) Coagulopathy Status: Acute - Plan cont vent support, has tragh -: cont nutrition per PEG -: cont HD -: cont amiodarone -: cont duonebs/ O2 / etc * .
--- NOTE | 2018-05-16 16:04 | ULT ---
ULTRASOUND VESSEL MAPPING DIALYSIS ACCESS 05/16/18 HISTORY: End-stage renal disease. COMPARISON: None. TECHNIQUE: Real time mijares scale color doppler and spectral analysis of the upper and lower extremity arterial an d venous system was performed. There is a bandage along the right neck and therefore the right IJ was not performed. The left subcla vian was also not visualized due to bandage. RIGHT SIDE: BRACHIAL ARTERY: 4.7 mm RADIAL ARTERY: 2.1 mm ULNAR ARTERY: 2.0 mm CEPHALIC VEIN Proximal Arm: 1.5 mm Mid Arm: clot Distal Arm: clot Antecubital Fossa: clot Proximal Forearm: 1.2 mm Mid Forearm: 1.5 mm Distal Forearm: 1.6 mm BASILIC VEIN Proximal Arm: 2.8 mm Mid Arm: 3.3 mm Distal Arm: 3.6 mm Antecubital Fossa: 1.7 mm Proximal Forearm: 1.1 mm Mid Forearm: 0.9 mm Distal Forearm: 1.1 mm LEFT SIDE BRACHIAL ARTERY: 4.2 mm RADIAL ARTERY: 2.1 mm ULNAR ARTERY: 2.0 mm CEPHALIC VEIN Clot through all levels of the arm. BASILIC VEIN Proximal Arm: 3.2 mm Mid Arm: 2.3 mm Distal Arm: 2.7 mm Antecubital Fossa: 2.0 mm Proximal Forearm: 1.2 mm Mid Forearm: 0.9 mm Distal Forearm: 0.9 mm IMPRESSION: Clot in entire left cephalic vein and portions of the right cephalic vein. POS: [facility]
[2018-05-16] MEDS ORDERED: Bupivacaine HCl 0.5%/Epinephrine 1:200,000/PF 30 ml Vial ONE (16:59)
[2018-05-16] MEDS ORDERED: Heparin 10,000 UNITS/1 ML VIAL ONE (16:59)
[2018-05-16] MEDS ORDERED: Lidocaine 2% 10 ML INJ ONE (16:59)
[2018-05-16] MEDS ORDERED: Sodium Chloride 0.9% 10 ML ONE ×2 (16:59)
[2018-05-16] MEDS ORDERED: Midazolam HCl 2 mg/2 ml Vial ONE (17:25)
[2018-05-16] MEDS ORDERED: Fentanyl 100 MCG/2 ML VIAL ONE (17:25)
--- NOTE | 2018-05-16 18:13 | HP ---
HISTORY OF PRESENT ILLNESS: A 77-year-old male patient admitted to the hospital 04/20/2018 taken to the radiographer cardiac catheterization 04/22/2018, undergoing Dr. Bola Dixon coronary artery bypass grafting x3 vessels, internal mammary LAD, using reverse greater saphenous vein. Patient has suffered acute renal failur e, seen by doctor, had a Trialysis catheter placed, has had bronchoscopies, has had a tracheostomy pl [place] and Dr. Virgen placed a PEG tube on 04/22/2018. His renal function is not recovering as soon as t neda expected. The patient has been weaned off the ventilator and is breathing using a humidified tra ch. He is still in ICU. He is awake. Unfortunately, his PEG tube has been dislodged today. I have been asked to see him regarding placement of hemodialysis catheter by Dr. Shook under same anesthet ic sedation. We will place a PEG tube through the same site. He has a left subclavian vein central line. ALLERGIES: None. SOCIAL HISTORY: Prostatectomy, TURP, coronary bypass grafting, PEG tube, tracheostomy. FAMILY HISTORY: Coronary artery disease, congestive heart failure, lung cancer. PAST MEDICAL HISTORY: Hypertension, coronary artery disease, myocardial infarction. PHYSICAL EXAMINATION: VITAL SIGNS: 5 foot 8 inches, 290 pounds, 28 BMI, 115/57, 86, 68. HEENT: Unremarkable. LUNGS: Tracheostomy in place. CARDIAC: Left subclavian vein central line mediastinal tube scars. ABDOMEN: Left upper quadrant PEG tube site wound closed. No infection. EXTREMITIES: Unremarkable. ASSESSMENT AND PLAN: 1. Acute renal failure. We will plan placement of cuffed tunnel dialysis catheterization local. Fl uoroscopy and ultrasound, IJ catheter. 2. Dislodged PEG tube per Dr. Shook. 3. Coronary artery disease. 4. Hypertension.
--- NOTE | 2018-05-16 18:16 | PRG ---
DATE OF SERVICE: 05/16/2018 NEPHROLOGY PROGRESS NOTE SUBJECTIVE: The patient was seen and examined at bedside, not able to communicate at the [facility]. PHYSICAL EXAMINATION: GENERAL: Elderly male in no apparent distress. VITAL SIGNS: Temperature 98, pulse 97, respiratory rate 18, blood pressure 112/66. HEENT: Atraumatic, normocephalic. NECK: Supple. Trach present. RESPIRATORY: Clear. GASTROINTESTINAL: Soft. GENITOURINARY: S1, S2 heard. MUSCULOSKELETAL: 1+ edema. DERMATOLOGIC: No rash. NEUROLOGIC: Awake, but lethargic. LABORATORY DATA: Potassium is 5.0, BUN is 97, creatinine is 4.3. ASSESSMENT AND PLAN: 1. Acute kidney injury on chronic kidney disease stage 3, dialysis dependent. Plan is to continue o n dialysis as tolerated. Still oliguric, may be progressing to end-stage renal disease. 2. Edema. 3. Altered mentation. 4. Anemia. 5. Hypokalemia. Plan is to have a tunneled dialysis catheter. We will have dialysis as tolerated. Still no renal re covery.
--- NOTE | 2018-05-16 20:49 | RAD ---
CHEST ONE VIEW 05/16/18 HISTORY: Central line placement. COMPARISON: Chest radiograph same day. FINDINGS: Interval placement of a dialysis catheter tip at the mid to lower SVC. Dense retrocardiac opacities. Right mid lung and lower lung air space opacity is becoming more confluent. Layering effusions. Moder ate edema. Tracheostomy tube is similar. Left subclavian central venous catheter tip sits at the mid lower SVC. IMPRESSION: Uncomplicated placement of the dialysis catheter. POS: HOME
[2018-05-16] MEDS: Albumin 25% 25 GM/100 ML BOT IVPB SCH (21:09)
[2018-05-16] MEDS: Acetaminophen 650 MG/20.3 ML UDCUP PO PRN (21:09)
[2018-05-16] MEDS: Atorvastatin Calcium 20 MG TAB PO SCH (21:10)
--- NOTE | 2018-05-16 21:28 | PRG ---
DATE OF SERVICE: 05/16/2018 SUBJECTIVE: Mr. Lin is in the ICU. He had a PEG tube placed on 05/12/2018 for dysphagia related t o having a tracheostomy after intubation. PEG tube placement was uneventful, that was functioning we ll. Unfortunately, today while being bathe, the PEG tube wrapped around the patient's arm and was in advertently removed. The nurses called me and I came to evaluate him at the bedside. He is without pain. The incision is covered. MEDICATIONS: List reviewed. OBJECTIVE: VITAL SIGNS: Temperature is 98.8, pulse is 87, blood pressure 129/57. GENERAL: He has a trach collar in place. LUNGS: Clear. ABDOMEN: Soft. There is an incision with a PEG tube was just about closed. The abdomen is soft and nontender. LABORATORY DATA: White count this morning is 10.8, hemoglobin is 8.5, platelet count is 112. INR 1. 9. Sodium 135, potassium 5.1, BUN and creatinine are 97 and 4.33. Bilirubin is 1.4, AST and ALT are 180 and 118. ASSESSMENT AND PLAN: This is a 77-year-old gentleman who in March had a coronary artery bypass and parikh d multiple complications. A PEG tube was placed on 05/12/2018 that has been inadvertently removed __ ___ placed. The abdomen is not likely adherent to the anterior gastric wall and replacement PEG tube at the bedside would be a high risk for complication of intraperitoneal placement. I think at this point in time the best thing to do is he is going to the OR today for dialysis access graft and we wi ll perform endoscopy and see if can advance wire from the skin into the stomach over the same tract a nd replace the PEG in this area, taking care not to insufflate air in the peritoneal cavity. I have discussed this with his surgeon, Dr. Troy, who felt this plan was reasonable as well. I have talked with the family about the risks including risk of peritonitis with a PEG tube, there was fres h blood being removed. I think it is our best option at this point in time. Risks and benefits incl uding infection, perforation, bleeding, reaction to medication, aspiration, discussed with the family and patient.
[2018-05-16] MEDS: Epoetin (ESRD) 10,000 UNITS/ML VIAL IVP SCH (21:36)
--- NOTE | 2018-05-16 21:43 | PRG ---
DATE OF SERVICE: 05/16/2018 SUBJECTIVE: Mr. Lin is still interactive. He is tentatively scheduled for vascular access today. His heart rate is in 70s, still on a low dose of Levophed. Respiratory rate in the 20s, probably ju st need Levophed with dialysis for now. He is still on a minimum of pressure support. We are trying to put him on trach collar trials. He has dialysis today and then a surgical procedure, so we harmony villanueva will not give much T-collar time today. OBJECTIVE: VITAL SIGNS: Blood pressure this afternoon is 110/50. Intake and output is positive 14 and 18. LUNGS: Clear anteriorly. HEART: Regular rhythm. ABDOMEN: Soft and nontender. EXTREMITIES: Warm with minimal edema. IMAGING: Chest radiograph shows bibasilar atelectatic changes and bibasilar effusions. LABORATORY DATA: White count 10.8, hemoglobin 8.4, platelets 112. Sodium 135, potassium 5.1, chlori de 101, bicarbonate 24, BUN 97, creatinine 4.33, AST is 180, ALT is 118, albumin is 2. IMPRESSION: 1. Status post aortic dissection. 2. Status post cerebrovascular accident. 3. Perioperative atrial fibrillation. 4. Deconditioning. 5. Status post tracheostomy and PEG placement. 6. Acute renal failure. PLAN: We will add back some albumin to see if this helps wean him off of his pressors. Continue wit h daily T-collar trials. His is exploring LTAC options.
[2018-05-17] MEDS: Albumin 25% 25 GM/100 ML BOT IVPB SCH ×4 (02:15→20:40)
[2018-05-17 04:47] LABS: Band 13 % (5-11); Hemoglobin 7.8 g/dL (14.0-18.0); Lymphocytes 19 % (21-51); MDiff Complete? YES; Mean Corpuscular HGB CONC 33.2 g/dL (32.0-36.0); Mean Corpuscular Hemoglobin 32.2 pg (27.0-31.0); Mean Corpuscular Volume 96.8 fL (78.0-98.0); Mean Platelet Volume 8.7 fL (7.4-10.4); Metamyelocyte 1 % (0-0); Monocytes 6 % (0-10); Neutrophil 61 % (42-75); PLT Morphology Comment Appears Decreased; Platelet Count 114 thou/uL (130-400); RBC Distribution Width 15.7 % (11.5-14.5); Red Blood Cell (RBC) Count 2.43 mill/uL (4.70-6.10); White Blood Cell (WBC) Count 8.6 thou/uL (4.8-10.8)
[2018-05-17 04:48] LABS: Anion Gap 11 mmol/L (10-20); BUN (Urea Nitrogen) 57 mg/dL (8.4-25.7); Calc. Creatinine Clearance 25 mL/min (70-130); Calcium 7.8 mg/dL (7.8-10.44); Carbon Dioxide 28 mmol/L (23-31); Chloride 102 mmol/L (98-107); Estimated GFR-MDRD 19; Glucose 113 mg/dL (83-110); Potassium 4.4 mmol/L (3.5-5.1); Sodium 137 mmol/L (136-145)
[2018-05-17] MEDS: Acetaminophen 650 MG/20.3 ML UDCUP PO PRN ×2 (06:09→13:53)
--- NOTE | 2018-05-17 09:00 | OP ---
DATE OF PROCEDURE: 05/16/2018 PREOPERATIVE DIAGNOSES: 1. Percutaneous endoscopic gastrostomy tube placed four days ago. 2. Inadvertently removed today, site seems to be closing. It was felt would be best to be replaced under direct guidance with a guidewire to minimize risk of intraperitoneal placement. POSTOPERATIVE DIAGNOSIS: Percutaneous endoscopic gastrostomy tube placed over a guidewire with Ponsk y pull technique with good positioning noted endoscopically with minimal insufflation. ANESTHESIA: General endotracheal anesthesia. PROCEDURE IN DETAIL: After the patient had had a dialysis access catheter placed, he was already sta yed in the OR. the abdomen was prepped and draped in sterile fashion. The previous PEG tube s ite was identified. The endoscope was advanced through the bite block and the esophagus was carefull y intubated. Care was made to input very minimal air, we could see air bubbling out through the PEG tube tract. A wire was introduced through here and we could be seen coming into the stomach. It was grasped with a snare and pulled out through the mouth affixed to a PEG and a PEG tube was pulled arlet k and placed by Ponsky pull technique. Second look confirmed good placement and this was brought fir m against the abdominal wall. There was no evidence of cellulitis or inflammation crepitus at the PE G tube site. There was no evidence of pus drainage in the PEG tube site internally or externally. T he scope was removed. The patient tolerated the procedure well without complications.
--- NOTE | 2018-05-17 09:00 | OP ---
DATE OF PROCEDURE: 05/16/2018 PREOPERATIVE DIAGNOSIS: Acute renal failure on dialysis. POSTOPERATIVE DIAGNOSIS: Acute renal failure on dialysis. PROCEDURE: Right IJ cuffed tunnel dialysis catheter. SURGEON: Yoni Troy M.D. ANESTHESIA: General. Local 0.5% Marcaine with epinephrine, 30 mL, mixed with 2% Xylocaine, 10 mL, f luoroscopy used less than one-minute ultrasound facilitate procedure. PROCEDURE IN DETAIL: Patient was taken to the operating room under general anesthesia, neck and ches t prepped with ChloraPrep, draped in routine fashion. Ultrasound facilitated cannulation of the righ t internal jugular vein. J-wire threaded. Trocar catheter removed. Stab incision made at the J-wir e entry site. Stab incision made at the catheter exit site over the right chest. Using the tunnelin g device, the precurved angiodynamics and cuffed tunnel hemodialysis catheter tunneled between the tw o incisions, placing the fabric cuff beneath the skin exit site and catheter secured with 2 interrupt ed sutures of 3-0 nylon. Dermabond Biopatch sterile dressing applied. Smaller and medium sized dila tors were placed over the J-wire into the internal jugular vein removed. Dilator and pull-away sheat h placed over the J-wire in superior vena cava and dilator and J-wire removed. Catheter placed throu gh pull-away sheath. Pull-away sheath removed and a fluoroscopic visualization, catheter noted to be in good position as the platysma approximated with 4-0 Monocryl, skin with subdermal 4-0 Monocryl an d DermaGlue applied. Each port aspirated blood and flushed with saline solution and heparinized sali ne solution 1000 units of heparin per mL indicated volume of the port.
[2018-05-17] MEDS: Famotidine 20 MG TAB PER TUBE SCH (09:17)
--- NOTE | 2018-05-17 13:05 | PRG ---
DATE OF SERVICE: 05/17/2018 Edvin Lin has no new problems. PHYSICAL EXAMINATION: VITAL SIGNS: He is afebrile, heart rate 79, blood pressure 100/44, respiratory rate in the 20s on tr ach collar, sitting up. NEURO: He weakly moves his left side. He follows commands and shakes hands with his right. He make s eye contact. He nods to questions. LUNGS: His lungs are clear. HEART: Regular rhythm. ABDOMEN: Soft and nontender. EXTREMITIES: Without asymmetry. LABORATORY DATA: White count 8.6, hemoglobin 7.8, platelets 114,000. Sodium 137, potassium 4.4, chloride 102, bicarbonate 20, BUN 57, creatinine 3.18. IMPRESSION: 1. Status post coronary bypass grafting. 2. Status post aortic dissection requiring emergent repair. 3. Cerebrovascular accident. 4. Atrial fibrillation. 5. Status post thoracentesis, which findings suggestive of a post-pericardotomy effusion. 6. Subdural hematoma. 7. Subarachnoid bleed. 8. Multifocal ischemic stroke, likely embolic in the right hemisphere. 9. Pneumonia this admission, healthcare associated. 10. Acute kidney injury requiring dialysis. 11. Extreme deconditioning, critical illness myopathy, most likely. PLAN: Continue supportive care. Placement in LTAC middle or late next week probably. I believe his wants him to go to [place].
--- NOTE | 2018-05-17 13:06 | PRG ---
DATE OF SERVICE: 05/17/2018 SUBJECTIVE: Patient was seen and examined at bedside and overnight events noted. Patient denies any shortness of breath or chest pain or palpitation. No history of nausea or vomiting or diarrhea or fever or chills or cramps. OBJECTIVE: General: This is a well-built male in no apparent distress. Vital Signs: Temperature 98.7, pulse 70, respiratory rate 21, and blood pressure 112/39. HEENT: Atraumatic, normocephalic, Oral mucosa is moist. Neck: Trach present. Cardiovascular: S1 and S2 heard. Rate and rhythm regular. Respiratory: Clear to auscultation. Gastrointestinal: Abdomen is soft. Musculoskeletal: No tenderness, No edema. Dermatologic: No skin rash. Neurologic: Alert and awake and oriented x3. No focal neurologic deficits. Moving all the extremities. Psychiatric: Mood and affect normal. LABORATORY DATA: Potassium is 4.4, BUN is 57, and creatinine is 3.1. ASSESSMENT AND PLAN: 1. Acute kidney injury on chronic kidney disease, stage 3. 2. Dialysis dependent, will have dialysis as tolerated, remains oliguric. 3. Edema, remove fluid if tolerated. 4. Altered mentation, better. 5. Anemia. Monitor hemoglobin. Continue with dialysis. 6. Hypertension, stable. 7. We will continue dialysis as tolerated, no dialysis today. [facility]
[2018-05-17] MEDS: Amiodarone 200 MG TAB PER TUBE SCH ×2 (13:48→20:40)
[2018-05-17] MEDS: Metamucil PACK PER TUBE SCH ×2 (14:30→21:40)
--- NOTE | 2018-05-17 14:57 | PDOC.PN ---
- Subjective Encounter Start Date: 05/17/18 Encounter Start Time: 12:30 Subjective: pt up in bed no complains - Objective Vital Signs & Weight: Vital Signs (12 hours) Temp Pulse Resp BP Pulse Ox 05/17/18 14:26 76 19 05/17/18 12:00 98.4 F 05/17/18 08:00 98.7 F 79 20 96 05/17/18 07:10 92 L 05/17/18 07:00 98.7 F 05/17/18 06:10 77 124/58 L 05/17/18 06:00 18 05/17/18 04:00 16 Weight Admit Weight 183 lb 10.321 oz Weight 189 lb 1.92 oz Most Recent Monitor Data Heart Rate from ECG 81 NIBP 116/47 NIBP BP-Mean 84 Respiration from ECG 19 SpO2 95 I&O: 05/16/18 05/17/18 05/18/18 06:59 06:59 06:59 Intake Total 1423.7 271.9 205 Output Total 5 50 10 Balance 1418.7 221.9 195 Result Diagrams: 05/17/18 04:30 05/17/18 04:30 Phys Exam - Physical Examination HEENT: PERRLA, moist MMs, sclera anicteric, TM's clear, oral pharynx no lesions , 2+ tonsils Neck: no nodes, no JVD, supple, full ROM Respiratory: clear to auscultation bilateral mild rhonchi all over Cardiovascular: RRR, no significant murmur, no rub, gallop, irregular Gastrointestinal: soft, non-tender, no distention, positive bowel sounds able to move right side but not left Dx/Plan (1) Acute hypoxic respiratory failure Status: Acute (2) Atrial fibrillation with RVR Code(s): I48.91 - UNSPECIFIED ATRIAL FIBRILLATION Status: Acute Comment: Amiodarone PO now.NSR .S/P CV on 05/03/2018 (3) Cerebrovascular accident, embolic Code(s): I63.9 - CEREBRAL INFARCTION, UNSPECIFIED Status: Acute Qualifiers: Laterality of affected vessel: bilateral (4) Acute blood loss anemia Code(s): D62 - ACUTE POSTHEMORRHAGIC ANEMIA Status: Acute Comment: s/p 10 units PRBC,12 units FFP,5 units platelets and multiple units of Cryoprecipitate.Suspect Coagulopathy H/H stable now. (5) HTN (hypertension) Code(s): I10 - ESSENTIAL (PRIMARY) HYPERTENSION Status: Acute (6) Left hemiparesis Code(s): G81.94 - HEMIPLEGIA, UNSPECIFIED AFFECTING LEFT NONDOMINANT SIDE Status: Acute Comment: ac CVA and SDH with SAH - Plan pt currently trached and feeding tube -: possible placement next week to ltac -: pt's bp dropps when he goes to dialysis * . Review of Systems - Review of Systems Other: pt is trached - Medications/Allergies Allergies/Adverse Reactions: Allergies Allergy/AdvReac Type Severity Reaction Status Date / Time No Known Allergies Allergy Verified 04/20/18 00:08 Medications: Current Medications Acetaminophen (Tylenol Elixir) 650 mg PO Q6H PRN PRN Reason: Headache/Fever Or Mild Pain Last Admin: 05/17/18 13:53 Dose: 650 mg Al Hydroxide/Mg Hydroxide (Maalox) 30 ml PO Q4H PRN PRN Reason: Indigestion Albumin Human (Albumin 25%) 25 gm IVPB 0200,0800,1400,2000 [facility] Stop: 05/18/18 20:01 Last Admin: 05/17/18 14:38 Dose: 25 gm Albuterol/Ipratropium (Duoneb) 3 ml NEB [id number] PRN PRN Reason: SHORTNESS OF BREATH Albuterol/Ipratropium (Duoneb) 3 ml NEB [id number] [facility] Last Admin: 05/17/18 14:26 Dose: 3 ml Amiodarone HCl (Cordarone) 400 mg PER TUBE BID [facility] Last Admin: 05/17/18 13:48 Dose: 400 mg Lipase/Protease/[place] ([place] [id number]) 1 cap FS .PER PROTOCOL PRN PRN Reason: TUBE OCCLUSION PROTOCOL Atorvastatin Calcium (Lipitor) 20 mg PO HS [facility] Last Admin: 05/16/18 21:10 Dose: 20 mg Bisacodyl (Dulcolax) 10 mg PO Q12H PRN PRN Reason: Constipation Bisacodyl (Dulcolax) 10 mg [place] Q12H PRN PRN Reason: Constipation Last Admin: 05/03/18 20:31 Dose: 10 mg Dextrose/Water (Dextrose 50%) 25 gm SLOW IVP PRN PRN PRN Reason: PER HYPOGLYCEMIC PROTOCOL Epoetin Roshan (Procrit) 10,000 units IVP TuThSa [facility] Last Admin: 05/16/18 21:36 Dose: 10,000 units Famotidine (Pepcid) 20 mg PER TUBE 0900 [facility] Last Admin: 05/17/18 09:17 Dose: 20 mg Fentanyl (Duragesic) 12 mcg TD Q3D [facility] Last Admin: 05/15/18 09:32 Dose: 12 mcg Glucagon (Glucagon) 1 mg SC PRN PRN PRN Reason: PER HYPOGLYCEMIC PROTOCOL Hydralazine HCl (Apresoline) 10 mg SLOW IVP Q6H PRN PRN Reason: To Maintain SBP< 140mmHG Last Admin: 05/07/18 21:01 Dose: 10 mg Dextrose/Water (D5w) 1,000 mls @ 0 mls/hr IV INF PRN; As Directed PRN Reason: PRN HYPOGLYCEMIC PROTOCOL Norepinephrine Bitartrate (Levophed) 250 mls @ 0 mls/hr IVPB INF PRN; Protocol ; Titrate PRN Reason: TO KEEP SBP >100 Last Admin: 05/15/18 09:33 Dose: 250 mls Ondansetron HCl (Zofran) 4 mg IVP Q6H PRN PRN Reason: Nausea/Vomiting Last Admin: 05/16/18 10:45 Dose: 4 mg Promethazine HCl (Phenergan) 6.25 mg IM Q4H PRN PRN Reason: Nausea/Vomiting Last Admin: 05/09/18 00:12 Dose: 6.25 mg Psyllium Hydrophilic Mucilloid (Metamucil) 1 pk PER TUBE BID [facility] Last Admin: 05/17/18 14:30 Dose: Not Given Sodium Chloride (Flush - Normal Saline) 10 ml IVF PRN PRN PRN Reason: Saline Flush
[2018-05-17] MEDS ORDERED: Heparin 10,000 UNITS/ 10 ML VIAL ONE (15:01)
[2018-05-17] MEDS ORDERED: Scopolamine 1.5 mg/72 hour Patch TOP SCH (16:15)
[2018-05-17] MEDS: Ondansetron HCl/PF 4 MG/2 ML Vial IVP PRN (17:52)
--- NOTE | 2018-05-17 19:56 | PRG ---
DATE OF SERVICE: 05/17/2018 SUBJECTIVE: Mr. Lin had his PEG replaced yesterday. He is tolerating tube feeds. OBJECTIVE: VITAL SIGNS: Pulse 76, blood pressure 125/47, temperature 98 on the , but since then T-max 98.4. ABDOMEN: PEG site is warm and dry, looks good. Abdominal binders in place. LABORATORY STUDIES: White count 8.6, hemoglobin 7.8, platelet count 114. ASSESSMENT: PEG tube was inadvertently removed yesterday and replaced in the OR secondary to the fac t it had only been for about 4 days. This went well with no complications. The site appears fine wi thout signs of infection, cellulitis or abscess. RECOMMENDATIONS: Okay to use PEG tube, take care and caution. We will keep an abdominal binder on i t when it is not used to prevent it from being inadvertently removed. We will sign off. If I can be of further assistance in this patient's care, please do not hesitate to call me.
[2018-05-17] MEDS: Atorvastatin Calcium 20 MG TAB PO SCH (20:40)
[2018-05-18] MEDS: Albumin 25% 25 GM/100 ML BOT IVPB SCH ×4 (02:20→20:18)
[2018-05-18 05:28] LABS: Anion Gap 17 mmol/L (10-20); BUN (Urea Nitrogen) 79 mg/dL (8.4-25.7); Calc. Creatinine Clearance 19 mL/min (70-130); Carbon Dioxide 25 mmol/L (23-31); Chloride 101 mmol/L (98-107); Estimated GFR-MDRD 14; Glucose 102 mg/dL (83-110); Potassium 4.7 mmol/L (3.5-5.1); Sodium 138 mmol/L (136-145)
[2018-05-18 06:23] LABS: Band 10 % (5-11); Hemoglobin 7.2 g/dL (14.0-18.0); Hypochromia SLIGHT = 6-15 cells (100X) (0-5/hpf); Lymphocytes 11 % (21-51); MDiff Complete? YES; Mean Corpuscular HGB CONC 33.3 g/dL (32.0-36.0); Mean Corpuscular Hemoglobin 32.4 pg (27.0-31.0); Monocytes 4 % (0-10); Neutrophil 75 % (42-75); PLT Morphology Comment Appears Decreased; Platelet Count 116 thou/uL (130-400); RBC Distribution Width 15.7 % (11.5-14.5); Red Blood Cell (RBC) Count 2.21 mill/uL (4.70-6.10); White Blood Cell (WBC) Count 5.1 thou/uL (4.8-10.8)
[2018-05-18] MEDS: Amiodarone 200 MG TAB PER TUBE SCH ×2 (09:09→20:18)
[2018-05-18] MEDS: Famotidine 20 MG TAB PER TUBE SCH (09:09)
[2018-05-18] MEDS: Metamucil PACK PER TUBE SCH ×2 (09:10→20:41)
[2018-05-18] MEDS ORDERED: Heparin 1,000 UNITS/ML VIAL ONE (11:12)
--- NOTE | 2018-05-18 12:43 | PDOC.CTH ---
Cardiology Progress Note - Subjective No changes noted. Pt is sitting up in chair with assistance. Pt is currently somnolent - Objective Vital Signs Temp Pulse Resp Pulse Ox 05/18/18 10:51 98.2 F 05/18/18 08:00 98.9 F 79 23 H 100 05/18/18 07:00 98.9 F 05/18/18 06:29 99 05/18/18 06:28 75 32 H 99 05/18/18 05:37 14 05/18/18 04:00 98.5 F 14 05/18/18 02:00 22 H 05/18/18 01:50 74 05/18/18 01:04 72 18 100 Admit Weight 183 lb 10.321 oz Weight 187 lb 2.759 oz 05/17/18 05/18/18 05/19/18 06:59 06:59 06:59 Intake Total 271.9 2847 310 Output Total 50 50 0 Balance 221.9 2797 310 - Physical Examination General/Neuro: NAD Neck: carotid US brisk, no JVD present Lungs: CTA, unlabored respirations Heart: RRR Abdomen: no HSM, NT/ND Extremities: + femoral B - Labs Result Diagrams: 05/18/18 05:02 05/18/18 05:02 Troponin/CKMB CK-MB (CK-2) 11.5 ng/mL (0-6.6) H* 04/20/18 04:42 Troponin I 0.926 ng/mL (< 0.028) H* 04/20/18 04:42 - Assessment/Plan CAD CABG aortic dissection s/p repair respiratory failure CV status stable trach in place PT Increase nutrition LTAC next week
--- NOTE | 2018-05-18 13:16 | PRG ---
DATE OF SERVICE: 05/18/2018 SUBJECTIVE: This morning, patient is awake, responsive. Trach in place, being dialyzed. PHYSICAL EXAMINATION: VITAL SIGNS: Blood pressure 131/70, pulse rate83 ,resp 18. CHEST: Revealed no wheezing. Anterior rhonchi. CARDIAC: Normal S1, S2, no gallops. ABDOMEN: Soft. EXTREMITIES: No edema. LABORATORY DATA: Creatinine 4.14. White count 5,000. IMPRESSION: 1. Status post CABG. 2. Status post repair, aortic dissection on emergency basis. 3. Renal failure. 4. Cerebrovascular accident, respiratory failure, trach. PLAN: Continue nutrition, PT, and supportive care. We will follow. MTDD
--- NOTE | 2018-05-18 13:33 | PRG ---
DATE OF SERVICE: 05/18/2018 NEPHROLOGY PROGRESS NOTE SUBJECTIVE: The patient was seen and examined at bedside, remains on trach, at the bedside. De nies any complains of seen in the ICU. PHYSICAL EXAMINATION: VITAL SIGNS: Temperature 98.2, pulse 104, respiratory rate 18, blood pressure 110/43. HEENT: Atraumatic, normocephalic. NECK: Trach present. CARDIOVASCULAR: S1, S2 heard, tachycardic. RESPIRATORY: Clear. GASTROINTESTINAL: Abdomen is soft. MUSCULOSKELETAL: No tenderness. DERMATOLOGIC: No rash. NEUROLOGIC: Alert, awake. PSYCHIATRIC: Mood and affect normal. LABORATORY DATA: Potassium 4.7, BUN is 39, creatinine is 4.1. ASSESSMENT AND PLAN: 1. Acute kidney injury on chronic kidney disease, dialysis dependent and will have dialysis. The krysten downing is seen during dialysis, tolerating well. We will continue on dialysis. The patient remains e dematous. We will attempt to remove fluid if tolerated. 2. Edema with fluid overload. We will attempt to remove fluid with dialysis if tolerated. 3. Altered mentation, stable. 4. Anemia. 5. Hypertension, stable, currently hypotensive. We will use albumin if needed. We will follow. Will have dialysis as tolerated on a daily basis if needed.
--- NOTE | 2018-05-18 15:27 | PDOC.PN ---
- Subjective Encounter Start Date: 05/18/18 Encounter Start Time: 11:30 Subjective: pt up in bed appears lethargic - Objective Vital Signs & Weight: Vital Signs (12 hours) Temp Pulse Resp Pulse Ox 05/18/18 13:20 86 22 H 93 L 05/18/18 12:48 98.2 F 05/18/18 10:51 98.2 F 05/18/18 08:00 98.9 F 79 23 H 100 05/18/18 07:00 98.9 F 05/18/18 06:29 99 05/18/18 06:28 75 32 H 99 05/18/18 05:37 14 05/18/18 04:00 98.5 F 14 Weight Admit Weight 183 lb 10.321 oz Weight 187 lb 2.759 oz Most Recent Monitor Data Heart Rate from ECG 86 NIBP 126/48 NIBP BP-Mean 83 Respiration from ECG 25 SpO2 91 I&O: 05/17/18 05/18/18 05/19/18 06:59 06:59 06:59 Intake Total 271.9 2847 410 Output Total 50 50 0 Balance 221.9 2797 410 Result Diagrams: 05/18/18 05:02 05/18/18 05:02 Phys Exam - Physical Examination HEENT: PERRLA, moist MMs, sclera anicteric, TM's clear, oral pharynx no lesions , 2+ tonsils Neck: no nodes, no JVD, supple, full ROM mild rhonchi all over Cardiovascular: RRR, no significant murmur, no rub, gallop, irregular Gastrointestinal: soft, no distention Musculoskeletal: no edema, pulses present, edema present Dx/Plan (1) Acute hypoxic respiratory failure Status: Acute (2) Atrial fibrillation with RVR Code(s): I48.91 - UNSPECIFIED ATRIAL FIBRILLATION Status: Acute Comment: Amiodarone PO now.NSR .S/P CV on 05/03/2018 (3) Cerebrovascular accident, embolic Code(s): I63.9 - CEREBRAL INFARCTION, UNSPECIFIED Status: Acute Qualifiers: Laterality of affected vessel: bilateral (4) Acute blood loss anemia Code(s): D62 - ACUTE POSTHEMORRHAGIC ANEMIA Status: Acute Comment: s/p 10 units PRBC,12 units FFP,5 units platelets and multiple units of Cryoprecipitate.Suspect Coagulopathy H/H stable now. (5) HTN (hypertension) Code(s): I10 - ESSENTIAL (PRIMARY) HYPERTENSION Status: Acute (6) Left hemiparesis Code(s): G81.94 - HEMIPLEGIA, UNSPECIFIED AFFECTING LEFT NONDOMINANT SIDE Status: Acute Comment: ac CVA and SDH with SAH - Plan pt's tolerated dialysis today in regards to not dropping his bp -: will continue to monitor -: possible to ltac in am * . Review of Systems - Review of Systems Other: unable to obtain - Medications/Allergies Allergies/Adverse Reactions: Allergies Allergy/AdvReac Type Severity Reaction Status Date / Time No Known Allergies Allergy Verified 04/20/18 00:08 Medications: Current Medications Acetaminophen (Tylenol Elixir) 650 mg PO Q6H PRN PRN Reason: Headache/Fever Or Mild Pain Last Admin: 05/17/18 13:53 Dose: 650 mg Al Hydroxide/Mg Hydroxide (Maalox) 30 ml PO Q4H PRN PRN Reason: Indigestion Albumin Human (Albumin 25%) 25 gm IVPB 0200,0800,1400,2000 [facility] Stop: 05/18/18 20:01 Last Admin: 05/18/18 14:03 Dose: 25 gm Albuterol/Ipratropium (Duoneb) 3 ml NEB [id number] PRN PRN Reason: SHORTNESS OF BREATH Albuterol/Ipratropium (Duoneb) 3 ml NEB [id number] [facility] Last Admin: 05/18/18 13:20 Dose: 3 ml Amiodarone HCl (Cordarone) 400 mg PER TUBE BID [facility] Last Admin: 05/18/18 09:09 Dose: 400 mg Lipase/Protease/Amylase ([place] [id number]) 1 cap FS .PER PROTOCOL PRN PRN Reason: TUBE OCCLUSION PROTOCOL Atorvastatin Calcium (Lipitor) 20 mg PO HS [facility] Last Admin: 05/17/18 20:40 Dose: 20 mg Bisacodyl (Dulcolax) 10 mg PO Q12H PRN PRN Reason: Constipation Last Admin: 05/18/18 09:35 Dose: 10 mg Bisacodyl (Dulcolax) 10 mg [place] Q12H PRN PRN Reason: Constipation Last Admin: 05/03/18 20:31 Dose: 10 mg Dextrose/Water (Dextrose 50%) 25 gm SLOW IVP PRN PRN PRN Reason: PER HYPOGLYCEMIC PROTOCOL Epoetin Roshan (Procrit) 10,000 units IVP TuThSa [facility] Last Admin: 05/16/18 21:36 Dose: 10,000 units Famotidine (Pepcid) 20 mg PER TUBE 0900 [facility] Last Admin: 05/18/18 09:09 Dose: 20 mg Fentanyl (Duragesic) 12 mcg TD Q3D [facility] Last Admin: 05/18/18 10:33 Dose: 12 mcg Glucagon (Glucagon) 1 mg SC PRN PRN PRN Reason: PER HYPOGLYCEMIC PROTOCOL Hydralazine HCl (Apresoline) 10 mg SLOW IVP Q6H PRN PRN Reason: To Maintain SBP< 140mmHG Last Admin: 05/07/18 21:01 Dose: 10 mg Dextrose/Water (D5w) 1,000 mls @ 0 mls/hr IV INF PRN; As Directed PRN Reason: PRN HYPOGLYCEMIC PROTOCOL Norepinephrine Bitartrate (Levophed) 250 mls @ 0 mls/hr IVPB INF PRN; Protocol ; Titrate PRN Reason: TO KEEP SBP >100 Last Admin: 05/15/18 09:33 Dose: 250 mls Ondansetron HCl (Zofran) 4 mg IVP Q6H PRN PRN Reason: Nausea/Vomiting Last Admin: 05/17/18 17:52 Dose: 4 mg Polyethylene Glycol (Miralax) 17 gm PER TUBE DAILY [facility] Promethazine HCl (Phenergan) 6.25 mg IM Q4H PRN PRN Reason: Nausea/Vomiting Last Admin: 05/09/18 00:12 Dose: 6.25 mg Psyllium Hydrophilic Mucilloid (Metamucil) 1 pk PER TUBE BID [facility] Last Admin: 05/18/18 09:10 Dose: Not Given Scopolamine (Transderm Scop) 1.5 mg TOP Q3D [facility] Last Admin: 05/18/18 10:34 Dose: 1.5 mg Sodium Chloride (Flush - Normal Saline) 10 ml IVF PRN PRN PRN Reason: Saline Flush
[2018-05-18] MEDS: Metoclopramide HCl 10 MG/2 ML VIAL IVP SCH (17:06)
[2018-05-18] MEDS: Epoetin (ESRD) 10,000 UNITS/ML VIAL IVP SCH (20:18)
[2018-05-18] MEDS: Acetaminophen 650 MG/20.3 ML UDCUP PO PRN (20:18)
[2018-05-18] MEDS: Atorvastatin Calcium 20 MG TAB PO SCH (20:18)
[2018-05-19] MEDS: Metoclopramide HCl 10 MG/2 ML VIAL IVP SCH ×3 (02:15→16:17)
[2018-05-19 05:48] LABS: Anion Gap 10 mmol/L (10-20); BUN (Urea Nitrogen) 51 mg/dL (8.4-25.7); Calc. Creatinine Clearance 22 mL/min (70-130); Calcium 8.1 mg/dL (7.8-10.44); Carbon Dioxide 29 mmol/L (23-31); Chloride 100 mmol/L (98-107); Estimated GFR-MDRD 19; Glucose 118 mg/dL (83-110); Potassium 3.8 mmol/L (3.5-5.1); Sodium 135 mmol/L (136-145)
[2018-05-19 06:22] LABS: Band 11 % (5-11); Eosinophils 1 % (0-10); Hemoglobin 7.4 g/dL (14.0-18.0); Lymphocytes 30 % (21-51); MDiff Complete? YES; Mean Corpuscular HGB CONC 31.9 g/dL (32.0-36.0); Mean Corpuscular Hemoglobin 31.2 pg (27.0-31.0); Mean Corpuscular Volume 97.9 fL (78.0-98.0); Mean Platelet Volume 8.4 fL (7.4-10.4); Monocytes 6 % (0-10); Neutrophil 52 % (42-75); PLT Morphology Comment Appears Adequate; Platelet Count 134 thou/uL (130-400); RBC Distribution Width 16.1 % (11.5-14.5); Red Blood Cell (RBC) Count 2.36 mill/uL (4.70-6.10); White Blood Cell (WBC) Count 5.8 thou/uL (4.8-10.8)
--- NOTE | 2018-05-19 08:05 | PDOC.CTH ---
Cardiology Progress Note - Subjective No changes noted overnight - Objective Vital Signs Temp Pulse Resp Pulse Ox 05/19/18 07:03 98.5 F 87 25 H 98 05/19/18 07:00 98.5 F 05/19/18 06:49 81 26 H 96 05/19/18 06:47 96 05/19/18 06:00 28 H 05/19/18 04:00 98.5 F 20 05/19/18 02:02 67 05/19/18 02:01 67 19 93 L 05/19/18 02:00 28 H 05/19/18 00:00 98.3 F 17 05/18/18 22:22 74 05/18/18 22:00 31 H Admit Weight 183 lb 10.321 oz Weight 172 lb 9.951 oz 05/18/18 05/19/18 05/20/18 06:59 06:59 06:59 Intake Total 2847 1690.2 30 Output Total 50 20 3 Balance 2797 1670.2 27 - Physical Examination General/Neuro: alert & oriented x3 Lungs: CTA Heart: PMI normal, RRR Abdomen: NT/ND, soft Extremities: + femoral B - Labs Result Diagrams: 05/19/18 05:29 05/19/18 05:29 Troponin/CKMB CK-MB (CK-2) 11.5 ng/mL (0-6.6) H* 04/20/18 04:42 Troponin I 0.926 ng/mL (< 0.028) H* 04/20/18 04:42 - Assessment/Plan CAD CABG aortic dissection s/p repair respiratory failure Renal failure No significant changes noted LTAC next week Continue current CV course
[2018-05-19] MEDS: Polyethylene Glycol 3350 17 GM Packet PER TUBE SCH (08:53)
[2018-05-19] MEDS: Metamucil PACK PER TUBE SCH ×2 (08:54→21:13)
[2018-05-19] MEDS: Famotidine 20 MG TAB PER TUBE SCH (08:54)
[2018-05-19] MEDS: Amiodarone 200 MG TAB PER TUBE SCH ×2 (08:54→21:13)
[2018-05-19] MEDS: Acetaminophen 650 MG/20.3 ML UDCUP PO PRN ×2 (09:38→17:17)
[2018-05-19] MEDS ORDERED: Albumin 25% 25 GM/100 ML BOT IVPB PRN (10:05)
--- NOTE | 2018-05-19 12:18 | PRG ---
DATE OF SERVICE: 05/19/2018 NEPHROLOGY PROGRESS NOTE SUBJECTIVE: Patient was seen and examined at bedside and overnight events noted. Patient denies any shortness of breath or chest pain or palpitation. No history of nausea or vomiting or diarrhea or f ever or chills or cramps. OBJECTIVE: GENERAL: This is a well-built male, seen in ICU. VITAL SIGNS: Temperature 98.5, pulse 80, respiratory rate 20, blood pressure 91/44. HEENT: Atraumatic, normocephalic. Oral mucosa is moist. NECK: Trach present. CARDIOVASCULAR: S1, S2 heard. Rate and rhythm regular. RESPIRATORY: Clear to auscultation. GASTROINTESTINAL: Abdomen is soft. MUSCULOSKELETAL: No tenderness. No edema. DERMATOLOGIC: No skin rash. NEUROLOGIC: Alert and awake and oriented x3. No focal neurologic deficits. Moving all the extremiti es. PSYCHIATRIC: Mood and affect normal. LABORATORY DATA: Potassium 3.8, BUN 51, creatinine 3.1. ASSESSMENT AND PLAN: 1. Acute kidney injury on chronic kidney disease stage 3, dialysis dependent. We will continue on d ialysis. We will have 2 hours of dialysis today for ultrafiltration only and continue dialysis, most likely Sunday, Sunday and Sunday from next week. 2. Edema with fluid overload. We will attempt to remove fluid today. 3. Altered mentation, stable. 4. Anemia. Continue Epogen. 5. Hypotension. 6. We will continue dialysis as tolerated.
--- NOTE | 2018-05-19 14:43 | PRG ---
DATE OF SERVICE: 05/19/2018 SUBJECTIVE: He is awake, responsive, on the trach, he is being dialyzed. PHYSICAL EXAMINATION: VITAL SIGNS: Sats are 98% on trach collar, respirations 25, temperature 98, blood pressure is 159/90 . CHEST: Reveals anterior rhonchi. CARDIAC: Normal S1, S2, no gallops. ABDOMEN: Soft. NEUROLOGIC: He is awake and responsive. LABORATORY DATA: Creatinine 3.7, white count 5,000, hemoglobin and hematocrit 7 and 23. IMPRESSION: 1. Renal failure. 2. Respiratory failure, status post tracheostomy. 3. Status post coronary artery bypass grafting with cerebrovascular accident. PLAN: Continue supportive care and eventually going to an LTAC this week.
--- NOTE | 2018-05-19 16:54 | EKG ---
Test Reason : Blood Pressure : / mmHG Vent. Rate : 098 BPM Atrial Rate : 267 BPM P-R Int : 000 ms QRS Dur : 090 ms QT Int : 296 ms P-R-T Axes : -86 042 214 degrees QTc Int : 377 ms Atrial flutter with variable A-V block Low voltage QRS Abnormal ECG When compared with ECG of 05-MAY-2018 06:44, Previous ECG has undetermined rhythm, needs review Questionable change in QRS duration Criteria for Anterior infarct are no longer Present Criteria for Anterolateral infarct are no longer Present Confirmed by JOE JHAVERI (2) on 05/19/2018 4:54:22 PM Referred By: BAIRON Confirmed By:JOE JHAVERI
[2018-05-19] MEDS: Atorvastatin Calcium 20 MG TAB PO SCH (21:13)
[2018-05-20] MEDS: Metoclopramide HCl 10 MG/2 ML VIAL IVP SCH ×3 (00:15→16:49)
[2018-05-20] MEDS: Acetaminophen 650 MG/20.3 ML UDCUP PO PRN ×2 (02:23→14:18)
[2018-05-20 04:34] LABS: Anion Gap 15 mmol/L (10-20); BUN (Urea Nitrogen) 69 mg/dL (8.4-25.7); Calc. Creatinine Clearance 18 mL/min (70-130); Calcium 8.3 mg/dL (7.8-10.44); Carbon Dioxide 25 mmol/L (23-31); Chloride 99 mmol/L (98-107); Estimated GFR-MDRD 15; Glucose 131 mg/dL (83-110); Potassium 4.1 mmol/L (3.5-5.1); Sodium 135 mmol/L (136-145)
[2018-05-20 04:43] LABS: Band 10 % (5-11); Eosinophils 3 % (0-10); Hemoglobin 7.4 g/dL (14.0-18.0); Hypochromia SLIGHT = 6-15 cells (100X) (0-5/hpf); Lymphocytes 17 % (21-51); MDiff Complete? YES; Mean Corpuscular Hemoglobin 32.4 pg (27.0-31.0); Mean Platelet Volume 8.6 fL (7.4-10.4); Monocytes 5 % (0-10); Neutrophil 65 % (42-75); PLT Morphology Comment Appears Adequate; Platelet Count 139 thou/uL (130-400); RBC Distribution Width 16.3 % (11.5-14.5); Red Blood Cell (RBC) Count 2.28 mill/uL (4.70-6.10); White Blood Cell (WBC) Count 6.8 thou/uL (4.8-10.8)
--- NOTE | 2018-05-20 08:16 | PRG ---
DATE OF SERVICE: 05/20/2018 Mr. Lin looks remarkably better than last time I saw him a couple of weeks ago. He was up in a [facility] this morning. He has been weaned off the ventilator during the day and has just been using CPAP a t night. I am told LTAC placement is in the works. PHYSICAL EXAMINATION: VITAL SIGNS: His temperature is 98.0, pulse 80, blood pressure 135/56. 24 hour intake 1576, output 48 mL. HEENT: Largely unremarkable. NECK: Trach in good position. LUNGS: Fairly clear anteriorly. CARDIOVASCULAR: S1, S2 regular. ABDOMEN: Soft. EXTREMITIES: Trace edema. LABORATORY DATA: White blood cell count 6.8, hematocrit 22.4, hemoglobin 7.4, platelet count 139. S odium 135, potassium 4.1, chloride 99, CO2 25, BUN 60, creatinine 4.0, glucose 131. ASSESSMENT: 1. Status post aortic dissection after coronary artery bypass graft. 2. Status post acute respiratory failure/adult respiratory distress syndrome requiring mechanical ve ntilation and tracheostomy placement. 3. Acute renal failure with no evidence of recovery at this point. PLAN: The patient is stable for transfer to LTAC. I think we can go ahead and stop mechanical venti lation at night. Levophed can be discontinued from the DEC. I will follow.
[2018-05-20] MEDS: Amiodarone 200 MG TAB PER TUBE SCH ×2 (08:21→21:31)
[2018-05-20] MEDS: Famotidine 20 MG TAB PER TUBE SCH (08:21)
[2018-05-20] MEDS: Polyethylene Glycol 3350 17 GM Packet PER TUBE SCH (08:22)
[2018-05-20] MEDS: Metamucil PACK PER TUBE SCH ×2 (08:23→21:38)
--- NOTE | 2018-05-20 14:26 | PRG ---
DATE OF SERVICE: 05/20/2018 SUBJECTIVE: A 77-year-old gentleman being seen for acute kidney injury, dialysis dependent. The pat ient denies any complaints. PHYSICAL EXAMINATION: GENERAL: The patient is resting. See above. Awake, alert, in no acute distress. VITAL SIGNS: Afebrile, pulse ____, breathing 16, blood pressure 123/69. GENERAL APPEARANCE AND MENTAL STATUS: Fair. HEAD/NECK: Normocephalic. Atraumatic. EYES: EOMI. No deformity. EARS: Clear. No ulcers. NOSE: Intact. No lesions. MOUTH: Clear. No discharge. THROAT: Clear. No exudate. LUNGS: Clear. No crackles. CARDIAC: S1, S2. No rub. ABDOMEN: Benign. BS+. GENITALIA/RECTUM: Garcia absent. BACK/EXTREMITIES: Edema 0+. Ulcer-. NEUROLOGICAL: Alert and motor intact. SKIN: Rash-. Bruise-. LYMPHATICS: Edema-. Ulcer-. LABORATORY DATA: ____, potassium 4.5. ASSESSMENT AND RECOMMENDATIONS: Stage 6 chronic kidney disease, plan hemodialysis. Hypertension, st able. Anemia. We will plan transfusion due to coronary artery disease. Hypoalbuminemia. Recommend protein nutrition.
[2018-05-20] MEDS: Atorvastatin Calcium 20 MG TAB PO SCH (21:30)
[2018-05-20] MEDS: hydrALAZINE 20 MG/ML VIAL SLOW IVP PRN (22:43)
[2018-05-21 04:42] LABS: Band 9 % (5-11); Eosinophils 2 % (0-10); Hemoglobin 10.3 g/dL (14.0-18.0); Lymphocytes 28 % (21-51); MDiff Complete? YES; Mean Corpuscular HGB CONC 33.4 g/dL (32.0-36.0); Mean Corpuscular Hemoglobin 32.4 pg (27.0-31.0); Mean Platelet Volume 8.1 fL (7.4-10.4); Monocytes 9 % (0-10); Neutrophil 52 % (42-75); PLT Morphology Comment Appears Adequate; Platelet Count 166 thou/uL (130-400); RBC Distribution Width 15.3 % (11.5-14.5); Red Blood Cell (RBC) Count 3.17 mill/uL (4.70-6.10); White Blood Cell (WBC) Count 7.4 thou/uL (4.8-10.8)
[2018-05-21 04:53] LABS: Anion Gap 14 mmol/L (10-20); BUN (Urea Nitrogen) 46 mg/dL (8.4-25.7); Calc. Creatinine Clearance 25 mL/min (70-130); Calcium 8.6 mg/dL (7.8-10.44); Carbon Dioxide 29 mmol/L (23-31); Chloride 100 mmol/L (98-107); Estimated GFR-MDRD 21; Glucose 127 mg/dL (83-110); Potassium 4.3 mmol/L (3.5-5.1); Sodium 139 mmol/L (136-145)
--- NOTE | 2018-05-21 08:15 | PRG ---
DATE OF SERVICE: 05/21/2018 Mr. Lin remained on mechanical ventilation all night long. Nursing staff tells me they discovered a stage III decubitus ulcer over his sacral area. PHYSICAL EXAMINATION: VITAL SIGNS: On exam, temperature is 98.2, pulse 93, blood pressure 140/54, O2 sat 91% on the trach collar. Total intake for 24 hours 1490, output 2700 by dialysis. Weight currently 174. HEENT: Unremarkable. Trach in good position with some faint green secretions. CARDIAC: S1 and S2 regular. LUNGS: Clear to auscultation. ABDOMEN: Soft, nontender. EXTREMITIES: No edema. NEUROLOGIC: He is grossly weaker over his left side. He moves his right side without difficulty. LABORATORY DATA: Sodium 139, potassium 4.3, chloride 100, CO2 of 29, BUN 46, creatinine 2.9, glucose 127. White blood cell count 7.4, hematocrit 30.7, platelet count 166. ASSESSMENT: 1. Status post prolonged respiratory failure requiring tracheostomy placement. 2. Status post coronary bypass grafting surgery. 3. Status post repair of aortic dissection. 4. Acute renal failure with no evidence of recovery at this point. 5. Cerebrovascular accident. PLAN: 1. He is stable for transfer to LTAC at any time from my standpoint. His tells me they are yamile nning to go to [facility] in [place]. At this point he has been weaned off the ventilator and the tracheostomy remains in place for pulmonary toilet measures. I would assume that would continue to be in place for several weeks. 2. Reviewed medications on his chart. I do not see anything that needs to be changed at the current time.
[2018-05-21] MEDS: Carvedilol 3.125 MG TAB PO SCH ×2 (08:52→17:11)
[2018-05-21] MEDS: Polyethylene Glycol 3350 17 GM Packet PER TUBE SCH (08:53)
[2018-05-21] MEDS: Famotidine 20 MG TAB PER TUBE SCH (08:53)
[2018-05-21] MEDS: Amiodarone 200 MG TAB PER TUBE SCH ×2 (08:53→20:05)
[2018-05-21] MEDS: Metamucil PACK PER TUBE SCH ×2 (08:54→20:05)
--- NOTE | 2018-05-21 12:49 | PRG ---
DATE OF SERVICE: 05/21/2018 SUBJECTIVE: A 77-year-old gentleman being seen for end-stage renal disease. The patient denies any nausea, vomiting or chest pain. PHYSICAL EXAMINATION: GENERAL: The patient is awake and alert. VITAL SIGNS: Afebrile, pulse 85, breathing 16, blood pressure 154/56. OBJECTIVE: See above. Awake, alert, in no acute distress. GENERAL APPEARANCE AND MENTAL STATUS: Fair. HEAD/NECK: Normocephalic. Atraumatic. EYES: EOMI. No deformity. EARS: Clear. No ulcers. NOSE: Intact. No lesions. MOUTH: Clear. No discharge. THROAT: Clear. No exudate. LUNGS: Clear. No crackles. CARDIAC: S1, S2. No rub. ABDOMEN: Benign. BS+. GENITALIA/RECTUM: Garcia absent. BACK/EXTREMITIES: Edema 0+. Ulcer-. NEUROLOGICAL: Alert and motor intact. SKIN: Rash-. Bruise-. LYMPHATICS: Edema-. Ulcer-. LABORATORY DATA: Show hemoglobin 10.3, creatinine 2.9. ASSESSMENT AND RECOMMENDATIONS: 1. Acute kidney injury with chronic kidney disease, stable. 2. Hypertension, stable. 3. Anemia, stable. 4. We will plan dialysis tomorrow, Sunday, Sunday and Sunday.
[2018-05-21] MEDS ORDERED: Scopolamine 1.5 mg/72 hour Patch TOP SCH (13:00)
--- NOTE | 2018-05-21 17:32 | PDOC.PN ---
- Subjective Encounter Start Date: 05/20/18 - Objective Vital Signs & Weight: Vital Signs (12 hours) Temp Pulse Pulse Pulse Resp BP BP 05/21/18 16:00 98.8 F 05/21/18 14:00 81 79 150/60 H 163/70 H 05/21/18 13:54 78 22 H 05/21/18 12:00 99 F 05/21/18 08:00 99 F 76 18 05/21/18 07:05 05/21/18 07:03 82 27 H Pulse Ox 05/21/18 16:00 05/21/18 14:00 05/21/18 13:54 97 05/21/18 12:00 05/21/18 08:00 98 05/21/18 07:05 93 L 05/21/18 07:03 93 L Weight Admit Weight 183 lb 10.321 oz Weight 174 lb 13.225 oz Most Recent Monitor Data Heart Rate from ECG 81 NIBP 158/66 NIBP BP-Mean 116 Respiration from ECG 26 SpO2 98 I&O: 05/20/18 05/21/18 05/22/18 06:59 06:59 06:59 Intake Total 1576 1490 60 Output Total 48 6 60 Balance 1528 1484 0 Result Diagrams: 05/21/18 04:26 05/21/18 03:30 Dx/Plan (1) Acute hypoxic respiratory failure Status: Acute (2) Atrial fibrillation with RVR Code(s): I48.91 - UNSPECIFIED ATRIAL FIBRILLATION Status: Acute Comment: Amiodarone PO now.NSR .S/P CV on 05/03/2018 (3) Cerebrovascular accident, embolic Code(s): I63.9 - CEREBRAL INFARCTION, UNSPECIFIED Status: Acute Qualifiers: Laterality of affected vessel: bilateral (4) Acute blood loss anemia Code(s): D62 - ACUTE POSTHEMORRHAGIC ANEMIA Status: Acute Comment: s/p 10 units PRBC,12 units FFP,5 units platelets and multiple units of Cryoprecipitate.Suspect Coagulopathy H/H stable now. (5) HTN (hypertension) Code(s): I10 - ESSENTIAL (PRIMARY) HYPERTENSION Status: Acute (6) Left hemiparesis Code(s): G81.94 - HEMIPLEGIA, UNSPECIFIED AFFECTING LEFT NONDOMINANT SIDE Status: Acute Comment: ac CVA and SDH with SAH - Plan * .
[2018-05-21] MEDS: Atorvastatin Calcium 20 MG TAB PO SCH (20:05)
[2018-05-21] MEDS: Epoetin (ESRD) 10,000 UNITS/ML VIAL IVP SCH (20:27)
[2018-05-22 04:52] LABS: Anion Gap 18 mmol/L (10-20); BUN (Urea Nitrogen) 76 mg/dL (8.4-25.7); Calc. Creatinine Clearance 18 mL/min (70-130); Calcium 8.4 mg/dL (7.8-10.44); Carbon Dioxide 24 mmol/L (23-31); Chloride 100 mmol/L (98-107); Estimated GFR-MDRD 15; Glucose 120 mg/dL (83-110); Potassium 4.8 mmol/L (3.5-5.1); Sodium 137 mmol/L (136-145)
[2018-05-22 05:21] LABS: Band 5 % (5-11); Hemoglobin 9.6 g/dL (14.0-18.0); Hypochromia SLIGHT = 6-15 cells (100X) (0-5/hpf); Lymphocytes 14 % (21-51); MDiff Complete? YES; Mean Corpuscular HGB CONC 33.2 g/dL (32.0-36.0); Mean Corpuscular Hemoglobin 32.3 pg (27.0-31.0); Mean Corpuscular Volume 97.4 fL (78.0-98.0); Mean Platelet Volume 8.1 fL (7.4-10.4); Monocytes 20 % (0-10); Neutrophil 61 % (42-75); PLT Morphology Comment Appears Adequate; Platelet Count 167 thou/uL (130-400); RBC Distribution Width 15.7 % (11.5-14.5); Red Blood Cell (RBC) Count 2.98 mill/uL (4.70-6.10); White Blood Cell (WBC) Count 6.7 thou/uL (4.8-10.8)
[2018-05-22 06:58] VITALS: BP 122/51
--- NOTE | 2018-05-22 08:13 | PRG ---
DATE OF SERVICE: 05/22/2018 Thirty-five minutes critical care time. The patient remains in the ICU, he had to be placed back on mechanical ventilation last night because he became fatigued. PHYSICAL EXAMINATION: GENERAL: On exam today he is awake. He indicates that his feet are hurting. VITAL SIGNS: Temperature 98.9, pulse 66, blood pressure 122/51, O2 sat 100% on mechanical ventilatio n. 24 hour intake 1149, output 80 + 2700 taken out during dialysis. HEENT: Unremarkable. NECK: No adenopathy or JVD. Trach in good position. LUNGS: Diminished breath sounds at the bases. CARDIOVASCULAR: S1, S2 regular. ABDOMEN: Soft, nontender. EXTREMITIES: Trace edema throughout. His chest x-ray demonstrates bilateral infiltrative changes which may be layering pleural effusions p osteriorly. This does look worse than the x-ray done on 05/16/2018. White blood cell count 6.7, hematocrit 29, platelet count 167. Sodium 137, potassium 4.8, chloride 1 00, CO2 24, BUN 76, creatinine 4.0, glucose 120. ASSESSMENT: 1. Continued respiratory failure requiring intermittent mechanical ventilation. 2. 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 3. Acute renal failure with no evidence of renal recovery. 4. Status post cerebrovascular accident. PLAN: The patient will continue intermittent mechanical ventilation. I would assume most of his x-r ay changes are fluid shifts in nature, especially given his white count has remained stable and he parikh s no fever. We will remain vigilant for nosocomial infections, but at this time, I would not advocat e restarting any antibiotics. He is still pending placement at an LTAC facility in [place]. I have d iscussed daily with his .
[2018-05-22] MEDS: Acetaminophen 650 MG/20.3 ML UDCUP PO PRN ×2 (08:35→22:04)
[2018-05-22] MEDS: Carvedilol 3.125 MG TAB PO SCH (08:35)
[2018-05-22] MEDS: Polyethylene Glycol 3350 17 GM Packet PER TUBE SCH (08:35)
[2018-05-22] MEDS: Famotidine 20 MG TAB PER TUBE SCH (08:35)
[2018-05-22] MEDS: Amiodarone 200 MG TAB PER TUBE SCH ×2 (08:36→20:24)
--- NOTE | 2018-05-22 08:44 | RAD ---
CHEST 1 VIEW: Date: 05/22/18 HISTORY: Dyspnea. Follow-up. COMPARISON: 05/16/18. FINDINGS: Cardiac silhouette is magnified and partially obscured by worsening bibasilar infiltrates and bilater al pleural fluid. Pulmonary vasculature is engorged. Dense bilateral diffuse air space disease is oth erwise similar. Mediastinum is midline. Lines and tubes appear unchanged in position. No evidence of pneumothorax. IMPRESSION: Interval worsening of bilateral pleural fluid and bibasilar infiltrates. Findings are otherwise stabl e. POS: [facility]
[2018-05-22] MEDS: Metamucil PACK PER TUBE SCH ×2 (10:19→20:24)
--- NOTE | 2018-05-22 11:24 | PRG ---
DATE OF SERVICE: 05/22/2018 SUBJECTIVE: This is a 77-year-old gentleman being seen for end-stage renal disease. The patient den ies any nausea, vomiting or chest pain. PHYSICAL EXAMINATION: GENERAL: Patient is awake, alert. VITAL SIGNS: Afebrile, pulse 89, breathing 16, blood pressure was 107/50. OBJECTIVE: See above. Awake, alert, in no acute distress. GENERAL APPEARANCE AND MENTAL STATUS: Fair. HEAD/NECK: Normocephalic. Atraumatic. EYES: EOMI. No deformity. EARS: Clear. No ulcers. NOSE: Intact. No lesions. MOUTH: Clear. No discharge. THROAT: Clear. No exudate. LUNGS: Clear. No crackles. CARDIAC: S1, S2. No rub. ABDOMEN: Benign. BS+. GENITALIA/RECTUM: Garcia absent. BACK/EXTREMITIES: Edema 0+ Ulcer- NEUROLOGICAL: Alert and motor intact. SKIN: Rash- Bruise- LYMPHATICS: Edema- Ulcer- LABORATORY: Hemoglobin 9.6, potassium is 4.2. ASSESSMENT AND RECOMMENDATIONS: 1. Stage 6 chronic kidney disease, plan hemodialysis. 2. Uremia, plan dialysis. 3. Hypertension, stable. 4. Anemia, stable. 5. Medications based on glomerular filtration rate are appropriate.
[2018-05-22 12:13] VITALS: BMI 26.0
[2018-05-22] MEDS: Atorvastatin Calcium 20 MG TAB PO SCH (20:24)
--- NOTE | 2018-05-22 21:31 | PDOC.PN ---
- Subjective Encounter Start Date: 05/22/18 Encounter Start Time: 11:45 Subjective: pt up in bed no complains - Objective Vital Signs & Weight: Vital Signs (12 hours) Temp Pulse Resp Pulse Ox 05/22/18 20:00 98.4 F 05/22/18 19:56 98.4 F 78 26 H 95 05/22/18 18:43 78 26 H 96 05/22/18 16:00 97.6 F 05/22/18 13:06 68 20 98 05/22/18 12:00 97.1 F L Weight Admit Weight 183 lb 10.321 oz Weight 175 lb 14.862 oz Most Recent Monitor Data Heart Rate from ECG 76 NIBP 137/58 NIBP BP-Mean 107 Respiration from ECG 24 SpO2 99 I&O: 05/21/18 05/22/18 05/23/18 06:59 06:59 06:59 Intake Total 1490 1149 947 Output Total 6 80 Balance 1484 1069 947 Result Diagrams: 05/23/18 06:14 05/23/18 06:14 Phys Exam - Physical Examination Neck: no nodes, no JVD, supple, full ROM mild rhonchi to upper lungs Cardiovascular: RRR, no significant murmur, no rub, gallop, irregular Gastrointestinal: soft, non-tender, no distention, positive bowel sounds left side weakness Dx/Plan (1) Acute hypoxic respiratory failure Status: Acute (2) Atrial fibrillation with RVR Code(s): I48.91 - UNSPECIFIED ATRIAL FIBRILLATION Status: Acute Comment: Amiodarone PO now.NSR .S/P CV on 05/03/2018 (3) Cerebrovascular accident, embolic Code(s): I63.9 - CEREBRAL INFARCTION, UNSPECIFIED Status: Acute Qualifiers: Laterality of affected vessel: bilateral (4) Acute blood loss anemia Code(s): D62 - ACUTE POSTHEMORRHAGIC ANEMIA Status: Acute Comment: s/p 10 units PRBC,12 units FFP,5 units platelets and multiple units of Cryoprecipitate.Suspect Coagulopathy H/H stable now. (5) HTN (hypertension) Code(s): I10 - ESSENTIAL (PRIMARY) HYPERTENSION Status: Acute (6) Left hemiparesis Code(s): G81.94 - HEMIPLEGIA, UNSPECIFIED AFFECTING LEFT NONDOMINANT SIDE Status: Acute Comment: ac CVA and SDH with SAH - Plan waiting for placement to ltach -: No asa due to recent bleed * . Review of Systems - Review of Systems Other: unable to obtain - Medications/Allergies Allergies/Adverse Reactions: Allergies Allergy/AdvReac Type Severity Reaction Status Date / Time No Known Allergies Allergy Verified 04/20/18 00:08 Medications: Current Medications Acetaminophen (Tylenol Elixir) 650 mg PO Q6H PRN PRN Reason: Headache/Fever Or Mild Pain Last Admin: 05/22/18 22:04 Dose: 650 mg Al Hydroxide/Mg Hydroxide (Maalox) 30 ml PO Q4H PRN PRN Reason: Indigestion Albuterol/Ipratropium (Duoneb) 3 ml NEB [id number] PRN PRN Reason: SHORTNESS OF BREATH Last Admin: 05/23/18 11:25 Dose: 3 ml Albuterol/Ipratropium (Duoneb) 3 ml NEB [id number] ARLYN Last Admin: 05/23/18 07:21 Dose: 3 ml Amiodarone HCl (Cordarone) 200 mg PER TUBE BID [facility] Stop: 06/04/18 23:59 Last Admin: 05/23/18 08:39 Dose: 200 mg Amiodarone HCl (Cordarone) 200 mg PO DAILY [facility] Lipase/Protease/Amylase (Rodney Stearns [id number]) 1 cap FS .PER PROTOCOL PRN PRN Reason: TUBE OCCLUSION PROTOCOL Atorvastatin Calcium (Lipitor) 20 mg PO HS [facility] Last Admin: 05/22/18 20:24 Dose: 20 mg Bisacodyl (Dulcolax) 10 mg PO Q12H PRN PRN Reason: Constipation Last Admin: 05/18/18 09:35 Dose: 10 mg Bisacodyl (Dulcolax) 10 mg WA Q12H PRN PRN Reason: Constipation Last Admin: 05/03/18 20:31 Dose: 10 mg Carvedilol (Coreg) 3.125 mg PO BID-[facility] Dextrose/Water (Dextrose 50%) 25 gm SLOW IVP PRN PRN PRN Reason: PER HYPOGLYCEMIC PROTOCOL Epoetin Roshan (Procrit) 10,000 units IVP TuThSa [facility] Last Admin: 05/21/18 20:27 Dose: 10,000 units Famotidine (Pepcid) 20 mg PER TUBE 0900 [facility] Last Admin: 05/23/18 08:38 Dose: 20 mg Glucagon (Glucagon) 1 mg SC PRN PRN PRN Reason: PER HYPOGLYCEMIC PROTOCOL Hydralazine HCl (Apresoline) 10 mg SLOW IVP Q6H PRN PRN Reason: To Maintain SBP< 140mmHG Last Admin: 05/20/18 22:43 Dose: 10 mg Dextrose/Water (D5w) 1,000 mls @ 0 mls/hr IV INF PRN; As Directed PRN Reason: PRN HYPOGLYCEMIC PROTOCOL Ondansetron HCl (Zofran) 4 mg IVP Q6H PRN PRN Reason: Nausea/Vomiting Last Admin: 05/23/18 08:13 Dose: 4 mg Polyethylene Glycol (Miralax) 17 gm PER TUBE DAILY [facility] Last Admin: 05/23/18 12:22 Dose: Not Given Promethazine HCl (Phenergan) 6.25 mg IM Q4H PRN PRN Reason: Nausea/Vomiting Last Admin: 05/09/18 00:12 Dose: 6.25 mg Psyllium Hydrophilic Mucilloid (Metamucil) 1 pk PER TUBE BID [facility] Last Admin: 05/23/18 12:23 Dose: Not Given Scopolamine (Transderm Scop) 1.5 mg TOP Q3D [facility] Last Admin: 05/21/18 15:16 Dose: 1.5 mg Sodium Chloride (Flush - Normal Saline) 10 ml IVF PRN PRN PRN Reason: Saline Flush Last Admin: 05/19/18 16:17 Dose: 10 ml
[2018-05-23 06:33] LABS: Hemoglobin 9.7 g/dL (14.0-18.0); Mean Corpuscular HGB CONC 32.4 g/dL (32.0-36.0); Mean Corpuscular Hemoglobin 31.8 pg (27.0-31.0); Mean Corpuscular Volume 98.3 fL (78.0-98.0); Mean Platelet Volume 7.8 fL (7.4-10.4); Platelet Count 171 thou/uL (130-400); RBC Distribution Width 15.7 % (11.5-14.5); Red Blood Cell (RBC) Count 3.04 mill/uL (4.70-6.10); White Blood Cell (WBC) Count 5.9 thou/uL (4.8-10.8)
[2018-05-23 06:44] LABS: Anion Gap 13 mmol/L (10-20); BUN (Urea Nitrogen) 49 mg/dL (8.4-25.7); Calc. Creatinine Clearance 27 mL/min (70-130); Calcium 8.3 mg/dL (7.8-10.44); Carbon Dioxide 27 mmol/L (23-31); Chloride 101 mmol/L (98-107); Estimated GFR-MDRD 24; Glucose 128 mg/dL (83-110); Potassium 3.8 mmol/L (3.5-5.1); Sodium 137 mmol/L (136-145)
[2018-05-23] MEDS: Carvedilol 3.125 MG TAB PO SCH ×2 (06:48→08:39)
[2018-05-23 06:59] LABS: Band 5 % (5-11); Eosinophils 3 % (0-10); Lymphocytes 27 % (21-51); MDiff Complete? YES; Monocytes 11 % (0-10); Myelocyte 1 % (0-0); Neutrophil 53 % (42-75); PLT Morphology Comment Appears Adequate; Polychromasia SLIGHT = 2-3 cells (100X) (0-2/hpf)
--- NOTE | 2018-05-23 07:51 | PRG ---
DATE OF SERVICE: 05/23/2018 The patient is up in a chair this morning. He used mechanical ventilation during the night last nigh t. PHYSICAL EXAMINATION: VITAL SIGNS: Temperature 98.6, pulse 66, blood pressure 130/61. Total intake for the last 24 hours 1037, output 800 by dialysis. HEENT: Pupils react. Sclerae icteric. Oropharynx clear. NECK: Trach midline with clear secretions. CARDIAC: S1 and S2 regular. LUNGS: Clear anteriorly. CARDIOVASCULAR: S1 and S2 regular. ABDOMEN: Soft. EXTREMITIES: No edema. LABORATORY DATA: White blood cell count 5.9, hematocrit 29.9, platelet count 171. Sodium 137, potas sium 3.8, chloride 102, CO2 27, BUN 49, creatinine 2.6, glucose 128. ASSESSMENT: Problem list unchanged. The patient has acute respiratory failure and has been mostly w eaned from the vent aside from brief use at night. PLAN: It is assumed that the patient will be placed in the LTAC soon. He will continue mechanical v entilation briefly as needed. He is continuing dialysis. We are being vigilant as far as monitoring for infection, so far that does not seem to be an issue.
[2018-05-23] MEDS: Ondansetron HCl/PF 4 MG/2 ML Vial IVP PRN (08:13)
[2018-05-23] MEDS: Famotidine 20 MG TAB PER TUBE SCH (08:38)
[2018-05-23] MEDS: Amiodarone 200 MG TAB PER TUBE SCH (08:39)
--- NOTE | 2018-05-23 11:46 | PRG ---
DATE OF SERVICE: 05/23/2018 SUBJECTIVE: A 77-year-old male being seen for end-stage renal disease. The patient denies any nause a, vomiting or chest pain. PHYSICAL EXAMINATION: GENERAL: Patient is awake, alert. VITAL SIGNS: Pulse 75, breathing 16, blood pressure 120/48. OBJECTIVE: See above. Awake, alert, in no acute distress. GENERAL APPEARANCE AND MENTAL STATUS: Fair. HEAD/NECK: Normocephalic. Atraumatic. EYES: EOMI. No deformity. EARS: Clear. No ulcers. NOSE: Intact. No lesions. MOUTH: Clear. No discharge. THROAT: Clear. No exudate. LUNGS: Clear. No crackles. CARDIAC: S1, S2. No rub. ABDOMEN: Benign. BS+. GENITALIA/RECTUM: Garcia absent. BACK/EXTREMITIES: Edema 0+ Ulcer- NEUROLOGICAL: Alert and motor intact. SKIN: Rash- Bruise- LYMPHATICS: Edema- Ulcer- LABORATORY DATA: Show hemoglobin 9.7. ASSESSMENT AND RECOMMENDATIONS: 1. Stage 6 chronic kidney disease, continue hemodialysis. 2. Hypertension, stable. 3. Anemia, stable. 4. Medication based on glomerular filtration rate are appropriate.
[2018-05-23] MEDS: Polyethylene Glycol 3350 17 GM Packet PER TUBE SCH (12:22)
[2018-05-23] MEDS: Metamucil PACK PER TUBE SCH (12:23)
[2018-05-23 13:23] VITALS: TEMP 98.2
[2018-05-23] MEDS ORDERED: Carvedilol 3.125 MG TAB PO SCH (17:00)
[2018-06-05] MEDS ORDERED: Amiodarone 200 MG TAB PO SCH (09:00)
== END 2018-05-23 17:29 | DRG 3 ==
LOC: ERS 17:41 → 2SW 20:09 → OBSVTOIN 04-21 08:04 → 2NO 04-21 10:45 → CCU 04-22 08:44
PROVIDERS: ADMIT Family Medicine; ATTEND Family Medicine
PROC: 4A023N7 Measurement of Cardiac Sampling and Pressure, Left Heart, Percutaneous Approach (ICD-10-PCS; 2018-04-21)
PROC: B211YZZ Fluoroscopy of Multiple Coronary Arteries using Other Contrast (ICD-10-PCS; 2018-04-21)
PROC: 02100Z9 Bypass Coronary Artery, One Artery from Left Internal Mammary, Open Approach (ICD-10-PCS; 2018-04-22)
PROC: 021109W Bypass Coronary Artery, Two Arteries from Aorta with Autologous Venous Tissue, Open Approach (ICD-10-PCS; 2018-04-22)
PROC: 06BQ0ZZ Excision of Left Saphenous Vein, Open Approach (ICD-10-PCS; 2018-04-22)
PROC: 02RX0JZ Replacement of Thoracic Aorta, Ascending/Arch with Synthetic Substitute, Open Approach (ICD-10-PCS; 2018-04-22)
PROC: 5A1221Z Performance of Cardiac Output, Continuous (ICD-10-PCS; 2018-04-22)
PROC: 03HC33Z Insertion of Infusion Device into Left Radial Artery, Percutaneous Approach (ICD-10-PCS; 2018-04-24)
PROC: 0B9M8ZX Drainage of Bilateral Lungs, Via Natural or Artificial Opening Endoscopic, Diagnostic (ICD-10-PCS; 2018-05-01)
PROC: 5A2204Z Restoration of Cardiac Rhythm, Single (ICD-10-PCS; 2018-05-03)
PROC: 06HY33Z Insertion of Infusion Device into Lower Vein, Percutaneous Approach (ICD-10-PCS; 2018-05-04)
PROC: 0B110F4 Bypass Trachea to Cutaneous with Tracheostomy Device, Open Approach (ICD-10-PCS; 2018-05-06)
PROC: 5A1955Z Respiratory Ventilation, Greater than 96 Consecutive Hours (ICD-10-PCS; 2018-05-06)
PROC: 05H633Z Insertion of Infusion Device into Left Subclavian Vein, Percutaneous Approach (ICD-10-PCS; 2018-05-06)
PROC: B547ZZA Ultrasonography of Left Subclavian Vein, Guidance (ICD-10-PCS; 2018-05-06)
PROC: 0W9B30Z Drainage of Left Pleural Cavity with Drainage Device, Percutaneous Approach (ICD-10-PCS; 2018-05-10)
PROC: 0DH63UZ Insertion of Feeding Device into Stomach, Percutaneous Approach (ICD-10-PCS; 2018-05-12)
PROC: 0D20XUZ Change Feeding Device in Upper Intestinal Tract, External Approach (ICD-10-PCS; principal; 2018-05-16)
PROC: 05HM33Z Insertion of Infusion Device into Right Internal Jugular Vein, Percutaneous Approach (ICD-10-PCS; 2018-05-16)
PROC: B543ZZA Ultrasonography of Right Jugular Veins, Guidance (ICD-10-PCS; 2018-05-16)
DX: I25.110 Atherosclerotic heart disease of native coronary artery with unstable angina pectoris (principal); L89.153 Pressure ulcer of sacral region, stage 3; N18.6 End stage renal disease; J96.01 Acute respiratory failure with hypoxia; I63.9 Cerebral infarction, unspecified; G92 Toxic encephalopathy; I60.9 Nontraumatic subarachnoid hemorrhage, unspecified; E43 Unspecified severe protein-calorie malnutrition; I21.4 Non-ST elevation (NSTEMI) myocardial infarction; R57.1 Hypovolemic shock; I71.02 Dissection of abdominal aorta; N17.0 Acute kidney failure with tubular necrosis; A41.51 Sepsis due to Escherichia coli [E. coli]; I12.0 Hypertensive chronic kidney disease with stage 5 chronic kidney disease or end stage renal disease; D62 Acute posthemorrhagic anemia; G81.94 Hemiplegia, unspecified affecting left nondominant side; E87.0 Hyperosmolality and hypernatremia; D68.9 Coagulation defect, unspecified; J90 Pleural effusion, not elsewhere classified; J95.851 Ventilator associated pneumonia; I97.51 Accidental puncture and laceration of a circulatory system organ or structure during a circulatory system procedure; I48.92 Unspecified atrial flutter; J81.1 Chronic pulmonary edema; Z99.2 Dependence on renal dialysis; Z82.49 Family history of ischemic heart disease and other diseases of the circulatory system; Z80.1 Family history of malignant neoplasm of trachea, bronchus and lung; E87.6 Hypokalemia; R13.12 Dysphagia, oropharyngeal phase; I48.0 Paroxysmal atrial fibrillation; R41.0 Disorientation, unspecified; Y84.8 Other medical procedures as the cause of abnormal reaction of the patient, or of later complication, without mention of misadventure at the time of the procedure; Y82.8 Other medical devices associated with adverse incidents; Y92.239 Unspecified place in hospital as the place of occurrence of the external cause; Y83.9 Surgical procedure, unspecified as the cause of abnormal reaction of the patient, or of later complication, without mention of misadventure at the time of the procedure; Y71.8 Miscellaneous cardiovascular devices associated with adverse incidents, not elsewhere classified; E87.5 Hyperkalemia; K76.9 Liver disease, unspecified; Z90.79 Acquired absence of other genital organ(s)
CPT/HCPCS: 36415; 36416; 36430; 70450; 70551; 71045; 74018; 80048; 80061; 80076; 80162; 80202; 81001; 82040; 82553; 82565; 82805; 82945; 83615; 83735; 83986; 84100; 84134; 84157; 84484; 85007; 85014; 85018; 85025; 85027; 85049; 85060; 85300; 85362; 85379; 85384; 85610; 85730; 86704; 86706; 86850; 86870; 86900; 86901; 86905; 86922; 87040; 87070; 87077; 87086; 87116; 87149; 87186; 87205; 87206; 87324; 87340; 87449; 88112; 88305; 89051; 89220; 90935; 93005; 93010; 93306; 93312; 93458; 93798; 93970; 94002; 94003; 94640; 94760; 95816; 95819; 99152; 99153; A4216; C1752; C1769; G0257; G0365; G8978-GP-CM; G8978-GP-CN; G8979-GP-CL; G8987-GO-CN; G8988-GO-CN; G8989-GO-CN; G9162-GN-CM; G9163-GN-CI; J0131; J0171; J0282; J0360; J0461; J0670; J0692; J1160; J1642; J1644; J1650; J1815; J1885; J1940; J1956; J2001; J2150; J2250; J2405; J2440; J2550; J2704; J2720; J2765; J3010; J3370; J3475; J3480; J7050; J7070; J7620; J7799; P9012; P9016; P9035; P9045; P9047; P9059; Q4081; S0017; S0028

== ENCOUNTER 2018-08-23 08:22 | Inpatient (IN) | payer MEDICARE ==
--- NOTE | 2018-08-23 08:40 | RAD ---
PORTABLE CHEST: HISTORY: Difficulty breathing. COMPARISON: 08/21/2018 study. FINDINGS: Heart size is enlarged. There is pulmonary vascular engorgement and increased perihilar lung marking s consistent with pulmonary edema. There is opacification of the right base suggestive of effusion. There could possibly be coexistent infiltrate. IMPRESSION: Cardiomegaly with worsening perihilar lung markings suggesting some worsening pulmonary edema change. Persistent pleural and parenchymal changes in the right lung base. POS: [facility]
[2018-08-23] MEDS ORDERED: Furosemide 40 MG/4 ML VIAL ONE ×2 (08:42→12:59)
[2018-08-23] MEDS ORDERED: Nitroglycerin 0.4 MG TAB (25 Tab Bottle) ONE (08:42)
[2018-08-23 09:11] LABS: #Basophils 0.1 thou/uL (0.0-0.2); #Eosinphils 0.4 thou/uL (0.0-0.7); #Monocytes 0.7 thou/uL (0.11-0.59); %Basophils 0.6 % (0.0-1.0); %Eosinophils 4.4 % (0.0-10.0); %Lymphocytes 32.6 % (21.0-51.0); %Monocytes 7.6 % (0.0-10.0); %Neutrophils 54.8 % (42.0-75.0); Hemoglobin 10.7 g/dL (14.0-18.0); Mean Corpuscular Hemoglobin 26.6 pg (27.0-31.0); Mean Corpuscular Volume 95.2 fL (78.0-98.0); Mean Platelet Volume 8.2 fL (7.4-10.4); Platelet Count 381 thou/uL (130-400); Red Blood Cell (RBC) Count 4.02 mill/uL (4.70-6.10); White Blood Cell (WBC) Count 9.1 thou/uL (4.8-10.8)
[2018-08-23 09:24] LABS: INR-International Normal Ratio 2.8; PTT 42.8 SEC (22.9-36.1); Prothrombin Time 29.2 SEC (12.0-14.7)
[2018-08-23 09:28] LABS: ALT (SGPT) 20 U/L (8-55); AST (SGOT) 23 U/L (5-34); Albumin 3.1 g/dL (3.4-4.8); Alkaline Phosphatase 101 U/L (40-150); Anion Gap 15 mmol/L (10-20); BUN (Urea Nitrogen) 26 mg/dL (8.4-25.7); Bilirubin, Total 0.4 mg/dL (0.2-1.2); CK (CPK) 32 U/L (30-200); Calc. Creatinine Clearance 0 mL/min (70-130); Calcium 9.5 mg/dL (7.8-10.44); Carbon Dioxide 29 mmol/L (23-31); Chloride 102 mmol/L (98-107); Estimated GFR-MDRD 58; Globulin 3.5 g/dL (2.4-3.5); Glucose 164 mg/dL (83-110); Potassium 4.6 mmol/L (3.5-5.1); Protein, Total 6.6 g/dL (5.8-8.1); Sodium 141 mmol/L (136-145)
[2018-08-23 09:33] LABS: CKMB 5.7 ng/mL (0-6.6)
[2018-08-23] MEDS ORDERED: Lidocaine 2% Jelly 5 ML TUBE ONE (11:16)
[2018-08-23 12:01] LABS: Bilirubin Negative (Negative); Blood, Urine Negative (Negative); Clarity CLEAR (Clear); Glucose, Urine (Dipstick) Negative (Negative); Leukocyte Negative (Negative); Nitrite Negative (Negative); Protein, Urine (Dipstick) Negative (Neg-Trace); Specific Gravity, Urine 1.006 (1.002-1.036); Urobilinogen 0.2 mg/dL (0.2-1.0)
[2018-08-23 13:08] LABS: Troponin I 0.031 ng/mL (< 0.028)
[2018-08-23] MEDS ORDERED: Acetaminophen 325 MG TAB PO PRN (13:15)
[2018-08-23] MEDS ORDERED: Furosemide 100 MG in Sodium Chloride 0.9% 100 ML IVPB SCH (13:15)
[2018-08-23] MEDS ORDERED: Dextrose 5 % And 0.9 % NaCl 1,000 ML IV SCH (13:15)
[2018-08-23] MEDS ORDERED: WARFARIN PO PRN (13:15)
[2018-08-23] MEDS ORDERED: Nitroglycerin 0.4 MG TAB (25 Tab Bottle) PO PRN (13:15)
[2018-08-23] MEDS ORDERED: Acetaminophen 650 MG Suppository PR PRN (13:15)
[2018-08-23] MEDS ORDERED: Aspirin 81 mg Enteric Coated Tablet PO SCH (13:30)
--- NOTE | 2018-08-23 13:38 | HP ---
DATE OF ADMISSION: 08/23/2018 PRIMARY CARE PHYSICIAN: Isai Pool M.D. CHIEF COMPLAINT: Shortness of breath. The patient was sent from inpatient rehabilitation facility. HISTORY OF PRESENT ILLNESS: The patient is a 77-year-old male with chronic respiratory failure status post tracheostomy, chronic atrial fibrillation, chronic systolic and diastolic heart failure, hypertension, coronary artery disease, was brought in from inpatient rehabilitation with above complaints. The patient was discharged from this facility approximately 3 months ago. He had an extensive stay, requiring coronary artery bypass grafting, tracheostomy, PEG tube placement, atrial fibrillation with rapid ventricular response as well as CVA. Please refer to the discharge summary dated 05/23/2018 for further details. The patient was discharged to long-term acute care facility. He was admitted to inpatient rehabilitation 5 days ago. During this stay and long-term acute care, he was hospitalized for congestive heart failure as well as pleural effusion requiring thoracentesis. He also had pneumothorax requiring chest tube placement. He has been eating a regular consistency. His tracheostomy has been successfully capped. He was also diagnosed with left lower extremity DVT and was started on Coumadin last month. He was also found to have left vocal cord paralysis. Over the last 2-3 days, the patient developed gradual worsening shortness of breath. He had a chest x-ray done on 08/21/2018 that was consistent with volume overload. Lasix dose was increased without significant improvement. This morning, while eating breakfast, he experienced severe respiratory distress. The staff at the rehab are worried about aspiration pneumonia. He was started on CPAP and was then sent to the hospital for evaluation. In the emergency room, he received Lasix 40 mg IV push with 0.4 mg sublingual nitroglycerin. A chest x-ray showed pulmonary edema. His BNP was 2100. PAST MEDICAL HISTORY: 1. Coronary artery disease, status post CABG in 05/08/2018. 2. History of cerebrovascular accident, ischemic as well as hemorrhagic. 3. Recent left lower extremity DVT, on anticoagulation. 4. Chronic systolic and diastolic heart failure. 5. Hypertension. 6. Coronary artery disease. 7. Acute kidney injury, requiring dialysis, last admission. He is off of dialysis for more than a month. 8. Physical deconditioning. 9. Left vocal cord paralysis. 10. Paroxysmal atrial fibrillation, requiring cardioversion. 11. Dysphagia, requiring PEG tube placement. The patient is currently tolerating regular consistency. PAST SURGICAL HISTORY: 1. Dialysis access. 2. Coronary artery bypass grafting. 3. Prostatectomy. ALLERGIES: VANCOMYCIN. CURRENT MEDICATIONS: At the inpatient rehabilitation, 1. Amiodarone 200 mg daily. 2. Potassium chloride 10 mEq daily. 3. Lipitor 20 mg daily. 4. Multivitamin 1 tablet daily. 5. Zoloft 50 mg daily. 6. Coumadin daily, exact dose unclear. 7. MiraLax daily. 8. Lasix 20 mg b.i.d. SOCIAL HISTORY: The patient used to live at home. He drinks alcohol socially. No drugs or smoking. He is currently bedridden. He still has residual left- sided mainly leg weakness. FAMILY HISTORY: Mother of congestive heart failure. Father of lung cancer. REVIEW OF SYSTEMS: Cannot be obtained from the patient due to current cognitive status. PHYSICAL EXAMINATION: VITAL SIGNS: Temperature 95.7 rectally with respiration of 19, pulse rate of 88 , blood pressure 165/87, O2 saturation 92%-93% on BiPAP. GENERAL: A 77-year-old male in mild to moderate respiratory distress, currently on noninvasive positive pressure ventilation. HEENT: Head atraumatic and normocephalic. Sclerae are anicteric. No oral lesion appreciated. NECK: Supple. Neck veins somewhat distended. No carotid bruit. LUNGS: Showed diffuse rhonchi with bibasilar rales. Decreased air entry at bilateral bases. There was some accessory muscle use. Dialysis catheter noted in the right upper chest. HEART: S1, S2 present. Healed midline scar from previous CABG. 2/6 systolic murmur over the left lateral sternal border. No heaves or pulsation. ABDOMEN: Soft, nontender, bowel sounds present. PEG tube noted. EXTREMITIES: 2+ edema in the left lower extremity. No significant edema in the right. SKIN: Warm and dry. LYMPH NODES: No palpable lymph nodes in the neck. PERIPHERAL VASCULAR: Radial pulses palpable bilaterally. MUSCULOSKELETAL: No joint swelling or tenderness. NEUROLOGIC: The patient is weak in the left leg. He is able to move his right side spontaneously. He is alert and awake. Detailed neurological examination could not be done due to current clinical status. PSYCHIATRY: As discussed above. LYMPH NODES: No palpable lymph nodes in the neck. LABORATORY FINDINGS: BNP 2100. CBC showed WBC 9.1 with hemoglobin 10.7, platelet 381. INR 2.8, potassium 4.6 with chloride 102, bicarbonate 29. Troponin negative. Urinalysis was negative. Chest x-ray by my review as discussed above. EKG by my review showed sinus rhythm with PVCs, left axis deviation. IMPRESSION: 1. Acute on chronic hypoxic respiratory failure secondary to acute on chronic systolic/diastolic heart failure exacerbation. ACC stage C. 2. Coronary artery disease, status post recent coronary artery bypass graft. 3. Chronic kidney disease stage 3 with recent acute kidney injury, requiring hemodialysis. 4. Paroxysmal atrial fibrillation, on anticoagulation. 5. Recent left lower extremity DVT, on anticoagulation. 6. Hypertension. 7. Recent CVA with subarachnoid hemorrhage. 8. Physical deconditioning. PLAN: The patient will be monitored in the IMCU. We will continue noninvasive positive pressure ventilation. Due to recent acute kidney injury, we will start him on Lasix drip. We will give him some albumin. Consult Cardiology and Pulmonology. Monitor electrolytes closely. Monitor INR on a daily basis. N.p.o. for now. Speech therapy evaluation due to possible aspiration at the rehabilitation. Plan of care was discussed with the patient and surrogate decision maker spouse at the bedside. The patient will be kept FULL code for now. [facility]
[2018-08-23 13:51] LABS: Magnesium 1.6 mg/dL (1.6-2.6); Phosphorus 3.7 mg/dL (2.3-4.7)
[2018-08-23] MEDS ORDERED: Nitroglycerin 2% Ointment 1 INCH/1 GM Packet TOP SCH (14:00)
[2018-08-23] MEDS: Albumin 25% 25 GM/100 ML BOT IVPB SCH ×2 (14:35→21:09)
[2018-08-23] MEDS ORDERED: Magnesium Sulfate 3 GM in Sodium Chloride 0.9% 100 ML IVPB SCH (15:15)
[2018-08-23 16:20] LABS: Troponin I 0.024 ng/mL (< 0.028)
[2018-08-23] MEDS ORDERED: Warfarin Sodium 2.5 MG TAB PO SCH (17:00)
--- NOTE | 2018-08-23 17:47 | CON ---
DATE OF CONSULTATION: 08/23/2018 REASON FOR CONSULTATION: Shortness of breath. HISTORY OF PRESENT ILLNESS: Mr. Lin is a 77-year-old gentleman, who is a patient of Dr. Keith johns. He has a prolonged hospital course with recent bypass surgery complicated by aortic dissectio n. He also has a trach. He has been to multiple LTACs and hospitalizations since April. His gives a history of having increased shortness of breath this morning. He had decreased satu rations. He then recommended he proceed to the emergency room. Currently, he appears stable. He has had significant diuresis after Lasix. His last LVEF estimated 40%-45%. PAST MEDICAL HISTORY: As described above including CVA, DVT, hypertension, previous kidney injury no w has improved, vocal cord paralysis preventing removal of trach, dysphagia, prostatectomy. HOME MEDICATIONS: Include amiodarone, potassium, Lipitor, multivitamin, Zoloft, Coumadin, MiraLax an d Lasix. SOCIAL HISTORY: Previously drank socially. No current tobacco use. REVIEW OF SYSTEMS: Ten-point review of systems as reviewed as above, otherwise negative. PHYSICAL EXAMINATION: VITAL SIGNS: Blood pressure 121/74, pulse 72, temperature 98.6. GENERAL: Patient has a trach in place. VITAL SIGNS: Blood pressure 121/74, pulse 72, temperature 98.6. NEUROLOGIC: The patient is alert and oriented times 3 with no focal neurologic deficits. HEENT: Sclerae without icterus. Mouth has moist mucous membranes with normal pallor. NECK: No JVD. Carotid upstroke brisk. No bruits bilaterally. LUNGS: Clear to auscultation with unlabored respirations. BACK: No scoliosis or kyphosis. CARDIAC: Regular rate and rhythm with normal S1 and S2. No S3 or S4 noted. No significant rubs, murmurs, thrills, or gallops noted throughout the precordium. PMI is not displaced. There is no parasternal heave. ABDOMEN: Soft, nontender, nondistended. No peritoneal signs present. No hepatosplenomegaly. No abnormal striae. EXTREMITIES: 2+ femoral and 2+ dorsalis pedis pulses. No cyanosis, clubbing, or edema. SKIN: No gross abnormalities. PERTINENT LABORATORY DATA: Hemoglobin 10.7, BNP of 2103, troponin 0.031. IMPRESSION: 1. Shortness of breath. 2. Hypoxia. 3. Status post trach. 4. Status post bypass surgery complicated by aortic dissection. RECOMMENDATIONS: Mr. Lin has had a very prolonged hospital course over the last several months. C urrent etiology to his current situation is unknown. This may have been due to combined diastolic an d systolic dysfunction. He has responded well to Lasix. He feels much better with normal oxygenatio n. I would recommend repeating his echo. Continue Lasix with close monitoring of his creatinine.
--- NOTE | 2018-08-23 19:55 | ULT ---
BILATERAL LOWER EXTREMITY VENOUS DOPPLER ULTRASOUND: 08/23/18 HISTORY: DVT. TECHNIQUE: Virgen scale, color flow and spectral doppler imaging of the deep venous system of the lower extremity is performed bilaterally. FINDINGS: There is absence of compressibility and decreased flow due to a nonocclusive thrombus in the right co mmon femoral vein extending into a small segment of the femoral vein. The remainder of the deep venou s system of the right lower extremity is otherwise patent. There is absence of compression and flow due to occlusive thrombus in the left lower extremity invol ving the femoral and popliteal veins. A 3.3 cm cyst is seen in the left groin. IMPRESSION: Bilateral lower extremity deep venous thrombosis. The patient's nurse, Giselle was notified of the results at the time of the exam by the home staging specialist. POS: [facility]
--- NOTE | 2018-08-23 20:22 | CON ---
DATE OF CONSULTATION: 08/23/2018 HISTORY OF PRESENT ILLNESS: Mr. Lin is a gentleman that I know quite well from recent admission. He came in with chest pain, underwent coronary bypass grafting and unfortunately had aortic dissectio n after surgery. He had a long complicated course in the critical care unit. His tells me that he had a downturn in his functional status while he was at [facility] in [place] and she is very displeased with the care he got there. They were making no progress weaning him from mechanical ventilation and then he had something that r equired admission to [facility]. It sounds like he was weaned from mechanical ventilation wit hin 2 days. He has been found to have a left true vocal cord paralysis. The cause of this is unclear. He presented today with shortness of breath. He was placed on BiPAP. He still has a cuffed tracheostomy tube in place. He was admitted to the Intermediate Care Unit. PAST MEDICAL HISTORY: 1. Remarkable for coronary bypass grafting. 2. History of cerebrovascular accident. 3. History of DVT. 4. History of hypertension. 5. History of dialysis. He still has a tunnel catheter in. 6. His tells me he had a deep venous thrombosis. It is unclear what vein it was in. He is ant icoagulated. 7. History of atrial fibrillation. 8. History of PEG tube placement. 9. History of prostatectomy. MEDICATIONS: He is on amiodarone, potassium, Lipitor, Zoloft, warfarin. His INR is therapeutic. REVIEW OF SYSTEMS: Otherwise negative. He is actually in no distress on BiPAP. We took BiPAP off inflated his cuff on his tracheostomy tube and tried volume ventilating, but the orifices around his #4 tracheostomy tube was quite large. We deflated the cuff on a #4 tube and put in a fenestrated #6 without a cuff and actually he was quit e comfortable. PHYSICAL EXAMINATION: VITAL SIGNS: He is afebrile, heart rate 72, respiratory rate 13, oximetry is in the mid 90s on a tra ch collar now. His blood pressure currently is in the 120s. GENERAL: He actually can a whisper with his tracheostomy. LUNGS: Clear anteriorly, posterolaterally. He has crackles in both lung bases. HEART: Regular rhythm. ABDOMEN: Soft and nontender. EXTREMITIES: Without clubbing, cyanosis, or edema. LABORATORY DATA: White count 9.1, hemoglobin 10.7, platelets 381. BNP was 2103. It is 840 this morning. Sodium was 141, potassium 4.6, chloride 102, bicarbonate 29, BUN 26, creatinine 1.21. Chest radiograph shows pulmonary edema bilaterally. IMPRESSION: Congestive heart failure. He was given an additional 40 mg IV Lasix when he arrived in the Intermediate Care Unit. He is now o n a trach collar and looks comfortable. His wants a DO NOT RESUSCITATE status, but also wants e verything to be done within reason. I still think he has a reasonable chance of surviving all of thi s if we just get him through the rehabilitation phase. We will repeat an echocardiogram. We will al so go ahead and Doppler his legs to see if he has any proximal clot. It would be nice to get his dialysis catheter out of him while he is here. We can bridge him with Lovenox to do this while he is here. He appears to have stabilized nicely once we got him off BiPAP and change his tracheostomy tube. We will continue with management in the intermediate care unit. I see no reason to move him to the [facility] Care Unit. I have discussed the above with Dr. Ambrose. This is a 70-minute consult, 50% of the time was spent coordinating care.
[2018-08-23] MEDS: Senokot S 8.6-50 MG TAB PO SCH (21:07)
[2018-08-23] MEDS ORDERED: ALPRAZolam 0.5 MG TAB PO SCH (22:45)
[2018-08-24] MEDS: Furosemide 100 MG in Sodium Chloride 0.9% 90 ML IVPB SCH (03:18)
[2018-08-24 04:15] LABS: #Eosinphils 0.2 thou/uL (0.0-0.7); #Lymphocytes 1.4 thou/uL (1.20-3.40); #Monocytes 0.6 thou/uL (0.11-0.59); #Neutrophils 2.7 thou/uL (1.40-6.50); %Basophils 0.4 % (0.0-1.0); %Eosinophils 4.8 % (0.0-10.0); %Lymphocytes 27.7 % (21.0-51.0); %Monocytes 11.4 % (0.0-10.0); %Neutrophils 55.7 % (42.0-75.0); Hemoglobin 8.1 g/dL (14.0-18.0); Mean Corpuscular HGB CONC 28.5 g/dL (32.0-36.0); Mean Corpuscular Hemoglobin 26.4 pg (27.0-31.0); Mean Corpuscular Volume 92.6 fL (78.0-98.0); Mean Platelet Volume 7.8 fL (7.4-10.4); Platelet Count 227 thou/uL (130-400); RBC Distribution Width 18.7 % (11.5-14.5); Red Blood Cell (RBC) Count 3.08 mill/uL (4.70-6.10); White Blood Cell (WBC) Count 4.9 thou/uL (4.8-10.8)
[2018-08-24 04:16] LABS: Prothrombin Time 38.6 SEC (12.0-14.7)
[2018-08-24 04:33] LABS: BUN (Urea Nitrogen) 27 mg/dL (8.4-25.7); Calc. Creatinine Clearance 61 mL/min (70-130); Calcium 9.1 mg/dL (7.8-10.44); Estimated GFR-MDRD 63; Glucose 111 mg/dL (83-110); Phosphorus 3.1 mg/dL (2.3-4.7)
[2018-08-24] MEDS: Albumin 25% 25 GM/100 ML BOT IVPB SCH (04:40)
[2018-08-24 04:44] LABS: Anion Gap 14 mmol/L (10-20); Carbon Dioxide 34 mmol/L (23-31); Chloride 100 mmol/L (98-107); Magnesium 2.3 mg/dL (1.6-2.6); Potassium 3.9 mmol/L (3.5-5.1); Sodium 144 mmol/L (136-145)
--- NOTE | 2018-08-24 08:05 | PDOC.CTH ---
Cardiology Progress Note - Subjective Doing better today. Less SOB noted. - Objective Vital Signs Temp Pulse Resp BP Pulse Ox 08/24/18 07:35 97.8 F 74 18 124/61 98 08/24/18 04:00 98.2 F 69 15 119/56 L 100 08/24/18 00:00 98.4 F 77 15 125/72 96 Admit Weight 169 lb 12.095 oz Weight 142 lb 08/23/18 08/24/18 08/25/18 06:59 06:59 05:59 Intake Total 665.4 Output Total 3025 Balance -2359.6 - Physical Examination General/Neuro: alert & oriented x3, NAD Neck: no JVD present Lungs: CTA, unlabored respirations Heart: RRR Abdomen: NT/ND, soft Extremities: + femoral B - Labs Result Diagrams: 08/24/18 03:54 08/24/18 03:54 Troponin/CKMB CK-MB (CK-2) 5.7 ng/mL (0-6.6) 08/23/18 08:40 Troponin I 0.024 ng/mL (< 0.028) 08/23/18 15:49 - Assessment/Plan 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 If recurrent anemia (symptomatic) consider IVC filter
[2018-08-24] MEDS ORDERED: Metoclopramide HCl 10 MG/2 ML VIAL IVP PRN (08:33)
[2018-08-24] MEDS ORDERED: hydrALAZINE 20 MG/ML VIAL SLOW IVP PRN (08:33)
[2018-08-24] MEDS ORDERED: Artificial Tears 18 DROP/0.9 ML EA EYE PRN (08:33)
[2018-08-24] MEDS ORDERED: Sodium Chloride 0.65% Nasal 44 ML BOT EA NARE PRN (08:33)
[2018-08-24] MEDS ORDERED: Acetaminophen 500 MG TAB PO PRN (08:33)
[2018-08-24] MEDS ORDERED: Loperamide HCl 2 MG CAP PO PRN (08:33)
[2018-08-24] MEDS ORDERED: Bisacodyl 10 MG SUPP PR PRN (08:33)
[2018-08-24] MEDS ORDERED: Diabetic Tussin 200 MG/10 ML UDCUP PO PRN (08:33)
[2018-08-24] MEDS ORDERED: Eucerin (Mineral Oil/Petrolatum,White) 30 gm Jar TOP PRN (08:33)
[2018-08-24] MEDS ORDERED: Cepastat Lozenges 1 LOZ PO PRN (08:33)
[2018-08-24] MEDS ORDERED: Nystatin Powder 15 GM BOT TOP PRN (08:34)
[2018-08-24] MEDS ORDERED: Aspirin 81 mg Enteric Coated Tablet PO SCH (09:00)
[2018-08-24] MEDS ORDERED: Furosemide 20 MG TAB PO SCH (09:00)
[2018-08-24] MEDS ORDERED: Non-Formulary Item 1 EACH (Sertraline Hcl [Zoloft] 50 MG) PO SCH (09:00)
[2018-08-24] MEDS: Potassium Chloride 10 MEQ TAB PO SCH (09:37)
[2018-08-24] MEDS: Senokot S 8.6-50 MG TAB PO SCH ×2 (09:38→20:11)
[2018-08-24] MEDS: Amiodarone 200 MG TAB PO SCH (09:38)
[2018-08-24] MEDS: Docusate 100 MG CAP PO SCH ×2 (09:38→20:10)
--- NOTE | 2018-08-24 11:29 | PDOC.PN ---
- Subjective Encounter Start Date: 08/24/18 Encounter Start Time: 09:00 -: old records requested/rev pt has dyspnea, appears very weak, no fever Patient seen and examined. No overnight events - Objective Resuscitation Status: Resuscitation Status DNR:Do Not Resuscitate MAR Reviewed: Yes Vital Signs & Weight: Vital Signs (12 hours) Temp Pulse Pulse Pulse Pulse Pulse Resp 08/24/18 11:06 98.1 F 75 19 08/24/18 09:42 72 74 90 67 08/24/18 08:03 08/24/18 07:35 97.8 F 74 18 08/24/18 04:00 98.2 F 69 15 08/24/18 00:00 98.4 F 77 15 BP BP BP BP BP Pulse Ox Pulse Ox 08/24/18 11:06 138/66 100 08/24/18 09:42 125/61 128/61 124/64 138/66 100 08/24/18 08:03 100 08/24/18 07:35 124/61 98 08/24/18 04:00 119/56 L 100 08/24/18 00:00 125/72 96 Pulse Ox Pulse Ox 08/24/18 11:06 08/24/18 09:42 100 100 08/24/18 08:03 08/24/18 07:35 08/24/18 04:00 08/24/18 00:00 Weight Admit Weight 169 lb 12.095 oz Weight 142 lb I&O: 08/23/18 08/24/18 08/25/18 06:59 06:59 05:59 Intake Total 665.4 80 Output Total 3025 Balance -2359.6 80 Result Diagrams: 08/24/18 03:54 08/24/18 03:54 Additional Labs: Accuchecks 08/24/18 08/24/18 08/24/18 10:47 06:05 00:12 POC Glucose 108 106 94 EKG Reviewed by me: Yes (nsr) Phys Exam - Physical Examination Constitutional: NAD HEENT: PERRLA, moist MMs, sclera anicteric Neck: no JVD, supple tracheostomy+ Respiratory: no wheezing, no rhonchi reduced air entry at base Cardiovascular: RRR, no significant murmur, no rub Gastrointestinal: soft, non-tender, no distention, positive bowel sounds PEG+ left leg edema more than right Neurological: moves all 4 limbs Lymphatic: no nodes Psychiatric: normal affect Skin: no rash, normal turgor Dx/Plan (1) Acute on chronic combined systolic and diastolic ACC/AHA stage C congestive heart failure Code(s): I50.43 - ACUTE ON CHRONIC COMBINED SYSTOLIC AND DIASTOLIC HRT FAIL Status: Acute (2) Acute on chronic respiratory failure with hypoxia Code(s): J96.21 - ACUTE AND CHRONIC RESPIRATORY FAILURE WITH HYPOXIA Status: Acute (3) DVT, bilateral lower limbs Code(s): I82.403 - ACUTE EMBOLISM AND THOMBOS UNSP DEEP VEINS OF LOW EXTRM, BI Status: Acute (4) PAF (paroxysmal atrial fibrillation) Code(s): I48.0 - PAROXYSMAL ATRIAL FIBRILLATION Status: Chronic (5) CAD (coronary artery disease) Code(s): I25.10 - ATHSCL HEART DISEASE OF [place] CORONARY ARTERY W/O ANG PCTRS Status: Chronic Comment: (6) Chronic anticoagulation Code(s): Z79.01 - CUSTODIAL (CURRENT) USE OF ANTICOAGULANTS Status: Chronic (7) H/O deep venous thrombosis Code(s): Z86.718 - PERSONAL HISTORY OF OTHER VENOUS THROMBOSIS AND EMBOLISM Status: Chronic (8) H/O subarachnoid hemorrhage Code(s): Z86.79 - PERSONAL HISTORY OF OTHER DISEASES OF THE CIRCULATORY SYSTEM Status: Chronic (9) H/O subdural hemorrhage Code(s): Z86.79 - PERSONAL HISTORY OF OTHER DISEASES OF THE CIRCULATORY SYSTEM Status: Chronic (10) HTN (hypertension) Code(s): I10 - ESSENTIAL (PRIMARY) HYPERTENSION Status: Chronic (11) Vocal cord paralysis Code(s): J38.00 - PARALYSIS OF VOCAL CORDS AND LARYNX, UNSPECIFIED Status: Chronic - Plan cont current plan of care * continue lasix drip as ordered * medication reviewed as below * symptomatic treatment * home medication reconciled * will need PT * warfarin to keep INR 2-3, pharmacy managing, today has high INR * echo ordered * DNR confirmed with pt * supportive care * continue trach and peg care. Review of Systems - Review of Systems Constitutional: weakness, malaise. negative: fever, chills, sweats, other Respiratory: Shortness of Breath, SOB with Excertion. negative: Cough, Dry, Hemoptysis, Pleuritic Pain, Sputum, Wheezing Cardiovascular: negative: chest pain, palpitations, orthopnea, paroxysmal nocturnal dyspnea, edema, light headedness, other Gastrointestinal: negative: Nausea, Vomiting, Abdominal Pain, Diarrhea, Constipation, Melena, Hematochezia, Other Genitourinary: negative: Dysuria, Frequency, Incontinence, Hematuria, Retention , Other Musculoskeletal: negative: Neck Pain, Shoulder Pain, Arm Pain, Back Pain, Hand Pain, Leg Pain, Foot Pain, Other - Medications/Allergies Allergies/Adverse Reactions: Allergies Allergy/AdvReac Type Severity Reaction Status Date / Time vancomycin AdvReac Mild Verified 08/23/18 13:48 Medications: Current Medications Acetaminophen (Tylenol) 650 mg WI Q4H PRN PRN Reason: Headache/Fever/Mild Pain (1-3) Acetaminophen (Tylenol) 500 mg PO Q6H PRN PRN Reason: Mild Pain (1-3) Alprazolam (Xanax) 0.5 mg PO HS [facility] Amiodarone HCl (Cordarone) 200 mg PO DAILY [facility] Last Admin: 08/24/18 09:38 Dose: 200 mg Artificial Tears (Tears Naturale) 2 drop EA EYE PRN PRN PRN Reason: Dry Eyes Aspirin (Aspirin Chewable) 81 mg PO DAILY [facility] Atorvastatin Calcium (Lipitor) 20 mg PO HS [facility] Bisacodyl (Dulcolax) 10 mg WI DAILYPRN PRN PRN Reason: Constipation Carvedilol (Coreg) 3.125 mg PO BID-[facility] Docusate Sodium (Colace) 100 mg PO BID [facility] Last Admin: 08/24/18 09:38 Dose: 100 mg Furosemide (Lasix) 20 mg PO BID [facility] Last Admin: 08/24/18 09:37 Dose: 20 mg Guaifenesin (Robitussin Sf) 200 mg PO Q4H PRN PRN Reason: Cough Hydralazine HCl (Apresoline) 10 mg SLOW IVP Q4H PRN PRN Reason: SBP > 180 and HR < 70 Furosemide 100 mg/ Sodium (Chloride) 100 mls @ 4 mls/hr IVPB INF [facility] Last Admin: 08/24/18 03:18 Dose: 100 mls Loperamide HCl (Imodium) 2 mg PO PRN PRN PRN Reason: Diarrhea/Loose Stools Metoclopramide HCl (Reglan) 5 mg IVP Q4H PRN PRN Reason: Nausea Mineral Oil/White Petrolatum (Eucerin Cream) 0 gm TOP BIDPRN PRN PRN Reason: Dry Skin Miscellaneous Medication (Pharmacy To Dose) 1 each PO DAILYPRN PRN PRN Reason: LABS Nitroglycerin (Nitrostat) 0.4 mg PO Q5MIN PRN PRN Reason: Chest Pain Nystatin (Mycostatin Powder) 1 gm TOP BID PRN PRN Reason: Topical Irritations Potassium Chloride (Klor-Con 10) 10 meq PO DAILY [facility] Last Admin: 08/24/18 09:37 Dose: 10 meq Senna/Docusate Sodium (Senokot S) 1 tab PO BID [facility] Last Admin: 08/24/18 09:38 Dose: 1 tab Sertraline HCl (Zoloft) 50 mg PO DAILY [facility] Last Admin: 08/24/18 09:37 Dose: 50 mg Sodium Chloride (Flush - Normal Saline) 10 ml IVF PRN PRN PRN Reason: Saline Flush Last Admin: 08/24/18 10:08 Dose: 10 ml Sodium Chloride ([place] Nasal [place] 0.65%) 0 ml EA NARE QIDPRN PRN PRN Reason: Nasal Congestion Throat Lozenges (Cepastat Lozenges) 1 esmer PO Q2H PRN PRN Reason: Sore Throat
--- NOTE | 2018-08-24 11:59 | RAD ---
PORTABLE CHEST: HISTORY: Congestive heart failure. COMPARISON: Prior day's study. FINDINGS: Tracheostomy tube is in satisfactory position. Heart size is enlarged with postop sternotomy change. Right-sided HemoSplit catheter is unchanged. Pleural and parenchymal lung changes are stable. IMPRESSION: Stable exam. POS: BAR
--- NOTE | 2018-08-24 17:10 | PRG ---
DATE OF SERVICE: 08/24/2018 OBJECTIVE: VITALS: Edvin Lin is afebrile. Heart rate 75, respiratory rate 19, he is in no distress. He is 100% on trach collar. LUNGS: Clear. HEART: Regular rhythm. ABDOMEN: Soft. LABORATORY DATA: White count 4.9, hemoglobin 8.1, platelets 227. Sodium 144, potassium 3.9, chloride 100, bicarbonate 34, BUN 27, creatinine 1.14. Intake and output was negative 2359. Chest radiograph today reviewed by me shows continued bilateral infiltrative changes. IMPRESSION: 1. Congestive heart failure, clinically improved. 2. Transient respiratory failure requiring ventilation. 3. Status post tracheostomy, I changed him from a cuffed #4 to a cuffless 6 fenestrated tracheostomy yesterday without difficulty. 4. Bilateral lower extremity deep vein thrombi. 5. .S/P PEG 6. History of hemorrhagic cerebrovascular accident. 7. History of an aortic dissection. 8. History of coronary artery bypass grafting. I will probably let his protime and INR drift down and then remove his dialysis catheter when he gets close to being subtherapeutic. He then could be switched to Eliquis ideally in my opinion. MTDD
[2018-08-24] MEDS: Carvedilol 3.125 MG TAB PO SCH (17:48)
[2018-08-24] MEDS: Atorvastatin Calcium 20 MG TAB PO SCH (20:10)
[2018-08-24] MEDS: ALPRAZolam 0.5 MG TAB PO SCH (20:10)
[2018-08-25] MEDS: Furosemide 100 MG in Sodium Chloride 0.9% 90 ML IVPB SCH (03:26)
[2018-08-25 03:54] LABS: #Eosinphils 0.3 thou/uL (0.0-0.7); #Lymphocytes 1.5 thou/uL (1.20-3.40); #Monocytes 0.6 thou/uL (0.11-0.59); #Neutrophils 2.6 thou/uL (1.40-6.50); %Basophils 0.7 % (0.0-1.0); %Eosinophils 6.6 % (0.0-10.0); %Monocytes 11.6 % (0.0-10.0); %Neutrophils 51.1 % (42.0-75.0); Hemoglobin 9.5 g/dL (14.0-18.0); Mean Corpuscular HGB CONC 29.5 g/dL (32.0-36.0); Mean Corpuscular Hemoglobin 27.2 pg (27.0-31.0); Mean Corpuscular Volume 92.1 fL (78.0-98.0); Mean Platelet Volume 8.1 fL (7.4-10.4); Platelet Count 258 thou/uL (130-400); Red Blood Cell (RBC) Count 3.51 mill/uL (4.70-6.10); White Blood Cell (WBC) Count 5.1 thou/uL (4.8-10.8)
[2018-08-25 04:02] LABS: INR-International Normal Ratio 3.5; Prothrombin Time 34.9 SEC (12.0-14.7)
[2018-08-25 04:11] LABS: Anion Gap 12 mmol/L (10-20); BUN (Urea Nitrogen) 27 mg/dL (8.4-25.7); Calc. Creatinine Clearance 47 mL/min (70-130); Calcium 9.1 mg/dL (7.8-10.44); Carbon Dioxide 35 mmol/L (23-31); Chloride 98 mmol/L (98-107); Estimated GFR-MDRD 57; Glucose 107 mg/dL (83-110); Sodium 141 mmol/L (136-145)
[2018-08-25] MEDS: Carvedilol 3.125 MG TAB PO SCH ×2 (08:47→16:52)
[2018-08-25] MEDS: Amiodarone 200 MG TAB PO SCH (08:47)
[2018-08-25] MEDS: Potassium Chloride 10 MEQ TAB PO SCH (08:47)
[2018-08-25] MEDS: Senokot S 8.6-50 MG TAB PO SCH ×2 (08:47→20:19)
[2018-08-25] MEDS: Docusate 100 MG CAP PO SCH ×2 (08:47→20:19)
--- NOTE | 2018-08-25 10:14 | PDOC.CTH ---
Cardiology Progress Note - Subjective Pt more awake today. No complaints. INR 3.5 - Objective Vital Signs Temp Pulse Resp BP Pulse Ox 08/25/18 07:47 99 08/25/18 07:34 97.9 F 80 12 136/77 99 08/25/18 03:28 97.7 F 84 18 130/71 94 L 08/24/18 23:52 98.3 F 76 20 128/62 99 Admit Weight 169 lb 12.095 oz Weight 134 lb 14.4 oz 08/24/18 08/25/18 08/26/18 07:59 06:59 06:59 Intake Total Output Total Balance - Physical Examination General/Neuro: alert & oriented x3, NAD Neck: carotid US brisk, no JVD present Lungs: unlabored respirations Heart: RRR Abdomen: NT/ND, soft Extremities: + femoral B - Labs Result Diagrams: 08/25/18 03:40 08/25/18 03:40 Troponin/CKMB CK-MB (CK-2) 5.7 ng/mL (0-6.6) 08/23/18 08:40 Troponin I 0.024 ng/mL (< 0.028) 08/23/18 15:49 - Assessment/Plan 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
--- NOTE | 2018-08-25 10:22 | RAD ---
PORTABLE CHEST 1 VIEW: DATE: 08/25/2018. TIME: 4:51 a.m. HISTORY: CHF. FINDINGS/IMPRESSION: No significant interval change is seen since the previous day's exam. POS: BAR
--- NOTE | 2018-08-25 10:42 | PDOC.PN ---
- Subjective Encounter Start Date: 08/25/18 Encounter Start Time: 09:15 Patient seen and examined. No new complaints. No overnight events - Objective Resuscitation Status: Resuscitation Status DNR:Do Not Resuscitate MAR Reviewed: Yes Vital Signs & Weight: Vital Signs (12 hours) Temp Pulse Resp BP Pulse Ox 08/25/18 07:47 99 08/25/18 07:34 97.9 F 80 12 136/77 99 08/25/18 03:28 97.7 F 84 18 130/71 94 L 08/24/18 23:52 98.3 F 76 20 128/62 99 Weight Admit Weight 169 lb 12.095 oz Weight 134 lb 14.4 oz I&O: 08/24/18 08/25/18 08/26/18 07:59 06:59 06:59 Intake Total Output Total Balance Result Diagrams: 08/25/18 03:40 08/25/18 03:40 Additional Labs: Accuchecks 08/25/18 08/24/18 08/24/18 05:30 23:39 16:40 POC Glucose 114 H 122 H 110 Radiology Reviewed by me: Yes (echo and chest xray reviewed) EKG Reviewed by me: Yes (nsr) Phys Exam - Physical Examination Constitutional: NAD HEENT: PERRLA, moist MMs, sclera anicteric tracheostomy+ Neck: no JVD, supple Respiratory: no wheezing, no rales, no rhonchi reduced air entry Cardiovascular: RRR, no rub SM+ Gastrointestinal: soft, non-tender, no distention, positive bowel sounds PEG+ Musculoskeletal: pulses present left more than right Neurological: non-focal, normal sensation Lymphatic: no nodes Psychiatric: normal affect Skin: no rash, normal turgor Dx/Plan (1) Acute on chronic combined systolic and diastolic ACC/AHA stage C congestive heart failure Code(s): I50.43 - ACUTE ON CHRONIC COMBINED SYSTOLIC AND DIASTOLIC HRT FAIL Status: Acute (2) Acute on chronic respiratory failure with hypoxia Code(s): J96.21 - ACUTE AND CHRONIC RESPIRATORY FAILURE WITH HYPOXIA Status: Acute (3) DVT, bilateral lower limbs Code(s): I82.403 - ACUTE EMBOLISM AND THOMBOS UNSP DEEP VEINS OF LOW EXTRM, BI Status: Acute (4) PAF (paroxysmal atrial fibrillation) Code(s): I48.0 - PAROXYSMAL ATRIAL FIBRILLATION Status: Chronic (5) CAD (coronary artery disease) Code(s): I25.10 - ATHSCL HEART DISEASE OF [place] CORONARY ARTERY W/O ANG PCTRS Status: Chronic Comment: (6) Chronic anticoagulation Code(s): Z79.01 - DIGITAL DIRECTOR (CURRENT) USE OF ANTICOAGULANTS Status: Chronic (7) H/O deep venous thrombosis Code(s): Z86.718 - PERSONAL HISTORY OF OTHER VENOUS THROMBOSIS AND EMBOLISM Status: Chronic (8) H/O subarachnoid hemorrhage Code(s): Z86.79 - PERSONAL HISTORY OF OTHER DISEASES OF THE CIRCULATORY SYSTEM Status: Chronic (9) H/O subdural hemorrhage Code(s): Z86.79 - PERSONAL HISTORY OF OTHER DISEASES OF THE CIRCULATORY SYSTEM Status: Chronic (10) HTN (hypertension) Code(s): I10 - ESSENTIAL (PRIMARY) HYPERTENSION Status: Chronic (11) Vocal cord paralysis Code(s): J38.00 - PARALYSIS OF VOCAL CORDS AND LARYNX, UNSPECIFIED Status: Chronic - Plan cont current plan of care * medication reviewed as below * symptomatic treatment * continue lasix * as per speech therapy, will start modified diet. * DC Tube feeding * will need rehab on discharge Review of Systems - Review of Systems ENT: negative: Ear Pain, Ear Discharge, Nose Pain, Nose Discharge, Nose Congestion, Mouth Pain, Mouth Swelling, Throat Pain, Throat Swelling, Other Respiratory: negative: Cough, Dry, Shortness of Breath, Hemoptysis, SOB with Excertion, Pleuritic Pain, Sputum, Wheezing Cardiovascular: negative: chest pain, palpitations, orthopnea, paroxysmal nocturnal dyspnea, edema, light headedness, other Gastrointestinal: negative: Nausea, Vomiting, Abdominal Pain, Diarrhea, Constipation, Melena, Hematochezia, Other Genitourinary: negative: Dysuria, Frequency, Incontinence, Hematuria, Retention , Other Musculoskeletal: negative: Neck Pain, Shoulder Pain, Arm Pain, Back Pain, Hand Pain, Leg Pain, Foot Pain, Other Skin: negative: Rash, Lesions, [place], Bruising, Other - Medications/Allergies Allergies/Adverse Reactions: Allergies Allergy/AdvReac Type Severity Reaction Status Date / Time vancomycin AdvReac Mild Verified 08/23/18 13:48 Medications: Current Medications Acetaminophen (Tylenol) 650 mg IN Q4H PRN PRN Reason: Headache/Fever/Mild Pain (1-3) Acetaminophen (Tylenol) 500 mg PO Q6H PRN PRN Reason: Mild Pain (1-3) Alprazolam (Xanax) 0.5 mg PO [facility] Last Admin: 08/24/18 20:10 Dose: 0.5 mg Amiodarone HCl (Cordarone) 200 mg PO DAILY [facility] Last Admin: 08/25/18 08:47 Dose: 200 mg Artificial Tears (Tears Naturale) 2 drop EA EYE PRN PRN PRN Reason: Dry Eyes Aspirin (Aspirin Chewable) 81 mg PO DAILY [facility] Last Admin: 08/25/18 08:47 Dose: 81 mg Atorvastatin Calcium (Lipitor) 20 mg PO HS [facility] Last Admin: 08/24/18 20:10 Dose: 20 mg Bisacodyl (Dulcolax) 10 mg IN DAILYPRN PRN PRN Reason: Constipation Carvedilol (Coreg) 3.125 mg PO BID-[facility] Last Admin: 08/25/18 08:47 Dose: 3.125 mg Docusate Sodium (Colace) 100 mg PO BID [facility] Last Admin: 08/25/18 08:47 Dose: 100 mg Guaifenesin (Robitussin Sf) 200 mg PO Q4H PRN PRN Reason: Cough Hydralazine HCl (Apresoline) 10 mg SLOW IVP Q4H PRN PRN Reason: SBP > 180 and HR < 70 Furosemide 100 mg/ Sodium (Chloride) 100 mls @ 4 mls/hr IVPB INF [facility] Last Admin: 08/25/18 03:26 Dose: 100 mls Loperamide HCl (Imodium) 2 mg PO PRN PRN PRN Reason: Diarrhea/Loose Stools Metoclopramide HCl (Reglan) 5 mg IVP Q4H PRN PRN Reason: Nausea Mineral Oil/White Petrolatum (Eucerin Cream) 0 gm TOP BIDPRN PRN PRN Reason: Dry Skin Miscellaneous Medication (Pharmacy To Dose) 1 each PO DAILYPRN PRN PRN Reason: LABS Nitroglycerin (Nitrostat) 0.4 mg PO Q5MIN PRN PRN Reason: Chest Pain Nystatin (Mycostatin Powder) 1 gm TOP BID PRN PRN Reason: Topical Irritations Potassium Chloride (Klor-Con 10) 10 meq PO DAILY [facility] Last Admin: 08/25/18 08:47 Dose: 10 meq Senna/Docusate Sodium (Senokot S) 1 tab PO BID [facility] Last Admin: 08/25/18 08:47 Dose: Not Given Sertraline HCl (Zoloft) 50 mg PO DAILY [facility] Last Admin: 08/25/18 08:47 Dose: 50 mg Sodium Chloride (Flush - Normal Saline) 10 ml IVF PRN PRN PRN Reason: Saline Flush Last Admin: 08/25/18 08:48 Dose: 10 ml Sodium Chloride ([place] Nasal [place] 0.65%) 0 ml EA NARE QIDPRN PRN PRN Reason: Nasal Congestion Throat Lozenges (Cepastat Lozenges) 1 esmer PO Q2H PRN PRN Reason: Sore Throat
--- NOTE | 2018-08-25 17:36 | PRG ---
DATE OF SERVICE: 08/25/2018 SUBJECTIVE: Mr. Lin looks 100% better today. OBJECTIVE: VITAL SIGNS: He is afebrile, heart rate 61, respiratory rate 27. Oximetry is 98. Recommended we pl shiv a cap on his trach, put a cannula on him and let him go sit outside. Blood pressure 122/63. He is having no rhythm disturbances. LUNGS: Clear. HEART: Regular rhythm. ABDOMEN: Soft. LABORATORY DATA: White count 5.1, hemoglobin 9.5, platelets 258. Sodium 141, potassium 4, chloride 98, bicarbonate 35, BUN 27, creatinine 1.23. Intake and output was negative 319. Chest radiograph shows infiltrates bilaterally. IMPRESSION: 1. Pulmonary edema. Given his dramatic clinical improvement with diuresis, I still believe the jessica rity of his infiltrates are edema related. 2. History of an aortic dissection with bypass surgery. 3. History of a depressed left ventricular ejection fraction. Echocardiogram shows an ejection frac tion of 35-40 this admission with moderate mitral regurgitation, moderate aortic insufficiency. 4. Bilateral lower extremity deep venous thromboses. He came in with a single lower extremity DVT b y report, but they only ultrasounded one lower extremity at the last hospital he was at because he on ly had one swollen leg. I suspect he had bilateral DVTs at that time. His INRs have gone from 4 to 3.5. We will continue to let this drift down. When he gets close the subtherapeutic, we probably sh ould consider removal of his dialysis catheter. His renal function is tolerating a negative fluid balance well at this point. We probably do not need to be doing Accu-Cheks on him every 4 hours. We will continue to follow up. Answered all of his 's questions.
[2018-08-25] MEDS: Atorvastatin Calcium 20 MG TAB PO SCH (20:19)
[2018-08-25] MEDS: ALPRAZolam 0.5 MG TAB PO SCH (20:20)
[2018-08-26 04:04] LABS: #Eosinphils 0.4 thou/uL (0.0-0.7); #Lymphocytes 1.7 thou/uL (1.20-3.40); #Monocytes 0.7 thou/uL (0.11-0.59); #Neutrophils 2.2 thou/uL (1.40-6.50); %Basophils 0.8 % (0.0-1.0); %Eosinophils 8.4 % (0.0-10.0); %Lymphocytes 34.2 % (21.0-51.0); %Monocytes 13.5 % (0.0-10.0); %Neutrophils 43.2 % (42.0-75.0); Hemoglobin 9.6 g/dL (14.0-18.0); Mean Corpuscular HGB CONC 29.8 g/dL (32.0-36.0); Mean Corpuscular Hemoglobin 27.2 pg (27.0-31.0); Mean Platelet Volume 8.3 fL (7.4-10.4); Platelet Count 266 thou/uL (130-400); RBC Distribution Width 19.2 % (11.5-14.5); Red Blood Cell (RBC) Count 3.53 mill/uL (4.70-6.10)
[2018-08-26 04:09] LABS: INR-International Normal Ratio 2.5; Prothrombin Time 26.8 SEC (12.0-14.7)
[2018-08-26] MEDS: Furosemide 100 MG in Sodium Chloride 0.9% 90 ML IVPB SCH (04:12)
[2018-08-26 04:16] LABS: Anion Gap 12 mmol/L (10-20); BUN (Urea Nitrogen) 32 mg/dL (8.4-25.7); Calc. Creatinine Clearance 44 mL/min (70-130); Calcium 9.3 mg/dL (7.8-10.44); Carbon Dioxide 37 mmol/L (23-31); Chloride 99 mmol/L (98-107); Estimated GFR-MDRD 56; Glucose 90 mg/dL (83-110); Magnesium 1.9 mg/dL (1.6-2.6); Phosphorus 3.5 mg/dL (2.3-4.7); Potassium 3.9 mmol/L (3.5-5.1); Sodium 144 mmol/L (136-145)
[2018-08-26] MEDS: Carvedilol 3.125 MG TAB PO SCH ×2 (09:15→17:12)
[2018-08-26] MEDS: Amiodarone 200 MG TAB PO SCH (09:15)
[2018-08-26] MEDS: Docusate 100 MG CAP PO SCH ×2 (09:16→21:35)
[2018-08-26] MEDS: Potassium Chloride 10 MEQ TAB PO SCH (09:16)
[2018-08-26] MEDS: Senokot S 8.6-50 MG TAB PO SCH ×2 (09:17→21:36)
--- NOTE | 2018-08-26 10:00 | PDOC.PN ---
- Subjective Encounter Start Date: 08/26/18 Encounter Start Time: 08:40 Patient seen and examined. No new complaints. No overnight events - Objective Resuscitation Status: Resuscitation Status DNR:Do Not Resuscitate MAR Reviewed: Yes Vital Signs & Weight: Vital Signs (12 hours) Temp Pulse Resp BP Pulse Ox 08/26/18 07:55 100 08/26/18 07:50 99.2 F 66 17 132/68 100 08/26/18 07:36 95 08/26/18 04:09 96.8 F L 62 18 122/62 99 08/26/18 00:08 97.3 F L 61 18 110/53 L 98 Weight Admit Weight 169 lb 12.095 oz Weight 136 lb 6 oz I&O: 08/25/18 08/26/18 08/27/18 06:59 06:59 06:59 Intake Total 803.6 Output Total 2225 Balance -1421.4 Result Diagrams: 08/26/18 03:44 08/26/18 03:44 EKG Reviewed by me: Yes (nsr) Phys Exam - Physical Examination Constitutional: NAD HEENT: PERRLA, moist MMs, sclera anicteric Neck: no JVD, supple tracheostomy+ Respiratory: no wheezing, no rales, no rhonchi coarse sound at base Cardiovascular: RRR, no significant murmur, no rub Gastrointestinal: soft, non-tender, no distention, positive bowel sounds PEG+ Musculoskeletal: no edema, pulses present Neurological: non-focal, normal sensation, moves all 4 limbs Psychiatric: normal affect, A&O x 3 Skin: no rash, normal turgor Dx/Plan (1) Acute on chronic combined systolic and diastolic ACC/AHA stage C congestive heart failure Code(s): I50.43 - ACUTE ON CHRONIC COMBINED SYSTOLIC AND DIASTOLIC HRT FAIL Status: Acute (2) Acute on chronic respiratory failure with hypoxia Code(s): J96.21 - ACUTE AND CHRONIC RESPIRATORY FAILURE WITH HYPOXIA Status: Acute (3) DVT, bilateral lower limbs Code(s): I82.403 - ACUTE EMBOLISM AND THOMBOS UNSP DEEP VEINS OF LOW EXTRM, BI Status: Acute (4) PAF (paroxysmal atrial fibrillation) Code(s): I48.0 - PAROXYSMAL ATRIAL FIBRILLATION Status: Chronic (5) CAD (coronary artery disease) Code(s): I25.10 - ATHSCL HEART DISEASE OF [place] CORONARY ARTERY W/O ANG PCTRS Status: Chronic Comment: (6) Chronic anticoagulation Code(s): Z79.01 - SENIOR CARE (CURRENT) USE OF ANTICOAGULANTS Status: Chronic (7) H/O deep venous thrombosis Code(s): Z86.718 - PERSONAL HISTORY OF OTHER VENOUS THROMBOSIS AND EMBOLISM Status: Chronic (8) H/O subarachnoid hemorrhage Code(s): Z86.79 - PERSONAL HISTORY OF OTHER DISEASES OF THE CIRCULATORY SYSTEM Status: Chronic (9) H/O subdural hemorrhage Code(s): Z86.79 - PERSONAL HISTORY OF OTHER DISEASES OF THE CIRCULATORY SYSTEM Status: Chronic (10) HTN (hypertension) Code(s): I10 - ESSENTIAL (PRIMARY) HYPERTENSION Status: Chronic (11) Vocal cord paralysis Code(s): J38.00 - PARALYSIS OF VOCAL CORDS AND LARYNX, UNSPECIFIED Status: Chronic - Plan cont current plan of care, PT/OT * medication reviewed as below * symptomatic treatment * will dc lasix drip and change to iv lasix * he will need rehab placement, will start process * continue trach and peg care * he is tolerating his diet * he is overall much improved. Review of Systems - Review of Systems Constitutional: weakness. negative: fever, chills, sweats, malaise, other ENT: negative: Ear Pain, Ear Discharge, Nose Pain, Nose Discharge, Nose Congestion, Mouth Pain, Mouth Swelling, Throat Pain, Throat Swelling, Other Respiratory: negative: Cough, Dry, Shortness of Breath, Hemoptysis, SOB with Excertion, Pleuritic Pain, Sputum, Wheezing Cardiovascular: negative: chest pain, palpitations, orthopnea, paroxysmal nocturnal dyspnea, edema, light headedness, other Gastrointestinal: negative: Nausea, Vomiting, Abdominal Pain, Diarrhea, Constipation, Melena, Hematochezia, Other Genitourinary: negative: Dysuria, Frequency, Incontinence, Hematuria, Retention , Other Musculoskeletal: negative: Neck Pain, Shoulder Pain, Arm Pain, Back Pain, Hand Pain, Leg Pain, Foot Pain, Other Skin: negative: Rash, Lesions, Guillermo, Bruising, Other - Medications/Allergies Allergies/Adverse Reactions: Allergies Allergy/AdvReac Type Severity Reaction Status Date / Time vancomycin AdvReac Mild Verified 08/23/18 13:48 Medications: Current Medications Acetaminophen (Tylenol) 650 mg ID Q4H PRN PRN Reason: Headache/Fever/Mild Pain (1-3) Acetaminophen (Tylenol) 500 mg PO Q6H PRN PRN Reason: Mild Pain (1-3) Alprazolam (Xanax) 0.5 mg PO [facility] Last Admin: 08/25/18 20:20 Dose: 0.5 mg Amiodarone HCl (Cordarone) 200 mg PO DAILY [facility] Last Admin: 08/26/18 09:15 Dose: 200 mg Artificial Tears (Tears Naturale) 2 drop EA EYE PRN PRN PRN Reason: Dry Eyes Aspirin (Aspirin Chewable) 81 mg PO DAILY [facility] Last Admin: 08/26/18 09:15 Dose: 81 mg Atorvastatin Calcium (Lipitor) 20 mg PO [facility] Last Admin: 08/25/18 20:19 Dose: 20 mg Bisacodyl (Dulcolax) 10 mg ID DAILYPRN PRN PRN Reason: Constipation Carvedilol (Coreg) 3.125 mg PO BID-[facility] Last Admin: 08/26/18 09:15 Dose: 3.125 mg Docusate Sodium (Colace) 100 mg PO BID [facility] Last Admin: 08/26/18 09:16 Dose: 100 mg Guaifenesin (Robitussin Sf) 200 mg PO Q4H PRN PRN Reason: Cough Hydralazine HCl (Apresoline) 10 mg SLOW IVP Q4H PRN PRN Reason: SBP > 180 and HR < 70 Furosemide 100 mg/ Sodium (Chloride) 100 mls @ 4 mls/hr IVPB INF [facility] Last Admin: 08/26/18 04:12 Dose: 100 mls Loperamide HCl (Imodium) 2 mg PO PRN PRN PRN Reason: Diarrhea/Loose Stools Metoclopramide HCl (Reglan) 5 mg IVP Q4H PRN PRN Reason: Nausea Mineral Oil/White Petrolatum (Eucerin Cream) 0 gm TOP BIDPRN PRN PRN Reason: Dry Skin Miscellaneous Medication (Pharmacy To Dose) 1 each PO DAILYPRN PRN PRN Reason: LABS Nitroglycerin (Nitrostat) 0.4 mg PO Q5MIN PRN PRN Reason: Chest Pain Nystatin (Mycostatin Powder) 1 gm TOP BID PRN PRN Reason: Topical Irritations Potassium Chloride (Klor-Con 10) 10 meq PO DAILY [facility] Last Admin: 08/26/18 09:16 Dose: 10 meq Senna/Docusate Sodium (Senokot S) 1 tab PO BID [facility] Last Admin: 08/26/18 09:17 Dose: Not Given Sertraline HCl (Zoloft) 50 mg PO DAILY [facility] Last Admin: 08/26/18 09:17 Dose: 50 mg Sodium Chloride (Flush - Normal Saline) 10 ml IVF PRN PRN PRN Reason: Saline Flush Last Admin: 08/25/18 20:19 Dose: 10 ml Sodium Chloride ([place] Nasal [place] 0.65%) 0 ml EA NARE QIDPRN PRN PRN Reason: Nasal Congestion Throat Lozenges (Cepastat Lozenges) 1 esmer PO Q2H PRN PRN Reason: Sore Throat Warfarin Sodium (Coumadin) 1.5 mg PO 1700 [facility]
--- NOTE | 2018-08-26 10:36 | PRG ---
DATE OF SERVICE: 08/26/2018 SUBJECTIVE: Mr. Lin is awake and alert, seems oriented. Follows all commands for me. PHYSICAL EXAMINATION: VITAL SIGNS: His temperature is 99.2, pulse 66, respiratory rate 17, O2 sat 100% on trach collar, bl ood pressure 132/68. HEENT: Unremarkable. Trach in good position. He is able to phonate when occluding the trachea. LUNGS: Coarse breath sounds. CARDIAC: S1 and S2 regular. ABDOMEN: Soft, nontender. EXTREMITIES: No edema. LABORATORY DATA: White blood cell count 5, hematocrit 32.1, platelet count 266. Sodium 144, potassi um 3.9, BUN 32, creatinine 1.2, glucose 90. ASSESSMENT: 1. Pulmonary edema. 2. 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 3. Status post trach and PEG. 4. Perioperative stroke. 5. Deep venous thrombosis. RECOMMENDATIONS: Continue diuresis. Continue to monitor INR -- right now he is therapeutic at 2.5 a nd probably needs to restart his warfarin; however, I would reduce the dose to about 2 mg a day, Card [facility].
[2018-08-26] MEDS: Furosemide 20 MG/2 ML VIAL SLOW IVP SCH (14:24)
[2018-08-26] MEDS ORDERED: Warfarin Sodium 2 MG TAB PO SCH (17:00)
[2018-08-26] MEDS ORDERED: Warfarin Sodium 1.5 MG TAB PO SCH (17:00)
[2018-08-26] MEDS: Atorvastatin Calcium 20 MG TAB PO SCH (21:35)
[2018-08-26] MEDS: ALPRAZolam 0.5 MG TAB PO SCH (21:36)
[2018-08-27 03:52] LABS: Prothrombin Time 22.5 SEC (12.0-14.7)
[2018-08-27 03:55] LABS: #Eosinphils 0.5 thou/uL (0.0-0.7); #Lymphocytes 1.9 thou/uL (1.20-3.40); #Monocytes 0.6 thou/uL (0.11-0.59); #Neutrophils 1.9 thou/uL (1.40-6.50); %Basophils 0.3 % (0.0-1.0); %Eosinophils 9.5 % (0.0-10.0); %Monocytes 12.2 % (0.0-10.0); %Neutrophils 39.1 % (42.0-75.0); Hemoglobin 9.5 g/dL (14.0-18.0); Mean Corpuscular HGB CONC 29.7 g/dL (32.0-36.0); Mean Corpuscular Hemoglobin 27.1 pg (27.0-31.0); Mean Corpuscular Volume 91.4 fL (78.0-98.0); Platelet Count 264 thou/uL (130-400); RBC Distribution Width 18.9 % (11.5-14.5); Red Blood Cell (RBC) Count 3.51 mill/uL (4.70-6.10)
[2018-08-27 04:05] LABS: BUN (Urea Nitrogen) 38 mg/dL (8.4-25.7); Calc. Creatinine Clearance 43 mL/min (70-130); Calcium 9.1 mg/dL (7.8-10.44); Estimated GFR-MDRD 54; Glucose 83 mg/dL (83-110); Magnesium 1.8 mg/dL (1.6-2.6); Phosphorus 3.1 mg/dL (2.3-4.7)
[2018-08-27 04:14] LABS: Anion Gap 11 mmol/L (10-20); Carbon Dioxide 36 mmol/L (23-31); Chloride 98 mmol/L (98-107); Potassium 3.9 mmol/L (3.5-5.1); Sodium 141 mmol/L (136-145)
[2018-08-27] MEDS: Furosemide 20 MG/2 ML VIAL SLOW IVP SCH (06:09)
--- NOTE | 2018-08-27 08:15 | PRG ---
DATE OF SERVICE: 08/27/2018 He is feeling well, has no complaints. PHYSICAL EXAMINATION: VITAL SIGNS: Temperature 97.8, pulse 60, respirations 16, O2 sat 97%, blood pressure 120/57. HEENT: Unremarkable. NECK: Trach in good position, he is able to phonate appropriately. CARDIAC: S1 and S2 regular. LUNGS: Clear. ABDOMEN: Soft. EXTREMITIES: No edema. LABORATORY DATA: INR is 2.0, white blood cell count 5, hematocrit 32, platelet count 264. Sodium 14 1, potassium 3.9, chloride 98, CO2 36, BUN 30, creatinine 1.3, glucose 83. ASSESSMENT: 1. Severe deconditioning. 2. Pulmonary edema, which is better. 3. Status post aortic dissection after coronary bypass grafting surgery. 4. Status post trach and PEG. 5. Status post acute renal failure which has resolved. 6. Perioperative stroke. 7. Deep venous thrombosis. PLAN: INR is being held. I will consult Dr. Troy to see if his dialysis catheter can be removed. He is continuing diuresis. He can be moved out to the telemetry floor.
[2018-08-27] MEDS: Senokot S 8.6-50 MG TAB PO SCH ×2 (08:25→20:27)
[2018-08-27] MEDS: Carvedilol 3.125 MG TAB PO SCH ×2 (08:25→16:51)
[2018-08-27] MEDS: Amiodarone 200 MG TAB PO SCH (08:25)
[2018-08-27] MEDS: Potassium Chloride 10 MEQ TAB PO SCH (08:25)
[2018-08-27] MEDS: Docusate 100 MG CAP PO SCH ×2 (08:25→20:23)
--- NOTE | 2018-08-27 10:18 | PDOC.PN ---
- Subjective Encounter Start Date: 08/27/18 Encounter Start Time: 09:30 Patient seen and examined. No new complaints. No overnight events - Objective Resuscitation Status: Resuscitation Status DNR:Do Not Resuscitate MAR Reviewed: Yes Vital Signs & Weight: Vital Signs (12 hours) Temp Pulse Resp BP Pulse Ox 08/27/18 07:48 99 08/27/18 07:33 97.8 F 63 16 123/57 L 97 08/27/18 04:00 98.1 F 60 18 122/58 L 96 08/27/18 00:00 98.3 F 62 17 106/48 L 94 L Weight Admit Weight 169 lb 12.095 oz Weight 132 lb I&O: 08/26/18 08/27/18 08/28/18 06:59 06:59 06:59 Intake Total 803.6 1045.3 Output Total 2225 1175 Balance -1421.4 -129.7 Result Diagrams: 08/27/18 03:22 08/27/18 03:22 EKG Reviewed by me: Yes Phys Exam - Physical Examination Constitutional: NAD HEENT: PERRLA, moist MMs, sclera anicteric Neck: no JVD, supple trach collar Respiratory: no wheezing, no rales, no rhonchi Cardiovascular: RRR, no significant murmur, no rub Gastrointestinal: soft, non-tender, no distention, positive bowel sounds PEG+ Musculoskeletal: no edema, pulses present Neurological: non-focal, normal sensation Lymphatic: no nodes Psychiatric: normal affect, A&O x 3 Skin: no rash, normal turgor Dx/Plan (1) Acute on chronic combined systolic and diastolic ACC/AHA stage C congestive heart failure Code(s): I50.43 - ACUTE ON CHRONIC COMBINED SYSTOLIC AND DIASTOLIC HRT FAIL Status: Acute (2) Acute on chronic respiratory failure with hypoxia Code(s): J96.21 - ACUTE AND CHRONIC RESPIRATORY FAILURE WITH HYPOXIA Status: Acute (3) DVT, bilateral lower limbs Code(s): I82.403 - ACUTE EMBOLISM AND THOMBOS UNSP DEEP VEINS OF LOW EXTRM, BI Status: Acute (4) PAF (paroxysmal atrial fibrillation) Code(s): I48.0 - PAROXYSMAL ATRIAL FIBRILLATION Status: Chronic (5) CAD (coronary artery disease) Code(s): I25.10 - ATHSCL HEART DISEASE OF [place] CORONARY ARTERY W/O ANG PCTRS Status: Chronic Comment: (6) Chronic anticoagulation Code(s): Z79.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 OF ANTICOAGULANTS Status: Chronic (7) H/O deep venous thrombosis Code(s): Z86.718 - PERSONAL HISTORY OF OTHER VENOUS THROMBOSIS AND EMBOLISM Status: Chronic (8) H/O subarachnoid hemorrhage Code(s): Z86.79 - PERSONAL HISTORY OF OTHER DISEASES OF THE CIRCULATORY SYSTEM Status: Chronic (9) H/O subdural hemorrhage Code(s): Z86.79 - PERSONAL HISTORY OF OTHER DISEASES OF THE CIRCULATORY SYSTEM Status: Chronic (10) HTN (hypertension) Code(s): I10 - ESSENTIAL (PRIMARY) HYPERTENSION Status: Chronic (11) Vocal cord paralysis Code(s): J38.00 - PARALYSIS OF VOCAL CORDS AND LARYNX, UNSPECIFIED Status: Chronic - Plan cont 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 Review of Systems - Review of Systems ENT: negative: Ear Pain, Ear Discharge, Nose Pain, Nose Discharge, Nose Congestion, Mouth Pain, Mouth Swelling, Throat Pain, Throat Swelling, Other Respiratory: negative: Cough, Dry, Shortness of Breath, Hemoptysis, SOB with Excertion, Pleuritic Pain, Sputum, Wheezing Cardiovascular: negative: chest pain, palpitations, orthopnea, paroxysmal nocturnal dyspnea, edema, light headedness, other Gastrointestinal: negative: Nausea, Vomiting, Abdominal Pain, Diarrhea, Constipation, Melena, Hematochezia, Other Genitourinary: negative: Dysuria, Frequency, Incontinence, Hematuria, Retention , Other Musculoskeletal: negative: Neck Pain, Shoulder Pain, Arm Pain, Back Pain, Hand Pain, Leg Pain, Foot Pain, Other Skin: negative: Rash, Lesions, Guillermo, Bruising, Other - Medications/Allergies Allergies/Adverse Reactions: Allergies Allergy/AdvReac Type Severity Reaction Status Date / Time vancomycin AdvReac Mild Verified 08/23/18 13:48 Medications: Current Medications Acetaminophen (Tylenol) 650 mg ND Q4H PRN PRN Reason: Headache/Fever/Mild Pain (1-3) Acetaminophen (Tylenol) 500 mg PO Q6H PRN PRN Reason: Mild Pain (1-3) Alprazolam (Xanax) 0.5 mg PO HS [facility] Last Admin: 08/26/18 21:36 Dose: 0.5 mg Amiodarone HCl (Cordarone) 200 mg PO DAILY [facility] Last Admin: 08/27/18 08:25 Dose: 200 mg Artificial Tears (Tears Naturale) 2 drop EA EYE PRN PRN PRN Reason: Dry Eyes Aspirin (Aspirin Chewable) 81 mg PO DAILY [facility] Last Admin: 08/27/18 08:25 Dose: 81 mg Atorvastatin Calcium (Lipitor) 20 mg PO HS [facility] Last Admin: 08/26/18 21:35 Dose: 20 mg Bisacodyl (Dulcolax) 10 mg ND DAILYPRN PRN PRN Reason: Constipation Carvedilol (Coreg) 3.125 mg PO BID-[facility] Last Admin: 08/27/18 08:25 Dose: 3.125 mg Docusate Sodium (Colace) 100 mg PO BID [facility] Last Admin: 08/27/18 08:25 Dose: 100 mg Furosemide (Lasix) 20 mg SLOW IVP 0600,1400 [facility] Last Admin: 08/27/18 06:09 Dose: 20 mg Guaifenesin (Robitussin Sf) 200 mg PO Q4H PRN PRN Reason: Cough Hydralazine HCl (Apresoline) 10 mg SLOW IVP Q4H PRN PRN Reason: SBP > 180 and HR < 70 Loperamide HCl (Imodium) 2 mg PO PRN PRN PRN Reason: Diarrhea/Loose Stools Metoclopramide HCl (Reglan) 5 mg IVP Q4H PRN PRN Reason: Nausea Mineral Oil/White Petrolatum (Eucerin Cream) 0 gm TOP BIDPRN PRN PRN Reason: Dry Skin Miscellaneous Medication (Pharmacy To Dose) 1 each PO DAILYPRN PRN PRN Reason: LABS Nitroglycerin (Nitrostat) 0.4 mg PO Q5MIN PRN PRN Reason: Chest Pain Nystatin (Mycostatin Powder) 1 gm TOP BID PRN PRN Reason: Topical Irritations Potassium Chloride (Klor-Con 10) 10 meq PO DAILY [facility] Last Admin: 08/27/18 08:25 Dose: 10 meq Senna/Docusate Sodium (Senokot S) 1 tab PO BID [facility] Last Admin: 08/27/18 08:25 Dose: Not Given Sertraline HCl (Zoloft) 50 mg PO DAILY [facility] Last Admin: 08/27/18 08:24 Dose: 50 mg Sodium Chloride (Flush - Normal Saline) 10 ml IVF PRN PRN PRN Reason: Saline Flush Last Admin: 08/26/18 21:36 Dose: 10 ml Sodium Chloride ([place] Nasal [place] 0.65%) 0 ml EA NARE QIDPRN PRN PRN Reason: Nasal Congestion Throat Lozenges (Cepastat Lozenges) 1 esmer PO Q2H PRN PRN Reason: Sore Throat
[2018-08-27] MEDS: Furosemide 40 MG TAB PO SCH (14:26)
[2018-08-27] MEDS: Polyethylene Glycol 3350 17 GM Packet PO PRN (18:15)
[2018-08-27] MEDS: Atorvastatin Calcium 20 MG TAB PO SCH (20:24)
[2018-08-27] MEDS: ALPRAZolam 0.5 MG TAB PO SCH (20:26)
[2018-08-28 04:34] LABS: INR-International Normal Ratio 1.5; Prothrombin Time 18.5 SEC (12.0-14.7)
[2018-08-28] MEDS: Amiodarone 200 MG TAB PO SCH (09:00)
[2018-08-28] MEDS: Carvedilol 3.125 MG TAB PO SCH ×2 (09:00→17:39)
[2018-08-28] MEDS: Docusate 100 MG CAP PO SCH ×2 (09:01→20:29)
[2018-08-28] MEDS: Furosemide 40 MG TAB PO SCH ×2 (09:01→14:51)
[2018-08-28] MEDS: Senokot S 8.6-50 MG TAB PO SCH ×2 (09:02→20:30)
[2018-08-28] MEDS: Potassium Chloride 10 MEQ TAB PO SCH (09:02)
[2018-08-28] MEDS: Polyethylene Glycol 3350 17 GM Packet PO PRN (09:03)
--- NOTE | 2018-08-28 09:05 | RAD ---
CHEST ONE VIEW: History: Dyspnea. Pulmonary edema. Follow up. Comparison: 08-25-18 FINDINGS: Cardiac silhouette remains magnified and enlarged. Pulmonary vasculature remains markedly engorged wi th patchy areas of parenchymal infiltrate throughout each lung. Right pleural fluid appears unchanged . Patient is slightly rotated leftward. Lines and tubes are unchanged in position. IMPRESSION: Pulmonary edema and other findings appear stable. POS: H
--- NOTE | 2018-08-28 10:02 | PRG ---
DATE OF SERVICE: 08/28/2018 The patient is doing well, had no acute complaints. PHYSICAL EXAMINATION: VITAL SIGNS: Temperature 97.4, pulse 69, respirations 18, O2 sat 99, blood pressure 125/55. HEENT: Unremarkable. NECK: No JVD. CHEST: Clear anteriorly. Trach in good position. ABDOMEN: Soft. EXTREMITIES: No edema. LABORATORY DATA: INR is 1.5. No other labs were done today. ASSESSMENT: 1. History of respiratory failure requiring mechanical ventilation and tracheostomy placement. 2. Congestive heart failure with fluid overload. 3. Bilateral deep venous thromboses. 4. Renal failure which has resolved. PLAN: 1. Removal of dialysis catheter today. 2. Restart his Coumadin. 3. Continue to monitor his INR. 4. Recheck his BMP tomorrow.
--- NOTE | 2018-08-28 10:23 | PDOC.PN ---
- Subjective Encounter Start Date: 08/28/18 Encounter Start Time: 09:30 Patient seen and examined. No new complaints. No overnight events - Objective Resuscitation Status: Resuscitation Status DNR:Do Not Resuscitate MAR Reviewed: Yes Vital Signs & Weight: Vital Signs (12 hours) Temp Pulse Resp BP Pulse Ox 08/28/18 07:38 97.4 F L 59 L 18 125/55 L 99 08/28/18 04:00 98.3 F 61 16 121/51 L 99 08/28/18 00:00 97.2 F L 59 L 14 104/52 L 100 Weight Admit Weight 169 lb 12.095 oz Weight 128 lb 9 oz I&O: 08/27/18 08/28/18 08/29/18 06:59 06:59 06:59 Intake Total 1045.3 1740 Output Total 1175 1275 Balance -129.7 465 Result Diagrams: 08/27/18 03:22 08/27/18 03:22 Radiology Reviewed by me: Yes (chest xray reviewed) EKG Reviewed by me: Yes Phys Exam - Physical Examination Constitutional: NAD HEENT: PERRLA, moist MMs, sclera anicteric Neck: no JVD, supple trach+ Respiratory: no wheezing, no rales, no rhonchi Cardiovascular: RRR, no significant murmur, no rub Gastrointestinal: soft, non-tender, no distention, positive bowel sounds PEG+ Musculoskeletal: no edema, pulses present Neurological: non-focal, normal sensation Psychiatric: normal affect Skin: no rash, normal turgor Dx/Plan (1) Acute on chronic combined systolic and diastolic ACC/AHA stage C congestive heart failure Code(s): I50.43 - ACUTE ON CHRONIC COMBINED SYSTOLIC AND DIASTOLIC HRT FAIL Status: Acute (2) Acute on chronic respiratory failure with hypoxia Code(s): J96.21 - ACUTE AND CHRONIC RESPIRATORY FAILURE WITH HYPOXIA Status: Acute (3) DVT, bilateral lower limbs Code(s): I82.403 - ACUTE EMBOLISM AND THOMBOS UNSP DEEP VEINS OF LOW EXTRM, BI Status: Acute (4) PAF (paroxysmal atrial fibrillation) Code(s): I48.0 - PAROXYSMAL ATRIAL FIBRILLATION Status: Chronic (5) CAD (coronary artery disease) Code(s): I25.10 - ATHSCL HEART DISEASE OF [place] CORONARY ARTERY W/O ANG PCTRS Status: Chronic Comment: (6) Chronic anticoagulation Code(s): Z79.01 - [facility] (CURRENT) USE OF ANTICOAGULANTS Status: Chronic (7) H/O deep venous thrombosis Code(s): Z86.718 - PERSONAL HISTORY OF OTHER VENOUS THROMBOSIS AND EMBOLISM Status: Chronic (8) H/O subarachnoid hemorrhage Code(s): Z86.79 - PERSONAL HISTORY OF OTHER DISEASES OF THE CIRCULATORY SYSTEM Status: Chronic (9) H/O subdural hemorrhage Code(s): Z86.79 - PERSONAL HISTORY OF OTHER DISEASES OF THE CIRCULATORY SYSTEM Status: Chronic (10) HTN (hypertension) Code(s): I10 - ESSENTIAL (PRIMARY) HYPERTENSION Status: Chronic (11) Vocal cord paralysis Code(s): J38.00 - PARALYSIS OF VOCAL CORDS AND LARYNX, UNSPECIFIED Status: Chronic - Plan cont current plan of care, 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 Review of Systems - Review of Systems ENT: negative: Ear Pain, Ear Discharge, Nose Pain, Nose Discharge, Nose Congestion, Mouth Pain, Mouth Swelling, Throat Pain, Throat Swelling, Other Respiratory: negative: Cough, Dry, Shortness of Breath, Hemoptysis, SOB with Excertion, Pleuritic Pain, Sputum, Wheezing Cardiovascular: negative: chest pain, palpitations, orthopnea, paroxysmal nocturnal dyspnea, edema, light headedness, other Gastrointestinal: negative: Nausea, Vomiting, Abdominal Pain, Diarrhea, Constipation, Melena, Hematochezia, Other Genitourinary: negative: Dysuria, Frequency, Incontinence, Hematuria, Retention , Other - Medications/Allergies Allergies/Adverse Reactions: Allergies Allergy/AdvReac Type Severity Reaction Status Date / Time vancomycin AdvReac Mild Verified 08/23/18 13:48 Medications: Current Medications Acetaminophen (Tylenol) 650 mg [place] Q4H PRN PRN Reason: Headache/Fever/Mild Pain (1-3) Acetaminophen (Tylenol) 500 mg PO Q6H PRN PRN Reason: Mild Pain (1-3) Alprazolam (Xanax) 0.5 mg PO HS [facility] Last Admin: 08/27/18 20:26 Dose: 0.5 mg Amiodarone HCl (Cordarone) 200 mg PO DAILY [facility] Last Admin: 08/28/18 09:00 Dose: 200 mg Artificial Tears (Tears Naturale) 2 drop EA EYE PRN PRN PRN Reason: Dry Eyes Aspirin (Aspirin Chewable) 81 mg PO DAILY [facility] Last Admin: 08/28/18 09:00 Dose: 81 mg Atorvastatin Calcium (Lipitor) 20 mg PO HS [facility] Last Admin: 08/27/18 20:24 Dose: 20 mg Bisacodyl (Dulcolax) 10 mg [place] DAILYPRN PRN PRN Reason: Constipation Carvedilol (Coreg) 3.125 mg PO BID-[facility] Last Admin: 08/28/18 09:00 Dose: 3.125 mg Docusate Sodium (Colace) 100 mg PO BID [facility] Last Admin: 08/28/18 09:01 Dose: Not Given Furosemide (Lasix) 40 mg PO 0900,1400 [facility] Last Admin: 08/28/18 09:01 Dose: 40 mg Guaifenesin (Robitussin Sf) 200 mg PO Q4H PRN PRN Reason: Cough Hydralazine HCl (Apresoline) 10 mg SLOW IVP Q4H PRN PRN Reason: SBP > 180 and HR < 70 Loperamide HCl (Imodium) 2 mg PO PRN PRN PRN Reason: Diarrhea/Loose Stools Metoclopramide HCl (Reglan) 5 mg IVP Q4H PRN PRN Reason: Nausea Mineral Oil/White Petrolatum (Eucerin Cream) 0 gm TOP BIDPRN PRN PRN Reason: Dry Skin Miscellaneous Medication (Pharmacy To Dose) 1 each PO DAILYPRN PRN PRN Reason: LABS Nitroglycerin (Nitrostat) 0.4 mg PO Q5MIN PRN PRN Reason: Chest Pain Nystatin (Mycostatin Powder) 1 gm TOP BID PRN PRN Reason: Topical Irritations Polyethylene Glycol (Miralax) 17 gm PO DAILYPRN PRN PRN Reason: CONSTIPATION Last Admin: 08/28/18 09:03 Dose: 17 gm Potassium Chloride (Klor-Con 10) 10 meq PO DAILY [facility] Last Admin: 08/28/18 09:02 Dose: 10 meq Senna/Docusate Sodium (Senokot S) 1 tab PO BID [facility] Last Admin: 08/28/18 09:02 Dose: Not Given Sertraline HCl (Zoloft) 50 mg PO DAILY [facility] Last Admin: 08/28/18 09:02 Dose: 50 mg Sodium Chloride (Flush - Normal Saline) 10 ml IVF PRN PRN PRN Reason: Saline Flush Last Admin: 08/26/18 21:36 Dose: 10 ml Sodium Chloride ([place] Nasal [place] 0.65%) 0 ml EA NARE QIDPRN PRN PRN Reason: Nasal Congestion Throat Lozenges (Cepastat Lozenges) 1 esmer PO Q2H PRN PRN Reason: Sore Throat Warfarin Sodium (Coumadin) 2 mg PER TUBE 1700 [facility]
[2018-08-28] MEDS ORDERED: Lidocaine 1% w/Epinephrine 1:100K 20 ML VIAL ONE (10:33)
--- NOTE | 2018-08-28 14:17 | OP ---
DATE OF PROCEDURE: 08/28/2018 PREOPERATIVE DIAGNOSES: Recovered renal function, need dialysis catheter cuffed tunneled removed rig ht internal jugular. POSTOPERATIVE DIAGNOSES: Recovered renal function, need dialysis catheter cuffed tunneled removed ri ght internal jugular. PROCEDURE: Removal of right IJ cuffed tunnel dialysis catheter. SURGEON: Dr. Yoni Troy. ANESTHESIA: 1% Xylocaine with epinephrine. PROCEDURE: At the patient's bedside, his right exit site hemodialysis catheter, chest prepared with alcohol. Local anesthetic 1% Xylocaine with epinephrine infiltrated in the skin and subcutaneous tis arlene and catheter cuff removed intact. Hemostasis gained with local pressure. The patient tolerated the procedure well.
[2018-08-28] MEDS ORDERED: Warfarin Sodium 2 MG TAB PER TUBE SCH (17:00)
[2018-08-28] MEDS: Atorvastatin Calcium 20 MG TAB PO SCH (20:29)
[2018-08-28] MEDS: Apixaban 5 MG TAB PO SCH (20:29)
[2018-08-28] MEDS: ALPRAZolam 0.5 MG TAB PO SCH (20:30)
[2018-08-29 05:00] LABS: Anion Gap 9 mmol/L (10-20); BUN (Urea Nitrogen) 35 mg/dL (8.4-25.7); Calc. Creatinine Clearance 36 mL/min (70-130); Calcium 8.9 mg/dL (7.8-10.44); Carbon Dioxide 35 mmol/L (23-31); Chloride 100 mmol/L (98-107); Estimated GFR-MDRD 47; Glucose 83 mg/dL (83-110); Potassium 3.8 mmol/L (3.5-5.1); Sodium 140 mmol/L (136-145)
--- NOTE | 2018-08-29 08:13 | PRG ---
DATE OF SERVICE: 08/29/2018 He is doing well without acute complaints. PHYSICAL EXAMINATION: VITAL SIGNS: Temperature 98.2, pulse 74, respiration 16, O2 sat 99%. HEENT: Unremarkable. NECK: Trach in good position. LUNGS: Fairly clear. CARDIAC: S1 and S2 regular. ABDOMEN: Soft. EXTREMITIES: No edema. LABORATORY DATA: Sodium 140, potassium 3.8, BUN 35, creatinine 1.5, glucose 83. His INR is pending from today. If it was not drawn, I will make sure it gets ordered. ASSESSMENT: 1. Status post acute respiratory failure requiring tracheostomy. 2. Fluid overload. 3. Status post renal failure which has resolved. PLAN: Recheck PT/INR today. Hopefully, transfer back to [facility], but his coagulation profile w ill need to be continually evaluated.
[2018-08-29] MEDS ORDERED: Apixaban 5 MG TAB PO SCH (09:00)
[2018-08-29 09:20] LABS: INR-International Normal Ratio 1.5; Prothrombin Time 18.6 SEC (12.0-14.7)
[2018-08-29] MEDS: Apixaban 5 MG TAB PO SCH (09:53)
[2018-08-29] MEDS: Potassium Chloride 10 MEQ TAB PO SCH (09:53)
[2018-08-29] MEDS: Amiodarone 200 MG TAB PO SCH (09:53)
[2018-08-29] MEDS: Docusate 100 MG CAP PO SCH (09:54)
[2018-08-29] MEDS: Furosemide 40 MG TAB PO SCH (09:54)
[2018-08-29] MEDS: Carvedilol 3.125 MG TAB PO SCH (09:54)
[2018-08-29] MEDS: Senokot S 8.6-50 MG TAB PO SCH (09:55)
--- NOTE | 2018-08-29 10:22 | PDOC.PN ---
- Subjective Encounter Start Date: 08/29/18 Encounter Start Time: 09:40 Patient seen and examined. No new complaints. No overnight events - Objective Resuscitation Status: Resuscitation Status DNR:Do Not Resuscitate MAR Reviewed: Yes Vital Signs & Weight: Vital Signs (12 hours) Temp Pulse Resp BP Pulse Ox 08/29/18 08:00 100 08/29/18 07:40 99 08/29/18 07:28 98.2 F 74 16 127/59 L 100 08/29/18 04:00 98.3 F 61 17 115/57 L 98 08/29/18 00:00 98.4 F 62 18 105/52 L 99 Weight Admit Weight 169 lb 12.095 oz Weight 127 lb I&O: 08/28/18 08/29/18 08/30/18 06:59 06:59 06:59 Intake Total 1740 1450 Output Total 1275 800 Balance 465 650 Result Diagrams: 08/27/18 03:22 08/29/18 03:46 EKG Reviewed by me: Yes Phys Exam - Physical Examination Constitutional: NAD HEENT: PERRLA, moist MMs, sclera anicteric Neck: no JVD, supple trach+ Respiratory: no wheezing, no rales, no rhonchi Cardiovascular: RRR, no significant murmur, no rub Gastrointestinal: soft, non-tender, no distention, positive bowel sounds peg+ Musculoskeletal: no edema, pulses present Neurological: non-focal, normal sensation, moves all 4 limbs Psychiatric: normal affect, A&O x 3 Skin: no rash, normal turgor Dx/Plan (1) Acute on chronic combined systolic and diastolic ACC/AHA stage C congestive heart failure Code(s): I50.43 - ACUTE ON CHRONIC COMBINED SYSTOLIC AND DIASTOLIC HRT FAIL Status: Acute (2) Acute on chronic respiratory failure with hypoxia Code(s): J96.21 - ACUTE AND CHRONIC RESPIRATORY FAILURE WITH HYPOXIA Status: Acute (3) DVT, bilateral lower limbs Code(s): I82.403 - ACUTE EMBOLISM AND THOMBOS UNSP DEEP VEINS OF LOW EXTRM, BI Status: Acute (4) PAF (paroxysmal atrial fibrillation) Code(s): I48.0 - PAROXYSMAL ATRIAL FIBRILLATION Status: Chronic (5) CAD (coronary artery disease) Code(s): I25.10 - ATHSCL HEART DISEASE OF [place] CORONARY ARTERY W/O ANG PCTRS Status: Chronic Comment: (6) Chronic anticoagulation Code(s): Z79.01 - REGIONAL SALES EXECUTIVE (CURRENT) USE OF ANTICOAGULANTS Status: Chronic (7) H/O deep venous thrombosis Code(s): Z86.718 - PERSONAL HISTORY OF OTHER VENOUS THROMBOSIS AND EMBOLISM Status: Chronic (8) H/O subarachnoid hemorrhage Code(s): Z86.79 - PERSONAL HISTORY OF OTHER DISEASES OF THE CIRCULATORY SYSTEM Status: Chronic (9) H/O subdural hemorrhage Code(s): Z86.79 - PERSONAL HISTORY OF OTHER DISEASES OF THE CIRCULATORY SYSTEM Status: Chronic (10) HTN (hypertension) Code(s): I10 - ESSENTIAL (PRIMARY) HYPERTENSION Status: Chronic (11) Vocal cord paralysis Code(s): J38.00 - PARALYSIS OF VOCAL CORDS AND LARYNX, UNSPECIFIED Status: Chronic - Plan cont current plan of care, plan discussed w/ family, PT/OT, executive secretary social welfare * medication reviewed as below * symptomatic treatment * see discharge summery. Review of Systems - Review of Systems ENT: negative: Ear Pain, Ear Discharge, Nose Pain, Nose Discharge, Nose Congestion, Mouth Pain, Mouth Swelling, Throat Pain, Throat Swelling, Other Respiratory: negative: Cough, Dry, Shortness of Breath, Hemoptysis, SOB with Excertion, Pleuritic Pain, Sputum, Wheezing Cardiovascular: negative: chest pain, palpitations, orthopnea, paroxysmal nocturnal dyspnea, edema, light headedness, other Gastrointestinal: negative: Nausea, Vomiting, Abdominal Pain, Diarrhea, Constipation, Melena, Hematochezia, Other Genitourinary: negative: Dysuria, Frequency, Incontinence, Hematuria, Retention , Other Musculoskeletal: negative: Neck Pain, Shoulder Pain, Arm Pain, Back Pain, Hand Pain, Leg Pain, Foot Pain, Other - Medications/Allergies Allergies/Adverse Reactions: Allergies Allergy/AdvReac Type Severity Reaction Status Date / Time vancomycin AdvReac Mild Verified 08/23/18 13:48 Medications: Current Medications Acetaminophen (Tylenol) 650 mg MS Q4H PRN PRN Reason: Headache/Fever/Mild Pain (1-3) Acetaminophen (Tylenol) 500 mg PO Q6H PRN PRN Reason: Mild Pain (1-3) Alprazolam (Xanax) 0.5 mg PO HS ARLYN Last Admin: 08/28/18 20:30 Dose: 0.5 mg Amiodarone HCl (Cordarone) 200 mg PO DAILY [facility] Last Admin: 08/29/18 09:53 Dose: 200 mg Apixaban (Eliquis) 5 mg PO BID [facility] Last Admin: 08/29/18 09:53 Dose: 5 mg Artificial Tears (Tears Naturale) 2 drop EA EYE PRN PRN PRN Reason: Dry Eyes Aspirin (Aspirin Chewable) 81 mg PO DAILY [facility] Last Admin: 08/29/18 09:53 Dose: 81 mg Atorvastatin Calcium (Lipitor) 20 mg PO HS [facility] Last Admin: 08/28/18 20:29 Dose: 20 mg Bisacodyl (Dulcolax) 10 mg MS DAILYPRN PRN PRN Reason: Constipation Carvedilol (Coreg) 3.125 mg PO BID-[facility] Last Admin: 08/29/18 09:54 Dose: 3.125 mg Docusate Sodium (Colace) 100 mg PO BID [facility] Last Admin: 08/29/18 09:54 Dose: 100 mg Furosemide (Lasix) 40 mg PO 0900,1400 [facility] Last Admin: 08/29/18 09:54 Dose: 40 mg Guaifenesin (Robitussin Sf) 200 mg PO Q4H PRN PRN Reason: Cough Hydralazine HCl (Apresoline) 10 mg SLOW IVP Q4H PRN PRN Reason: SBP > 180 and HR < 70 Loperamide HCl (Imodium) 2 mg PO PRN PRN PRN Reason: Diarrhea/Loose Stools Metoclopramide HCl (Reglan) 5 mg IVP Q4H PRN PRN Reason: Nausea Mineral Oil/White Petrolatum (Eucerin Cream) 0 gm TOP BIDPRN PRN PRN Reason: Dry Skin Miscellaneous Medication (Pharmacy To Dose) 1 each PO DAILYPRN PRN PRN Reason: LABS Nitroglycerin (Nitrostat) 0.4 mg PO Q5MIN PRN PRN Reason: Chest Pain Nystatin (Mycostatin Powder) 1 gm TOP BID PRN PRN Reason: Topical Irritations Polyethylene Glycol (Miralax) 17 gm PO DAILYPRN PRN PRN Reason: CONSTIPATION Last Admin: 08/28/18 09:03 Dose: 17 gm Potassium Chloride (Klor-Con 10) 10 meq PO DAILY [facility] Last Admin: 08/29/18 09:53 Dose: 10 meq Senna/Docusate Sodium (Senokot S) 1 tab PO BID [facility] Last Admin: 08/29/18 09:55 Dose: Not Given Sertraline HCl (Zoloft) 50 mg PO DAILY [facility] Last Admin: 08/29/18 09:53 Dose: 50 mg Sodium Chloride (Flush - Normal Saline) 10 ml IVF PRN PRN PRN Reason: Saline Flush Last Admin: 08/26/18 21:36 Dose: 10 ml Sodium Chloride ([place] Nasal [place] 0.65%) 0 ml EA NARE QIDPRN PRN PRN Reason: Nasal Congestion Throat Lozenges (Cepastat Lozenges) 1 esmer PO Q2H PRN PRN Reason: Sore Throat
--- NOTE | 2018-08-29 11:34 | DIS ---
DATE OF ADMISSION: 08/23/2018 DATE OF DISCHARGE: 08/29/2018 PRIMARY CARE PHYSICIAN: Isai Pool M.D. DISCHARGE DISPOSITION: Rehabilitation. PRIMARY DISCHARGE DIAGNOSES: 1. Acute on chronic combined systolic and diastolic heart failure, stage C. 2. Acute on chronic respiratory failure with hypoxia. 3. Deep venous thrombosis, bilateral lower extremity. SECONDARY DISCHARGE DIAGNOSES: Coronary artery disease, chronic anticoagulation, history of deep daily ous thrombosis in the past, history of subarachnoid hemorrhage and subdural hemorrhage, hypertension, paroxysmal atrial fibrillation, vocal cord paralysis. PRIMARY PROCEDURE AND OPERATION: The patient had a tunneled hemodialysis catheter removal during thi s admission. RADIOLOGICAL INVESTIGATION: Chest x-ray showed pulmonary edema. Echocardiography showed EF 35%-40% , moderate aortic regurgitation, moderate tricuspid regurgitation and mitral regurgitation. SIGNIFICANT LABORATORY DATA: WBC 5.0, hemoglobin 9.5, platelet 264. INR 1.5. Sodium 140, potassium 3.8, BUN 35, creatinine 1.4, calcium 8.9, phosphorus 3.1, magnesium 1.8. LFT normal. BNP 2103. Tr oponin 0.031. Urinalysis normal. Blood culture negative. DISCHARGE MEDICATIONS: Xanax 0.5 mg p.o. at bedtime p.r.n., Colace 100 mg p.o. b.i.d., potassium chl oride 10 mEq p.o. daily, Zoloft 50 mg daily, amiodarone 200 mg p.o. daily, Eliquis 5 mg p.o. b.i.d. f or 1 week and then dose can be reduced to 2.5 mg p.o. b.i.d., aspirin 81 mg daily, Lipitor 20 mg p.o. at bedtime, Coreg 3.125 mg p.o. b.i.d., Lasix 40 mg p.o. b.i.d., Lisinopril 2.5 mg p.o. daily. CONTRAINDICATIONS: None. CODE STATUS: DNR. This was discussed during this admission. 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 Cardiology group was consulted for CHF. TEST RESULTS PENDING ON DISCHARGE: None. ALLERGIES: VANCOMYCIN. DISCHARGE PLAN: Post hospital, the patient is discharged to rehabilitation. Subsequently, patient w ill follow up with Cardiology, Pulmonology, and primary care physician as instructed. HOSPITAL COURSE: A 77-year-old male who was admitted on 08/23/[address] Yasmani Mark. Please see h is H&P for further detail. This patient was sent from rehab for increasing shortness of breath. He was diagnosed with acute pulmonary edema. He was having acute on chronic systolic and diastolic hear t failure. He had elevated BNP. His chest x-ray showed pulmonary vascular congestion with pulmonary edema with chronic changes. This patient required aggressive diuresis. He was initially treated wi th Lasix drip and subsequently changed to Lasix b.i.d. and when patient became euvolemic, at that poi nt, the Lasix will change to p.o. Lasix. While in hospital with the diuretic therapy, now he is euvolemic. His edema completely improved. He had serial chest x-ray that also showed improvement in congestion. The patient is also feeling much better from congestive heart failure point of view. This patient has chronic respiratory failure and requiring oxygen and that is why he will continue ox ygen at rehab facility as well. During this admission, tracheostomy care was given by pulmonary group. This patient eventually will need a tracheostomy closure. This patient also required a tunneled hemodialysis catheter removal, be cause he does not longer requiring hemodialysis. While in hospital, we noted that he had supratherapeutic INR and that is why warfarin was on hold and when INR was acceptable, at that point tunneled hemodialysis catheter was discontinued. We discusse d with the patient and family member about a change in anticoagulation therapy and they wanted to cony nge warfarin to Eliquis, which was done. During this admission, he had ultrasound which also showed DVT on his left lower extremity which he h ad a DVT in the past with a right lower extremity. He was requiring anticoagulation therapy and that is why Eliquis 5 mg p.o. b.i.d. is prescribed based on his weight. That medication can be changed t o 2.5 mg b.i.d., because of his recent history of subdural hematoma and subarachnoid hemorrhage. While in hospital, the patient had DNR paper work. He required Garcia catheter on admission that was discontinued on discharge. This patient will eventually require removal of PEG tube, because he is a ble to eat mechanical soft diet and liquid as well. While in hospital, speech therapy was following. PT, OT was consulted. This patient was also evaluated by casework manager and they approved for rehabi litation. At this point, all consultants cleared him for discharge with above-mentioned medication. As he has systolic dysfunction and that is why we added lisinopril on his regimen. Paper work for discharge done. Discharge medication reconciliation done. Plan of care discussed wit h the . The patient is seen and examined at bedside today. Please see my progress note from today for furthe r details. Total time spent on discharge day 32 minutes.
[2018-08-29 11:43] VITALS: TEMP 98.3
[2018-08-29] MEDS ORDERED: Epoetin (ESRD) 10,000 UNITS/ML VIAL SC SCH (11:45)
[2018-08-29 13:32] VITALS: BMI 19.3
[2018-08-29 14:10] VITALS: BP 124/56
== END 2018-08-29 13:50 | DRG 291 ==
LOC: ERS 08:22 → IMCU/EMU 11:30
PROVIDERS: ADMIT Internal Medicine; ATTEND Internal Medicine
PROC: 5A09357 Assistance with Respiratory Ventilation, Less than 24 Consecutive Hours, Continuous Positive Airway Pressure (ICD-10-PCS; principal; 2018-08-23)
PROC: 05PYX3Z Removal of Infusion Device from Upper Vein, External Approach (ICD-10-PCS; 2018-08-28)
DX: I13.0 Hypertensive heart and chronic kidney disease with heart failure and stage 1 through stage 4 chronic kidney disease, or unspecified chronic kidney disease (principal); J96.21 Acute and chronic respiratory failure with hypoxia; I50.43 Acute on chronic combined systolic (congestive) and diastolic (congestive) heart failure; I82.403 Acute embolism and thrombosis of unspecified deep veins of lower extremity, bilateral; I69.354 Hemiplegia and hemiparesis following cerebral infarction affecting left non-dominant side; I48.2 Chronic atrial fibrillation; J44.9 Chronic obstructive pulmonary disease, unspecified; Z95.1 Presence of aortocoronary bypass graft; J38.00 Paralysis of vocal cords and larynx, unspecified; N18.3 Chronic kidney disease, stage 3 (moderate); Z93.0 Tracheostomy status; Z79.899 Other long term (current) drug therapy; Z79.01 Long term (current) use of anticoagulants; Z66 Do not resuscitate; Z88.1 Allergy status to other antibiotic agents; D64.9 Anemia, unspecified
CPT/HCPCS: 36415; 36416; 51702; 71045; 80048; 80053; 81003; 82533; 82553; 83735; 83880; 84100; 84443; 84484; 85025; 85610; 85730; 87040; 90471; 90662; 93005; 93306; 93798; 93970; 94640; 94660; 94760; 96374; G0008; G8978-GP-CM; G8979-GP-CL; G8987-GO-CK; G8988-GO-CI; G8996-GN-CL; G8997-GN-CI; J1940; J2001; J3475; J7050; P9047

== ENCOUNTER 2018-10-02 06:54 | Day surgery (SDC) | payer MEDICARE ==
[2018-10-01 12:19] VITALS: BMI 19.8
[2018-10-02 07:45] LABS: Hemoglobin 9.5 g/dL (14.0-18.0); Mean Corpuscular HGB CONC 31.2 g/dL (32.0-36.0); Mean Corpuscular Volume 92.9 fL (78.0-98.0); Mean Platelet Volume 7.3 fL (7.4-10.4); Platelet Count 237 thou/uL (130-400); RBC Distribution Width 18.6 % (11.5-14.5); Red Blood Cell (RBC) Count 3.29 mill/uL (4.70-6.10); White Blood Cell (WBC) Count 5.6 thou/uL (4.8-10.8)
[2018-10-02 08:09] LABS: Anion Gap 11 mmol/L (10-20); BUN (Urea Nitrogen) 24 mg/dL (8.4-25.7); Calc. Creatinine Clearance 36 mL/min (70-130); Calcium 8.9 mg/dL (7.8-10.44); Carbon Dioxide 26 mmol/L (23-31); Chloride 108 mmol/L (98-107); Estimated GFR-MDRD 46; Glucose 89 mg/dL (83-110); Potassium 3.6 mmol/L (3.5-5.1); Sodium 141 mmol/L (136-145)
[2018-10-02] MEDS ORDERED: EPINEPHrine 1 MG/ML AMP ONE (09:26)
[2018-10-02] MEDS ORDERED: Propofol 500 MG/50 ML VIAL ONE (09:30)
[2018-10-02] MEDS ORDERED: KETAMINE 100 MG/ML (5ML VIAL) ONE (09:30)
[2018-10-02] MEDS ORDERED: Midazolam HCl 2 mg/2 ml Vial ONE (09:31)
[2018-10-02] MEDS ORDERED: PHENYLEPHRINE-NS 100 MCG/ML 10 ML SYRINGE ONE (10:15)
--- NOTE | 2018-10-03 08:30 | OP ---
DATE OF PROCEDURE: 10/02/2018 PREOPERATIVE DIAGNOSES: 1. Left true vocal cord paralysis. 2. Hoarseness. POSTOPERATIVE DIAGNOSES: 1. Left true vocal cord paralysis. 2. Hoarseness. PROCEDURES PERFORMED: 1. Microscopic suspension direct laryngoscopy. 2. Left vocal cord medialization with Prolaryn injection. 3. Laryngoplasty. ESTIMATED BLOOD LOSS: 0 mL COMPLICATIONS: None. ANESTHESIA: GETA. DESCRIPTION OF PROCEDURE: The patient was taken to the operating room, placed supine on the table. General anesthesia was obtained through the patient's current tracheostomy tube. Following this, the head of the bed was turned 90 degrees. The operating microscope along with 400-mm lens was then brought into the field. Using the Dedo laryngoscope, the oral cavity, oropharynx, and laryngeal structures were visualized. The patient was placed in suspension to provide an adequate visualization of the laryngeal inlet. The left true vocal cord was lateralized and was noted to be very atrophic, 0.35 mL of Prolaryn Plus was injected just lateral to the thyroarytenoid muscle and treated for locations along this left vocal cord medializing the vocal cord. Following this, the patient tolerated the procedure well. Job ID: [id number]
== END 2018-10-02 12:45 | disposition home or self-care (01) ==
LOC: SDC 06:54
PROVIDERS: ATTEND Otolaryngology Plastic Surgery within the Head & Neck
PROC: 3E0F8GC Introduction of Other Therapeutic Substance into Respiratory Tract, Via Natural or Artificial Opening Endoscopic (ICD-10-PCS; principal; 2018-10-02)
DX: J38.00 Paralysis of vocal cords and larynx, unspecified (principal); K21.9 Gastro-esophageal reflux disease without esophagitis; Z79.01 Long term (current) use of anticoagulants; Z79.82 Long term (current) use of aspirin; Z79.899 Other long term (current) drug therapy; Z88.1 Allergy status to other antibiotic agents; Z93.0 Tracheostomy status; Z95.1 Presence of aortocoronary bypass graft
CPT/HCPCS: 36415; 80048; 85027; 93005; 93010; J0171; J2250; J2704

== ENCOUNTER 2018-11-06 11:16 | Day surgery (SDC) | payer MEDICARE ==
[2018-11-05 16:34] VITALS: BMI 19.8
[2018-11-06 11:56] LABS: Hemoglobin 11.1 g/dL (14.0-18.0); Mean Corpuscular HGB CONC 33.5 g/dL (32.0-36.0); Mean Corpuscular Hemoglobin 31.1 pg (27.0-31.0); Mean Platelet Volume 7.3 fL (7.4-10.4); Platelet Count 283 thou/uL (130-400); RBC Distribution Width 17.5 % (11.5-14.5); Red Blood Cell (RBC) Count 3.57 mill/uL (4.70-6.10); White Blood Cell (WBC) Count 6.3 thou/uL (4.8-10.8)
[2018-11-06 12:19] LABS: Anion Gap 11 mmol/L (10-20); BUN (Urea Nitrogen) 37 mg/dL (8.4-25.7); Calc. Creatinine Clearance 29 mL/min (70-130); Calcium 9.5 mg/dL (7.8-10.44); Carbon Dioxide 27 mmol/L (23-31); Chloride 106 mmol/L (98-107); Estimated GFR-MDRD 36; Glucose 93 mg/dL (83-110); Potassium 4.7 mmol/L (3.5-5.1); Sodium 139 mmol/L (136-145)
[2018-11-06] MEDS ORDERED: Midazolam HCl 2 mg/2 ml Vial ONE (13:03)
[2018-11-06] MEDS ORDERED: Fentanyl 100 MCG/2 ML VIAL ONE (13:03)
[2018-11-06] MEDS ORDERED: EPINEPHrine 1 MG/ML AMP ONE (13:06)
[2018-11-06] MEDS ORDERED: Lidocaine 1% PF 5 ML VIAL ONE (16:14)
[2018-11-06] MEDS ORDERED: ePHEDrine/0.9% NaCl/PF SYRINGE 50 mg/10 ml ONE (16:14)
[2018-11-06] MEDS ORDERED: PROPOFOL 200 MG/20 ML VIAL ONE ×2 (16:14)
--- NOTE | 2018-11-06 21:38 | OP ---
DATE OF PROCEDURE: 11/06/2018 PREOPERATIVE DIAGNOSES: 1. Left true vocal cord paralysis. 2. Dysphonia. 3. Tracheostomy dependence. POSTOPERATIVE DIAGNOSES: 1. Left true vocal cord paralysis. 2. Dysphonia. 3. Tracheostomy dependence. PROCEDURES: 1. Left true vocal cord medialization, laryngoplasty with Prolaryn Plus gel. 2. Tracheostomy change (downsized to #4 Shiley trach). ESTIMATED BLOOD LOSS: 0 mL. COMPLICATIONS: None. ANESTHESIA: GETA. PROCEDURE IN DETAIL: The patient was taken to the operating room and placed supine on the table. General anesthesia was obtained by the anesthesia staff through the tracheostomy tube. The head of the bed was turned 90 degrees. A shoulder roll was placed. Protective tooth guard was placed into the upper teeth and a Dedo laryngoscope was used to examine the oral cavity and oropharynx, which was noted to be clear of lesions. Hypopharyngeal structures were then visualized and noted to be within normal limits. Piriform sinuses, vallecula, and epiglottis are within normal limits. The patient was then placed in suspension, visualized in the laryngeal inlet and true vocal cords using the Prolaryn Plus gel. Injection was made just medial to the thyroarytenoid muscle and the arytenoid cartilage. 0.15 mL was injected, further medializing the posterior aspect of the vocal cord and arytenoid cartilage. Following this, the patient was taken out of suspension. An epinephrine-soaked pledget was allowed to sit on this injection site for 1 minute and was removed. Following this, the #6 Shiley trach was removed and #4 Shiley trach cuffless was placed. The patient tolerated the procedure well. Job ID: [id number]
--- NOTE | 2018-11-08 20:49 | EKG ---
Test Reason : PREOP Blood Pressure : / mmHG Vent. Rate : 054 BPM Atrial Rate : 054 BPM P-R Int : 160 ms QRS Dur : 098 ms QT Int : 560 ms P-R-T Axes : 073 019 -01 degrees QTc Int : 531 ms Sinus bradycardia Prolonged QT Abnormal ECG When compared with ECG of 23-AUG-2018 08:29, Premature ventricular complexes are no longer Present Vent. rate has decreased BY 31 BPM Inverted T waves have replaced nonspecific T wave abnormality in Inferior leads Nonspecific T wave abnormality no longer evident in Lateral leads QT has lengthened Confirmed by Madie SALDANA ([id number]) on 11/08/2018 8:49:00 PM Referred By: INDIO Confirmed By:Madie SALDANA
== END 2018-11-06 15:15 | disposition home or self-care (01) ==
LOC: SDC 11:16
PROVIDERS: ATTEND Otolaryngology Plastic Surgery within the Head & Neck
PROC: 3E0F8GC Introduction of Other Therapeutic Substance into Respiratory Tract, Via Natural or Artificial Opening Endoscopic (ICD-10-PCS; principal; 2018-11-06)
PROC: 0B21XFZ Change Tracheostomy Device in Trachea, External Approach (ICD-10-PCS; 2018-11-06)
DX: J38.01 Paralysis of vocal cords and larynx, unilateral (principal); R13.10 Dysphagia, unspecified; J01.90 Acute sinusitis, unspecified; J33.0 Polyp of nasal cavity; I25.2 Old myocardial infarction; K21.9 Gastro-esophageal reflux disease without esophagitis; Z79.899 Other long term (current) drug therapy; Z88.1 Allergy status to other antibiotic agents; Z93.0 Tracheostomy status; Z95.1 Presence of aortocoronary bypass graft; Z98.890 Other specified postprocedural states
CPT/HCPCS: 36415; 80048; 85027; 93005; 93010; J0171; J2001; J2250; J2704; J3010

== ENCOUNTER 2018-12-24 11:26 | Outpatient (CLI) | payer MEDICARE ==
[2018-12-24 12:37] LABS: Hemoglobin 10.2 g/dL (14.0-18.0); Mean Corpuscular HGB CONC 32.8 g/dL (32.0-36.0); Mean Corpuscular Hemoglobin 33.1 pg (27.0-31.0); Mean Platelet Volume 7.6 fL (7.4-10.4); Platelet Count 251 thou/uL (130-400); RBC Distribution Width 15.9 % (11.5-14.5); Red Blood Cell (RBC) Count 3.08 mill/uL (4.70-6.10); White Blood Cell (WBC) Count 5.5 thou/uL (4.8-10.8)
[2018-12-24 12:45] LABS: INR-International Normal Ratio 1.2; Prothrombin Time 14.9 SEC (12.0-14.7)
[2018-12-24 12:50] LABS: Anion Gap 14 mmol/L (10-20); BUN (Urea Nitrogen) 64 mg/dL (8.4-25.7); Calc. Creatinine Clearance 0 mL/min (70-130); Calcium 9.3 mg/dL (7.8-10.44); Carbon Dioxide 23 mmol/L (23-31); Chloride 108 mmol/L (98-107); Estimated GFR-MDRD 30; Glucose 78 mg/dL (83-110); Sodium 140 mmol/L (136-145)
--- NOTE | 2018-12-24 16:33 | EKG ---
Test Reason : Blood Pressure : / mmHG Vent. Rate : 049 BPM Atrial Rate : 049 BPM P-R Int : 176 ms QRS Dur : 096 ms QT Int : 516 ms P-R-T Axes : 057 033 -11 degrees QTc Int : 466 ms Marked sinus bradycardia Nonspecific ST abnormalty Abnormal ECG Confirmed by VENTURA MELENDEZ ([id number]) on 12/24/2018 4:33:14 PM Referred By: STEPH Confirmed By:VENTURA MELENDEZ
== END 2018-12-24 11:27 | disposition home or self-care (01) ==
LOC: LABBT 11:26
PROVIDERS: ATTEND Internal Medicine Cardiovascular Disease
DX: Z01.818 Encounter for other preprocedural examination (principal); I50.9 Heart failure, unspecified
CPT/HCPCS: 80048; 85027; 85610; 85730; 93005; 93010

== ENCOUNTER 2018-12-27 09:54 | Day surgery (SDC) | payer MEDICARE ==
[2018-12-24 11:49] VITALS: BMI 20.5
[2018-12-27] MEDS ORDERED: CEFAZOLIN 1 GM VIAL ONE (10:35)
[2018-12-27] MEDS ORDERED: Fentanyl 100 MCG/2 ML VIAL ONE (11:30)
[2018-12-27] MEDS ORDERED: Midazolam HCl 2 mg/2 ml Vial ONE (11:30)
[2018-12-27] MEDS ORDERED: Propofol 500 MG/50 ML VIAL ONE (11:39)
--- NOTE | 2018-12-27 14:43 | RAD ---
AP VIEW CHEST: 12/27/2018 HISTORY: Status post cardiac defibrillator insertion. COMPARISON: 10/11/2018 FINDINGS: AP view chest demonstrates a dual-lead intracardiac defibrillator. Cardiomegaly is seen. Sternotomy wire is seen. No evidence of left-sided hemothorax or pneumothorax is seen. There is minimal blunt ing of the costophrenic angles, compatible with pleural effusions or pleural scar. IMPRESSION: Status post placement of an intracardiac defibrillator. POS: [facility]
[2018-12-27] MEDS ORDERED: HYDROcodone/Acetaminophen 5/325 mg Tablet ONE (14:44)
[2018-12-27] MEDS ORDERED: PROPOFOL 200 MG/20 ML VIAL ONE (14:44)
[2018-12-27] MEDS ORDERED: Ondansetron PF 4 MG/2 ML Vial ONE (14:44)
[2018-12-27] MEDS ORDERED: Iopamidol 370 76% 50 ML VIAL FS ONE (16:23)
== END 2018-12-27 16:28 | disposition home or self-care (01) ==
LOC: CCL 09:54
PROVIDERS: ATTEND Internal Medicine Cardiovascular Disease
PROC: 0JH608Z Insertion of Defibrillator Generator into Chest Subcutaneous Tissue and Fascia, Open Approach (ICD-10-PCS; principal; 2018-12-27)
PROC: 02H63KZ Insertion of Defibrillator Lead into Right Atrium, Percutaneous Approach (ICD-10-PCS; 2018-12-27)
PROC: 02HK3KZ Insertion of Defibrillator Lead into Right Ventricle, Percutaneous Approach (ICD-10-PCS; 2018-12-27)
DX: I11.0 Hypertensive heart disease with heart failure (principal); I50.22 Chronic systolic (congestive) heart failure; I25.5 Ischemic cardiomyopathy; I48.0 Paroxysmal atrial fibrillation; I25.2 Old myocardial infarction; Z95.1 Presence of aortocoronary bypass graft; E78.00 Pure hypercholesterolemia, unspecified; Z86.718 Personal history of other venous thrombosis and embolism; Z79.01 Long term (current) use of anticoagulants; Z79.82 Long term (current) use of aspirin; Z79.899 Other long term (current) drug therapy; Z88.1 Allergy status to other antibiotic agents
CPT/HCPCS: 33249; 36005; 71045; 75820; C1721; C1777; C1898; J0690; J2250; J2405; J2704; J3010; J3490; Q9967

== ENCOUNTER 2019-03-20 09:00 | Outpatient (CLI) | payer MEDICARE ==
--- NOTE | 2019-03-20 09:37 | RAD ---
FRONTAL AND LATERAL IMAGING OF THE CHEST: DATE: 03/20/2019. COMPARISON: 12/27/2018. HISTORY: Paroxysmal atrial fibrillation. FINDINGS: There is a stable dual-lead AICD inserted via left subclavian approach. Midline sternotomy wires are noted. Stable blunting of right costophrenic angle. Stable multiple old right rib fractures. No p neumothorax or pleural fluid. No focal consolidation or alveolar edema. Upper thoracic spine dextro scoliosis again noted. IMPRESSION: Chronic findings as detailed above. No acute findings are seen. POS: [facility]
== END 2019-03-20 09:01 | disposition home or self-care (01) ==
LOC: BICRAD 09:00
PROVIDERS: ATTEND Internal Medicine Cardiovascular Disease
DX: I48.0 Paroxysmal atrial fibrillation (principal); M41.9 Scoliosis, unspecified; Z95.810 Presence of automatic (implantable) cardiac defibrillator
CPT/HCPCS: 36415; 71046; 80053; 80061; 82306; 82570; 83970; 84156; 84443

== ENCOUNTER 2019-09-03 16:46 | Outpatient (CLI) | payer MEDICARE ==
[2019-09-03 18:04] LABS: #Eosinphils 0.4 thou/uL (0.0-0.7); #Lymphocytes 2.4 thou/uL (1.20-3.40); #Monocytes 0.8 thou/uL (0.11-0.59); #Neutrophils 2.5 thou/uL (1.40-6.50); %Basophils 0.5 % (0.0-1.0); %Eosinophils 6.6 % (0.0-10.0); %Lymphocytes 39.5 % (21.0-51.0); %Monocytes 12.2 % (0.0-10.0); %Neutrophils 41.2 % (42.0-75.0); Hemoglobin 11.1 g/dL (14.0-18.0); Mean Corpuscular HGB CONC 33.7 g/dL (32.0-36.0); Mean Corpuscular Hemoglobin 34.5 pg (27.0-31.0); Mean Platelet Volume 7.8 fL (7.4-10.4); Platelet Count 238 thou/uL (130-400); RBC Distribution Width 12.9 % (11.5-14.5); Red Blood Cell (RBC) Count 3.23 mill/uL (4.70-6.10); White Blood Cell (WBC) Count 6.1 thou/uL (4.8-10.8)
[2019-09-03 18:23] LABS: ALT (SGPT) 14 U/L (8-55); AST (SGOT) 17 U/L (5-34); Albumin 4.2 g/dL (3.4-4.8); Alkaline Phosphatase 115 U/L (40-110); Anion Gap 9 mmol/L (10-20); BUN (Urea Nitrogen) 28 mg/dL (8.4-25.7); Bilirubin, Total 0.7 mg/dL (0.2-1.2); Calc. Creatinine Clearance 0 mL/min (70-130); Calcium 9.1 mg/dL (7.8-10.44); Carbon Dioxide 26 mmol/L (23-31); Chloride 112 mmol/L (98-107); Estimated GFR-MDRD 41; Globulin 2.4 g/dL (2.4-3.5); Glucose 86 mg/dL (83-110); Potassium 4.3 mmol/L (3.5-5.1); Protein, Total 6.6 g/dL (5.8-8.1); Sodium 143 mmol/L (136-145)
== END 2019-09-03 16:47 | disposition home or self-care (01) ==
LOC: LABBT 16:46
PROVIDERS: ATTEND Internal Medicine Cardiovascular Disease
DX: Z01.818 Encounter for other preprocedural examination (principal); R94.39 Abnormal result of other cardiovascular function study
CPT/HCPCS: 80053; 85025; 93005; 93010

== ENCOUNTER 2019-09-08 05:52 | Inpatient (IN) | payer MEDICARE ==
[2019-09-08] MEDS ORDERED: Heparin 10,000 UNITS/1 ML VIAL ONE (06:31)
[2019-09-08] MEDS ORDERED: Lidocaine 1% (PF) 30 ML VIAL ONE (06:32)
[2019-09-08] MEDS ORDERED: Heparin (Artline) 1,000 ML ONE (06:32)
[2019-09-08 06:55] LABS: Anion Gap 11 mmol/L (10-20); BUN (Urea Nitrogen) 29 mg/dL (8.4-25.7); Calc. Creatinine Clearance 0 mL/min (70-130); Calcium 8.8 mg/dL (7.8-10.44); Carbon Dioxide 25 mmol/L (23-31); Cardiac Risk 2.4 (Less than 4.5); Chloride 109 mmol/L (98-107); Cholesterol 99 mg/dl (< 200 Desired); Estimated GFR-MDRD 37; Glucose 93 mg/dL (83-110); HDL Cholesterol 42 mg/dL (>60 Neg Risk); LDL Cholesterol, Calculated 43 mg/dL; Potassium 3.9 mmol/L (3.5-5.1); Sodium 141 mmol/L (136-145); Triglycerides 71 mg/dL (Less than 150)
[2019-09-08] MEDS ORDERED: Fentanyl 100 MCG/2 ML VIAL ONE (07:07)
[2019-09-08] MEDS ORDERED: Midazolam HCl 2 mg/2 ml Vial ONE (07:07)
[2019-09-08] MEDS ORDERED: Protamine Sulfate 50 MG/5 ML VIAL ONE ×2 (08:18→08:43)
[2019-09-08] MEDS ORDERED: Sodium Chloride 0.9% 200 ML IV PRN (08:28)
[2019-09-08] MEDS ORDERED: Acetaminophen/Codeine 30-300mg Tablet PO PRN ×2 (08:28)
[2019-09-08] MEDS ORDERED: Nitroglycerin 0.4 MG TAB (25 Tab Bottle) SL PRN (08:28)
[2019-09-08] MEDS ORDERED: Sodium Chloride 0.9% 1,000 ML IV SCH (08:30)
[2019-09-08] MEDS ORDERED: Polyethylene Glycol 3350 17 GM Packet PO PRN (08:36)
[2019-09-08] MEDS ORDERED: Carvedilol 3.125 MG TAB PO SCH (10:45)
[2019-09-08] MEDS ORDERED: Iopamidol 370 76% 50 ML VIAL FS ONE (10:55)
[2019-09-08] MEDS ORDERED: Sterile Water 10 ML ONE (10:55)
[2019-09-08] MEDS ORDERED: Iopamidol 370 76% 100 ML VIAL ONE (10:55)
[2019-09-08] MEDS: Aspirin 81 mg Enteric Coated Tablet PO SCH (14:24)
[2019-09-08 14:26] VITALS: BMI 24.5
[2019-09-08] MEDS: Sodium Chloride 0.9% 1,000 ML IV SCH (15:02)
[2019-09-08] MEDS: Oseltamivir 75 MG CAP PO SCH (16:01)
[2019-09-08] MEDS: Calcitriol 0.25 MCG CAP PO SCH (16:02)
[2019-09-08] MEDS: Carvedilol 3.125 MG TAB PO SCH (18:05)
[2019-09-08] MEDS: Atorvastatin Calcium 20 MG TAB PO SCH (21:23)
[2019-09-09 04:58] LABS: Anion Gap 9 mmol/L (10-20); BUN (Urea Nitrogen) 24 mg/dL (8.4-25.7); Calc. Creatinine Clearance 38 mL/min (70-130); Calcium 8.4 mg/dL (7.8-10.44); Carbon Dioxide 26 mmol/L (23-31); Chloride 108 mmol/L (98-107); Estimated GFR-MDRD 37; Glucose 83 mg/dL (83-110); Potassium 3.8 mmol/L (3.5-5.1); Sodium 139 mmol/L (136-145)
[2019-09-09] MEDS: Aspirin 81 mg Enteric Coated Tablet PO SCH (08:43)
[2019-09-09] MEDS: Oseltamivir 75 MG CAP PO SCH (08:43)
[2019-09-09] MEDS: Carvedilol 3.125 MG TAB PO SCH ×2 (08:43→16:11)
[2019-09-09] MEDS: Sodium Chloride 0.9% 1,000 ML IV SCH (10:12)
[2019-09-09] MEDS ORDERED: Communication Order-Pharmacy FS SCH (17:30)
[2019-09-09] MEDS: Atorvastatin Calcium 20 MG TAB PO SCH (21:21)
[2019-09-10 05:18] LABS: Anion Gap 10 mmol/L (10-20); BUN (Urea Nitrogen) 21 mg/dL (8.4-25.7); Calc. Creatinine Clearance 41 mL/min (70-130); Calcium 8.2 mg/dL (7.8-10.44); Carbon Dioxide 21 mmol/L (23-31); Chloride 112 mmol/L (98-107); Estimated GFR-MDRD 44; Glucose 83 mg/dL (83-110); Potassium 4.3 mmol/L (3.5-5.1); Sodium 139 mmol/L (136-145)
[2019-09-10] MEDS ORDERED: Sodium Chloride 0.9% 1,000 ML IV SCH ×2 (06:00→07:43)
[2019-09-10] MEDS ORDERED: Heparin 10,000 UNITS/1 ML VIAL ONE (06:20)
[2019-09-10] MEDS ORDERED: Lidocaine 1% (PF) 30 ML VIAL ONE (06:21)
[2019-09-10] MEDS ORDERED: Heparin (Artline) 1,000 ML ONE (06:21)
[2019-09-10] MEDS ORDERED: Midazolam HCl 2 mg/2 ml Vial ONE (07:01)
[2019-09-10] MEDS ORDERED: Fentanyl 100 MCG/2 ML VIAL ONE (07:01)
[2019-09-10] MEDS ORDERED: Aspirin Chewable 81 MG TAB ONE ×2 (07:03→07:04)
[2019-09-10] MEDS ORDERED: Clopidogrel Bisulfate 300 MG TAB ONE (07:04)
[2019-09-10] MEDS ORDERED: Bivalirudin 250 MG VIAL ONE (07:09)
[2019-09-10] MEDS ORDERED: Heparin (Artline) 500 ML ONE (07:32)
[2019-09-10] MEDS ORDERED: Mag-Al 1200 mg/1200 mg/30 ML UDCUP PO PRN (07:41)
[2019-09-10] MEDS ORDERED: Morphine 4 MG/ML VIAL SLOW IVP PRN (07:41)
[2019-09-10] MEDS ORDERED: Nitroglycerin 0.4 MG TAB (25 Tab Bottle) SL PRN (07:41)
[2019-09-10] MEDS ORDERED: Morphine 2 MG/ML SYRINGE SLOW IVP PRN (07:41)
[2019-09-10] MEDS ORDERED: Iopamidol 370 76% 50 ML VIAL FS ONE (11:23)
[2019-09-10] MEDS ORDERED: Iopamidol 370 76% 100 ML VIAL ONE (11:23)
[2019-09-10] MEDS: Clopidogrel Bisulfate 75 MG TAB PO SCH (13:31)
[2019-09-10] MEDS: Aspirin 81 mg Enteric Coated Tablet PO SCH (13:31)
[2019-09-10] MEDS: Oseltamivir 75 MG CAP PO SCH (13:31)
[2019-09-10] MEDS: Carvedilol 3.125 MG TAB PO SCH ×2 (13:31→17:49)
[2019-09-10] MEDS: Calcitriol 0.25 MCG CAP PO SCH (13:31)
[2019-09-10] MEDS: Sodium Chloride 0.9% 1,000 ML IV SCH ×2 (14:35→20:54)
[2019-09-10] MEDS: Atorvastatin Calcium 20 MG TAB PO SCH (20:54)
[2019-09-11 04:56] LABS: #Eosinphils 0.3 thou/uL (0.0-0.7); #Lymphocytes 1.7 thou/uL (1.20-3.40); #Monocytes 0.6 thou/uL (0.11-0.59); #Neutrophils 2.2 thou/uL (1.40-6.50); %Basophils 0.8 % (0.0-1.0); %Eosinophils 5.3 % (0.0-10.0); %Lymphocytes 35.4 % (21.0-51.0); %Monocytes 13.2 % (0.0-10.0); %Neutrophils 45.3 % (42.0-75.0); Mean Corpuscular HGB CONC 34.8 g/dL (32.0-36.0); Mean Corpuscular Hemoglobin 35.1 pg (27.0-31.0); Mean Platelet Volume 7.8 fL (7.4-10.4); Platelet Count 182 thou/uL (130-400); RBC Distribution Width 12.5 % (11.5-14.5); Red Blood Cell (RBC) Count 2.56 mill/uL (4.70-6.10); White Blood Cell (WBC) Count 4.8 thou/uL (4.8-10.8)
[2019-09-11 05:02] LABS: INR-International Normal Ratio 1.1; Prothrombin Time 14.5 SEC (12.0-14.7)
[2019-09-11 05:14] LABS: ALT (SGPT) 11 U/L (8-55); AST (SGOT) 17 U/L (5-34); Albumin 3.1 g/dL (3.4-4.8); Alkaline Phosphatase 94 U/L (40-110); Anion Gap 9 mmol/L (10-20); BUN (Urea Nitrogen) 20 mg/dL (8.4-25.7); Bilirubin, Total 0.6 mg/dL (0.2-1.2); Calc. Creatinine Clearance 41 mL/min (70-130); Calcium 8.2 mg/dL (7.8-10.44); Carbon Dioxide 23 mmol/L (23-31); Chloride 112 mmol/L (98-107); Estimated GFR-MDRD 45; Globulin 2.2 g/dL (2.4-3.5); Glucose 85 mg/dL (83-110); Potassium 3.7 mmol/L (3.5-5.1); Protein, Total 5.3 g/dL (5.8-8.1); Sodium 140 mmol/L (136-145)
[2019-09-11] MEDS: Carvedilol 3.125 MG TAB PO SCH (08:35)
[2019-09-11] MEDS: Clopidogrel Bisulfate 75 MG TAB PO SCH (08:35)
[2019-09-11] MEDS: Oseltamivir 75 MG CAP PO SCH (08:35)
[2019-09-11] MEDS: Aspirin 81 mg Enteric Coated Tablet PO SCH (08:35)
[2019-09-11] MEDS ORDERED: Furosemide 20 MG/2 ML VIAL SLOW IVP SCH (09:15)
[2019-09-11] MEDS ORDERED: Potassium Chloride 10 MEQ TAB PO SCH (09:15)
[2019-09-11 11:29] VITALS: BP 138/70; TEMP 98.5
--- NOTE | 2019-09-12 02:52 | DIS ---
DATE OF ADMISSION: 09/08/2019 DATE OF DISCHARGE: 09/11/2019 DISCHARGE DIAGNOSES: 1. Bare metal stent placement in the proximal right coronary artery lesion. 2. Hernia surgery in the near future. 3. Status post CABG with patent PAREKH to the LAD and occluded sequential graft to the right PDA and right ANU. 4. Status post aortic dissection, aortic graft placement and resuspension of aortic valve at the time of CABG. 5. Anterolateral [id number]-[id number] myocardial infarction at initial presentation in 04/2018. 6. Atrial fibrillation, status post cardioversion on 05/02/2018, on amiodarone until March 2019. 7. Ischemic cardiomyopathy with ejection fraction of 20% to 25%. 8. History of subdural hematoma and subarachnoid hemorrhage as well as cerebrovascular accident in April 2018. 9. Chronic kidney disease with history of dialysis. 10. Hypertension. 11. Status post dual-chamber ICD. 12. Hypercholesterolemia with LDL of 43. 13. History of bilateral deep vein thrombosis in August 2018. DISCHARGE DISPOSITION: The patient will be seen in 1 month with ICD check and basic metabolic panel. Also after he is finished his course of Plavix, he may proceed with hernia repair. Eliquis can be stopped 4 days before hernia repair, however , aspirin should not be stopped. DISCHARGE MEDICATIONS: 1. Furosemide 20 mg q.a.m. 2. KCl 10 mEq q.a.m. 3. Ecotrin 81 mg daily (this will be stopped after 09/13 dose and will resume when he runs out of Plavix). 4. Plavix 75 mg daily x1 month and then discontinue. 5. Eliquis 5 mg b.i.d., which will be resumed on 09/13. 6. Carvedilol 3.125 b.i.d. 7. Tamiflu 75 mg daily. 8. MiraLAX p.r.n. 9. Atorvastatin 20 mg at bedtime. 10. Rocaltrol 0.25 mcg q.2 days. HOSPITAL COURSE: Mr. Lin had finding of fixed proximal to distal inferior wall and apical defect with some ischemia on cardiac PET scan when he was undergoing preoperative evaluation for hernia surgery. He underwent cardiac catheterization. This revealed total occlusion of the mid LAD, small circumflex with an 80% proximal and 60% mid stenosis. The right coronary artery was difficult to cannulate and had an 80% proximal stenosis. Bypass grafts revealed patent PAREKH to the LAD. The sequential vein graft to the right posterior descending-right posterior lateral was occluded. Left ventriculogram revealed inferobasal akinesis and severe global hypokinesis with ejection fraction of 20% to 25%. His initial creatinine was 1.79 and it was felt best not to proceed with stent placement due to the amount of contrast used for the diagnostic cath. 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 Then, on 09/10, he underwent placement of a bare metal stent-Rebel 4.0 x 16 mm, post dilated with 4.5 mm balloon. He was observed overnight and then his creatinine had fallen further to 1.51. He was mildly short of breath and was resumed on his Lasix. He will resume Eliquis 48 hours after discharge. Job ID: [id number] [facility]
--- NOTE | 2019-09-14 14:07 | EKG ---
Test Reason : POST STENT Blood Pressure : / mmHG Vent. Rate : 068 BPM Atrial Rate : 068 BPM P-R Int : 132 ms QRS Dur : 106 ms QT Int : 460 ms P-R-T Axes : 027 022 008 degrees QTc Int : 489 ms Electronic atrial pacemaker with premature supraventricular and ventricular complexes Cannot rule out Inferior infarct , age undetermined Abnormal ECG When compared with ECG of 03-SEP-2019 17:33, Significant changes have occurred Confirmed by JOE JHAVERI (2) on 09/14/2019 2:07:34 PM Referred By: SHAKILA Confirmed By:JOE JHAVERI
--- NOTE | 2019-09-14 14:21 | EKG ---
Test Reason : Blood Pressure : / mmHG Vent. Rate : 069 BPM Atrial Rate : 034 BPM P-R Int : 000 ms QRS Dur : 148 ms QT Int : 470 ms P-R-T Axes : 004 088 -82 degrees QTc Int : 503 ms Atrial pacemaker with ventricular bigeminy Confirmed by JOE JHAVERI (2) on 09/14/2019 2:21:06 PM Referred By: SHAKILA Confirmed By:JOE JHAVERI
== END 2019-09-11 12:10 | disposition home or self-care (01) | DRG 248 ==
LOC: CCL 05:52 → 2NO 08:27
PROVIDERS: ADMIT Internal Medicine Cardiovascular Disease; ATTEND Internal Medicine Cardiovascular Disease
PROC: 02703DZ Dilation of Coronary Artery, One Artery with Intraluminal Device, Percutaneous Approach (ICD-10-PCS; principal; 2019-09-10)
DX: I25.810 Atherosclerosis of coronary artery bypass graft(s) without angina pectoris (principal); I21.09 ST elevation (STEMI) myocardial infarction involving other coronary artery of anterior wall; R94.39 Abnormal result of other cardiovascular function study; I48.91 Unspecified atrial fibrillation; I25.5 Ischemic cardiomyopathy; Z95.810 Presence of automatic (implantable) cardiac defibrillator; E78.00 Pure hypercholesterolemia, unspecified; Z86.718 Personal history of other venous thrombosis and embolism; I12.9 Hypertensive chronic kidney disease with stage 1 through stage 4 chronic kidney disease, or unspecified chronic kidney disease; N18.9 Chronic kidney disease, unspecified
CPT/HCPCS: 36415; 80048; 80053; 80061; 85025; 85347; 85610; 92928; 93005; 93010; 93454; 93459; 93567; 94760; 99152; 99153; C1769; C1876; C1887; J0583; J1644; J1940; J2001; J2250; J2720; J3010; Q9967

== ENCOUNTER 2019-10-10 10:14 | Outpatient (CLI) | payer MEDICARE ==
[2019-10-10 12:52] LABS: #Eosinphils 0.4 thou/uL (0.0-0.7); #Lymphocytes 2.1 thou/uL (1.20-3.40); #Monocytes 0.8 thou/uL (0.11-0.59); #Neutrophils 2.1 thou/uL (1.40-6.50); %Basophils 0.1 % (0.0-1.0); %Eosinophils 6.8 % (0.0-10.0); %Lymphocytes 39.2 % (21.0-51.0); %Neutrophils 39.8 % (42.0-75.0); Hemoglobin 12.1 g/dL (14.0-18.0); Mean Platelet Volume 7.6 fL (7.4-10.4); Platelet Count 216 thou/uL (130-400); RBC Distribution Width 13.1 % (11.5-14.5); Red Blood Cell (RBC) Count 3.57 mill/uL (4.70-6.10); White Blood Cell (WBC) Count 5.4 thou/uL (4.8-10.8)
--- NOTE | 2019-10-10 13:02 | RAD ---
CHEST TWO VIEWS: HISTORY: Preop evaluation. COMPARISON: 03/20/2019 FINDINGS: The lungs appear clear of infiltrate. The heart is mildly enlarged with postop sternotomy change and AICD leads again noted. Vascular markings within the normal range. Right rib deformity is again noted . Blunting of the right CP angle is unchanged. IMPRESSION: Stable chest findings without evidence of acute process. POS: [facility]
[2019-10-10 13:16] LABS: Anion Gap 13 mmol/L (10-20); BUN (Urea Nitrogen) 33 mg/dL (8.4-25.7); Calc. Creatinine Clearance 0 mL/min (70-130); Calcium 9.3 mg/dL (7.8-10.44); Carbon Dioxide 24 mmol/L (23-31); Chloride 109 mmol/L (98-107); Estimated GFR-MDRD 35; Glucose 87 mg/dL (83-110); Potassium 5.6 mmol/L (3.5-5.1); Sodium 140 mmol/L (136-145)
== END 2019-10-10 10:15 | disposition home or self-care (01) ==
LOC: LABBT 10:14
PROVIDERS: ATTEND Specialist
DX: Z01.818 Encounter for other preprocedural examination (principal)
CPT/HCPCS: 71046; 80048; 85025; 93005; 93010

== ENCOUNTER 2019-10-24 07:42 | Day surgery (SDC) | payer MEDICARE ==
--- NOTE | 2019-10-09 10:25 | HP ---
HISTORY OF PRESENT ILLNESS: Edvin Lin is a 78-year-old male patient who presents with a right inguinal hernia. Plan is to repair that robotically with mesh as an outpatient. The patient has a history of coronary artery disease, having had coronary bypass grafting in the past and more recently, August 2019, Dr. Bailey placed a stent. He is on Eliquis, Plavix, and aspirin. He will be coming off the Plavix soon. Patient's Eliquis will be held 4 days prior to the surgery. He has an appointment to see Dr. Bailey on the , but family has discussed with Dr. Bailey and patient is safe to proceed. Plan is repair under general anesthesia as an outpatient. The patient has had a TURP previously, then a prostatectomy. After that prostatectomy, he has suffered urinary incontinence and impotence. He wears briefs. He did have a urinary sling that did not help relieve his incontinence at all. He reports that more recently, attempts to place a Agrcia catheter at the time of his hospitalization for his recent cardiac cath, they were unable to do so. In the past, they were placed without problems. The patient does have a history of chronic kidney disease. More recent creatinine is 1.51, GFR 81, BUN 20; 09/11/2019. ALLERGIES: VANCOMYCIN, RASH. TOBACCO: None. ALCOHOL: None. MEDICATIONS: Atorvastatin 20 mg a day, potassium ER daily, Colace daily, Plavix 75 mg a day, carvedilol 3.125 mg daily twice daily, furosemide 20 mg a day, Eliquis 5 mg b.i.d., aspirin 81 mg a day, MiraLAX daily, Calcitrate, vitamin B12. PAST SURGICAL HISTORY: Prostatectomy, TURP prior to that, urinary incontinence, impotence, postprocedural coronary bypass grafting, pacemaker placement, coronary stent placed September 10, 2019, PEG tube placement and replacement after dislodgement, tracheostomy. PAST MEDICAL HISTORY: 1. Coronary artery disease, stable, status post past coronary bypass grafting and more recent stent placement, Dr. Bailey, due to see him in the next few days. 2. Past history of myocardial infarction, currently asymptomatic from cardiac standpoint. 3. Paroxysmal atrial fibrillation, on Eliquis. 4. Last year, he suffered a hemorrhagic stroke requiring temporary PEG tube, tracheostomy. These have been removed. The patient has developed a right inguinal hernia recently. 5. He has chronic kidney disease. PRIMARY CARE PHYSICIAN: Patrick Ordoñez. PHYSICAL EXAMINATION: VITAL SIGNS: Weight 144 pounds, height 5 feet 9 inches. Blood pressure 129/59, heart rate 75, temperature 98.9 degrees. HEAD, EARS, EYES, NOSE, AND THROAT: Unremarkable. LUNGS: Clear to auscultation. CARDIAC: Regular rate and rhythm. No murmur or gallop. ABDOMEN: Soft and nontender. PEG tube scar in his left upper quadrant. Small umbilical hernia. EXTREMITIES: Unremarkable. No ankle edema. Sternotomy scar. Mediastinal tube scars. Testicles atrophic. Large right inguinal hernia present on standing, enlarged on Valsalva. Left groin without evident hernia. ASSESSMENT/PLAN: 1. Right inguinal hernia. We would recommend robot repair using mesh, general anesthesia, outpatient, hold his Eliquis for 4 days. He will be off his Plavix in the next few days and we will discontinue that. He can continue to take his aspirin perioperatively. He is to go and see Dr. Keith Bailey in the next few days. We will plan outpatient surgery. 2. History of prostatectomy, has a history on one occasion difficult Garcia catheter placement and other occasions, it was placed without problems. He may need Urology consultation on the morning of surgery for Garcia catheter placement if difficult, but this has been placed without difficulty in the past. 3. Eliquis held for 4 days preoperatively. 4. Paroxysmal atrial fibrillation. 5. Stable coronary artery disease. 6. History of prostatectomy with urinary incontinence. 7. History of hemorrhagic stroke, status post PEG and trach successfully removed, now functional and ambulatory. Mentation is normal. 8. Chronic kidney disease, mild. Job ID: [id number]
[2019-10-10 10:25] VITALS: BMI 21.3
[2019-10-24] MEDS ORDERED: Bupivacaine PF 0.5% 30 ML VIAL ONE (09:40)
[2019-10-24] MEDS ORDERED: Lidocaine 1% w/Epinephrine 1:100K 20 ML VIAL ONE (09:40)
[2019-10-24] MEDS ORDERED: Fentanyl 100 MCG/2 ML VIAL ONE (09:50)
[2019-10-24] MEDS ORDERED: Famotidine/PF 20 mg/2ml Vial ONE (09:50)
[2019-10-24] MEDS ORDERED: Ondansetron PF 4 MG/2 ML Vial ONE (11:04)
[2019-10-24] MEDS ORDERED: Metoclopramide HCl 10 MG/2 ML VIAL ONE (11:04)
[2019-10-24] MEDS ORDERED: PROPOFOL 200 MG/20 ML VIAL ONE (11:04)
[2019-10-24] MEDS ORDERED: Dexamethasone 20 MG/5 ML VIAL ONE (11:04)
[2019-10-24] MEDS ORDERED: PHENYLEPHRINE-NS 100 MCG/ML 10 ML SYRINGE ONE (11:04)
[2019-10-24] MEDS ORDERED: Ketorolac Tromethamine 30 MG/ML VIAL ONE (11:04)
[2019-10-24] MEDS ORDERED: Lidocaine 1% PF 5 ML VIAL ONE (11:04)
[2019-10-24] MEDS ORDERED: Rocuronium Bromide 10 MG/ML (10ML VIAL) ONE (11:04)
[2019-10-24] MEDS ORDERED: Glycopyrrolate 0.2 MG/ML 5 ML SYRINGE ONE (11:04)
--- NOTE | 2019-10-24 12:07 | OP ---
DATE OF PROCEDURE: 10/24/2019 PREOPERATIVE DIAGNOSIS: Right inguinal hernia, indirect. POSTOPERATIVE DIAGNOSIS: Right inguinal hernia, indirect. PROCEDURE PERFORMED: Robot laparoscopic 3D Bard Max large repair of indirect right inguinal hernia. ANESTHESIA: General, local 0.5% Marcaine, 30 mL mixed with 1% xylocaine with epinephrine 30 mL, 30 mL mixture used. DESCRIPTION OF PROCEDURE: The patient was taken to the operating room, where under general anesthesia, abdomen was clipped of hair, prepared with ChloraPrep and draped in routine fashion. Garcia catheter was placed at the beginning of the procedure and removed at the end. There was no difficulty placing the Garcia. Supraumbilical incision was made at left to midline and pneumoperitoneum to 15 mmHg was established with Veress needle, replaced with an 11 balloon port. Bilateral mid far lateral incision was made, 8 mm port was placed. The robot was docked, positioned, and robot laparoscopic hernia repair undertaken. Left groin without hernia. Right groin reveals a large indirect hernia sac. Peritoneal flap dissected free from the midline to the anterior superior iliac spine on the right, dissecting the flap medially and laterally, identifying the Prudencio's ligament medially. Hernia sac was dissected free from the cord structures, which were kept free of harm. An inferior epigastric vessels identified, kept free of harm. Complete dissection with excellent hemostasis achieved. A 3D Bard Max large mesh positioned properly, oriented, and secured to Prudencio ligament with 2-0 Vicryl and to the anterior abdominal wall just right lateral inferior epigastric vessels with 2-0 Vicryl. Mesh properly positioned. Good hemostasis noted. Peritoneal flap closed with continuous suture of 3-0 V-Loc suture. A small defect in the peritoneum closed with a 2-0 Vicryl suture, incorporating hernia sac to reinforce it. Good hemostasis noted. Needle was removed. Pneumoperitoneum reduced. All instruments were removed. All skin incisions were approximated with interrupted subdermal 4-0 Monocryl. An 11 mm port site anterior rectus sheath closed with 2-0 Vicryl UR needle. The patient tolerated the procedure well. Job ID: [id number]
[2019-10-24] MEDS ORDERED: HYDROcodone/Acetaminophen 5/325 mg Tablet ONE (13:25)
== END 2019-10-24 14:50 | disposition home or self-care (01) ==
LOC: SDC 07:42
PROVIDERS: ATTEND Specialist
PROC: 0YU54JZ Supplement Right Inguinal Region with Synthetic Substitute, Percutaneous Endoscopic Approach (ICD-10-PCS; principal; 2019-10-24)
DX: K40.90 Unilateral inguinal hernia, without obstruction or gangrene, not specified as recurrent (principal); I25.10 Atherosclerotic heart disease of native coronary artery without angina pectoris; I25.2 Old myocardial infarction; I48.0 Paroxysmal atrial fibrillation; N18.2 Chronic kidney disease, stage 2 (mild); Z86.73 Personal history of transient ischemic attack (TIA), and cerebral infarction without residual deficits; Z79.01 Long term (current) use of anticoagulants; Z79.02 Long term (current) use of antithrombotics/antiplatelets; Z79.82 Long term (current) use of aspirin; Z79.899 Other long term (current) drug therapy; Z88.1 Allergy status to other antibiotic agents; Z95.1 Presence of aortocoronary bypass graft
CPT/HCPCS: 49650; C1781; J0690; J1100; J1885; J2001; J2405; J2704; J2765; J3010; S0020; S0028

== ENCOUNTER 2020-10-23 22:19 | Inpatient (IN) | payer MEDICARE ==
[2020-10-23] MEDS ORDERED: hydrALAZINE 20 MG/ML VIAL SLOW IVP PRN (23:04)
[2020-10-23] MEDS ORDERED: Dextrose 5% in Water 1,000 ML IV PRN (23:04)
[2020-10-23] MEDS ORDERED: Ondansetron PF 4 MG/2 ML Vial IVP PRN (23:04)
[2020-10-23] MEDS ORDERED: Dextrose 50% Abboject 50 ML SYRINGE SLOW IVP PRN (23:04)
[2020-10-23] MEDS ORDERED: traMADol HCl 50 MG TAB PO PRN (23:07)
[2020-10-23] MEDS: Acetaminophen 500 MG TAB PO SCH (23:37)
[2020-10-23 23:55] VITALS: BMI 22.7
--- NOTE | 2020-10-24 01:09 | HP ---
TRAUMA SURGEON: Gibson Tinajero MD. CONSULTING PHYSICIAN: Dr. Armendariz. HISTORY OF PRESENT ILLNESS: Patient is a 79-year-old male who presented to [place] [address] as a direct admit from [facility]. Patient reports today about noon he had a mechanical fall at home. He states he went to step up onto a ledge, but did not quite make it with his left upper extremity, falling forward onto his left side. He denies hitting his head or anticoagulation use. He was able to catch himself a little bit with his left arm. The patient reports that he has some residual mild left-sided weakness after a CVA and states that this is likely the cause of his inability to lift his leg sufficiently to step up over the curve. At the outside hospital, it was found that the patient had a left intertrochanteric femur fracture. Dr. Armendariz was consulted who accepted the patient as a direct admit and was transferred here. Upon my evaluation, the patient complains of left hip pain. He denies loss of consciousness and numbness and tingling in his bilateral upper and lower extremities. He reports that he takes aspirin, Plavix, and Eliquis. The patient has a significant cardiac history including an ICD for heart failure. He has had a CABG and has also had cardiac stents placed status post CABG. He has had several operative interventions, has previously had a trach and a PEG. Has also had multiple other traumatic injuries previous to this hospital admission after a tree branch fell on him. He walks independently, lives at home with his , and has children and grandchildren that help take care of him as well. Upon my evaluation, patient was alert and awake. He had no signs of acute distress. He denies chest pain, shortness of breath, nausea, vomiting, diarrhea, and cough. Patient walks about 2 miles a day with his . He has not noticed any changes in his functional capacity. Denies any orthopnea, chest pain with activity. His fit model is Dr. Bailey. REVIEW OF SYSTEMS: All additional 10-point review of systems are negative, except as indicated above. PAST MEDICAL HISTORY: CABG, dual chamber ICD, hypertension, atrial fibrillation, ischemic cardiomyopathy, chronic kidney disease, cardiac stents status post CABG, CVA with left-sided residual weakness, aortic dissection, coronary artery disease, left lower extremity DVT, TBI, scoliosis, prostatectomy, melanoma. PAST SURGICAL HISTORY: Craniectomy, CABG, right femur surgery after traumatic injury, TURP, prostatectomy, left inguinal hernia repair, trach and PEG placement, now removed. SOCIAL HISTORY: Patient denies tobacco and drug use. He drinks alcohol on occasions. He lives at home with his . He does not use any assistive devices to get around. He is retired. MEDICATIONS: 1. Lasix. 2. Atorvastatin. 3. Potassium chloride. 4. Aspirin. 5. MiraLAX. 6. Coreg. 7. Eliquis. 8. Plavix. ALLERGIES: VANCOMYCIN. PHYSICAL EXAMINATION: VITAL SIGNS: Temperature 98.7, pulse 94, respirations 16, oxygen saturation 94% on room air. Primary Survey: Airway intact. Adequate breath sounds bilaterally. 2+ pulses in bilateral radials, femorals, and DPs. GCS 15. Gross motor and sensation intact. No lacerations, bruising, or external bleeding. Left lower extremity is slightly shortened in compared to the right. Secondary Survey: HEAD: Normocephalic and atraumatic. No gross palpable skull deformities or tenderness. EYES: Pupils 3 to 2, equal, round, and reactive to light bilaterally. ENT: No signs of trauma. C-spine: No step-offs or deformities. Nontender. C-collar not in place. CHEST: Nontender. No crepitus, no abrasions, or ecchymosis. Equal chest movement. ABDOMEN: Soft, nontender, nondistended. PELVIS: Stable to palpation, nontender. No abrasions or ecchymosis noted. RECTAL: Deferred. GENITOURINARY: Deferred. EXTREMITIES: He has a left lower extremity that is foreshortening compared to the right. Left lateral hip pain. Abrasion to left elbow. 2+ pulses in bilateral radials, femorals, and DPs. BACK/SPINE: No step-offs, deformities, or tenderness to palpation of thoracic or lumbar spine. No abrasions or ecchymosis noted. 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 Gross normal sensation x4 extremities. LABORATORY FINDINGS: White count 8.2, hemoglobin 11.2, hematocrit 34.8, platelets 203. INR 1.3. PT 16.1, PTT 36.0. Sodium 143, potassium 4.8, chloride 109, bicarb 24, BUN 40, creatinine 2.00, glucose 110, total bilirubin 0.6, AST 22, ALT 20, alkaline phosphatase 85. DIAGNOSTIC FINDINGS: Chest x-ray and x-ray of the left hip were completed. Reads are pending. X-ray on my evaluation demonstrates a left-sided intertrochanteric femur fracture. Chest x-ray is not concerning for acute cardiopulmonary process. Patient does have a dual chamber ICD in place. ASSESSMENT: 1. Status post mechanical fall on Eliquis, aspirin, and Plavix. 2. Left intertrochanteric femur fracture. 3. Acute kidney injury on chronic kidney disease, mild. 4. History of coronary artery bypass graft, cardiac stents, status post coronary artery bypass graft, ICD placement, Hypertension, Atrial fibrillation, Aortic dissection, Coronary artery disease, Left lower extremity deep vein thrombosis, TBI, Cerebrovascular accident with left-sided weakness, Scoliosis, Incontinence, Chronic kidney disease, Myocardial infarction, Ischemic cardiomyopathy, and status post prostatectomy. PLAN: The patient was admitted to the Trauma Service. He is on the surgical nursing floor. Dr. Armendariz has been consulted. He plans to take the patient to the OR on Sunday due to the patient's anticoagulation and anti-platelet use. In the meantime he will receive both p.o. and IV pain medications as needed, he will have a heart healthy diet, and he will be n.p.o. after midnight on October 25, 2020. Postoperatively, he will work with Physical and Occupational Therapy and likely need placement in acute rehab facility. Patient has been to rehab previously and has reported that he is amenable to going again. We will complete echo preop to further evaluate the patient's EF, last reported was about 20% to 25%. If there is concerns for cardiovascular compromise or concerning echo, we will consult Cardiology. Dr. Bailey is his fit model. In the meantime, he does not show any signs of decompensated heart failure and his current functional capacity is at baseline. Repeat blood work in the morning. Job ID: [id number] [facility]
[2020-10-24] MEDS: traMADol HCl 50 MG TAB PO SCH ×2 (01:21→06:11)
[2020-10-24 04:40] LABS: SARS-CoV-2 MS2 Positive; SARS-CoV-2 N Gene Negative; SARS-CoV-2 S Gene Negative; SARS-CoV-2 by NAA Not Detected (NotDetected); SARS-CoV-2 orf1ab Negative
[2020-10-24 05:43] LABS: Anion Gap 11 mmol/L (10-20); BUN (Urea Nitrogen) 37 mg/dL (8.4-25.7); Calc. Creatinine Clearance 36 mL/min (70-130); Calcium 8.2 mg/dL (7.8-10.44); Carbon Dioxide 23 mmol/L (23-31); Chloride 111 mmol/L (98-107); Glucose 102 mg/dL (83-110); Phosphorus 3.4 mg/dL (2.3-4.7); Potassium 4.4 mmol/L (3.5-5.1); Sodium 141 mmol/L (136-145)
[2020-10-24] MEDS: Acetaminophen 500 MG TAB PO SCH (06:10)
[2020-10-24] MEDS: Cyclobenzaprine 10 MG TAB PO PRN (06:13)
[2020-10-24 06:44] LABS: #Eosinphils 0.4 thou/uL (0.0-0.7); #Lymphocytes 2.9 thou/uL (1.20-3.40); #Monocytes 0.9 thou/uL (0.11-0.59); %Basophils 0.6 % (0.0-1.0); %Eosinophils 5.4 % (0.0-10.0); %Lymphocytes 39.9 % (21.0-51.0); %Monocytes 12.5 % (0.0-10.0); %Neutrophils 41.6 % (42.0-75.0); Hemoglobin 9.5 g/dL (14.0-18.0); MDiff Complete? YES; Macrocytosis SLIGHT = 6-15 cells (100X) (0-5/hpf); Mean Corpuscular HGB CONC 32.7 g/dL (32.0-36.0); Mean Corpuscular Hemoglobin 35.2 pg (27.0-31.0); Mean Platelet Volume 7.8 fL (7.4-10.4); Platelet Count 184 thou/uL (130-400); RBC Distribution Width 13.1 % (11.5-14.5); Red Blood Cell (RBC) Count 2.69 mill/uL (4.70-6.10); White Blood Cell (WBC) Count 7.2 thou/uL (4.8-10.8)
[2020-10-24] MEDS ORDERED: CEFAZOLIN 2 GM in Premix Bag 1 BAG IVPB SCH (08:15)
[2020-10-24] MEDS: Polyethylene Glycol 3350 17 GM Packet PO SCH (08:31)
[2020-10-24] MEDS: Carvedilol 6.25 MG TAB PO SCH ×2 (08:31→16:25)
[2020-10-24] MEDS: Ferrous Sulfate 325 MG TAB PO SCH ×2 (08:31→16:25)
[2020-10-24] MEDS: Senokot S 8.6-50 MG TAB PO SCH ×2 (08:32→20:35)
[2020-10-24] MEDS: Ascorbic Acid 500 mg Chewable Tablet PO SCH ×2 (08:32→20:32)
[2020-10-24] MEDS: Famotidine/PF 20 mg/2ml Vial SLOW IVP SCH (08:32)
--- NOTE | 2020-10-24 08:45 | CON ---
DATE OF CONSULTATION: 10/24/2020 HISTORY OF PRESENT ILLNESS: Mr. Lin is a 79-year-old male, presents after a ground level fall yesterday while at home with his family celebrating [place]. The patient has history of CVA, walks about 2 miles a day. He was transferred here from [place]. The patient is currently on aspirin, Plavix, and Eliquis. He has a significant heart history. The patient lives with his . He states that he ambulates 2 hours 2 miles a day, followed by Dr. Bailey. PAST MEDICAL HISTORY: CABG, dual-chamber ICD, hypertension, atrial fibrillation, ischemic cardiomyopathy, chronic kidney disease, cardiac stents post CABG, CVA with left-sided residual weakness, aortic dissection, coronary artery disease as above, left lower extremity DVT, TBI, scoliosis, prostatectomy, melanoma. PAST SURGICAL HISTORY: Craniectomy, CABG, right femur surgery 2005, not otherwise specified, TURP, prostatectomy, left inguinal hernia repair, trach, PEG, which had been removed. MEDICATIONS: 1. Lasix. 2. . 3. Potassium. 4. Aspirin. 5. MiraLAX. 6. Coreg. 7. Eliquis. 8. Plavix. SOCIAL HISTORY: Denies tobacco, alcohol use. He is retired, occasionally drinks, lives at home with his . The patient does not use assist devices, walks 2 miles a day. REVIEW OF SYSTEMS: Negative except for above a 10-point review of systems. PHYSICAL EXAMINATION: VITAL SIGNS: As of last night, 98.7, 94, 16, 94%, 155/74. GENERAL: Alert, oriented male, in no acute distress, resting comfortably in bed. EXTREMITIES: Upper extremity shortened, externally rotated. Neurovascularly intact distally. Pain with internal and external rotation of his hip. LABORATORY DATA: Show an H and H of 9.5 and 28.9, platelet count 184. He has a creatinine of 1.72. He has a negative SARs test. The patient's PT and INR as well as his type and screen are pending. The patient's films showing a left intertrochanteric hip fracture. IMPRESSION: 1. Left intertrochanteric hip fracture. 2. Significant past medical history as above. ASSESSMENT AND PLAN: The patient will be delayed one day as we work with Cardiology for clearance for surgery. The patient has high risk because of his multiple blood thinners, need for potential transfusion. I discussed with him the risks and benefits of surgery to include pain, scar, bleeding, infection, decreased range of motion and strength, nonunion, malunion, fracture above or below the stem, damage to vital structures, blood clots, loss of life or limb. He understood these risks and benefits. We will plan to proceed with surgery tomorrow at noon once cleared for short TFN a nail. The patient understands this. We will coordinate care with Trauma as well as edi analyst. Job ID: [id number]
[2020-10-24 09:24] LABS: INR-International Normal Ratio 1.2; Prothrombin Time 15.9 sec (12.0-14.7)
--- NOTE | 2020-10-24 09:54 | PDOC.EVN ---
Event Note - Event Note Event Note: See trauma H&P. plan surgery per ortho tomorrow.
[2020-10-24] MEDS: Morphine 4 MG/ML VIAL SLOW IVP PRN (10:27)
--- NOTE | 2020-10-24 11:36 | PRG ---
DATE OF SERVICE: 10/24/2020 SUBJECTIVE: The patient was seen during morning rounds, sitting up in bed, eating breakfast. The patient had no overnight events. The patient was admitted overnight for mechanical fall with a left intertrochanteric femur fracture. Currently, the patient reports moderate pain to his left thigh and spouse report that in the past, when the patient had taken tramadol made him hallucinate. OBJECTIVE: VITAL SIGNS: Temperature 97.6, pulse 75, respirations 14, SpO2 93% on room air, blood pressure 122/70. GENERAL: Well-appearing elderly male, awake, alert, in no distress. HEENT: Unremarkable. RESPIRATORY: Good inspiratory and expiratory effort. Respirations are even and nonlabored. CARDIAC: Regular rate, regular rhythm. ABDOMEN: Soft, nontender, nondistended. EXTREMITIES: Neurovascularly intact x4, pain left hip, left leg mildly shortened. NEUROLOGIC: No focal deficits. LABORATORY DATA: WBC 7.2, RBC 2.69, hemoglobin 9.5, hematocrit 28.9, platelets 184. PT 15.9, INR 1.2. Sodium 141, potassium 4.4, chloride 111, BUN 37, and creatinine 1.72, improved from yesterday. Estimated GFR 39, glucose 102, calcium 8.2, phosphorus 3.4, magnesium 2.0. No new diagnostics to review today. ASSESSMENT: 1. Status post fall, on Eliquis, aspirin and Plavix. 2. Left intertrochanteric femur fracture. 3. Acute kidney injury on chronic kidney disease, improving. 4. History of coronary artery bypass graft; cardiac stents; ICD placement; hypertension; atrial fibrillation; aortic dissection; coronary artery disease; deep vein thrombosis, left lower extremity; traumatic brain injury; cerebrovascular accident with left-sided weakness; scoliosis; incontinence; chronic kidney disease; myocardial infarction; ischemic cardiomyopathy; and prostatectomy. PLAN: Heart healthy diet today. N.p.o. after midnight. We will discontinue tramadol as it causes hallucinations and start Tylenol with codeine for pain. The patient will be on bedrest today. Orthopedic Surgery plans to take him to the OR tomorrow for repair of his left intertrochanteric femur fracture. The patient will be n.p.o. after midnight. The plan was discussed with the patient who agrees. Job ID: [id number]
[2020-10-24] MEDS: Acetaminophen/Codeine 30-300mg Tablet PO SCH ×2 (13:40→16:23)
[2020-10-24] MEDS: Acetaminophen 325 MG TAB PO SCH ×2 (14:40→16:23)
[2020-10-24] MEDS: Atorvastatin Calcium 20 MG TAB PO SCH (20:32)
[2020-10-25] MEDS ORDERED: Sodium Chloride 0.9% 1,000 ML IV SCH (00:01)
--- NOTE | 2020-10-25 00:36 | PRG ---
DATE OF SERVICE: 10/24/2020 SUBJECTIVE: The patient was seen this evening during rounds. He was lying in bed, resting comfortably and asleep with no signs of acute distress. Nursing reported no acute events. The patient is pending OR tomorrow with Dr. Armendariz for fixation of his hip fracture. OBJECTIVE: VITAL SIGNS: Temperature 96.9, pulse 88, respirations 18, oxygen saturation 94% on room air, and blood pressure 121/58. GENERAL: Well-appearing elderly male, lying in bed, resting comfortably and asleep, in no signs of acute distress. ASSESSMENT: 1. Status post mechanical fall, on aspirin and Eliquis. The patient is not on Plavix as previously reported. 2. Left intertrochanteric femur fracture. 3. Acute kidney injury on chronic kidney disease, resolved. 4. History of coronary artery bypass graft, cardiac stents, status post coronary artery bypass graft, ICD, hypertension, myocardial infarction, atrial fibrillation, aortic dissection, ischemic cardiomyopathy, coronary artery disease, left lower extremity deep vein thrombosis. 5. traumatic brain injury, cerebrovascular accident with left-sided weakness, scoliosis, chronic kidney disease, incontinence, and status post prostatectomy. PLAN: Continue current heart healthy diet. N.p.o. at midnight. Start normal saline at 75 an hour for a total 1 L at midnight. The patient did receive his echo today. EF is 30% to 35%, which is an improvement from last echo just over a year ago. We have discontinued tramadol as the patient reports hallucinations and change them to Tylenol 3. He is to go to the OR tomorrow. Postop, we will work with Physical Therapy and likely need placement in acute rehab facility. Job ID: [id number]
[2020-10-25] MEDS: Acetaminophen/Codeine 30-300mg Tablet PO SCH ×5 (00:42→16:37)
[2020-10-25] MEDS: Acetaminophen 325 MG TAB PO SCH ×4 (00:43→16:33)
[2020-10-25] MEDS: Carvedilol 6.25 MG TAB PO SCH ×2 (05:22→16:34)
[2020-10-25 06:04] LABS: #Eosinphils 0.5 thou/uL (0.0-0.7); #Lymphocytes 2.2 thou/uL (1.20-3.40); #Monocytes 0.8 thou/uL (0.11-0.59); #Neutrophils 2.4 thou/uL (1.40-6.50); %Basophils 0.6 % (0.0-1.0); %Eosinophils 7.8 % (0.0-10.0); %Lymphocytes 37.7 % (21.0-51.0); %Monocytes 13.6 % (0.0-10.0); %Neutrophils 40.3 % (42.0-75.0); Hemoglobin 9.8 g/dL (14.0-18.0); Mean Corpuscular HGB CONC 33.4 g/dL (32.0-36.0); Mean Corpuscular Hemoglobin 35.9 pg (27.0-31.0); Mean Platelet Volume 7.6 fL (7.4-10.4); Platelet Count 182 thou/uL (130-400); Red Blood Cell (RBC) Count 2.72 mill/uL (4.70-6.10); White Blood Cell (WBC) Count 5.8 thou/uL (4.8-10.8)
[2020-10-25 06:26] LABS: Anion Gap 11 mmol/L (10-20); BUN (Urea Nitrogen) 31 mg/dL (8.4-25.7); Calc. Creatinine Clearance 38 mL/min (70-130); Calcium 7.9 mg/dL (7.8-10.44); Carbon Dioxide 23 mmol/L (23-31); Chloride 108 mmol/L (98-107); Glucose 84 mg/dL (83-110); Phosphorus 3.1 mg/dL (2.3-4.7); Potassium 4.4 mmol/L (3.5-5.1); Sodium 138 mmol/L (136-145)
[2020-10-25] MEDS: Ferrous Sulfate 325 MG TAB PO SCH ×2 (08:35→16:34)
[2020-10-25] MEDS: Polyethylene Glycol 3350 17 GM Packet PO SCH (08:36)
[2020-10-25] MEDS: Ascorbic Acid 500 mg Chewable Tablet PO SCH ×2 (08:36→21:15)
[2020-10-25] MEDS: Senokot S 8.6-50 MG TAB PO SCH ×2 (08:43→21:14)
[2020-10-25] MEDS: Famotidine/PF 20 mg/2ml Vial SLOW IVP SCH (08:43)
[2020-10-25] MEDS ORDERED: ePHEDrine 50 MG/ML VIAL ONE (10:14)
[2020-10-25] MEDS ORDERED: PHENYLEPHRINE-NS 100 MCG/ML 10 ML SYRINGE ONE (10:14)
[2020-10-25] MEDS ORDERED: PROPOFOL 200 MG/20 ML VIAL ONE (10:14)
[2020-10-25] MEDS ORDERED: Bupivacaine HCl 0.5%/Epinephrine 1:200,000/PF 30 ml Vial ONE (10:14)
[2020-10-25] MEDS ORDERED: Ondansetron PF 4 MG/2 ML Vial ONE (10:14)
[2020-10-25] MEDS ORDERED: Fentanyl 100 MCG/2 ML VIAL ONE ×2 (10:22→10:25)
[2020-10-25] MEDS ORDERED: Propofol 1,000 MG/100 ML VIAL IV ONE (10:55)
[2020-10-25] MEDS ORDERED: Promethazine HCl 25 MG/ML VIAL IM PRN (12:28)
[2020-10-25] MEDS ORDERED: Promethazine HCl 25 MG/ML VIAL SLOW IVP PRN (12:28)
[2020-10-25] MEDS ORDERED: Ondansetron HCl/PF 4 MG/2 ML Vial IVP PRN (12:28)
--- NOTE | 2020-10-25 12:28 | RAD ---
Exam: XR Hip Lt 2-3 View HISTORY: ORIF left hip. COMPARISON: 10/23/2020 FINDINGS: 3 intraoperative fluoroscopic images left hip are provided. There is an antegrade intramedullary john with dynamic compression screw transfixing the left hip with distal interlocking screw. There is improvement in alignment of the fracture fragments involving the intertrochanteric left hip fracture. No hardware complication is seen. Correlation with intraoperative findings is recommended. Fluoroscopy: Time-47.9 seconds Dose-5.56 mGy
[2020-10-25] MEDS: Morphine 4 MG/ML VIAL SLOW IVP PRN ×2 (13:20→21:16)
[2020-10-25] MEDS: Acetaminophen/Codeine 30-300mg Tablet PO PRN (14:34)
[2020-10-25] MEDS: Cyclobenzaprine 10 MG TAB PO PRN (14:38)
[2020-10-25] MEDS ORDERED: Morphine 2 MG/ML VIAL SLOW IVP SCH (15:30)
--- NOTE | 2020-10-25 16:54 | PRG ---
DATE OF SERVICE: 10/25/2020 SUBJECTIVE: The patient was seen on the surgical floor after returning from the operating room. The patient is awake and alert, in moderate distress due to the pain. The patient had his left inner trochanter femur fracture fixed. The patient's pain is resolving with an additional dose of morphine and some Flexeril. The patient has not started eating yet as he has some mild nausea. OBJECTIVE: VITAL SIGNS: Temperature 97.6, pulse 77, respirations 14, SpO2 of 96% on room air, blood pressure 119/64. GENERAL: Well-appearing elderly male, awake, alert, in moderate distress due to pain. HEENT: Unremarkable. RESPIRATORY: Good inspiratory and expiratory effort, nonlabored. CARDIAC: Regular rate and regular rhythm. EXTREMITIES: Neurovascularly intact x4. NEUROLOGIC: No focal deficits. LABORATORY DATA: WBC 5.8, RBC 2.72, hemoglobin 9.8, hematocrit 29.2, platelets 182. Sodium 138, potassium 4.4, chloride 108, BUN 31, creatinine 1.60, estimated GFR 42, glucose 84, calcium 7.9, phosphorus 3.1, magnesium 2.0. DIAGNOSTICS: There are no new diagnostics to review today. ASSESSMENT: 1. Status post fall, on Eliquis, aspirin, and Plavix. 2. Left intertrochanteric femur fracture, status post repair. 3. Acute kidney on chronic kidney disease, improving. 4. History of coronary artery bypass graft, cardiac stents, ICD placement. 5. Hypertension. 6. Atrial fibrillation, aortic dissection. 7. Coronary artery disease. 8. Deep vein thrombosis, left lower extremity. 9. Traumatic brain injury. 10. Cerebrovascular accident with left-sided weakness. 11. Scoliosis. 12. Incontinence. 13. Chronic kidney disease. 14. Myocardial infarction. 15. Ischemic cardiomyopathy. 16. Prostatectomy. PLAN: Heart healthy diet as tolerated. Pain control and supportive care. PT and OT to evaluate and treat. Incentive spirometer every hour while awake. We will discontinue the patient's Garcia catheter. Repeat labs in the morning. Job ID: [id number]
[2020-10-25] MEDS: Gabapentin 300 MG CAP PO SCH ×2 (17:58→21:26)
[2020-10-25] MEDS: Atorvastatin Calcium 20 MG TAB PO SCH (21:14)
[2020-10-25] MEDS: CEFAZOLIN 2 GM in Premix Bag 1 BAG IVPB SCH (21:15)
[2020-10-26] MEDS: Acetaminophen/Codeine 30-300mg Tablet PO SCH ×5 (00:08→23:16)
[2020-10-26] MEDS: Acetaminophen 325 MG TAB PO SCH ×5 (00:08→23:15)
--- NOTE | 2020-10-26 02:34 | PRG ---
DATE OF SERVICE: 10/25/2020 SUBJECTIVE: The patient was seen this evening during rounds. He was lying in bed, resting comfortably, and asleep with no signs of acute distress. Nursing reported no acute events. OBJECTIVE: VITAL SIGNS: Temperature 99.3, pulse 80, respirations 18, oxygen saturation 98% on 2 L nasal cannula, blood pressure 118/65. ASSESSMENT: 1. Status post mechanical fall, on aspirin and Eliquis. 2. Left intertrochanteric femur fracture, status post repair. 3. Acute kidney injury on chronic kidney disease, resolved. 4. History of coronary artery bypass graft, cardiac stents, ICD, hypertension, myocardial infarction, atrial fibrillation, aortic dissection, ischemic cardiomyopathy, coronary artery disease, left lower extremity deep vein thrombosis, traumatic brain injury, cerebrovascular accident with left-sided weakness, scoliosis, chronic kidney disease, incontinence, and status post prostatectomy. PLAN: Continue current diet and pain regimen. Continue physical and occupational therapy. Discontinue IV fluids. Repeat blood work in the morning. If hemoglobin is stable, start his Eliquis. Garcia catheter was instructed to be removed earlier today, it was still in place. Nursing asked to discontinue Garcia catheter at 6 in the morning and monitor for difficulty with urination. The patient is status post prostatectomy, so there should not be much of an issue. We will follow up. Job ID: [id number]
[2020-10-26] MEDS: CEFAZOLIN 2 GM in Premix Bag 1 BAG IVPB SCH (04:43)
[2020-10-26 05:46] LABS: #Eosinphils 0.3 thou/uL (0.0-0.7); #Lymphocytes 1.8 thou/uL (1.20-3.40); #Monocytes 0.7 thou/uL (0.11-0.59); #Neutrophils 2.1 thou/uL (1.40-6.50); %Basophils 0.6 % (0.0-1.0); %Eosinophils 5.8 % (0.0-10.0); %Lymphocytes 35.7 % (21.0-51.0); %Monocytes 14.7 % (0.0-10.0); %Neutrophils 43.1 % (42.0-75.0); Hemoglobin 7.3 g/dL (14.0-18.0); Mean Corpuscular HGB CONC 33.3 g/dL (32.0-36.0); Mean Corpuscular Hemoglobin 35.7 pg (27.0-31.0); Mean Platelet Volume 7.8 fL (7.4-10.4); Platelet Count 150 thou/uL (130-400); RBC Distribution Width 12.8 % (11.5-14.5); Red Blood Cell (RBC) Count 2.05 mill/uL (4.70-6.10); White Blood Cell (WBC) Count 4.9 thou/uL (4.8-10.8)
--- NOTE | 2020-10-26 06:58 | OP ---
DATE OF PROCEDURE: 10/25/2020 PREOPERATIVE DIAGNOSIS: Left intertrochanteric hip fracture. POSTOPERATIVE DIAGNOSIS: Left intertrochanteric hip fracture. PROCEDURE PERFORMED: Intramedullary nailing of left intertrochanteric hip fracture. SEMICONDUCTORS WAFER BREAKER: Daniel Cartwright PA-C ANESTHESIA: Dr. Camargo. The patient received a spinal. ESTIMATED BLOOD LOSS: Less than 150 mL. TOURNIQUET TIME: None. IMPLANTS: 12 x 170 mm TFNA 170 mm, a 105 fenestrated screw, and a 5 mm x 36 mm distal locking screw. ANTIBIOTICS: Ancef 2 g. COMPLICATIONS: None. HISTORY OF PRESENT ILLNESS: Mr. Lin is a 79-year-old male with multiple medical problems, history of previous heart disease on Eliquis, aspirin. The patient presented with a left intertrochanteric hip fracture from a ground level fall. I discussed the risks and benefits of surgery to include pain, scar, bleeding, infection, damage to vital structures, decreased range of motion, strength, continued pain despite surgical intervention, need for further surgeries, loss of life or limb. The patient understood these risks and benefits and elected to proceed. DESCRIPTION OF PROCEDURE: Time-out was performed designating the patient's left lower extremity as operative site based on site, consents, and marking. After time-out, the patient's left lower extremity was prepped and draped in sterile fashion, he was placed in a fracture table, reduced the fracture, took AP and lateral radiographs to show it was placed after time-out left as the operative site. We made a stab incision just proximal to the greater trochanter down through skin to the IT band, placed a guide pin under fluoroscopic guidance. AP and lateral radiographs ensured it is in posterior third of the greater trochanter. We then reamed over and passed the 12 mm nail into position. We looked in AP and lateral radiographs to ensure that we had a position in the center-center head. It took us three passes to get it into position we liked within the center position of the head. We were happy with the position within the head. We then reamed to 110 and placed 105 mm fenestrated screw, which we took our gate down and took off one-half turn to allow it to compress. We were happy with its position and moved distally, used our stab hole that we had used to place our fenestrated screw, retracted it distally, drilled for a 36 mm 5.0 mm screw. We washed, closed with 0, 2-0 and skin luz elena. The patient will be admitted back to Trauma, will receive 24 hours of antibiotics and will be weightbearing as tolerated. He will be followed in-house. He may potentially require transfusions. Job ID: [id number]
[2020-10-26 07:44] LABS: Anion Gap 11 mmol/L (10-20); BUN (Urea Nitrogen) 29 mg/dL (8.4-25.7); Calc. Creatinine Clearance 37 mL/min (70-130); Calcium 7.4 mg/dL (7.8-10.44); Carbon Dioxide 25 mmol/L (23-31); Chloride 108 mmol/L (98-107); Glucose 101 mg/dL (83-110); Magnesium 1.8 mg/dL (1.6-2.6); Phosphorus 3.8 mg/dL (2.3-4.7); Potassium 4.5 mmol/L (3.5-5.1); Sodium 139 mmol/L (136-145)
[2020-10-26] MEDS: Senokot S 8.6-50 MG TAB PO SCH ×2 (08:55→20:35)
[2020-10-26] MEDS: Carvedilol 6.25 MG TAB PO SCH ×2 (08:55→17:33)
[2020-10-26] MEDS: Gabapentin 300 MG CAP PO SCH (08:55)
[2020-10-26] MEDS: Famotidine/PF 20 mg/2ml Vial SLOW IVP SCH (08:56)
[2020-10-26] MEDS: Ascorbic Acid 500 mg Chewable Tablet PO SCH ×2 (08:56→20:35)
[2020-10-26] MEDS: Ferrous Sulfate 325 MG TAB PO SCH ×3 (08:56→20:35)
[2020-10-26] MEDS ORDERED: Apixaban 5 MG TAB PO SCH (09:00)
[2020-10-26] MEDS ORDERED: Gabapentin 100 MG CAP PO SCH (10:30)
[2020-10-26 13:43] LABS: Anion Gap 12 mmol/L (10-20); BUN (Urea Nitrogen) 30 mg/dL (8.4-25.7); Calc. Creatinine Clearance 35 mL/min (70-130); Calcium 7.5 mg/dL (7.8-10.44); Carbon Dioxide 23 mmol/L (23-31); Chloride 106 mmol/L (98-107); Glucose 137 mg/dL (83-110); Potassium 4.4 mmol/L (3.5-5.1); Sodium 137 mmol/L (136-145)
[2020-10-26] MEDS: Polyethylene Glycol 3350 17 GM Packet PO SCH (14:02)
[2020-10-26] MEDS: Gabapentin 100 MG CAP PO SCH ×2 (14:04→20:35)
--- NOTE | 2020-10-26 16:05 | PRG ---
DATE OF SERVICE: 10/26/2020 SUBJECTIVE: The patient was seen during morning rounds with Dr. Velasquez on the surgical floor. The patient is postop day #1 status post intramedullary nailing of the left intertrochanteric hip fracture. The patient's pain was difficult to control initially postop, but then improved. The patient had no overnight events. The patient's Garcia catheter was removed this morning and the patient is due to void. The patient does report he does suffer from incontinence. The patient worked with Physical Therapy earlier today and ambulated approximately 20 feet. The patient felt a little more sleepier today. OBJECTIVE: VITAL SIGNS: Temperature 97.8, pulse 74, respirations 14, SpO2 of 95% on room air, blood pressure 112/67. GENERAL: Well-appearing elderly male, awake, alert, in no distress. HEENT: Unremarkable. RESPIRATORY: Good inspiratory and expiratory effort. Respirations are even and nonlabored. CARDIAC: Regular rate, regular rhythm. EXTREMITIES: Neurovascularly intact x4. NEUROLOGIC: No focal deficits. LABORATORY DATA: WBC 4.9, RBC 2.05, hemoglobin 7.3, hematocrit 22.0, platelets 150. Sodium 137, potassium 4.4, BUN 30, creatinine 1.75, estimated GFR 38, glucose 137, calcium 7.5, phosphorus 3.8, magnesium 1.8. DIAGNOSTICS: No new diagnostics to review today. ASSESSMENT: 1. Status post fall, on Eliquis and aspirin. 2. Left intertrochanteric femur fracture, status post repair. 3. 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 4. History of coronary artery bypass graft; cardiac stents; implantable cardioverter defibrillator placement; hypertension; atrial fibrillation; aortic dissection; coronary artery disease; deep vein thrombosis, left lower extremity; traumatic brain injury; cerebrovascular accident with left-sided weakness; scoliosis; incontinence; chronic kidney disease; myocardial infarction; ischemic cardiomyopathy; prostatectomy. PLAN: Continue heart healthy diet and supportive care. Pain control. Increase PT and OT. Incentive spirometer use every hour while awake. We will transfuse 1 unit of packed red blood cells as the patient's hemoglobin has dropped this morning. We will also decrease gabapentin dose as the patient feels a little sleepy. The patient plans to go home when ready with home health. We will give the patient information and have rehab speak to the patient's family in case the patient has failed home therapy. Repeat labs in the morning. Job ID: [id number]
[2020-10-26] MEDS ORDERED: Carvedilol 6.25 MG TAB PO SCH (17:30)
[2020-10-26] MEDS: Atorvastatin Calcium 20 MG TAB PO SCH (20:35)
[2020-10-26] MEDS: Cyclobenzaprine 10 MG TAB PO PRN (20:38)
[2020-10-26] MEDS: Acetaminophen/Codeine 30-300mg Tablet PO PRN (20:39)
--- NOTE | 2020-10-27 03:29 | PRG ---
DATE OF SERVICE: 10/26/2020 SUBJECTIVE: The patient was seen this evening during rounds. He was lying in bed, resting comfortably and asleep with no signs of acute distress. Nursing reported no acute events. OBJECTIVE: VITAL SIGNS: Temperature 98.6, pulse 96, respirations 19, oxygen saturation 94% on room air, and blood pressure 106/63. ASSESSMENT: 1. Status post mechanical fall, on aspirin and Eliquis. 2. Left intertrochanteric femur fracture, status post repair. 3. Acute kidney injury on chronic kidney disease, resolved. 4. History of coronary artery bypass graft, cardiac stents, ICD, hypertension, myocardial infarction, atrial fibrillation, aortic dissection, ischemic cardiomyopathy, coronary artery disease, left lower extremity deep venous thrombosis, traumatic brain injury, cerebrovascular accident with left-sided weakness, scoliosis, chronic kidney disease, urinary incontinence, and prostatectomy. PLAN: Continue current diet and pain regimen. Continue physical and occupational therapy. The patient received 1 unit of packed cells earlier today for symptomatic anemia. We will follow up with a hemoglobin check in the morning. The patient would like to go home with home health. Rehab is talking to him to give him additional resources if needed once he gets home. Job ID: [id number]
[2020-10-27] MEDS: Acetaminophen 325 MG TAB PO SCH ×4 (05:14→23:37)
[2020-10-27] MEDS: Acetaminophen/Codeine 30-300mg Tablet PO SCH ×4 (05:15→23:37)
[2020-10-27 06:09] LABS: Hemoglobin 7.8 g/dL (14.0-18.0); Mean Corpuscular HGB CONC 33.5 g/dL (32.0-36.0); Mean Corpuscular Hemoglobin 35.4 pg (27.0-31.0); Mean Platelet Volume 7.9 fL (7.4-10.4); Platelet Count 164 thou/uL (130-400); RBC Distribution Width 14.2 % (11.5-14.5); White Blood Cell (WBC) Count 5.1 thou/uL (4.8-10.8)
[2020-10-27 06:53] LABS: Anion Gap 11 mmol/L (10-20); BUN (Urea Nitrogen) 30 mg/dL (8.4-25.7); Calc. Creatinine Clearance 34 mL/min (70-130); Calcium 7.6 mg/dL (7.8-10.44); Carbon Dioxide 25 mmol/L (23-31); Chloride 106 mmol/L (98-107); Glucose 96 mg/dL (83-110); Phosphorus 2.6 mg/dL (2.3-4.7); Potassium 4.2 mmol/L (3.5-5.1); Sodium 138 mmol/L (136-145)
[2020-10-27] MEDS: Ascorbic Acid 500 mg Chewable Tablet PO SCH ×2 (07:52→21:20)
[2020-10-27] MEDS: Famotidine/PF 20 mg/2ml Vial SLOW IVP SCH (07:52)
[2020-10-27] MEDS: Gabapentin 100 MG CAP PO SCH ×3 (07:53→21:20)
[2020-10-27] MEDS: Ferrous Sulfate 325 MG TAB PO SCH ×2 (07:53→21:20)
[2020-10-27] MEDS: Senokot S 8.6-50 MG TAB PO SCH ×2 (07:53→21:21)
[2020-10-27] MEDS: Carvedilol 6.25 MG TAB PO SCH ×2 (07:54→18:10)
[2020-10-27] MEDS: Polyethylene Glycol 3350 17 GM Packet PO SCH (07:55)
[2020-10-27] MEDS ORDERED: Famotidine 20 MG TAB PO SCH (09:00)
[2020-10-27] MEDS: Apixaban 5 MG TAB PO SCH ×2 (09:10→21:20)
[2020-10-27] MEDS: Atorvastatin Calcium 20 MG TAB PO SCH (21:20)
[2020-10-28] MEDS: Acetaminophen/Codeine 30-300mg Tablet PO SCH ×4 (05:20→23:09)
[2020-10-28] MEDS: Acetaminophen 325 MG TAB PO SCH ×4 (05:20→23:09)
[2020-10-28 05:46] LABS: Hemoglobin 7.2 g/dL (14.0-18.0); Mean Corpuscular HGB CONC 34.5 g/dL (32.0-36.0); Mean Platelet Volume 7.4 fL (7.4-10.4); Platelet Count 190 thou/uL (130-400); RBC Distribution Width 13.9 % (11.5-14.5); Red Blood Cell (RBC) Count 2.01 mill/uL (4.70-6.10); White Blood Cell (WBC) Count 4.2 thou/uL (4.8-10.8)
--- NOTE | 2020-10-28 05:58 | PRG ---
DATE OF SERVICE: 10/27/2020 SUBJECTIVE: This patient was seen during morning rounds. The patient is postop from intramedullary nailing of left intertrochanteric hip fracture. The patient states pain is well controlled and he has been working well with physical therapy. He is urinating well as per nursing report. The patient has no acute complaints. OBJECTIVE: VITAL SIGNS: Temperature 98.5, pulse 75, respiratory rate 16, SpO2 93% on room air. Blood pressure 116/63. GENERAL: A well-appearing elderly male, awake, alert, no distress. HEENT: Unremarkable. RESPIRATORY: Good inspiratory and expiratory effort. Respirations are even and nonlabored. CARDIAC: Regular rate and rhythm. EXTREMITIES: Neurovascularly intact x4. NEUROLOGIC: No focal deficit. LABORATORY DATA: Hemoglobin increased to 7.8 from 7.3 after 1 unit yesterday. Electrolytes within normal limits. Creatinine seems to be about the patient's baseline at 1.8 with his history of CKD. DIAGNOSTICS: No new diagnostic imaging to review today. ASSESSMENT: 1. Status post fall, on Eliquis and aspirin at home. 2. Left intertrochanteric femur fracture, status post repair. 3. Symptomatic anemia, s/p 1 unit of blood 4. 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 5. History of coronary artery bypass graft, cardiac stent, implantable cardioverter defibrillator placement, hypertension, atrial fibrillation, aortic dissection, coronary artery disease, deep vein thrombosis of left lower extremity, traumatic brain injury, cerebrovascular accident with residual left-sided weakness, scoliosis, incontinence, chronic kidney disease, myocardial infarction, ischemic cardiomyopathy, prostatectomy. PLAN: Continue heart healthy diet. Continue with pain control. Continue working well with PT and OT. Continue to use incentive spirometer while awake. We will continue to monitor the patient's hemoglobin, however, he has no obvious source of bleeding. At this time, we are pending any new information from Case Management as inpatient referral was sent to [facility]. Dr. Velasquez was present and saw the patient this morning during rounds. He agrees with the above documentation and plan. Job ID: [id number] MTDD
[2020-10-28 06:06] LABS: Anion Gap 12 mmol/L (10-20); BUN (Urea Nitrogen) 26 mg/dL (8.4-25.7); Calc. Creatinine Clearance 40 mL/min (70-130); Calcium 7.6 mg/dL (7.8-10.44); Carbon Dioxide 23 mmol/L (23-31); Chloride 108 mmol/L (98-107); Glucose 87 mg/dL (83-110); Phosphorus 2.6 mg/dL (2.3-4.7); Potassium 4.2 mmol/L (3.5-5.1); Sodium 139 mmol/L (136-145)
[2020-10-28] MEDS: Gabapentin 100 MG CAP PO SCH ×3 (08:04→20:07)
[2020-10-28] MEDS: Senokot S 8.6-50 MG TAB PO SCH ×2 (08:04→20:07)
[2020-10-28] MEDS: Carvedilol 6.25 MG TAB PO SCH ×2 (08:04→18:14)
[2020-10-28] MEDS: Polyethylene Glycol 3350 17 GM Packet PO SCH (08:05)
[2020-10-28] MEDS: Ferrous Sulfate 325 MG TAB PO SCH ×2 (08:05→20:07)
[2020-10-28] MEDS: Ascorbic Acid 500 mg Chewable Tablet PO SCH ×2 (08:05→20:07)
[2020-10-28] MEDS: Apixaban 5 MG TAB PO SCH ×2 (08:05→20:07)
[2020-10-28] MEDS: Famotidine 20 MG TAB PO SCH (08:05)
[2020-10-28] MEDS: Atorvastatin Calcium 20 MG TAB PO SCH (20:07)
[2020-10-29] MEDS: Acetaminophen/Codeine 30-300mg Tablet PO SCH ×4 (05:02→23:36)
[2020-10-29] MEDS: Acetaminophen 325 MG TAB PO SCH ×4 (05:02→23:36)
--- NOTE | 2020-10-29 05:55 | PRG ---
DATE OF SERVICE: 10/28/2020 SUBJECTIVE: The patient is a 79-year-old male, who is status post mechanical fall causing left intertrochanteric femur fracture. He is status post repair on 10/25/2020 with Ortho. The patient is sitting up in bed today. He states his pain is well controlled. He has been working well with physical therapy. He is urinating well and has no acute complaints today. He tolerated his breakfast without difficulty. OBJECTIVE: VITAL SIGNS: Temperature 97.4, pulse 72, respiratory rate 16, SpO2 of 94% on room air, blood pressure 121/67. GENERAL: Well-appearing elderly male, awake, alert, in no distress. HEENT: Unremarkable. Atraumatic and normocephalic. RESPIRATORY: Good inspiratory and expiratory effort. Respirations were even and nonlabored. CARDIAC: Regular rate and rhythm. EXTREMITIES: Neurovascularly intact x4. Incision site is clean, dry, and intact. NEUROLOGIC: No focal deficit. LABORATORY DATA: The patient's CBC is pertinent for anemia and MCV at 104, which is significant for megaloblastic anemia. His BMP is pertinent for an elevated creatinine, which seems to be about his baseline of 1.4. The rest of his electrolytes look within normal limits. RADIOGRAPHIC DATA: There are no new radiographic images to be reviewed today. ASSESSMENT: 1. Status post fall, on Eliquis and aspirin at home. 2. Left intertrochanteric femur fracture, status post repair. 3. Symptomatic anemia, status post 1 unit of blood. 4. 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 5. History of coronary artery bypass graft, cardiac stent, implantable cardioverter defibrillator placement, hypertension, atrial fibrillation, aortic dissection, coronary artery disease, deep vein thrombosis of left lower extremity, traumatic brain injury, cerebrovascular accident with residual left-sided weakness, scoliosis, incontinence, chronic kidney disease, myocardial infarction, ischemic cardiomyopathy, prostatectomy. PLAN: Continue with pain control. Continue working well with PT and OT. Continue incentive spirometer while awake. We will continue to monitor the patient's hemoglobin, however, he is asymptomatic and it seems to be stable. At this time, we are pending any new information from Case Management as inpatient referral was sent to [facility] Lactulose was added to the patient's medication regimen as the patient has not had a bowel movement in several days. Dr. Velasquez was present and saw the patient this morning during rounds. He agrees with the above documentation and plan. Job ID: [id number]
[2020-10-29] MEDS: Senokot S 8.6-50 MG TAB PO SCH ×2 (09:05→20:16)
[2020-10-29] MEDS: Apixaban 5 MG TAB PO SCH ×2 (09:06→20:15)
[2020-10-29] MEDS: Ferrous Sulfate 325 MG TAB PO SCH ×2 (09:06→20:15)
[2020-10-29] MEDS: Ascorbic Acid 500 mg Chewable Tablet PO SCH ×2 (09:06→20:15)
[2020-10-29] MEDS: Polyethylene Glycol 3350 17 GM Packet PO SCH (09:06)
[2020-10-29] MEDS: Famotidine 20 MG TAB PO SCH (09:06)
[2020-10-29] MEDS: Gabapentin 100 MG CAP PO SCH ×3 (09:06→20:15)
[2020-10-29] MEDS: Carvedilol 6.25 MG TAB PO SCH (09:07)
[2020-10-29 10:00] LABS: #Eosinphils 0.4 thou/uL (0.0-0.7); #Lymphocytes 1.3 thou/uL (1.20-3.40); #Monocytes 0.4 thou/uL (0.11-0.59); #Neutrophils 1.7 thou/uL (1.40-6.50); %Basophils 0.7 % (0.0-1.0); %Eosinophils 10.3 % (0.0-10.0); %Monocytes 10.9 % (0.0-10.0); %Neutrophils 45.1 % (42.0-75.0); Hemoglobin 8.3 g/dL (14.0-18.0); Mean Corpuscular HGB CONC 33.4 g/dL (32.0-36.0); Mean Corpuscular Hemoglobin 35.4 pg (27.0-31.0); Mean Platelet Volume 6.9 fL (7.4-10.4); Platelet Count 251 thou/uL (130-400); RBC Distribution Width 13.8 % (11.5-14.5); Red Blood Cell (RBC) Count 2.35 mill/uL (4.70-6.10); White Blood Cell (WBC) Count 3.8 thou/uL (4.8-10.8)
[2020-10-29] MEDS: Carvedilol 3.125 MG TAB PO SCH (17:57)
[2020-10-29] MEDS: Atorvastatin Calcium 20 MG TAB PO SCH (20:15)
[2020-10-30] MEDS: Acetaminophen/Codeine 30-300mg Tablet PO PRN (02:28)
[2020-10-30] MEDS: Cyclobenzaprine 10 MG TAB PO PRN (02:28)
[2020-10-30] MEDS ORDERED: HYDROcodone/Acetaminophen 5/325 mg Tablet PO SCH (04:15)
[2020-10-30] MEDS: Acetaminophen/Codeine 30-300mg Tablet PO SCH ×4 (06:26→22:06)
[2020-10-30] MEDS: Acetaminophen 325 MG TAB PO SCH ×4 (06:26→22:07)
--- NOTE | 2020-10-30 08:24 | ULT ---
ULTRASOUND DOPPLER DUPLEX VENOUS BILATERAL LOWER EXTREMITIES: DATE: 10/30/2020 6:58 AM HISTORY: 79-year-old male with bilateral lower extremity pain. At 8:20 AM 10/30/2020 Dr. Villa notified nurse Lolis Smiley RN, of the DVT TECHNIQUE: Grayscale, color-flow, and spectral analysis, of the bilateral common femoral, profunda femoral, grea ter saphenous, femoral, popliteal, and posterior tibial, veins. FINDINGS: There is incomplete compressibility of the mid portion of the left femoral vein, encroaching upon the proximal portion and distal portions. There is blood flow throughout the femoral vein. There is no DVT in the rest of the deep veins of the left lower extremity, or in any of the right [place] p veins. IMPRESSION: Positive for nonocclusive thrombosis of the mid portion of the left femoral vein, of indeterminate ag e
[2020-10-30] MEDS: Polyethylene Glycol 3350 17 GM Packet PO SCH (08:51)
[2020-10-30] MEDS: Senokot S 8.6-50 MG TAB PO SCH ×2 (08:51→22:04)
[2020-10-30] MEDS: Ferrous Sulfate 325 MG TAB PO SCH ×2 (08:52→22:02)
[2020-10-30] MEDS: Famotidine 20 MG TAB PO SCH (08:52)
[2020-10-30] MEDS: Gabapentin 100 MG CAP PO SCH ×3 (08:52→22:01)
[2020-10-30] MEDS: Ascorbic Acid 500 mg Chewable Tablet PO SCH ×2 (08:52→22:01)
[2020-10-30] MEDS: Apixaban 5 MG TAB PO SCH ×2 (08:52→22:02)
[2020-10-30] MEDS: Carvedilol 3.125 MG TAB PO SCH ×2 (08:53→17:29)
--- NOTE | 2020-10-30 16:28 | PRG ---
DATE OF SERVICE: 10/30/2020 SUBJECTIVE: The patient remains on the surgical floor. He is status post ground level fall on Eliquis in which he sustained a left intertrochanteric femur fracture for which he has undergone repair. The patient is currently awaiting placement to swing bed facility. Otherwise, he is doing well. Last night, he had some issues with pain control as he had declined some of his scheduled pain medications and then the pain became unbearable and it took some time to catch back up on that. There was concern that his pain was caused by DVT on the leg that was known to have a DVT. Ultrasound did not show any changes and the patient is on Eliquis. Otherwise, the patient is tolerating a diet. He is working with Physical and Occupational therapy. PHYSICAL EXAMINATION: VITAL SIGNS: Temperature 97.8, heart rate 88, blood pressure 133/69, respirations 18, oxygen saturation is 96% on room air. GENERAL: The patient is resting comfortably in bed. He is awake, alert, conversant, appropriate. [place] Coma Scale is 15. HEENT: Unremarkable. LUNGS: Clear to auscultation bilaterally. HEART: Regular rate and rhythm. ABDOMEN: Soft, nontender with active bowel sounds. EXTREMITIES: Neurovascularly intact x4. LABORATORY DATA: There are no labs to review this morning. RADIOGRAPHS: Bilateral lower extremity venogram shows a nonocclusive thrombus in the midportion of the left femoral vein of indeterminate age. ASSESSMENT: 1. Status post fall on Eliquis, aspirin at home. 2. Status post open reduction and internal fixation of left intertrochanteric femur fracture. 3. Acute blood loss anemia, stable. 4. Acute on chronic kidney disease, stable. 5. Multiple comorbidities. PLAN: Plan will be to continue supportive care and encourage physical and occupational therapy and await final placement decision. The patient was evaluated this morning with Dr. Velasquez during rounds. Job ID: [id number]
[2020-10-30] MEDS: Atorvastatin Calcium 20 MG TAB PO SCH (22:01)
[2020-10-31] MEDS: Acetaminophen/Codeine 30-300mg Tablet PO SCH ×4 (05:20→23:04)
[2020-10-31] MEDS: Acetaminophen 325 MG TAB PO SCH ×4 (05:21→23:05)
[2020-10-31] MEDS: Apixaban 5 MG TAB PO SCH ×2 (09:04→21:12)
[2020-10-31] MEDS: Famotidine 20 MG TAB PO SCH (09:04)
[2020-10-31] MEDS: Carvedilol 3.125 MG TAB PO SCH ×2 (09:04→17:41)
[2020-10-31] MEDS: Ferrous Sulfate 325 MG TAB PO SCH ×2 (09:04→21:11)
[2020-10-31] MEDS: Ascorbic Acid 500 mg Chewable Tablet PO SCH ×2 (09:04→21:11)
[2020-10-31] MEDS: Gabapentin 100 MG CAP PO SCH ×3 (09:04→21:11)
[2020-10-31] MEDS: Senokot S 8.6-50 MG TAB PO SCH ×2 (09:04→21:12)
[2020-10-31] MEDS: Polyethylene Glycol 3350 17 GM Packet PO SCH (09:05)
[2020-10-31] MEDS: Atorvastatin Calcium 20 MG TAB PO SCH (21:12)
[2020-11-01] MEDS: Acetaminophen 325 MG TAB PO SCH ×4 (06:22→23:02)
[2020-11-01] MEDS: Acetaminophen/Codeine 30-300mg Tablet PO SCH ×4 (06:23→23:02)
[2020-11-01] MEDS: Polyethylene Glycol 3350 17 GM Packet PO SCH (09:06)
[2020-11-01] MEDS: Ferrous Sulfate 325 MG TAB PO SCH ×2 (09:06→19:49)
[2020-11-01] MEDS: Senokot S 8.6-50 MG TAB PO SCH ×2 (09:06→19:50)
[2020-11-01] MEDS: Gabapentin 100 MG CAP PO SCH ×3 (09:07→19:50)
[2020-11-01] MEDS: Apixaban 5 MG TAB PO SCH ×2 (09:07→19:49)
[2020-11-01] MEDS: Famotidine 20 MG TAB PO SCH (09:08)
[2020-11-01] MEDS: Ascorbic Acid 500 mg Chewable Tablet PO SCH ×2 (09:08→19:50)
[2020-11-01] MEDS: Carvedilol 3.125 MG TAB PO SCH ×2 (09:10→17:21)
--- NOTE | 2020-11-01 14:15 | PRG ---
DATE OF SERVICE: 11/01/2020 SUBJECTIVE: Edvin is a 79-year-old white male, postop day 6 for a left hip intertrochanteric fracture, treated with short trochanteric femoral nail fixation. He is doing well. He has improved significantly since I saw him last Sunday, and currently, he is sitting up, visiting with his spouse. He is in good spirits and has no complaints. OBJECTIVE: Temperature 98.2, pulse 83, respiratory rate 14, blood pressure 103/60. He is alert and oriented to person, place, time, and situation. He is responsive and appropriate with examiner. Incision is clean. No strike through. No erythema. No malrotation or shortening. LABORATORY DATA: Hemoglobin and hematocrit 8.3 and 24.9. IMPRESSION: A 79-year-old male, postop day 6 for a left intertrochanteric hip fracture treated with short TFN. PLAN: Continue current care. Disposition per Trauma Team, but I believe he will be transferring to skilled facility in [place]. Job ID: [id number]
--- NOTE | 2020-11-01 15:38 | PRG ---
DATE OF SERVICE: 11/01/2020 SUBJECTIVE: The patient remains on the surgical floor. He is status post ground-level fall, which he sustained a left hip fracture and undergone open reduction and internal fixation of same. The patient is doing well. Unfortunately, due to insurance issues, the patient has had a prolonged stay here. He is currently awaiting placement at [facility]. Overnight, he had no issues. The patient is working with Physical Therapy. Again, this morning, as we came in, he has no complaints at this time. PHYSICAL EXAMINATION: VITAL SIGNS: Temperature is 97.9, heart rate 89, blood pressure 114/49, respirations 16, and oxygen saturation 95% on room air. GENERAL: The patient is just beginning to work with Physical Therapy. He is ambulating with a rolling walker. His [place] Coma Scale is 15. HEENT: Unremarkable. LUNGS: Respirations are nonlabored. ABDOMEN: Nondistended. EXTREMITIES: Neurovascularly intact x4. LABORATORY DATA: There are no labs or radiographs to review this morning. ASSESSMENT AND PLAN: 1. Status post ground-level fall, on Eliquis and aspirin at home. 2. Status post open reduction and internal fixation of left intertrochanteric femur fracture. 3. Acute blood loss anemia, stable. 4. Vkhmi-rs-tvremts kidney disease, stable. 5. Multiple comorbidities, stable. PLAN: Plan will be to continue encouraging physical and occupational therapy and await placement decision. The patient was evaluated this morning with Dr. Troy during rounds. Job ID: [id number]
[2020-11-01] MEDS: Atorvastatin Calcium 20 MG TAB PO SCH (19:50)
[2020-11-02] MEDS: Cyclobenzaprine 10 MG TAB PO PRN (03:10)
[2020-11-02] MEDS: Acetaminophen/Codeine 30-300mg Tablet PO SCH ×3 (04:20→18:07)
[2020-11-02] MEDS: Acetaminophen/Codeine 30-300mg Tablet PO PRN ×2 (04:21→08:22)
[2020-11-02] MEDS: Acetaminophen 325 MG TAB PO SCH ×3 (05:08→18:07)
[2020-11-02] MEDS: Gabapentin 100 MG CAP PO SCH (07:34)
[2020-11-02 09:02] LABS: #Eosinphils 0.1 thou/uL (0.0-0.7); #Lymphocytes 0.6 thou/uL (1.20-3.40); #Monocytes 0.7 thou/uL (0.11-0.59); #Neutrophils 5.9 thou/uL (1.40-6.50); %Basophils 0.2 % (0.0-1.0); %Eosinophils 1.3 % (0.0-10.0); %Lymphocytes 8.1 % (21.0-51.0); %Monocytes 9.2 % (0.0-10.0); %Neutrophils 81.3 % (42.0-75.0); Hemoglobin 6.9 g/dL (14.0-18.0); Mean Corpuscular HGB CONC 33.1 g/dL (32.0-36.0); Mean Corpuscular Hemoglobin 35.4 pg (27.0-31.0); Mean Platelet Volume 6.5 fL (7.4-10.4); Platelet Count 436 thou/uL (130-400); RBC Distribution Width 13.8 % (11.5-14.5); Red Blood Cell (RBC) Count 1.95 mill/uL (4.70-6.10); White Blood Cell (WBC) Count 7.3 thou/uL (4.8-10.8)
--- NOTE | 2020-11-02 09:04 | RAD ---
XR Hip Lt 2-3 View History: Pain Comparison: Radiograph October 25, 2020 Findings: Continued satisfactory appearance of the left femoral nail through the intertrochanteric fr acture. Subcutaneous gas is improving, however there is extensive soft tissue swelling. Impression: Extensive soft tissue swelling with intact femoral nail.
[2020-11-02] MEDS: Polyethylene Glycol 3350 17 GM Packet PO SCH (10:50)
[2020-11-02] MEDS: Ascorbic Acid 500 mg Chewable Tablet PO SCH (10:50)
[2020-11-02] MEDS: Apixaban 5 MG TAB PO SCH (10:50)
[2020-11-02] MEDS: Ferrous Sulfate 325 MG TAB PO SCH (10:50)
[2020-11-02] MEDS: Carvedilol 3.125 MG TAB PO SCH ×2 (10:50→18:06)
[2020-11-02] MEDS: Senokot S 8.6-50 MG TAB PO SCH (10:50)
[2020-11-02] MEDS: Famotidine 20 MG TAB PO SCH (10:50)
[2020-11-02 10:56] LABS: Hemoglobin 6.7 g/dL (14.0-18.0); Mean Corpuscular HGB CONC 33.2 g/dL (32.0-36.0); Mean Corpuscular Hemoglobin 35.3 pg (27.0-31.0); Mean Platelet Volume 6.4 fL (7.4-10.4); Platelet Count 412 thou/uL (130-400); RBC Distribution Width 13.9 % (11.5-14.5); White Blood Cell (WBC) Count 7.3 thou/uL (4.8-10.8)
[2020-11-02 11:22] LABS: Anion Gap 12 mmol/L (10-20); BUN (Urea Nitrogen) 30 mg/dL (8.4-25.7); Calc. Creatinine Clearance 42 mL/min (70-130); Calcium 8.1 mg/dL (7.8-10.44); Carbon Dioxide 23 mmol/L (23-31); Chloride 106 mmol/L (98-107); Glucose 113 mg/dL (83-110); Potassium 4.5 mmol/L (3.5-5.1)
[2020-11-02 11:36] LABS: Sodium 136 mmol/L (136-145)
--- NOTE | 2020-11-02 14:57 | PRG ---
DATE OF SERVICE: SUBJECTIVE: Edvin is a 79-year-old male, postop day 7 from a left intertrochanteric hip fracture, treated with short trochanteric nail fixation. He was doing exceptionally well yesterday walking distance of 350 feet, but today he has had amplification of pain in his left hip and thigh since 2:00 a.m. this morning. He refused physical therapy because it was uncomfortable for him to get up out of bed and stand and bear weight. I brought Dr. Armendariz to the bedside to evaluate the patient. He has been afebrile. His hemoglobin is less than 7, but he does not appear to be symptomatic from that. He is more concerned about his discomfort and pain. White cell count was within normal limits. The patient does not look toxic or in any distress at this point. OBJECTIVE: His incision is clean. He does have more edema surrounding and it is warm, but is not erythematous and there is no drainage. He is neurovascularly intact. No malrotation or shortening. IMPRESSION: 1. A 79-year-old male, postop day 7, left hip intertrochanteric hip fracture, treated with short trochanteric nail fixation. 2. Asymptomatic hemorrhagic anemia. 3. Recrudescence of pain in the left thigh. This could be a flare or this could be a muscle tear or could be hemorrhage. PLAN: Discussed this in length with trauma team regarding our concerns of discomfort, but low suspicion for a septic process. They will transfuse 1 unit of packed red cells and plan for transfer after he receives this evening. Discontinue luz elena on postop day 14 to 16. Follow up with Dr. Armendariz in 3 to 4 weeks. Job ID: [id number]
[2020-11-02] MEDS ORDERED: Gabapentin 100 MG CAP PO SCH (15:00)
[2020-11-02 19:54] VITALS: BP 119/70; TEMP 98.7
--- NOTE | 2020-11-03 13:29 | DIS ---
DATE OF ADMISSION: 10/23/2020 DATE OF DISCHARGE: 11/02/2020 DISCHARGE ATTENDING: Dr. Velasquez. CONSULT: Dr. Armendariz, Orthopedic Surgery. PROCEDURES: On 10/25/2020, left intertrochanteric hip fracture intramedullary nailing. PRIMARY DIAGNOSES: 1. Left intertrochanteric femur fracture, mechanical fall, on Eliquis, aspirin and Plavix. 2. Acute kidney injury on chronic kidney disease. SECONDARY DIAGNOSES: Coronary artery bypass graft; cardiac stents, status post coronary artery bypass graft, ICD placement; hypertension; atrial fibrillation; aortic dissection; left lower extremity deep vein thrombosis, traumatic brain injury, cerebrovascular accident with left-sided weakness; scoliosis; incontinence; chronic kidney disease, myocardial infarction; ischemic cardiomyopathy, and prostatectomy. DISCHARGE MEDICATIONS: 1. Acetaminophen 325 mg p.o. q.6 hours. 2. Tylenol No. 3 one to two tabs q.6 hours p.r.n. pain. 3. Eliquis 5 mg p.o. b.i.d. 4. Vitamin C 500 mg p.o. b.i.d. 5. Aspirin 81 mg p.o. daily. 6. Lipitor 20 mg p.o. at bedtime. 7. Flexeril 5 mg p.o. three times a day as needed muscle spasms. 8. Ferrous sulfate 325 mg p.o. b.i.d. 9. Lasix 40 mg p.o. daily. 10. Gabapentin 200 mg p.o. three times a day. 11. DuoNeb three times a day. 12. MiraLAX as needed for constipation. 13. Potassium chloride 20 mEq p.o. daily. 14. Senokot as needed for constipation. 15. No discontinued medications. HISTORY OF PRESENT ILLNESS AND HOSPITAL COURSE: This is a 79-year-old gentleman who was a transfer from [facility]. The patient had a mechanical fall at home. Reports he went to step up onto the ledge and ended up falling forward onto his left side. He denies hitting his head or losing consciousness. The patient does have some mild residual left-sided weakness from a CVA. This is likely the cause of him falling as he had some difficulty lifting his left leg. The patient did have some pain control issues pre and postop. Postop, the patient was started on his Eliquis. The patient did have some postop anemia, requiring him to the get one unit of packed red blood cells on 10/26/2020 and also on 11/02/2020. The patient received one unit of packed red blood cells for hemoglobin of 6.7. The patient was never symptomatic. The patient was able to work with Physical therapy, gradually increasing his distance. Initially, the patient wanted to go home with home health, but then realized he is going to need more assistance. The patient had a delayed length of stay due to change in his mind and wanting [facility] facility. On the day of discharge, the patient's exam was unremarkable. His vital signs were stable. The patient was tolerating a diet and voiding without any difficulties. The patient was deemed stable after his one unit of blood for discharge to [facility] for continued physical and occupational therapy. DISPOSITION: Stable. DISCHARGE INSTRUCTIONS: 1. Location, [facility]. 2. Diet, heart healthy diet. 3. Activity, orthopedic limitations, weightbearing as tolerated. 4. [place] may be removed postop day #14 to 16. The patient is to follow up with Dr. Armendariz in 3 to 4 weeks. Follow up with primary care provider as needed. No need to follow up with Trauma Services. Call for any questions. This is just a summary of the hospital visit, please see the medical records for details. Job ID: [id number] [facility]
== END 2020-11-02 19:56 | DRG 481 ==
LOC: SURG B 22:19
PROVIDERS: ADMIT Surgery; ATTEND Surgery
PROC: 0QH736Z Insertion of Intramedullary Internal Fixation Device into Left Upper Femur, Percutaneous Approach (ICD-10-PCS; principal; 2020-10-25)
PROC: 30233N1 Transfusion of Nonautologous Red Blood Cells into Peripheral Vein, Percutaneous Approach (ICD-10-PCS; 2020-10-26)
DX: S72.142A Displaced intertrochanteric fracture of left femur, initial encounter for closed fracture (principal); I69.354 Hemiplegia and hemiparesis following cerebral infarction affecting left non-dominant side; I13.0 Hypertensive heart and chronic kidney disease with heart failure and stage 1 through stage 4 chronic kidney disease, or unspecified chronic kidney disease; N17.9 Acute kidney failure, unspecified; N18.4 Chronic kidney disease, stage 4 (severe); I82.412 Acute embolism and thrombosis of left femoral vein; D62 Acute posthemorrhagic anemia; W19.XXXA Unspecified fall, initial encounter; Z20.822 Contact with and (suspected) exposure to COVID-19; I50.9 Heart failure, unspecified; I48.91 Unspecified atrial fibrillation; I25.5 Ischemic cardiomyopathy; M41.9 Scoliosis, unspecified; R32 Unspecified urinary incontinence; Z79.82 Long term (current) use of aspirin; Z79.01 Long term (current) use of anticoagulants; Z95.810 Presence of automatic (implantable) cardiac defibrillator; Z95.5 Presence of coronary angioplasty implant and graft; Z95.1 Presence of aortocoronary bypass graft; Z79.899 Other long term (current) drug therapy; Z98.890 Other specified postprocedural states; Z88.1 Allergy status to other antibiotic agents; I25.2 Old myocardial infarction; Z87.820 Personal history of traumatic brain injury; Z88.5 Allergy status to narcotic agent
CPT/HCPCS: 36415; 36430; 76000; 80048; 83735; 84100; 85025; 85027; 85610; 86850; 86900; 86901; 86922; 87635; 93005; 93010; 93306; 93970; 94640; C1713; J0690; J2270; J2405; J2704; J3010; J3490; J7620; P9016; S0028; U0003

== ENCOUNTER 2022-05-26 17:19 | Emergency (ER) | payer MEDICARE | END 2022-05-26 19:00 | disposition home or self-care (01) | LOC: ERS 17:19 | DX: U07.1 COVID-19 (principal); I11.0 Hypertensive heart disease with heart failure; I50.9 Heart failure, unspecified; I25.10 Atherosclerotic heart disease of native coronary artery without angina pectoris; I48.91 Unspecified atrial fibrillation; M41.9 Scoliosis, unspecified; I69.354 Hemiplegia and hemiparesis following cerebral infarction affecting left non-dominant side; Z95.1 Presence of aortocoronary bypass graft; Z86.718 Personal history of other venous thrombosis and embolism; Z79.01 Long term (current) use of anticoagulants; Z79.82 Long term (current) use of aspirin; Z79.899 Other long term (current) drug therapy | CPT/HCPCS: 71045; 93005 ==

== ENCOUNTER 2022-08-25 09:54 | Outpatient (CLI) | payer MEDICARE ==
[2022-08-25 11:25] LABS: Mean Corpuscular HGB CONC 33.6 g/dL (32.0-36.0); Mean Corpuscular Hemoglobin 35.6 pg (27.0-33.0); Mean Corpuscular Volume 105.8 fl (81.2-95.1); Mean Platelet Volume 9.8 fl (7.4-10.4); Platelet Count 281 10x3/uL (150-450); RBC Distribution Width 14.7 % (11.5-14.5); Red Blood Cell (RBC) Count 3.09 10x6/uL (4.32-5.72); White Blood Cell (WBC) Count 4.9 10x3/uL (3.5-10.5)
[2022-08-25 11:54] LABS: PTT 28.3 sec (22.0-33.0); Prothrombin Time 10.9 sec (9.5-12.1)
[2022-08-25 11:56] LABS: ALT (SGPT) 14 U/L (8-55); AST (SGOT) 19 U/L (5-34); Albumin 3.8 g/dL (3.4-4.8); Alkaline Phosphatase 86 U/L (40-110); Anion Gap 12 mmol/L (10-20); BUN (Urea Nitrogen) 29 mg/dL (8.4-25.7); Bilirubin, Direct 0.3 mg/dL (0.1-0.3); Bilirubin, Total 0.9 mg/dL (0.2-1.2); Calc. Creatinine Clearance 0 mL/min (70-130); Calcium 9.3 mg/dL (7.8-10.44); Carbon Dioxide 25 mmol/L (23-31); Chloride 108 mmol/L (98-107); Estimated GFR 37; Glucose 89 mg/dL (83-110); Potassium 4.3 mmol/L (3.5-5.1); Protein, Total 6.1 g/dL (5.8-8.1); Sodium 141 mmol/L (136-145)
== END 2022-08-25 09:55 | disposition home or self-care (01) ==
LOC: LABBT 09:54
PROVIDERS: ATTEND Internal Medicine Cardiovascular Disease
DX: Z01.818 Encounter for other preprocedural examination (principal); I47.1 Supraventricular tachycardia
CPT/HCPCS: 71046; 80048; 80076; 85027; 85610; 85730; 93005; 93010

== ENCOUNTER 2024-08-05 08:38 | Day surgery (SDC) | payer MEDICARE ==
[~2024-08-05 08:38] MED LIST: Acetaminophen 500 MG TAB PO SCH; diphenhydrAMINE 25 MG CAP PO SCH
[2024-08-05] MEDS ORDERED: Acetaminophen 500 MG TAB ONE (09:03)
[2024-08-05] MEDS ORDERED: diphenhydrAMINE 25 MG CAP ONE (09:04)
[2024-08-05 14:08] VITALS: BP 106/53; TEMP 97.9
== END 2024-08-05 14:09 | disposition home or self-care (01) ==
LOC: ONC/OP 08:38
PROVIDERS: ATTEND Internal Medicine
DX: D64.9 Anemia, unspecified (principal); D69.6 Thrombocytopenia, unspecified
CPT/HCPCS: 36430; 86850; 86900; 86901; 86920; 86922; P9016

== ENCOUNTER 2024-08-22 08:24 | Day surgery (SDC) | payer MEDICARE ==
[2024-08-22] MEDS ORDERED: Acetaminophen 500 MG TAB ONE (09:07)
[2024-08-22] MEDS: Acetaminophen 500 MG TAB PO SCH (09:08)
[2024-08-22] MEDS: diphenhydrAMINE 25 MG CAP PO SCH (09:09)
[2024-08-22 10:47] VITALS: BP 107/54; TEMP 98
[2024-08-22] MEDS ORDERED: FLU (Fluad Triv) TS24-25 (65UP)/MF59C/PF 45 MCG/0.5 ML Syringe IM ONE (14:00)
== END 2024-08-22 13:24 | disposition home or self-care (01) ==
LOC: ONC/OP 08:24
PROVIDERS: ATTEND Internal Medicine
DX: D64.9 Anemia, unspecified (principal); D69.6 Thrombocytopenia, unspecified; Z88.1 Allergy status to other antibiotic agents; Z88.5 Allergy status to narcotic agent
CPT/HCPCS: 36430; 86850; 86900; 86901; 86902; 86920; 86922; P9016

== ENCOUNTER 2024-10-02 10:03 | Day surgery (SDC) | payer MEDICARE ==
[2024-10-02] MEDS ORDERED: diphenhydrAMINE 25 MG CAP ONE (12:41)
[2024-10-02] MEDS: Acetaminophen 500 MG TAB PO SCH (12:43)
[2024-10-02] MEDS: diphenhydrAMINE 25 MG CAP PO SCH (12:43)
[2024-10-02 15:25] VITALS: BP 115/57; TEMP 97.8
== END 2024-10-02 15:28 | disposition home or self-care (01) ==
LOC: ONC/OP 10:03
PROVIDERS: ATTEND Internal Medicine
DX: D64.9 Anemia, unspecified (principal); D69.6 Thrombocytopenia, unspecified; Z88.1 Allergy status to other antibiotic agents; Z88.5 Allergy status to narcotic agent
CPT/HCPCS: 36430; 86850; 86900; 86901; 86902; 86920; 86922; P9016

== ENCOUNTER 2024-10-17 10:09 | Day surgery (SDC) | payer MEDICARE ==
[2024-10-17] MEDS ORDERED: Acetaminophen 500 MG TAB ONE (10:18)
[2024-10-17] MEDS ORDERED: diphenhydrAMINE 25 MG CAP ONE (10:18)
[2024-10-17] MEDS: Acetaminophen 500 MG TAB PO SCH (10:20)
[2024-10-17] MEDS: diphenhydrAMINE 25 MG CAP PO SCH (10:20)
[2024-10-17 13:54] VITALS: BP 120/55; TEMP 98
== END 2024-10-17 13:54 | disposition home or self-care (01) ==
LOC: ONC/OP 10:09
PROVIDERS: ATTEND Internal Medicine
DX: D64.9 Anemia, unspecified (principal); D69.6 Thrombocytopenia, unspecified; Z88.1 Allergy status to other antibiotic agents; Z88.5 Allergy status to narcotic agent
CPT/HCPCS: 36430; 86850; 86900; 86901; 86902; 86920; 86922; P9016

== ENCOUNTER 2024-10-31 11:31 | Day surgery (SDC) | payer MEDICARE ==
[~2024-10-31 11:31] MED LIST changes: -Acetaminophen 500 MG TAB PO SCH
[2024-10-31] MEDS ORDERED: Acetaminophen 500 MG TAB ONE (12:01)
[2024-10-31] MEDS: Acetaminophen 500 MG TAB PO SCH (12:02)
[2024-10-31 15:06] VITALS: BP 107/59; TEMP 97.9
== END 2024-10-31 15:12 | disposition home or self-care (01) ==
LOC: ONC/OP 11:31
PROVIDERS: ATTEND Internal Medicine
DX: N18.4 Chronic kidney disease, stage 4 (severe) (principal); D63.1 Anemia in chronic kidney disease; D69.6 Thrombocytopenia, unspecified; Z88.1 Allergy status to other antibiotic agents
CPT/HCPCS: 36430; 86850; 86900; 86901; 86902; 86920; 86922; P9016

== ENCOUNTER 2024-11-06 10:39 | Outpatient (CLI) | payer MEDICARE | END 2024-11-06 10:40 | disposition home or self-care (01) | LOC: BICMAMMO 10:39 | PROVIDERS: ATTEND Internal Medicine | DX: M85.80 Other specified disorders of bone density and structure, unspecified site (principal); M81.0 Age-related osteoporosis without current pathological fracture | CPT/HCPCS: 77080 ==

== ENCOUNTER 2024-11-07 09:56 | Day surgery (SDC) | payer MEDICARE ==
[2024-11-07] MEDS ORDERED: Acetaminophen 500 MG TAB ONE (10:28)
[2024-11-07] MEDS: Acetaminophen 500 MG TAB PO SCH (10:30)
[2024-11-07 15:06] VITALS: BP 122/60; TEMP 97.7
== END 2024-11-07 14:17 | disposition home or self-care (01) ==
LOC: ONC/OP 09:56
PROVIDERS: ATTEND Internal Medicine
DX: N18.4 Chronic kidney disease, stage 4 (severe) (principal); D63.1 Anemia in chronic kidney disease; Z88.1 Allergy status to other antibiotic agents; Z79.899 Other long term (current) drug therapy
CPT/HCPCS: 36430; 86850; 86900; 86901; 86920; 86922; P9016

== ENCOUNTER 2024-11-14 10:42 | Day surgery (SDC) | payer MEDICARE ==
[2024-11-14] MEDS ORDERED: Acetaminophen 500 MG TAB ONE (11:06)
[2024-11-14] MEDS: Acetaminophen 500 MG TAB PO SCH (11:08)
[2024-11-14] MEDS: diphenhydrAMINE 25 MG CAP PO SCH (11:08)
[2024-11-14 14:33] VITALS: BP 109/54; TEMP 98
== END 2024-11-14 14:34 | disposition home or self-care (01) ==
LOC: ONC/OP 10:42
PROVIDERS: ATTEND Internal Medicine
DX: N18.4 Chronic kidney disease, stage 4 (severe) (principal); D63.1 Anemia in chronic kidney disease; D69.6 Thrombocytopenia, unspecified; Z88.1 Allergy status to other antibiotic agents; Z79.899 Other long term (current) drug therapy
CPT/HCPCS: 36430; 86850; 86900; 86901; 86902; 86920; 86922; P9016

== ENCOUNTER 2024-11-28 10:33 | Day surgery (SDC) | payer MEDICARE ==
[2024-11-28] MEDS: diphenhydrAMINE 25 MG CAP PO SCH (11:21)
[2024-11-28] MEDS: Acetaminophen 500 MG TAB PO SCH (11:21)
[2024-11-28 14:09] VITALS: BP 107/53; TEMP 97.6
== END 2024-11-28 14:12 | disposition home or self-care (01) ==
LOC: ONC/OP 10:33
PROVIDERS: ATTEND Internal Medicine
DX: N18.4 Chronic kidney disease, stage 4 (severe) (principal); D63.1 Anemia in chronic kidney disease; D69.6 Thrombocytopenia, unspecified; Z79.899 Other long term (current) drug therapy; Z88.1 Allergy status to other antibiotic agents; Z88.5 Allergy status to narcotic agent
CPT/HCPCS: 36430; 86850; 86900; 86901; 86902; 86920; 86922; P9016

== ENCOUNTER 2024-12-12 08:58 | Day surgery (SDC) | payer MEDICARE ==
[2024-12-12] MEDS ORDERED: Acetaminophen 500 MG TAB ONE (09:26)
[2024-12-12] MEDS ORDERED: diphenhydrAMINE 25 MG CAP ONE (09:27)
[2024-12-12] MEDS: diphenhydrAMINE 25 MG CAP PO SCH (09:28)
[2024-12-12] MEDS: Acetaminophen 500 MG TAB PO SCH (09:28)
[2024-12-12 15:05] VITALS: BP 115/59; TEMP 98
[2024-12-12 15:35] LABS: #Basophils Less than 0.03 10x3/uL (0.0-0.2); %Basophils 0.2 % (0.0-1.0); %Eosinophils 4.2 % (0.0-10.0); %Lymphocytes 26.3 % (21.0-51.0); %Monocytes 6.9 % (0.0-10.0); %Neutrophils 61.9 % (42.0-75.0); Hematocrit 25.6 % (42.0-52.0); Hemoglobin 8.4 g/dL (14.0-18.0); Mean Corpuscular HGB CONC 32.8 g/dL (32.0-36.0); Mean Corpuscular Hemoglobin 29.9 pg (27.0-31.0); Mean Corpuscular Volume 91.1 fL (78.0-98.0); Mean Platelet Volume 9.3 fL (7.4-10.4); Platelet Count 346 10x3/uL (130-400); Red Blood Cell (RBC) Count 2.81 mill/uL (4.70-6.10)
== END 2024-12-12 15:47 | disposition home or self-care (01) ==
LOC: ONC/OP 08:58
PROVIDERS: ATTEND Internal Medicine
DX: N18.4 Chronic kidney disease, stage 4 (severe) (principal); D63.1 Anemia in chronic kidney disease; D69.6 Thrombocytopenia, unspecified; Z79.899 Other long term (current) drug therapy; Z88.1 Allergy status to other antibiotic agents; Z88.5 Allergy status to narcotic agent
CPT/HCPCS: 36430; 85025; 86850; 86900; 86901; 86902; 86920; 86922; P9016